=== PATIENT | female | born 1940 | race Caucasian/White ===

== ENCOUNTER → 2016-08-31 | Outpatient (CLI) | payer OTHER ==
[~2016-08-31] MED LIST: AMLO-110 PO; ASPCH81 PO; ATOR-24 PO; ISOS60TA25 PO; NTRGSL/4 UT; PRLSR20 PO
[2016-08-31 13:44] LABS: CALCIUM 9.2 mg/dl (8.5-10.1)
[2016-08-31 13:49] LABS: ALT/SGPT 30 U/L (12-78); BLOOD UREA NITROGEN 12 mg/dl (7-18); BUN/CREATININE RATIO 14.6 (10-20); CARBON DIOXIDE 27 mmol/L (21-32); CHLORIDE 108 mmol/L (98-107); CHOLESTEROL 127 mg/dl (0-200); CREATININE 0.82 mg/dl (0.60-1.20); GLUCOSE 94 mg/dl (70-99); MAGNESIUM 2.4 mg/dl (1.8-2.4); POTASSIUM 3.9 mmol/L (3.5-5.1); SODIUM 143 mmol/L (136-145); TRIGLYCERIDES 93 mg/dl (0-150); VERY LOW DENSITY LIPOPROT CALC 19 mg/dl
[2016-08-31 13:54] LABS: CHOLESTEROL/HDL RATIO 2.2; HDL CHOLESTEROL 57 mg/dl; LDL CHOLESTEROL CALCULATED 51 mg/dl
--- NOTE | 2016-09-08 12:50 | CODING QUERY MEDICAL NECESSITY ---
CQSUPPORTING DIAGNOSIS NEEDED A supporting diagnosis is required for the test/procedure performed on this patient in order for us to be reimbursed by the patient's insurance. Please provide a supporting diagnosis for the following test/procedure listed below next to the test name along with your signature. *If there is no additional diagnosis for this patient that would support the following test/procedure please document that below next to the test/procedure. Test(s)/Procedure(s) that require a supporting diagnosis: DOS 08/31/16 VITAMIN B12 Provider Signature: Date: Thank you Mayelin Blanco [employer] Once completed, please kindly fax back to [phone] For questions please call [phone]
== END | disposition home or self-care (01) ==
LOC: C.LABPBG 10:24
PROVIDERS: ATTEND Family Medicine
DX: I10 Essential (primary) hypertension (principal); E78.5 Hyperlipidemia, unspecified; R12 Heartburn

== ENCOUNTER → 2016-10-07 | Outpatient (CLI) | payer OTHER ==
[2016-10-07 17:44] LABS: URINE APPEARANCE CLOUDY (CLEAR); URINE BILIRUBIN NEG (NEG); URINE COLOR DK YELLOW; URINE NITRITE NEG (NEG); URINE SPECIFIC GRAVITY 1.026 (1.000-1.030); UROBILINOGEN NEG (NEG); ZZUR CULT IF INDIC CLEAN CATCH YES
[2016-10-07 17:58] LABS: MANUAL MICROSCOPIC REQUIRED? NO; REVIEW REQ? YES
== END | disposition home or self-care (01) ==
LOC: C.LABPBG 13:17
PROVIDERS: ATTEND Family Medicine
DX: R35.0 Frequency of micturition (principal)

== ENCOUNTER → 2016-12-13 | Outpatient (CLI) | payer OTHER ==
[2016-12-13 17:43] LABS: URINE APPEARANCE TURBID (CLEAR); URINE BILIRUBIN NEG (NEG); URINE COLOR YELLOW; URINE NITRITE NEG (NEG); URINE SPECIFIC GRAVITY 1.016 (1.000-1.030); UROBILINOGEN NEG (NEG)
[2016-12-13 17:45] LABS: MANUAL MICROSCOPIC REQUIRED? NO; REVIEW REQ? YES
[2016-12-13 17:57] LABS: URINE MUCUS PRESENT (NONE PRSENT)
== END | disposition home or self-care (01) ==
LOC: C.LABPBG 14:45
PROVIDERS: ATTEND Family Medicine
DX: R35.0 Frequency of micturition (principal)

== ENCOUNTER 2019-02-11 19:54 | Inpatient (IN) ==
[2019-02-11] MEDS ORDERED: ONDANSETRON INJ 2 MG/ML 2 ML VIAL IV STA ×2 (20:18→21:47)
--- NOTE | 2019-02-11 20:23 | Emergency Department Note ---
Entered by Ramya Hopkins acting as a scribe for Christiano Sarabia DO History of Present Illness General Chief complaint: Back Injury/Pain Stated complaint: BACK PAIN, KIDNEY STONE, NAUSEA Time Seen by Provider: 02/11/19 20:11 Source: patient and family History of Present Illness Onset (ago): day(s) 1 Location: abdomen (bilateral flank pain) Radiation: back Pain Consistency: + constant Maximum Pain Intensity: 10 Associated symptoms: + other (nausea, dry heaves, hematuria, dark urine) The patient is a 78 year old female with a PMHx pertinent for kidney stones (no stent) who presents to the Emergency Room with complaints of back and bilateral flank pain. The patient was seen in the ED 1 day ago for the same and was given Fentanyl with no relief. Today she states her left flank pain has worsened associated with nausea, dry heaves, hematuria, and dark urine. She is prescribed Oxycodone at home and took it 2-3 times today with only minor relief. She states that she is unsure if she has a fever. Additionally she reports that she did not have a bowel movement today. The patient offers no additional complaints at this time. Home Medications Home Medications Medication Instructions Recorded Confirmed Type amlodipine 5 mg tablet 5 mg PO DAILY #90 tab 09/07/18 02/11/19 Rx atorvastatin 40 mg tablet 40 mg PO DAILY #90 tab 09/07/18 02/11/19 Rx omeprazole 20 mg capsule,delayed 20 mg PO DAILY #90 cap 09/07/18 02/11/19 Rx release aspirin 81 mg tablet,delayed 81 mg PO DAILY 09/19/18 02/11/19 History release nitroglycerin 0.4 mg sublingual 0.4 mg SL UD PRN tab 09/19/18 02/11/19 History tablet triamcinolone acetonide 0.1 % See Rx Instructions TOPICAL 09/19/18 02/11/19 History topical cream .COMPLEX PRN gm isosorbide mononitrate 60 mg 90 mg PO DAILY #45 tab 11/30/18 02/11/19 Rx tablet,extended release 24 hr tamsulosin [Flomax] 0.4 mg PO DAILY PRN 02/11/19 02/11/19 History Allergies Allergy/AdvReac Type Severity Reaction Status Date / Time amitriptyline Allergy Severe causes Verified 02/11/19 20:35 facial paralysis adhesive tape Allergy Intermediate hives Verified 02/11/19 20:35 acetaminophen [From Percocet] Allergy Unknown PT CAN NOT Verified 02/11/19 20:35 VERIFY perphenazine Allergy Unknown FACIAL Verified 02/11/19 20:35 TWITCHING prochlorperazine Allergy Unknown CAN'T Verified 02/11/19 20:35 REMEMBER diazepam AdvReac Severe hallucinati Verified 02/11/19 20:35 ons oxycodone AdvReac Intermediate GI Upset Verified 02/11/19 20:35 Past Med/Surg History Medical History Hyperlipidemia Hypertension Lupus Myocardial infarction Surgical History History of cataract surgery History of colonoscopy History of esophagogastroduodenoscopy History of rotator cuff surgery History of sinus surgery Hx of appendectomy Hx of cholecystectomy Hx of hysterectomy Family History Mother Breast cancer Brother Myocardial infarction Stroke Heart disease brother had rheumatic fever that caused heart problems Grandfather Colon cancer Social History Preferred Language: Kinyarwanda marital status: Current Living Situation: Spouse Feels Safe at Home: Yes Smoking Status: Never smoker Hx Alcohol Use: No Hx Substance Use: No Dental Care, Regularly: No Physical Activity Frequency: Does not Exercise Review of Systems See HPI for pertinent positives & negatives. and A total of 10 systems reviewed and were otherwise negative Physical Exam Vital Signs Vital Signs - 24 hr 02/11/19 20:06 02/11/19 21:42 02/11/19 22:40 Temperature 36.8 C Temperature Source Oral Pulse Rate 96 H Pulse Rate [Radial] 97 H 96 H Pulse Rhythm [Radial] Regular Regular Respiratory Rate 20 17 18 Respiratory Effort / Characteristics Non-Labored Non-Labored Respiratory Depth Normal Normal Respiratory Pattern Regular Regular Regular Blood Pressure 138/79 Blood Pressure [Right Arm] 136/70 138/74 Blood Pressure Mean 98 Blood Pressure Mean [Right Arm] 92 95 Blood Pressure Position Sitting Pulse Oximetry 95 93 96 Oxygen Delivery Method Room Air Room Air Nasal Cannula Oxygen Flow Rate 2 Sepsis Recent Fever Within 48 Hours No Sepsis New/Unexplained Change in Mental Status No Sepsis Action Taken by Nursing No Action Required GENERAL: The patient is awake and alert. She is very anxious appearing and appears to be in significant pain. EYES: The conjunctivae are clear. The pupils are round and reactive. EARS, NOSE, MOUTH AND THROAT: The nose is without any evidence of any deformity. Mucous membranes are moist tongue is midline NECK: The neck is nontender and supple. RESPIRATORY: Normal respiratory effort is noted there is no evidence of wheezing rhonchi or rales CARDIOVASCULAR: Regular rate and rhythm noted there no murmurs rubs or gallops normal S1 normal S2 GASTROINTESTINAL: The abdomen is mildly distended but soft. There is no specific guarding or rigidity noted. BACK: No midline tenderness was noted. There is significant left CV angle tenderness to percussion. MUSCULOSKELETAL/EXTREMITIES: There is no evidence of gross deformity full range of motion is noted in the hips and shoulders SKIN: There is no obvious evidence of any rash. There are no petechiae, pallor or cyanosis noted. NEUROLOGIC: Patient is awake alert and oriented x3 strength is symmetric patellar reflexes are 2+ bilaterally Course Course 2019: Past medical records reviewed. The patient was evaluated in room B12B. A complete history and physical exam was performed. 2313: I contacted Dr. Genao, [facility]. I am waiting for him to call back to accept the patient for admission. Administered Medications Morphine Sulfate (Morphine Sulfate) 4 mg IV Q15M PRN PRN Reason: Pain Stop: 02/25/19 20:17 Last Admin: 02/11/19 21:41 Dose: 4 mg Documented by: [id number] Admin: 02/11/19 20:35 Dose: 4 mg Documented by: [id number] Discontinued Medications Sodium Chloride (Nss 1000ml) 1,000 mls @ 999 mls/hr IV .Q1H1M SHAWN Stop: 02/11/19 21:30 Last Infusion: 02/11/19 21:32 Dose: 0 mls/hr Documented by: [id number] Admin: 02/11/19 20:30 Dose: 999 mls/hr Documented by: [id number] Ketorolac Tromethamine (Toradol) 10 mg IV NOW ONE Stop: 02/11/19 22:24 Last Admin: 02/11/19 22:26 Dose: 10 mg Documented by: [id number] Ondansetron HCl (Zofran) 4 mg IV NOW STA Stop: 02/11/19 20:19 Last Admin: 02/11/19 20:34 Dose: 4 mg Documented by: [id number] Ondansetron HCl (Zofran) 4 mg IV NOW STA Stop: 02/11/19 21:48 Last Admin: 02/11/19 21:50 Dose: 4 mg Documented by: [id number] Impression & Plan Renal colic, Hydronephrosis of left kidney, Intractable abdominal pain Discharge Plan Visit Data Chief Complaint: Back Injury/Pain Stated Complaint: BACK PAIN, KIDNEY STONE, NAUSEA ED Provider: Christiano Sarabia Discharge Problem: Renal colic, Hydronephrosis of left kidney, Intractable abdominal pain Patient Disposition: Being Evaluated by Hospitalist Forms Stand Alone Forms: My [facility] [place] [employer] Prescriptions Prescriptions: No Action atorvastatin 40 mg tablet 40 mg PO DAILY Qty: 90 RF: 1 amlodipine 5 mg tablet 5 mg PO DAILY Qty: 90 RF: 1 omeprazole 20 mg capsule,delayed release(DR/EC) 20 mg PO DAILY Qty: 90 RF: 1 isosorbide mononitrate 60 mg tablet extended release 24 hr 90 mg PO DAILY Qty: 45 RF: 5 nitroglycerin 0.4 mg tablet, sublingual 0.4 mg SL UD PRN (Reason: Chest Pain) RF: 0 aspirin [Adult Aspirin Regimen] 81 mg tablet,delayed release (DR/EC) 81 mg PO DAILY RF: 0 triamcinolone acetonide 0.1 % cream See Rx Instructions topical .COMPLEX PRN (Reason: WHEN NEEDED) RF: 0 tamsulosin [Flomax] 0.4 mg capsule 0.4 mg PO DAILY PRN (Reason: WHEN NEEDED) RF: 0 Referrals Referrals: Verena Lara MD [Primary Care Provider] - Medical Decision Making Differential Diagnosis Differential diagnosis includes but is not limited to etiologies such as renal colic, appendicitis, diverticulitis, mesenteric ischemia, aortic pathology, infections, inflammatory bowel disease, PUD, biliary pathology, UTI, as well as others were entertained. Medical Records Attestation: I reviewed the patient's medical records. Home Medications Current Medication List: was personally reviewed by me Laboratory Data Attestation: I reviewed the patient's lab results. Result diagrams: 02/11/19 20:30 02/11/19 20:30 Lab Results 11/17/19 11/17/19 11/17/19 Range/Units 20:30 20:30 21:43 WBC 3.58 L (4.8-10.8) K/uL RBC 4.40 (4.2-5.4) M/uL Hgb 13.6 (12.0-16.0) g/dL Hct 39.4 (37-47) % MCV 89.5 (80-100) fL MCH 30.9 (25-34) pg MCHC 34.5 (32-36) g/dL RDW Std Deviation 43.0 (36.4-46.3) fL RDW Coeff of Hanas 13.2 (11.5-14.5) % Plt Count 172 (130-400) K/uL MPV 9.0 (7.4-10.4) fL Immature Gran % (Auto) 0.3 % Neut % (Auto) 55.8 % Lymph % (Auto) 28.2 % [place] % (Auto) 14.0 % Eos % (Auto) 1.4 % Baso % (Auto) 0.3 % Immature Gran # (Auto) 0.01 (0.00-0.02) K/uL Neut # (Auto) 2.00 (1.4-6.5) K/uL Lymph # (Auto) 1.01 L (1.2-3.4) K/uL [place] # (Auto) 0.50 (0.11-0.59) K/uL Eos # (Auto) 0.05 (0-0.5) K/uL Baso # (Auto) 0.01 (0-0.2) K/uL Sodium 140 (136-145) mmol/L Potassium 3.7 (3.5-5.1) mmol/L Chloride 108 H (98-107) mmol/L Carbon Dioxide 24 (21-32) mmol/L Anion Gap 8.0 (3-11) BUN 12 (7-18) mg/dl Creatinine 0.73 (0.6-1.2) mg/dl Est Cr Clr Drug Dosing 57.9 ml/min Est GFR ( Amer) 92.1 Est GFR (Non-Af Amer) 79.4 BUN/Creatinine Ratio 15.8 (10-20) Glucose 122 H (70-99) mg/dl Calcium 9.7 (8.5-10.1) mg/dl Total Bilirubin 1.4 H (0.2-1) mg/dl AST 21 (15-37) U/L ALT 22 (12-78) U/L Alkaline Phosphatase 125 H (45-117) U/L Total Protein 6.5 (6.4-8.2) gm/dl Albumin 3.6 (3.4-5.0) gm/dl Globulin 2.9 (2.5-4.0) gm/dl Albumin/Globulin Ratio 1.2 (0.9-2) Lipase 104 (73-393) U/L Urine Color Yellow Urine Appearance Clear (Clear) Urine pH 5.0 (4.5-7.5) Ur Specific [place] >= 1.030 (1.000-1.030) Urine Protein 1+ H (Negative) Urine Glucose (UA) Negative (Negative) Urine Ketones Negative (Negative) Urine Blood 3+ H (Negative) Urine Nitrite Negative (Negative) Urine Bilirubin Negative (Negative) Urine Urobilinogen Negative (Negative) Ur Leukocyte Esterase Negative (Negative) Urine RBC >30 H (0-4) /hpf Urine WBC 5-10 H (0-5) /hpf Ur Epithelial Cells >30 H (0-5) /lpf Calcium Oxalate Crystal Present A (None Prsent) Urine Bacteria Negative (Negative) Urine Mucus Present A (None Prsent) Imaging Data Radiologist's Impression: Radiology results as stated below per my review and the radiologist's interpretation: KUB HISTORY: left flank pain COMPARISON: Abdomen and pelvis CT 02/11/2019. FINDINGS: The bowel gas pattern is unremarkable. There are no dilated loops of small bowel to suggest an obstruction. There are 4 adjacent stones within the mid left ureter at the level of the left L4 transverse process. Each stone dennis ures approximately 3 mm in size. No renal calculi identified. No pneumoperitoneum or pneumatosis. IMPRESSION: No change in the mid left ureteral stones. Electronically signed by: Alin Edwards M.D. 02/11/2019 9:05 PM Blood Pressure Blood Pressure Findings: Elevated blood pressure Blood Pressure Disposition: elevated BP felt to be situational MDM Narrative The patient is a 78-year-old female who presented to the emergency department for an evaluation of abdominal pain and left flank pain. The patient was seen in our facility recently with similar complaints. She was treated with pain medication and her CAT scan revealed a large ureteral calculus with resultant hydronephrosis. The patient was feeling much better and was allowed to be discharged home with follow-up with her primary care physician. The patient had very severe return of pain today and return to the emergency department for further evaluation. The patient was treated with IV pain medication in the emergency department. She was treated with IV fluids. She was reevaluated multiple times. She continues to have very significant pain and even required oxygen because of the amount of pain medication she received in the emergency department. For this reason I discussed her case with the on-call [facility] hospitalist group. They have agreed to evaluate the patient in the emergency department for further management disposition. The scribe's documentation has been prepared under my direction and personally reviewed by me in its entirety. I confirm that the note above accurately reflects all work, treatment, procedures, and medical decision making performed by me.
[2019-02-11] MEDS ORDERED: SODIUM CHLORIDE 0.9% 1000ML 1,000 ML IV SCH (20:30)
[2019-02-11] MEDS: MoRPHine SULFATE 4 MG/ML 1 ML CARP\\VIAL IV PRN ×2 (20:35→21:41)
[2019-02-11 20:36] LABS: Basophils # (auto) 0.01 K/uL (0-0.2); Basophils % (auto) 0.3 %; Eosinophils # (auto) 0.05 K/uL (0-0.5); Eosinophils % (auto) 1.4 %; Hematocrit (blood only) 39.4 % (37-47); Hemoglobin 13.6 g/dL (12.0-16.0); Immature Granulocytes # (auto) 0.01 K/uL (0.00-0.02); Immature Granulocytes % (auto) 0.3 %; Lymphocytes # (auto) 1.01 K/uL (1.2-3.4); Lymphocytes % (auto) 28.2 %; Mean Corpuscular Hemoglobin 30.9 pg (25-34); Mean Corpuscular Hgb Conc 34.5 g/dL (32-36); Mean Corpuscular Volume 89.5 fL (80-100); Neutrophils % (auto) 55.8 %; Platelet Count 172 K/uL (130-400); RDW Coefficient of Variation 13.2 % (11.5-14.5); White Blood Count 3.58 K/uL (4.8-10.8)
--- NOTE | 2019-02-11 21:07 | XRay Report ---
KUB HISTORY: left flank pain COMPARISON: Abdomen and pelvis CT 02/11/2019. FINDINGS: The bowel gas pattern is unremarkable. There are no dilated loops of small bowel to suggest an obstruction. There are 4 adjacent stones within the mid left ureter at the level of the left L4 transverse process. Each stone measures approximately 3 mm in size. No renal calculi identified. No p neumoperitoneum or pneumatosis. IMPRESSION: No change in the mid left ureteral stones. Electronically signed by: Alin Edwards M.D. 02/11/2019 9:05 PM
[2019-02-11 21:12] LABS: Albumin Level 3.6 gm/dl (3.4-5.0); BUN Creatinine Ratio 15.8 (10-20); Calcium 9.7 mg/dl (8.5-10.1); Creatinine Clr Calc Pharmacy 57.9 ml/min; Est GFR (African American) 92.1; Est GFR (Non-African American) 79.4; Potassium 3.7 mmol/L (3.5-5.1)
[2019-02-11 21:15] LABS: Albumin Globulin Ratio 1.2 (0.9-2); Bilirubin,Total 1.4 mg/dl (0.2-1); Globulin 2.9 gm/dl (2.5-4.0); Total Protein 6.5 gm/dl (6.4-8.2)
[2019-02-11] MEDS ORDERED: KETOROLAC TROMETHAMINE 15 MG/ML VIAL IV ONE (22:23)
[2019-02-11 22:24] LABS: Appearance Urine Clear (Clear); Blood Urine 3+ (Negative); Color Urine Yellow; Glucose Urine UA Negative (Negative); Ketones Urine Negative (Negative); Leukocyte Esterase Urine Negative (Negative); Nitrite Urine Negative (Negative); Protein Urine 1+ (Negative); Specific Gravity Urine >= 1.030 (1.000-1.030); Urobilinogen Urine Negative (Negative)
[2019-02-11 22:31] LABS: Bilirubin Urine Negative (Negative); Ictotest Urine Negative (Negative)
[2019-02-11 22:32] LABS: Epithelial Cell Urine >30 /lpf (0-5)
[2019-02-11 22:33] LABS: RBC Urine >30 /hpf (0-4)
[2019-02-11 22:36] LABS: Bacteria Urine Negative (Negative)
[2019-02-11 22:37] LABS: Calcium Oxalate Crystals Urine Present (None Prsent); Mucus Urine Present (None Prsent)
[2019-02-12] MEDS ORDERED: PROMETHAZINE 12.5 MG/50.5 ML BAG IV STA (00:06)
[2019-02-12] MEDS ORDERED: PROMETHAZINE 12.5 MG/50.5 ML NSS IV ONE (00:12)
--- NOTE | 2019-02-12 00:17 | History & Physical Report ---
Date of Service February 12, 2019 Assessment & Plan (1) Hypertension: (2) Calculus of left ureter: (3) Hydroureteronephrosis: 78yoF with hx of HTN, HLD, NSTEMI in 2009, CAD, lupus and GERD presents with worsening renal colic x 7 days. Found to have L ureteral calculi and hydroureteronephrosis L ureteral calculi and Hydroureteronephorosis No WBC elevation, afebrile CT abdomen 02/10: Mild left-sided hydroureteronephrosis secondary to a bilobed or two subadjacent ureteral calculi of the left ureter at the level of L3-L4 overall measuring 5 x 3 x 11 mm. Nonobstructing left nephrolithiasis. KUB today: No change in the mid left ureteral stones Toradol and Dilaudid as needed for pain control Zofran as needed for nausea Started on Rocephin Tamsulosin 0.4 mg daily Urology consulted N.p.o. after midnight for possible procedure, on IV fluids Hypertension/CAD/hyperlipidemia Continue home amlodipine, isosorbide mononitrate, atorvastatin, aspirin GERD Continue home omeprazole FEN/GI: N.p.o. on IV fluids DVT prophylaxis: SCDs only, chemical withheld in the setting of potential surgery Code: Full Disposition: MedSurg (4) Hyperlipidemia: (5) Lupus: History of Present Illness Chief Complaint: Renal Colic Primary Care Provider: Verena Lara MD 78yoF with hx of HTN, HLD, NSTEMI in 2009, CAD, lupus presents with worsening renal colic x 7 days. Patient presented to the ED yesterday and was discharged with home oxycodone and tamsulosin. Today patient had worsening pain not relieved with prescribed medication. Having constant L sided flank and abdominal pain, cramping in nature and 10/10. Associated with dark tea colored urine, suprapubic, RLQ and LLQ abdominal pain, chills, nausea, vomiting now, and dizziness. Pt is not sure if she has had a fever. Denies any dysuria, or increased urinary frequency. Denies any cp, sob, headache, diarrhea, hematochezia, and melena. Allergies Allergy/AdvReac Type Severity Reaction Status Date / Time amitriptyline Allergy Severe causes Verified 02/11/19 20:35 facial paralysis adhesive tape Allergy Intermediate hives Verified 02/11/19 20:35 acetaminophen [From Percocet] Allergy Unknown PT CAN NOT Verified 02/11/19 20:35 VERIFY perphenazine Allergy Unknown FACIAL Verified 02/11/19 20:35 TWITCHING prochlorperazine Allergy Unknown CAN'T Verified 02/11/19 20:35 REMEMBER diazepam AdvReac Severe hallucinati Verified 02/11/19 20:35 ons oxycodone AdvReac Intermediate GI Upset Verified 02/11/19 20:35 Home Medications Home Medications Medication Instructions Recorded Confirmed Type amlodipine 5 mg tablet 5 mg PO DAILY #90 tab 09/07/18 02/11/19 Rx atorvastatin 40 mg tablet 40 mg PO DAILY #90 tab 09/07/18 02/11/19 Rx omeprazole 20 mg capsule,delayed 20 mg PO DAILY #90 cap 09/07/18 02/11/19 Rx release aspirin 81 mg tablet,delayed 81 mg PO DAILY 09/19/18 02/11/19 History release nitroglycerin 0.4 mg sublingual 0.4 mg SL UD PRN tab 09/19/18 02/11/19 History tablet triamcinolone acetonide 0.1 % See Rx Instructions TOPICAL 09/19/18 02/11/19 History topical cream .COMPLEX PRN gm isosorbide mononitrate 60 mg 90 mg PO DAILY #45 tab 11/30/18 02/11/19 Rx tablet,extended release 24 hr tamsulosin [Flomax] 0.4 mg PO DAILY PRN 02/11/19 02/11/19 History Past Med/Surg History Medical History Hyperlipidemia Hypertension Lupus Myocardial infarction Surgical History History of cataract surgery History of colonoscopy History of esophagogastroduodenoscopy History of rotator cuff surgery History of sinus surgery Hx of appendectomy Hx of cholecystectomy Hx of hysterectomy Family History Mother Breast cancer Brother Myocardial infarction Stroke Heart disease brother had rheumatic fever that caused heart problems Grandfather Colon cancer Social History Preferred Language: Chinese Communication Ability: Effective Infrastructure Architect Required: No Beliefs That Will Affect Care: None marital status: Current Living Situation: Spouse Feels Safe at Home: Yes Safety Concerns: Feels Safe At This Time Smoking Status: Never smoker Hx Alcohol Use: No Hx Substance Use: No Dental Care, Regularly: No Physical Activity Frequency: Does not Exercise Review of Systems Review of Systems: As per HPI Physical Exam Physical Exam: General: In mild distress HEENT: dry oral mucosa Neuro: A&O x 4 Pulm: CTAB equal breath sounds bilaterally CV: RRR, no m/r/g, cap refill 3 secs Abdomen:+BS, LLQ, suprapubic and RLQ TTP, non-distended Back: L sided CVA tenderness to percussion LE: no LE edema, no calf TTP Results & Data Vital Signs (Past 12 Hours) Vital Signs Temp Pulse Pulse Resp BP BP Pulse Ox 02/11/19 23:51 95 02/11/19 22:40 96 H 18 138/74 96 02/11/19 21:42 97 H 17 136/70 93 02/11/19 20:06 36.8 C 96 H 20 138/79 95 Laboratory Results Abnormal lab results 02/11/19 02/11/19 02/11/19 Range/Units 20:30 20:30 21:43 WBC 3.58 L (4.8-10.8) K/uL Lymph # (Auto) 1.01 L (1.2-3.4) K/uL Chloride 108 H (98-107) mmol/L Glucose 122 H (70-99) mg/dl Total Bilirubin 1.4 H (0.2-1) mg/dl Alkaline Phosphatase 125 H (45-117) U/L Urine Protein 1+ H (Negative) Urine Blood 3+ H (Negative) Urine RBC >30 H (0-4) /hpf Urine WBC 5-10 H (0-5) /hpf Ur Epithelial Cells >30 H (0-5) /lpf Calcium Oxalate Crystal Present A (None Prsent) Urine Mucus Present A (None Prsent) Diagnostic Findings KUB HISTORY: left flank pain COMPARISON: Abdomen and pelvis CT 02/11/2019. FINDINGS: The bowel gas pattern is unremarkable. There are no dilated loops of small bowel to suggest an obstruction. There are 4 adjacent stones within the mid left ureter at the level of the left L4 transverse process. Each stone measures approximately 3 mm in size. No renal calculi identified. No pneumoperitoneum or pneumatosis. IMPRESSION: No change in the mid left ureteral stones. Code Status & VTE Plan Code Status Full Code per discussion with patient and daughter VTE Prophylaxis Plan VTE Prophylaxis will be ordered: Yes Supervising Physician Co-Signing Physician Notes Attending addendum: I have physically seen this patient, have supervised the medical residents activities, and agree with the H&P unless as otherwise noted. Assessment and Plan: Left ureteral calculi x4, with hydroureteronephrosis- NPO IV fluids Ceftriaxone 1 g IV daily Zofran 4 mg IV every 6 hours as needed Toradol IV as needed moderate pain. Dilaudid IV as needed severe pain. Consult urology Remainder of orders and notations as noted Resident Activity Tracking Resident Involvement: Resident Care Provided Care Provided: Adult Hospital Medicine
[2019-02-12] MEDS ORDERED: TRIAMCINOLONE ACET 0.1% CR 15 GM TUBE TOP PRN (00:55)
[2019-02-12] MEDS ORDERED: ONDANSETRON INJ 2 MG/ML 2 ML VIAL IV PRN ×2 (00:55→15:17)
[2019-02-12] MEDS ORDERED: HYDROmorphone INJ 0.5 MG/0.5 ML SYR IV PRN (00:55)
[2019-02-12] MEDS ORDERED: NITROGLYCERIN SL 0.4 MG/TAB TAB SL PRN (00:55)
[2019-02-12] MEDS: LACTATED RINGER'S 1,000 ML IV SCH ×3 (01:20→18:09)
[2019-02-12] MEDS ORDERED: cefTRIAXone SODIUM 1,000 MG in DEXTROSE 5% 50 ML IV SCH (02:00)
[2019-02-12] MEDS: KETOROLAC TROMETHAMINE 15 MG/ML VIAL IV PRN ×2 (02:27→08:31)
--- NOTE | 2019-02-12 03:57 | Billing Data ---
Coding Level of Care Code 30590 Initial Inpt Care Lvl 2
[2019-02-12] MEDS: ISOSORBIDE MONO EXTENDED REL 60 MG TABCR PO SCH (08:00)
[2019-02-12] MEDS: PANTOprazole 40 MG TAB PO SCH (08:01)
[2019-02-12] MEDS: ATORVASTATIN 40 MG TAB PO SCH (08:01)
[2019-02-12] MEDS: AMLODIPINE BESYLATE 5 MG TAB PO SCH (08:01)
[2019-02-12] MEDS: TAMSULOSIN HCL 0.4 MG CAP PO SCH (08:01)
[2019-02-12] MEDS: POLYETHYLENE (MIRALAX) 17 GM PACK PO SCH (08:02)
--- NOTE | 2019-02-12 08:19 | Medical Student H&P ---
Date of Service February 12, 2019 Assessment & Plan (1) Hypertension: continue amlodipine 5mg QID (2) Myocardial infarction: continue aspirin 81mg QID, isosorbide mononitrate 90mg QID, nitroglycerin, 0.4mg PRN (3) Hyperlipidemia: continue atorvastatin 40mg QID (4) Heartburn: continue omeprazole 20mg QID (5) Hydronephrosis of left kidney: * strain urine and bring in any stone that passes for analysis * Tamsulosin: 0.4 mg once daily until stone passage occurs or for up to 4 weeks * indications for urology consult: nausea, vomiting, have not passed stone after four to six weeks would need lithotripsy * lifestyle modifications: better hydration, reduced nuts, avoid wheat bran, decrease salt intake, reduced animal protein intake, increase calcium intake through foods or supplement (6) Renal colic: (7) Calculus of left ureter: (8) Dehydration: two liters per day of one-half isotonic saline in 5 percent dextrose, 20 mEq potassium chloride added per liter (9) Abdominal pain: intravenous morphine (5 mg) and ketorolac (15 mg), stopped ketorolac three days before anticipated lithotripsy (10) Hydroureteronephrosis: (11) Nausea and vomiting: Ondansetron/zofran: 4 mg IV two to four times per day History of Present Illness Chief Complaint: back pain Primary Care Provider: eVrena Lara MD Ms. Lyssa Gonsales is a 78y/o female with a past medical history of HLD, HTN, Lupus, [place] (2010), appendectomy, cholecystectomy, total hysterectomy and bilateral salpingo-oophorectomy, hx of right side kidney stones "many years ago" who presented to the hospital Friday 02/09 evening with back pain and pain in the lower areas of her abdomen. XR at the time confirmed nephrolithiasis and she was sent home with pain medications. She returned to the hospital yesterday 02/11 evening because the pain medication did not help her pain and the pain wo rsened. Pt describes pain to increase with any movement, stabbing pain in her back and lower abdomen, and states she feels pain mostly on the left side but at times also on the right. Pt states she had dark urine, without dysuria or burning. Pt states she feel the need to urinate more often but not much comes out. Pt states this pain is much worse than the kidney stones she naturally passed "many years ago". Pt states she has had some chills but no fever, some nausea, and has had some green emesis at times. Pt states her abdomen feels bloated and feels generalized pain all over her abdomen. Pt states she is still in constant pain, which improves with pain medication but does not resolve completely, only becomes a dull pain, and sharp pain returns as the medications wear off. Pt states she has not had a bowel movement since Tuesday, which she believes is because of the pain medications. Pt states she does not think she has passed any stones yet. Allergies Allergy/AdvReac Type Severity Reaction Status Date / Time amitriptyline Allergy Severe causes Verified 02/11/19 20:35 facial paralysis adhesive tape Allergy Intermediate hives Verified 02/11/19 20:35 acetaminophen [From Percocet] Allergy Unknown PT CAN NOT Verified 02/11/19 20:35 VERIFY perphenazine Allergy Unknown FACIAL Verified 02/11/19 20:35 TWITCHING prochlorperazine Allergy Unknown CAN'T Verified 02/11/19 20:35 REMEMBER diazepam AdvReac Severe hallucinati Verified 02/11/19 20:35 ons oxycodone AdvReac Intermediate GI Upset Verified 02/11/19 20:35 Home Medications Home Medications Medication Instructions Recorded Confirmed Type amlodipine 5 mg tablet 5 mg PO DAILY #90 tab 09/07/18 02/11/19 Rx atorvastatin 40 mg tablet 40 mg PO DAILY #90 tab 09/07/18 02/11/19 Rx omeprazole 20 mg capsule,delayed 20 mg PO DAILY #90 cap 09/07/18 02/11/19 Rx release aspirin 81 mg tablet,delayed 81 mg PO DAILY 09/19/18 02/11/19 History release nitroglycerin 0.4 mg sublingual 0.4 mg SL UD PRN tab 09/19/18 02/11/19 History tablet triamcinolone acetonide 0.1 % See Rx Instructions TOPICAL 09/19/18 02/11/19 History topical cream .COMPLEX PRN gm isosorbide mononitrate 60 mg 90 mg PO DAILY #45 tab 11/30/18 02/11/19 Rx tablet,extended release 24 hr tamsulosin [Flomax] 0.4 mg PO DAILY PRN 02/11/19 02/11/19 History Past Med/Surg History Medical History Hyperlipidemia Hypertension Lupus Myocardial infarction Surgical History History of cataract surgery History of colonoscopy History of esophagogastroduodenoscopy History of rotator cuff surgery History of sinus surgery Hx of appendectomy Hx of cholecystectomy Hx of hysterectomy Family History Mother Breast cancer Brother Myocardial infarction Stroke Heart disease brother had rheumatic fever that caused heart problems Grandfather Colon cancer Social History Preferred Language: Turkmen Communication Ability: Effective 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 Beliefs That Will Affect Care: None marital status: Current Living Situation: Spouse Feels Safe at Home: Yes Safety Concerns: Feels Safe At This Time Smoking Status: Never smoker Hx Alcohol Use: No Hx Substance Use: No Dental Care, Regularly: No Physical Activity Frequency: Does not Exercise Review of Systems as per Subjective / HPI + dry mouth no dyspnea, no dyspnea on exertion and no pain on inspiration + edema; no chest pain, no dyspnea and no palpitations Additional Comments: peripheral edema sometimes at the end of the day, ort hostatic hypotension as per Subjective / HPI; no coffee ground emesis Pt reports she has some dark stool at times as per Subjective / HPI as per Subjective / HPI + dizziness; no headache(s) + easy bruising Physical Exam Constitutional: well developed and well nourished; no acute distress and + uncomfortable uncomfortable due to pain Eyes: + anicteric sclerae; no conjunctival abnormality ENMT: Mouth: + dry oral mucous membranes Respiratory: normal respiratory effort, lungs clear to auscultation Cardiovascular: RRR, no murmur, no edema Vessels: dorsalis pedis pulses present, radial pulses present and popliteal pulses present Gastrointestinal (Abdomen): Inspection/Auscultation: abdomen normal to inspection, + abdomen distended, normal bowel sounds and + abdominal surgical scar Percussion/Palpation: + abdomen tender (TTP in RLQ and LLQ, LLQ more than RLQ), + guarding and abdomen soft Musculoskeletal: Spine: no lumbar spinal tenderness and no sacral tenderness Skin: no rashes, warm and dry Genitourinary: + CVA tenderness (Left) Results & Data Vital Signs (Past 12 Hours) Vital Signs Temp Pulse Pulse Pulse Resp BP BP 02/12/19 07:44 36.7 C 60 16 140/70 02/12/19 01:59 130/72 02/12/19 00:51 36.8 C 95 H 16 147/100 H 02/12/19 00:44 72 18 138/74 02/11/19 23:51 02/11/19 22:40 96 H 18 138/74 02/11/19 21:42 97 H 17 136/70 02/11/19 20:06 36.8 C 96 H 20 138/79 Pulse Ox 02/12/19 07:44 97 02/12/19 01:59 02/12/19 00:51 93 02/12/19 00:44 94 02/11/19 23:51 95 02/11/19 22:40 96 02/11/19 21:42 93 02/11/19 20:06 95 Laboratory Results chloride elevated: 108 glucose elevated: 122 total bili elevated: 1.4 alk phos elevated: 125 urine protein: 1+ urine blood: 3+ urine RBC present >30 urine WBC present: 5-10 urine epithelial cells present >30 BUN trend down: 12 (normal) Cr trend down: 0.73 (normal) BUN/Cr: 15.8 (normal) calcium oxalate present in urine no bacteria urine mucus present Diagnostic Findings KUB: no bowel obstruction, 4 stones in left ureter each approx. 3mm, no renal calculi Abd. CT: hydroureteronephrosis secondary to stones, no bowel obstruction, diverticulosis present urine culture pending Code Status & VTE Plan VTE Prophylaxis Plan VTE Prophylaxis will be ordered: Yes
[2019-02-12] MEDS ORDERED: ASPIRIN 81 MG ECTAB PO SCH (09:00)
--- NOTE | 2019-02-12 09:33 | Medical Student Progress Note ---
Date of Service February 12, 2019 Assessment & Plan (1) Hydronephrosis of left kidney: 78 y/o female with PMHX of HLD, HTN, [place] with hydroureteronephrosis secondary to left nephrolithiasis, confirmed on KUB and pelvic CT Obstructive uropathy - Hydronephrosis of left kidney * strain urine and bring in any stone that passes for analysis * Tamsulosin: 0.4 mg PO DAILY until stone passage occurs or for up to 4 weeks * lifestyle modifications: better hydration, reduced nuts, avoid wheat bran, decrease salt intake, reduced animal protein intake, increase calcium intake through foods or supplement * Ceftriaxone: 1000mg in Dextrose 50mls @ 100mls/hr IV Q24H * Urology consulted and scheduled for Ureteral Stent Insertion 02/12 * NPO: Lactated Ringer's 1000mls @ 125mls/hr IV Q8H Flank pain * dilaudid 0.25mg IV Q6H PRN * toradol 15mg IV Q6H PRN * stop ketorolac three days if need lithotripsy * constipation: 17 gm Miralax DAILY Nausea/vomiting Ondansetron/zofran: 4 mg IV two to four times per day HTN continue amlodipine 5mg DAILY CAD with h/o AR isosorbide mononitrate 90mg DAILY, nitroglycerin, 0.4mg PRN HOLD: aspirin 81mg DAILY until after ureteral stent insertion HLD continue atorvastatin 40mg DAILY GERD continue pantoprazole 20mg DAILY FEN/GI: NPO on IV fluids DVT prophylaxis: SCDs only, chemical withheld in the setting of potential surgery Code: Full Disposition: MedSurg (2) Abdominal pain: (3) Nausea and vomiting: (4) Hydroureteronephrosis: (5) Calculus of left ureter: (6) Renal colic: (7) Hypertension: (8) Myocardial infarction: (9) Hyperlipidemia: (10) GERD (gastroesophageal reflux disease): Supervising Attestation Medical student Supervision Note: I independently interviewed and examined the patient and verified the zuniga history and physical, reviewed labs and image studies, discussed the case with the medical student Floyd Rodriguez and agree with the findings and care plan. Having lot of flank pain. desperate to get the stones moved o/e = in mild distress heart - regular rhythm, rate. lungs - cta, b/l seen by urology - for stent placement continue pain control. Subjective CC: back pain Ms. Lyssa Gonsales is a 78y/o female with a past medical history of HLD, HTN, Lupus, [place] (2010), appendectomy, cholecystectomy, total hysterectomy and bilateral salpingo-oophorectomy, hx of right side kidney stones "many years ago" who presented to the hospital Friday 02/09 evening with back pain and pain in the lower areas of her abdomen. XR at the time confirmed nephrolithiasis and she was sent home with pain medications. She returned to the hospital yesterday 02/11 evening because the pain medication did not help her pain and the pain worsened. Pt describes pain to increase with any movement, stabbing pain in her back and lower abdomen, and states she feels pain mostly on the left side but at times also on the right. Pt states she had dark urine, without dysuria or burning. Pt states she feel the need to urinate more often but not much comes out. Pt states this pain is much worse than the kidney stones she naturally passed "many years ago". Pt states she has had some chills but no fever, some nausea, and has had some green emesis at times. Pt states her abdomen feels bloated and feels generalized pain all over her abdomen. Pt states she is still in constant pain, which improves with pain medication but does not resolve completely, only becomes a dull pain, and sharp pain returns as the medications wear off. Pt states she has not had a bowel movement since Tuesday, which she believes is because of the pain medications. Pt states she does not think she has passed any stones yet. Review of Systems Constitutional: as per Subjective / HPI and + chills; no fever Respiratory: no dyspnea, no dyspnea on exertion and no pain on inspiration Cardiovascular: + edema; no chest pain and no dyspnea Additional Comments: orthostatic hypotension, peripheral edema sometimes at the end of the day Gastrointestinal: as per Subjective / HPI; no coffee ground emesis pt state she has dark colored stool sometimes Genitourinary: as per Subjective / HPI Musculoskeletal: as per Subjective / HPI Hematologic / Lymphatic: + easy bruising Physical Exam Constitutional: well developed and well nourished; no acute distress and + uncomfortable uncomfortable due to pain Eyes: + anicteric sclerae; no conjunctival abnormality ENMT: Mouth: + dry oral mucous membranes Respiratory: normal respiratory effort, lungs clear to auscultation Cardiovascular: RRR, no murmur, no edema Vessels: dorsalis pedis pulses present, radial pulses present and popliteal pulses present Extremities: no edema Gastrointestinal (Abdomen): Inspection/Auscultation: abdomen normal to inspection, + abdomen distended, normal bowel sounds and + abdominal surgical scar Percussion/Palpation: + abdomen tender, + guarding and abdomen soft TTP in RLQ and LLQ, LLQ more than RLQ Musculoskeletal: Spine: no lumbar spinal tenderness and no sacral tenderness Skin: no rashes, warm and dry Results & Data Vital Signs (Past 12 Hours) Vital Signs Temp Pulse Pulse Pulse Resp BP BP 02/12/19 07:44 36.7 C 60 16 140/70 02/12/19 01:59 130/72 02/12/19 00:51 36.8 C 95 H 16 147/100 H 02/12/19 00:44 72 18 138/74 02/11/19 23:51 02/11/19 22:40 96 H 18 138/74 02/11/19 21:42 97 H 17 136/70 Pulse Ox 02/12/19 07:44 97 02/12/19 01:59 02/12/19 00:51 93 02/12/19 00:44 94 02/11/19 23:51 95 02/11/19 22:40 96 02/11/19 21:42 93 Laboratory Results chloride elevated: 108 glucose elevated: 122 total bili elevated: 1.4 alk phos elevated: 125 urine protein: 1+ urine blood: 3+ urine RBC present >30 urine WBC present: 5-10 urine epithelial cells present >30 BUN trend down: 12 (normal) Cr trend down: 0.73 (normal) BUN/Cr: 15.8 (normal) calcium oxalate present in urine no bacteria urine mucus present Diagnostic Findings KUB: no bowel obstruction, 4 stones in left ureter each approx. 3mm, no renal calculi Abd. CT: hydroureteronephrosis secondary to stones, no bowel obstruction, diverticulosis present urine culture pending
--- NOTE | 2019-02-12 11:12 | Urology Consultation ---
Date of Consultation February 12, 2019 Assessment & Plan (1) Calculus of left ureter: Assessment Left flank pain secondary to mid left ureteral stones Patient continues to have fairly significant discomfort so we will plan on going to the operating room for a left stent placement today Procedure risks and benefits discussed as per the consent History of Present Illness Attending Physician: Caity Arizmendi MD History of Present Illness Patient is a 78-year-old white female admitted with left flank pain. She has had no fevers or chills No current nausea or vomiting. She thinks she may have had a stone in the past Allergies Allergy/AdvReac Type Severity Reaction Status Date / Time amitriptyline Allergy Severe causes Verified 02/11/19 20:35 facial paralysis adhesive tape Allergy Intermediate hives Verified 02/11/19 20:35 acetaminophen [From Percocet] Allergy Unknown PT CAN NOT Verified 02/11/19 20:35 VERIFY perphenazine Allergy Unknown FACIAL Verified 02/11/19 20:35 TWITCHING prochlorperazine Allergy Unknown CAN'T Verified 02/11/19 20:35 REMEMBER diazepam AdvReac Severe hallucinati Verified 02/11/19 20:35 ons oxycodone AdvReac Intermediate GI Upset Verified 02/11/19 20:35 Home Medications Home Medications Medication Instructions Recorded Confirmed Type amlodipine 5 mg tablet 5 mg PO DAILY #90 tab 09/07/18 02/11/19 Rx atorvastatin 40 mg tablet 40 mg PO DAILY #90 tab 09/07/18 02/11/19 Rx omeprazole 20 mg capsule,delayed 20 mg PO DAILY #90 cap 09/07/18 02/11/19 Rx release aspirin 81 mg tablet,delayed 81 mg PO DAILY 09/19/18 02/11/19 History release nitroglycerin 0.4 mg sublingual 0.4 mg SL UD PRN tab 09/19/18 02/11/19 History tablet triamcinolone acetonide 0.1 % See Rx Instructions TOPICAL 09/19/18 02/11/19 History topical cream .COMPLEX PRN gm isosorbide mononitrate 60 mg 90 mg PO DAILY #45 tab 11/30/18 02/11/19 Rx tablet,extended release 24 hr tamsulosin [Flomax] 0.4 mg PO DAILY PRN 02/11/19 02/11/19 History Patient History Medical History Hyperlipidemia Hypertension Lupus Myocardial infarction Surgical History History of cataract surgery History of colonoscopy History of esophagogastroduodenoscopy History of rotator cuff surgery History of sinus surgery Hx of appendectomy Hx of cholecystectomy Hx of hysterectomy Family History Mother Breast cancer Brother Myocardial infarction Stroke Heart disease brother had rheumatic fever that caused heart problems Grandfather Colon cancer Social History Preferred Language: Venezuelan Communication Ability: Effective 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 Beliefs That Will Affect Care: None marital status: Current Living Situation: Spouse Feels Safe at Home: Yes Safety Concerns: Feels Safe At This Time Smoking Status: Never smoker Hx Alcohol Use: No Hx Substance Use: No Dental Care, Regularly: No Physical Activity Frequency: Does not Exercise Physical Exam Physical Exam: Well-developed well-nourished white female in moderate distress Neurologically she is alert and oriented x3 Lungs are clear to auscultation Cardiac shows a regular rate and rhythm without murmur Abdomen soft tender in the left mid quadrant there are no masses Extremities without calf pain or edema Results & Data Vital Signs (Past 12 Hours) Vital Signs Temp Pulse Pulse Pulse Resp BP BP 02/12/19 07:44 36.7 C 60 16 140/70 02/12/19 01:59 130/72 02/12/19 00:51 36.8 C 95 H 16 147/100 H 02/12/19 00:44 72 18 138/74 02/11/19 23:51 Pulse Ox 02/12/19 07:44 97 02/12/19 01:59 02/12/19 00:51 93 02/12/19 00:44 94 02/11/19 23:51 95 Laboratory Results Laboratory Results - last 24 hr 02/11/19 02/11/19 02/11/19 20:30 20:30 21:43 WBC 3.58 L RBC 4.40 Hgb 13.6 Hct 39.4 MCV 89.5 MCH 30.9 MCHC 34.5 RDW Std Deviation 43.0 RDW Coeff of [place] 13.2 Plt Count 172 MPV 9.0 Immature Gran % (Auto) 0.3 Neut % (Auto) 55.8 Lymph % (Auto) 28.2 [place] % (Auto) 14.0 Eos % (Auto) 1.4 Baso % (Auto) 0.3 Immature Gran # (Auto) 0.01 Neut # (Auto) 2.00 Lymph # (Auto) 1.01 L [place] # (Auto) 0.50 Eos # (Auto) 0.05 Baso # (Auto) 0.01 Sodium 140 Potassium 3.7 Chloride 108 H Carbon Dioxide 24 Anion Gap 8.0 BUN 12 Creatinine 0.73 Est Cr Clr Drug Dosing 57.9 Est GFR ( Amer) 92.1 Est GFR (Non-Af Amer) 79.4 BUN/Creatinine Ratio 15.8 Glucose 122 H Calcium 9.7 Total Bilirubin 1.4 H AST 21 ALT 22 Alkaline Phosphatase 125 H Total Protein 6.5 Albumin 3.6 Globulin 2.9 Albumin/Globulin Ratio 1.2 Lipase 104 Urine Color Yellow Urine Appearance Clear Urine pH 5.0 Ur Specific [place] >= 1.030 Urine Protein 1+ H Urine Glucose (UA) Negative Urine Ketones Negative Urine Blood 3+ H Urine Nitrite Negative Urine Bilirubin Negative Urine Urobilinogen Negative Ur Leukocyte Esterase Negative Urine RBC >30 H Urine WBC 5-10 H Ur Epithelial Cells >30 H Calcium Oxalate Crystal Present A Urine Bacteria Negative Urine Mucus Present A PG Care Time/CCT Total # of Minutes Spent Total Time Spent with Patient: Total time spent is greater than 50% in coordination of care (as documented) at patient's floor/unit and/or counseling patient:
--- NOTE | 2019-02-12 14:40 | Anesthesiology Consultation ---
Date of Service February 12, 2019 Assessment & Plan (1) Encounter for pre-operative examination: Chart Review Chart Review: Acceptable Risk for Surgery and Patient NOT seen in Pre Admission Testing Consults Requested none History Surgery Operation Date: 02/12/19 12:35 Proposed Procedures p Ureteral Stent Insertion/Removal - Robert Watson DO Height/Weight Height: 5 ft 2 in Weight: 66.769 kg Allergies Allergy/AdvReac Type Severity Reaction Status Date / Time amitriptyline Allergy Severe causes Verified 02/11/19 20:35 facial paralysis adhesive tape Allergy Intermediate hives Verified 02/11/19 20:35 acetaminophen [From Percocet] Allergy Unknown PT CAN NOT Verified 02/11/19 20:35 VERIFY perphenazine Allergy Unknown FACIAL Verified 02/11/19 20:35 TWITCHING prochlorperazine Allergy Unknown CAN'T Verified 02/11/19 20:35 REMEMBER diazepam AdvReac Severe hallucinati Verified 02/11/19 20:35 ons oxycodone AdvReac Intermediate GI Upset Verified 02/11/19 20:35 Medications Home Medications Medication Instructions Recorded Confirmed Last Taken amlodipine 5 mg tablet 5 mg PO DAILY #90 tab 09/07/18 02/11/19 02/11/19 atorvastatin 40 mg tablet 40 mg PO DAILY #90 tab 09/07/18 02/11/19 02/11/19 omeprazole 20 mg capsule,delayed 20 mg PO DAILY #90 cap 09/07/18 02/11/19 02/11/19 release aspirin 81 mg tablet,delayed 81 mg PO DAILY 09/19/18 02/11/19 02/11/19 release nitroglycerin 0.4 mg sublingual 0.4 mg SL UD PRN tab 09/19/18 02/11/19 Unknown tablet triamcinolone acetonide 0.1 % See Rx Instructions TOPICAL 09/19/18 02/11/19 Unknown topical cream .COMPLEX PRN gm isosorbide mononitrate 60 mg 90 mg PO DAILY #45 tab 11/30/18 02/11/19 02/11/19 tablet,extended release 24 hr tamsulosin [Flomax] 0.4 mg PO DAILY PRN 02/11/19 02/11/19 Unknown Active Medications Generic Name Dose Route Start Last Admin Trade Name Freq PRN Reason Stop Dose Admin Amlodipine Besylate 5 mg 02/12/19 09:00 02/12/19 08:01 Norvasc PO 03/14/19 08:59 5 mg DAILY SHAWN Administration Atorvastatin Calcium 40 mg 02/12/19 09:00 02/12/19 08:01 Lipitor PO 03/14/19 08:59 40 mg DAILY SHAWN Administration Hydromorphone HCl 0.25 mg 02/12/19 00:55 02/12/19 13:11 Dilaudid IV 02/26/19 00:54 0.25 mg Q6H PRN Administration Pain Ceftriaxone Sodium 1,000 mg/ 50 mls @ 100 mls/hr 02/12/19 02:00 02/12/19 02:30 Dextrose IV 02/17/19 01:59 Infused Q24H SHAWN Infusion Protocol Lactated Ringer's 1,000 mls @ 125 mls/hr 02/12/19 00:55 02/12/19 09:24 Lr IV 03/14/19 00:54 125 mls/hr .Q8H SHAWN Administration Isosorbide Mononitrate 90 mg 02/12/19 09:00 02/12/19 08:00 Imdur Extended Rel PO 03/14/19 08:59 90 mg DAILY SHAWN Administration Ketorolac Tromethamine 15 mg 02/12/19 00:55 02/12/19 08:31 Toradol IV 02/17/19 00:54 15 mg Q6H PRN Administration Pain Pantoprazole Sodium 40 mg 02/12/19 09:00 02/12/19 08:01 Protonix PO 03/14/19 08:59 40 mg DAILY SHAWN Administration Polyethylene Glycol 17 gm 02/12/19 09:00 02/12/19 08:02 Miralax Powder Packet PO 03/14/19 08:59 17 gm DAILY SHAWN Administration Tamsulosin HCl 0.4 mg 02/12/19 09:00 02/12/19 08:01 Flomax PO 03/14/19 08:59 0.4 mg DAILY SHAWN Administration Past Medical History Medical History Hyperlipidemia Hypertension Lupus Myocardial infarction Past Family History Family History Mother Breast cancer Brother Myocardial infarction Stroke Heart disease brother had rheumatic fever that caused heart problems Grandfather Colon cancer Past Surgical History Surgical History History of cataract surgery History of colonoscopy History of esophagogastroduodenoscopy History of rotator cuff surgery History of sinus surgery Hx of appendectomy Hx of cholecystectomy Hx of hysterectomy Social History Smoking Status: Never smoker Hx Alcohol Use: No Hx Substance Use: No Physical Exam Vital Signs Last Vital Signs Temp 36.8 C 02/12/19 12:20 Pulse 60 02/12/19 12:20 Resp 15 02/12/19 12:20 BP 107/66 02/12/19 12:20 Pulse Ox 98 02/12/19 12:20 Testing Laboratory Results 02/11/19 20:30 02/11/19 20:30 Urine Color Yellow 02/11/19 21:43 Urine Appearance Clear (Clear) 02/11/19 21:43 Urine pH 5.0 (4.5-7.5) 02/11/19 21:43 Ur Specific [place] >= 1.030 (1.000-1.030) 02/11/19 21:43 Urine Protein 1+ (Negative) H 02/11/19 21:43 Urine Glucose (UA) Negative (Negative) 02/11/19 21:43 Urine Ketones Negative (Negative) 02/11/19 21:43 Urine Nitrite Negative (Negative) 02/11/19 21:43 Ur Leukocyte Esterase Negative (Negative) 02/11/19 21:43 Urine RBC >30 /hpf (0-4) H 02/11/19 21:43 Urine WBC 5-10 /hpf (0-5) H 02/11/19 21:43 Ur Epithelial Cells >30 /lpf (0-5) H 02/11/19 21:43 Electrocardiogram Date: 09/25/18 Findings: + NSR @ (76) Chest X-Ray Date: 09/25/18 Findings: + NAD
--- NOTE | 2019-02-12 14:57 | History & Physical Bridge Note ---
Date of Service February 12, 2019 History & Physical Bridge Note I have examined the patient, reviewed the History & Physical and in the interval since the performance of the History & Physical I have noted the following changes of clinical significance: no changes noted
[2019-02-12] MEDS ORDERED: fentaNYL citrate 100 MCG/2 ML VIAL IV PRN (15:17)
[2019-02-12] MEDS ORDERED: MoRPHine SULFATE 10 MG/ML CARP/VIAL IV PRN (15:17)
[2019-02-12] MEDS ORDERED: ePHEDrine sulfate 50 MG/ML AMP IV PRN (15:17)
[2019-02-12] MEDS ORDERED: ATROPINE SULFATE 0.1 MG/ML 10ML SYR IV PRN (15:17)
[2019-02-12] MEDS ORDERED: MEPERIDINE HCL 25 MG/ML CARP IV PRN (15:17)
[2019-02-12] MEDS ORDERED: LIDOCAINE HCL 2% 2 ML VIAL/AMP(20MG/ML) INFIL ONE (15:52)
[2019-02-12] MEDS ORDERED: PROPOFOL IV EMULSION 10 MG/ML 20 ML VIAL IV ONE (15:52)
[2019-02-12] MEDS ORDERED: fentaNYL citrate 100 MCG/2 ML VIAL ONE (15:53)
[2019-02-12] MEDS ORDERED: MIDAZOLAM HCL 1 MG/ML 2ML VIAL ONE (15:53)
[2019-02-12] MEDS ORDERED: IOTHALAMATE MEGLUMINE II 17.2% 250 ML VIAL ONE (16:40)
--- NOTE | 2019-02-12 16:59 | Operative Report ---
PG Post Operative Report Pre & Post Diagnosis Operation Date: 02/12/19 12:35 Pre-Op Diagnosis: Left Hydronepherosis Post-Op Diagnosis: Left Hydronepherosis I identified the patient and participated in the time-out.: Yes Procedure Operation Date: 02/12/19 12:35 Actual Procedures p Cystoscopy; Left Retrograde Pyelogram; Left Ureteral Stent Insertion(Left) - Robert Watson DO Surgeon Robert Watson, II, DO Research Biologist None Estimated Blood Loss 1 Findings Consistent with Post-Op Diagnosis Stent placed in good position. Specimens None Drains 6 Fr Multilength Anesthesia Type MAC Complications none Disposition Disposition: Recovery Room Indications Patient with obstruction. Risks and benefits discussed at length. Description of Procedure Patient was consented and brought back to the operating room. Patient was placed under anesthesia in the supine position and moved to the dorsal lithotomy position. Patient was prepped and draped in the regular sterile fashion. A time out was completed. A 30degree Cystoscope was placed into the bladder and the entire bladder was examined. The UO's were identified. The UO was cannulized with a catheter and a retrograde pyelogram was completed. A wire was then placed. With the wire in place, a 6 Fr Double J stent was placed. It was confirmed with fluoroscopy. With the stent in place, the bladder was emptied. The scope was removed. The patient was cleaned, aroused from anesthesia, and transferred to the pacu in stable condition having rica erated the procedure well with no complications. I was present and participated in all aspects of the procedure. The patient will be monitored in the PACU until transferred. I attest to the content of the Intraoperative Record and any orders documented therein. Any exceptions are noted below.
--- NOTE | 2019-02-12 17:25 | Anesthesiology Progress Note ---
Date of Service February 12, 2019 Anesthesia Post Procedure Vital Signs Vital Signs: Temp Pulse Pulse Pulse Pulse Resp BP 02/12/19 17:15 73 14 02/12/19 17:07 37.8 C H 79 19 02/12/19 15:37 37 C 65 20 02/12/19 15:07 37.0 C 67 17 02/12/19 12:20 36.8 C 60 15 02/12/19 07:44 36.7 C 60 16 02/12/19 01:59 02/12/19 00:51 36.8 C 95 H 16 02/12/19 00:44 72 18 138/74 02/11/19 23:51 02/11/19 22:40 96 H 18 02/11/19 21:42 97 H 17 02/11/19 20:06 36.8 C 96 H 20 138/79 BP BP Pulse Ox 02/12/19 17:15 114/65 98 02/12/19 17:07 117/50 L 99 02/12/19 15:37 120/62 92 02/12/19 15:07 96/55 L 90 02/12/19 12:20 107/66 98 02/12/19 07:44 140/70 97 02/12/19 01:59 130/72 02/12/19 00:51 147/100 H 93 02/12/19 00:44 94 02/11/19 23:51 95 02/11/19 22:40 138/74 96 02/11/19 21:42 136/70 93 02/11/19 20:06 95 Pain Intensity Left Flank: Pain Intensity: 3 Transfer of Care Handoff Completed per policy Notes Mental Status: alert / awake / arousable and participated in evaluation Nausea / Vomiting: adequately controlled Pain: adequately controlled Airway Patency, RR, SpO2: stable & adequate BP & HR: stable & adequate Hydration State: stable & adequate Anesthetic Complications: no major complications apparent and Pt Satisfied with anesthetic care
--- NOTE | 2019-02-12 17:28 | Fluoroscopy Report ---
FL KUB HISTORY: Left ureteral stent placement. FLUOROSCOPY TIME: 28 seconds. FINDINGS: 2 fluoroscopic spot images were submitted for review. Contrast is seen within the left ubaldo l collecting system. There is also a left ureteral stent which appears in good position. IMPRESSION: Fluoroscopy provided for left ureteral stent placement which appears in good position.. Electronically signed by: Alin Edawrds M.D. 02/12/2019 5:27 PM
--- NOTE | 2019-02-13 08:09 | Anesthesiology Progress Note ---
Date of Service February 13, 2019 Anesthesia Post Procedure Vital Signs Vital Signs: Temp Pulse Pulse Resp BP BP Pulse Ox 02/13/19 07:00 36.9 C 68 17 132/73 91 02/13/19 03:18 37.5 C 65 17 115/69 91 02/12/19 23:13 37.8 C H 63 17 112/67 95 02/12/19 20:44 37.6 C H 63 17 121/71 95 02/12/19 19:43 37.3 C 65 16 111/55 L 92 02/12/19 18:44 37.2 C 63 17 105/65 97 02/12/19 18:21 36.7 C 66 16 109/63 97 02/12/19 18:00 37.0 C 78 16 119/60 93 02/12/19 17:35 37.8 C H 70 14 121/59 L 97 02/12/19 17:25 37.8 C H 70 16 114/90 98 02/12/19 17:15 73 14 114/65 98 02/12/19 17:07 37.8 C H 79 19 117/50 L 99 02/12/19 15:37 37 C 65 20 120/62 92 02/12/19 15:07 37.0 C 67 17 96/55 L 90 02/12/19 12:20 36.8 C 60 15 107/66 98 Pain Intensity Left Flank: Pain Intensity: 1 Notes Mental Status: alert / awake / arousable and participated in evaluation Nausea / Vomiting: adequately controlled Pain: adequately controlled Airway Patency, RR, SpO2: stable & adequate BP & HR: stable & adequate Hydration State: stable & adequate Anesthetic Complications: no major complications apparent
[2019-02-13] MEDS: ISOSORBIDE MONO EXTENDED REL 60 MG TABCR PO SCH (08:31)
[2019-02-13] MEDS: PANTOprazole 40 MG TAB PO SCH (08:31)
[2019-02-13] MEDS: ATORVASTATIN 40 MG TAB PO SCH (08:31)
[2019-02-13] MEDS: AMLODIPINE BESYLATE 5 MG TAB PO SCH (08:31)
[2019-02-13] MEDS: TAMSULOSIN HCL 0.4 MG CAP PO SCH (08:31)
[2019-02-13] MEDS: POLYETHYLENE (MIRALAX) 17 GM PACK PO SCH (08:32)
--- NOTE | 2019-02-13 10:02 | Urology Progress Note ---
Date of Service February 13, 2019 Assessment & Plan (1) Hydroureteronephrosis: (2) Calculus of left ureter: A/P 78-year-old female postoperative day #1 status post left acute stent placement. Findings reviewed with patient. Stones visible on KUB. We will attempt to arrange for outpatient left-sided mid ureteral stone shockwave lithotripsy. Risks and benefits reviewed. Patient vocalizes good understanding of the treatment plan. Should be stable for discharge home from a urologic pe rspective. Thank you for allowing us to participate in this patient's acute care. Please contact our service with any questions or concerns. Subjective 78-year-old female postoperative day #1 status post left acute ureteral stent placement for intractable colic and left ureteral stones visible on KUB. Patient reports that she currently feels much improved, no further complaints. She has had one previous stone episode numerous years ago on the right-hand side. Previous notes are reviewed. Review of Systems Constitutional: no fever and no chills Eyes: no diplopia Ear, Nose, Mouth, Throat: no ear trauma Respiratory: no hemoptysis Cardiovascular: no chest pain Integumentary: no acne and no boil Neurologic: no paralysis Psychiatric: no hopelessness Allergy / Immunological: no tongue swelling Physical Exam Constitutional: well developed and well nourished; no acute distress Eyes: eyes not dysmorphic ENMT: Ears: no external ear abnormality Neck: trachea midline; no anterior neck swelling Respiratory: no respiratory distress and does not use accessory muscles Cardiovascular: Vessels: radial pulses present Gastrointestinal (Abdomen): Inspection/Auscultation: abdomen not distended Percussion/Palpation: abdomen soft; abdomen nontender Musculoskeletal: Head/Neck/Chest: normocephalic and neck supple Skin: normal turgor Neurologic: awake; not obtunded Psychiatric: Orientation: oriented x 3 Lymphatic: no lymphadenopathy Results & Data Vital Signs (Past 12 Hours) Vital Signs Temp Pulse Resp BP BP Pulse Ox 02/13/19 07:00 36.9 C 68 17 132/73 91 02/13/19 03:18 37.5 C 65 17 115/69 91 02/12/19 23:13 37.8 C H 63 17 112/67 95 Laboratory Results Laboratory Results - last 48 hr 02/11/19 02/11/19 02/11/19 20:30 20:30 21:43 WBC 3.58 L RBC 4.40 Hgb 13.6 Hct 39.4 MCV 89.5 MCH 30.9 MCHC 34.5 RDW Std Deviation 43.0 RDW Coeff of [place] 13.2 Plt Count 172 MPV 9.0 Immature Gran % (Auto) 0.3 Neut % (Auto) 55.8 Lymph % (Auto) 28.2 [place] % (Auto) 14.0 Eos % (Auto) 1.4 Baso % (Auto) 0.3 Immature Gran # (Auto) 0.01 Neut # (Auto) 2.00 Lymph # (Auto) 1.01 L [place] # (Auto) 0.50 Eos # (Auto) 0.05 Baso # (Auto) 0.01 Sodium 140 Potassium 3.7 Chloride 108 H Carbon Dioxide 24 Anion Gap 8.0 BUN 12 Creatinine 0.73 Est Cr Clr Drug Dosing 57.9 Est GFR ( Amer) 92.1 Est GFR (Non-Af Amer) 79.4 BUN/Creatinine Ratio 15.8 Glucose 122 H Calcium 9.7 Total Bilirubin 1.4 H AST 21 ALT 22 Alkaline Phosphatase 125 H Total Protein 6.5 Albumin 3.6 Globulin 2.9 Albumin/Globulin Ratio 1.2 Lipase 104 Urine Color Yellow Urine Appearance Clear Urine pH 5.0 Ur Specific [place] >= 1.030 Urine Protein 1+ H Urine Glucose (UA) Negative Urine Ketones Negative Urine Blood 3+ H Urine Nitrite Negative Urine Bilirubin Negative Urine Urobilinogen Negative Ur Leukocyte Esterase Negative Urine RBC >30 H Urine WBC 5-10 H Ur Epithelial Cells >30 H Calcium Oxalate Crystal Present A Urine Bacteria Negative Urine Mucus Present A PG Care Time/CCT Total # of Minutes Spent Total Time Spent with Patient: Total time spent is greater than 50% in coordination of care (as documented) at patient's floor/unit and/or counseling patient:
--- NOTE | 2019-02-13 12:30 | Discharge Summary ---
Date of Service February 13, 2019 Admission HPI Per Admitting Provider 78yoF with hx of HTN, HLD, NSTEMI in 2009, CAD, lupus presents with worsening renal colic x 7 days. Patient presented to the ED yesterday and was discharged with home oxycodone and tamsulosin. Today patient had worsening pain not relieved with prescribed medication. Having constant L sided flank and abdominal pain, cramping in nature and 10/10. Associated with dark tea colored urine, suprapubic, RLQ and LLQ abdominal pain, chills, nausea, vomiting now, and dizziness. Pt is not sure if she has had a fever. Denies any dysuria, or increased urinary frequency. Denies any cp, sob, headache, diarrhea, hematochezia, and melena. Admission Exam Per Admitting Provider General: In mild distress HEENT: dry oral mucosa Neuro: A&O x 4 Pulm: CTAB equal breath sounds bilaterally CV: RRR, no m/r/g, cap refill 3 secs Abdomen:+BS, LLQ, suprapubic and RLQ TTP, non-distended Back: L sided CVA tenderness to percussion LE: no LE edema, no calf TTP Principal Diagnosis renal calculus, hydronephrosis Discharge Exam Constitutional WD/WN, vitals as above Respiratory normal respiratory effort, lungs clear to auscultation Cardiovascular RRR, no murmur, no edema Gastrointestinal (Abdomen) normal bowel sounds, soft, nontender, no hepatosplenomegaly Skin no rashes, warm and dry Psychiatric A+Ox3, euthymic affect Discharge Data Allergies Allergy/AdvReac Type Severity Reaction Status Date / Time amitriptyline Allergy Severe causes Verified 02/12/19 15:35 facial paralysis adhesive tape Allergy Intermediate hives Verified 02/12/19 15:35 acetaminophen [From Percocet] Allergy Unknown PT CAN NOT Verified 02/12/19 15:35 VERIFY perphenazine Allergy Unknown FACIAL Verified 02/12/19 15:35 TWITCHING prochlorperazine Allergy Unknown CAN'T Verified 02/12/19 15:35 REMEMBER diazepam AdvReac Severe hallucinati Verified 02/12/19 15:35 ons oxycodone AdvReac Intermediate GI Upset Verified 02/12/19 15:35 Consultations 02/11/19 23:07 ED Decision to Admit Stat 02/12/19 00:55 Consult Urology Routine Procedures Performed Operation Date: 02/12/19 12:35 Actual Procedures p Left Ureteral Stent Insertion(Left) - Robert Watson DO s Cystoscopy; Left Retrograde Pyelogram; - Robert Watson DO Ordered Studies 02/12/19 [place] KUB Routine Hospital Course (1) Hydroureteronephrosis: 78 y/o female with PMHx of HLD, HTN, CA with hydroureteronephrosis secondary to left nephrolithiasis, confirmed on KUB and pelvic CT. S/p stent placement 02/12/19 and for d/c home. Obstructive uropathy - Hydronephrosis of left kidney: - Urology placed stent yesterday (02/12/19) and patient now without pain and comfortable in the room. - Has tolerated PO intake and cleared by Urology to go home. - For follow up with shock wave lithotripsy 02/16/19. Flank pain: - Resolved at this time. - Pt does not need pain medication script to go home, may take OTC NSAIDs or Tylenol as needed. Nausea/vomiting: - Resolved. HTN: - Continue amlodipine 5mg daily. CAD with h/o CA: - Continue home isosorbide mononitrate 90mg daily. - Nitroglycerin sublingual PRN chest pain. - Resume home aspirin 81mg daily. HLD: - Continue atorvastatin 40mg daily. GERD: - Continue pantoprazole 20mg daily. Discharge: Home (2) Hypertension: (3) GERD (gastroesophageal reflux disease): (4) ASCVD (arteriosclerotic cardiovascular disease): (5) Hyperlipidemia: Total Time Total Time Spent Total Time Spent (In Minutes): see attending attestation. Discharge Plan Discharge Items Patient Disposition: Home - Self-Care Reason For Visit: RENAL COLIC Discharge Diagnosis: Kidney stone Activity: Resume your previous activity Non-emergency contact: Primary Care Provider and Hospitalist Call non-emergency contact if: your symptoms worsen and your temperature is above 101 Follow-up/Referrals: Verena Lara MD [Primary Care Provider] - Diet: Regular Addtl Attending Provider Instructions: You were admitted due to your pain from a kidney stone. Here in the hospital Urology placed a stent on the left side and you had resolution of your pain. You will have follow up with Urology for shock wave lithotripsy, a treatment used to try to break up kidney stones. Please call the urology office at to schedule this if it has not already been done for you. It is important that moving forward you drink lots of fluids, especially water. It is also important that you reduce your salt intake in your diet. Please follow up with your primary care doctor to discuss treatments to decrease your risk of stones moving forward. If you start to develop fevers or shaking chills, increase in your pain, nausea or vomiting, please call your doctor right away and go to the ER. Pending Studies at Discharge: No Stand-Alone Forms: My [facility] Plotter, Smoking Cessation Medications and DC Order Prescriptions: Continued atorvastatin 40 mg tablet 40 mg PO DAILY Qty: 90 RF: 1 amlodipine 5 mg tablet 5 mg PO DAILY Qty: 90 RF: 1 omeprazole 20 mg capsule,delayed release(DR/EC) 20 mg PO DAILY Qty: 90 RF: 1 isosorbide mononitrate 60 mg tablet extended release 24 hr 90 mg PO DAILY Qty: 45 RF: 5 nitroglycerin 0.4 mg tablet, sublingual 0.4 mg SL UD PRN (Reason: Chest Pain) RF: 0 aspirin [Adult Aspirin Regimen] 81 mg tablet,delayed release (DR/EC) 81 mg PO DAILY RF: 0 triamcinolone acetonide 0.1 % cream See Rx Instructions topical .COMPLEX PRN (Reason: WHEN NEEDED) RF: 0 tamsulosin [Flomax] 0.4 mg capsule 0.4 mg PO DAILY PRN (Reason: WHEN NEEDED) RF: 0 Discharge Orders: Discharge Order (Routine); Ordered 02/13/19 Ordered By: Pavithra Moore Admission Data Admit Date/Time: 02/12/19 00:03 Attending Provider: Caity Arizmendi Admit Provider: Bubba Genao Primary Care Provider: Verena Lara Other Providers: Bubba Genao ; Kyle Mcduffie Other Interventions: Discharge Summary Assessment (RN) Last Done: 02/13/19 11:05 DC Date/Time DO NOT enter until pt leaves facility: 02/13/19 11:44 Supervising Physician Co-Signing Physician Notes Resident Physician Supervision Note: I independently interviewed and examined the patient and verified the zuniga history and physical, reviewed labs and image studies, discussed the case with the resident Dr. Moore and agree with the findings and care plan. Resident Activity Tracking Resident Involvement: Resident Care Provided Care Provided: [facility]
== END 2019-02-13 11:44 | disposition home or self-care (01) | DRG 660 ==
LOC: ED 19:54 → SUATTDRO 02-12 00:03 → 3E 02-12 00:03

== ENCOUNTER 2020-05-19 11:57 | Observation (INO) ==
[2020-05-19] MEDS ORDERED: methylPREDNISolone 125 MG/2 ML VIAL IV STA (12:28)
[2020-05-19] MEDS ORDERED: SODIUM CHLORIDE 0.9% 1000ML 500 ML IV ONE (12:29)
--- NOTE | 2020-05-19 12:35 | Emergency Department Note ---
History of Present Illness General Chief complaint: Cough Stated complaint: COVID+, COUGHING, FEVER 103, NAUTIOUS Time Seen by Provider: 05/19/20 12:16 Source: patient Mode of arrival: ambulatory Limitations: no limitations History of Present Illness This patient is a 79-year-old white female who currently has Covid and has a history of lupus, comes in here after having worsening of symptoms. She was diagnosed 11 days ago. She continues have a deep hacking cough that sometimes productive. She has had increasing shortness of breath. She has nausea and vomiting after coughing fits and says that she has been throwing up and not keep ing up with her fluids. She has diffuse body aches as well. She is not doing well at home. She does have a history of lupus but denies that she is on any medications for this. She has a history of cardiac disease but has had no significant chest pain or angina. No trauma or injury. Her also has Covid-like symptoms but is not as sick Home Medications Medication Instructions Recorded Confirmed Type aspirin 81 mg tablet,delayed 81 mg PO QAM 09/19/18 05/19/20 History release nitroglycerin 0.4 mg sublingual 0.4 mg SL UD PRN tab 09/19/18 05/19/20 History tablet triamcinolone acetonide 0.1 % See Rx Instructions TOPICAL 09/19/18 05/19/20 History topical cream .COMPLEX PRN gm naproxen sodium [Aleve] 220 mg PO BID PRN 02/19/19 05/19/20 History amlodipine 5 mg tablet 5 mg PO QAM #90 tab 04/04/20 05/19/20 Rx atorvastatin 40 mg tablet 40 mg PO QAM #90 tab 04/04/20 05/19/20 Rx fluticasone propionate 50 2 spray INTRANASAL DAILY PRN #16 g 04/04/20 05/19/20 Rx mcg/actuation nasal spray,suspension isosorbide mononitrate 60 mg 90 mg PO QAM #135 tab 04/04/20 05/19/20 Rx tablet,extended release 24 hr omeprazole 20 mg capsule,delayed 20 mg PO QAM #90 cap 04/04/20 05/19/20 Rx release Allergies Allergy/AdvReac Type Severity Reaction Status Date / Time amitriptyline Allergy Severe causes Verified 05/19/20 13:43 facial paralysis adhesive tape Allergy Intermediate hives Verified 05/19/20 13:43 perphenazine Allergy Unknown FACIAL Verified 05/19/20 13:43 TWITCHING prochlorperazine Allergy Unknown CAN'T Verified 05/19/20 13:43 REMEMBER diazepam AdvReac Severe hallucinati Verified 05/19/20 13:43 ons oxycodone AdvReac Intermediate GI Upset Verified 05/19/20 13:43 nut Allergy Intermediate cashew Uncoded 05/19/20 13:43 Throat swelling and Hives Past Med/Surg History Medical History (Updated 05/19/20 @ 16:57 by Sameer Manning MD) Arthritis ASCVD (arteriosclerotic cardiovascular disease) CAD (coronary artery disease) GERD (gastroesophageal reflux disease) History of NM (myocardial infarction) (2008) HTN, goal below 140/90 Hyperlipidemia Kidney stones Lupus DX'D 1975 F/U PCP Surgical History History of cardiac cath (2008) 2008 NO STENTS NEEDED [facility] [place]-F/U DR HARDING/MEHDI History of carpal tunnel release R/L History of cataract surgery R/L History of esophagogastroduodenoscopy History of rotator cuff surgery L shoulder History of sinus surgery x 2 S/P appendectomy S/P cholecystectomy S/P hysterectomy S/P ureteral stent placement (01/2019) 02/12/19 Dr. Robert Watson- Cystoscopy, L retrograde pyelogram, L ureteral stent insertion, MAC Family History Mother Breast cancer Brother Myocardial infarction Stroke Heart disease brother had rheumatic fever that caused heart problems Grandfather Colon cancer Denies family history of Ovarian cancer Prostate cancer Social History Smoking Status: Never smoker Second Hand Exposure: No; Hx Alcohol Use: No Hx Substance Use: No Preferred Language: Chinese Communication Ability: Effective Clinical Staff Rn Required: No Beliefs That Will Affect Care: None marital status: Current Living Situation: Spouse current occupational status: retired Feels Safe at Home: Yes caffeine: Yes during the past year weight has: remained stable Dental Care, Regularly: No Physical Activity Frequency: Daily Seatbelt Use: always Sunscreen Use: No Assistive Devices: Denture - Upper and Denture - Lower Review of Systems A total of 10 systems reviewed and were otherwise negative Physical Exam Vital Signs Vital Signs - 24 hr 05/19/20 12:01 05/19/20 13:30 05/19/20 13:38 Temperature 37.3 C Temperature Source Oral Pulse Rate 107 H 77 80 Pulse Rate from SpO2 Sensor 78 80 Respiratory Rate 24 23 20 Blood Pressure 126/76 133/64 Blood Pressure Mean 92 87 Pulse Oximetry 91 93 94 Oxygen Delivery Method Room Air Room Air Room Air Sepsis Recent Fever Within 48 Hours Yes Sepsis New/Unexplained Change in Mental Status No Sepsis Action Taken by Nursing No Action Required 05/19/20 13:45 05/19/20 14:00 05/19/20 14:01 Temperature Temperature Source Pulse Rate 75 81 83 Pulse Rate from SpO2 Sensor 76 80 77 Respiratory Rate 18 18 14 Blood Pressure 134/81 143/78 H Blood Pressure Mean 98 99 Pulse Oximetry 92 91 92 Oxygen Delivery Method Sepsis Recent Fever Within 48 Hours Sepsis New/Unexplained Change in Mental Status Sepsis Action Taken by Nursing 05/19/20 14:15 05/19/20 14:30 05/19/20 14:31 Temperature Temperature Source Pulse Rate 74 78 76 Pulse Rate from SpO2 Sensor 75 78 77 Respiratory Rate 18 24 21 Blood Pressure 134/68 141/60 H Blood Pressure Mean 90 87 Pulse Oximetry 91 93 92 Oxygen Delivery Method Sepsis Recent Fever Within 48 Hours Sepsis New/Unexplained Change in Mental Status Sepsis Action Taken by Nursing 05/19/20 14:45 05/19/20 15:00 05/19/20 15:01 Temperature Temperature Source Pulse Rate 73 73 72 Pulse Rate from SpO2 Sensor 74 73 73 Respiratory Rate 20 20 21 Blood Pressure 128/64 127/67 Blood Pressure Mean 85 87 Pulse Oximetry 92 90 90 Oxygen Delivery Method Sepsis Recent Fever Within 48 Hours Sepsis New/Unexplained Change in Mental Status Sepsis Action Taken by Nursing 05/19/20 15:15 05/19/20 15:16 05/19/20 15:30 Temperature Temperature Source Pulse Rate 74 75 74 Pulse Rate from SpO2 Sensor 75 76 75 Respiratory Rate 22 22 20 Blood Pressure 145/84 H 133/76 Blood Pressure Mean 104 95 Pulse Oximetry 90 91 91 Oxygen Delivery Method Sepsis Recent Fever Within 48 Hours Sepsis New/Unexplained Change in Mental Status Sepsis Action Taken by Nursing 05/19/20 15:31 05/19/20 15:45 05/19/20 16:00 Temperature Temperature Source Pulse Rate 74 73 77 Pulse Rate from SpO2 Sensor 74 72 74 Respiratory Rate 20 22 22 Blood Pressure 130/80 126/75 Blood Pressure Mean 96 92 Pulse Oximetry 94 90 90 Oxygen Delivery Method Sepsis Recent Fever Within 48 Hours Sepsis New/Unexplained Change in Mental Status Sepsis Action Taken by Nursing 05/19/20 16:01 05/19/20 16:15 05/19/20 16:30 Temperature Temperature Source Pulse Rate 78 72 71 Pulse Rate from SpO2 Sensor 78 70 72 Respiratory Rate 22 Blood Pressure 128/65 132/66 Blood Pressure Mean 86 88 Pulse Oximetry 94 92 92 Oxygen Delivery Method Sepsis Recent Fever Within 48 Hours Sepsis New/Unexplained Change in Mental Status Sepsis Action Taken by Nursing 05/19/20 16:31 05/19/20 16:45 Temperature Temperature Source Pulse Rate 72 72 Pulse Rate from SpO2 Sensor 71 77 Respiratory Rate 24 23 Blood Pressure 130/87 Blood Pressure Mean 101 Pulse Oximetry 92 92 Oxygen Delivery Method Sepsis Recent Fever Within 48 Hours Sepsis New/Unexplained Change in Mental Status Sepsis Action Taken by Nursing General: Well developed well nourished older female who is coughing frequently and wearing a mask but in no acute distress, breathing comfortably on room air. Normal speech HEENT: Normal cephalic atraumatic. Pupils are equal round and reactive to light. Extraocular movements are intact. Oropharynx is pink with moist mucous membranes. No swelling of the mouth lips or tongue. Neck: Supple with a midline trachea. No meningeal signs or stiffness, no JVD or bruits. No Stridor. Chest: Mild tachypnea and coughing frequently Heart: Regular rate and rhythm without murmurs or gallops. Abdomen: Soft nontender, nondistended without rebound guarding or rigidity. Extremities: No cyanosis clubbing or edema. No calf tenderness or assymetry Spine/Back. Non tender to palpation. No CVA tenderness Skin: Good turgor without rashes. Neurologic exam: Cranial nerves two through 12 are intact. Motor and sensation are intact and symmetrical throughout. Course Administered Medications Discontinued Medications Sodium Chloride (Nss 1000ml) 500 mls @ 999 mls/hr IV .Q31M ONE Stop: 05/19/20 12:59 Last Infusion: 05/19/20 13:35 Dose: 0 mls/hr Documented by: [id number] Admin: 05/19/20 12:52 Dose: 999 mls/hr Documented by: [id number] Ioversol (Optiray 320 125ml) 119 ml IV ONCE ONE Stop: 05/19/20 14:23 Last Admin: 05/19/20 14:22 Dose: 119 ml Documented by: [id number] Methylprednisolone (Methylprednisolone 125 Mg/2 Ml Vial) 125 mg IV NOW STA Stop: 05/19/20 12:29 Last Admin: 05/19/20 12:52 Dose: 125 mg Documented by: [id number] Medical Decision Making Differential Diagnosis Covid, pneumonia, hypoxemia, sepsis, PE, cardiac disease, dehydration, electrolyte or metabolic abnormality Medical Records Attestation: I reviewed the patient's medical records. Home Medications Current Medication List: was personally reviewed by me Laboratory Data Attestation: I reviewed the patient's lab results. Result diagrams: 05/19/20 12:35 05/19/20 12:35 Lab Results 05/19/20 05/19/20 05/19/20 Range/Units 12:35 12:35 12:35 WBC 4.22 L (4.8-10.8) K/uL RBC 4.42 (4.2-5.4) M/uL Hgb 13.7 (12.0-16.0) g/dL Hct 38.5 (37-47) % MCV 87.1 (80-100) fL MCH 31.0 (25-34) pg MCHC 35.6 (32-36) g/dL RDW Std Deviation 41.7 (36.4-46.3) fL RDW Coeff of Hansa 13.0 (11.5-14.5) % Plt Count 228 (130-400) K/uL MPV 9.2 (7.4-10.4) fL Immature Gran % (Auto) 0.2 % Neut % (Auto) 83.2 % Lymph % (Auto) 8.1 % Chaves % (Auto) 8.3 % Eos % (Auto) 0.0 % Baso % (Auto) 0.2 % Neut # (Auto) 3.51 (1.4-6.5) K/uL Lymph # (Auto) 0.34 L (1.2-3.4) K/uL Chaves # (Auto) 0.35 (0.11-0.59) K/uL Eos # (Auto) 0.00 (0-0.5) K/uL Baso # (Auto) 0.01 (0-0.2) K/uL Immature Gran # (Auto) 0.01 (0.00-0.02) K/uL PT 10.6 (9.0-12.0) Seconds INR 1.0 (0.9-1.1) APTT 24.5 (21.0-31.0) Seconds PTT Ratio 0.9 D-Dimer 2270 H* (0-500) ug/L FEU Sodium 139 (136-145) mmol/L Potassium 3.5 (3.5-5.1) mmol/L Chloride 106 (98-107) mmol/L Carbon Dioxide 26 (21-32) mmol/L Anion Gap 7.0 (3-11) BUN 15 (7-18) mg/dl Creatinine 0.64 (0.6-1.2) mg/dl Est Cr Clr Drug Dosing 63.3 ml/min Est GFR ( Amer) 99.1 Est GFR (Non-Af Amer) 85.5 BUN/Creatinine Ratio 23.7 H (10-20) Glucose 107 H (70-99) mg/dl Lactate (0.4-2.0) mmol/L Calcium 9.4 (8.5-10.1) mg/dl Magnesium 1.9 (1.8-2.4) mg/dl Total Bilirubin 1.3 H (0.2-1) mg/dl AST 40 H (15-37) U/L ALT 33 (12-78) U/L Alkaline Phosphatase 156 H (45-117) U/L Troponin I 0.022 (0-0.045) ng/ml Total Protein 6.6 (6.4-8.2) gm/dl Albumin 2.8 L (3.4-5.0) gm/dl Globulin 3.8 (2.5-4.0) gm/dl Albumin/Globulin Ratio 0.7 L (0.9-2) Procalcitonin (0-0.5) ng/ml 05/19/20 05/19/20 Range/Units 12:35 12:35 WBC (4.8-10.8) K/uL RBC (4.2-5.4) M/uL Hgb (12.0-16.0) g/dL Hct (37-47) % MCV (80-100) fL MCH (25-34) pg MCHC (32-36) g/dL RDW Std Deviation (36.4-46.3) fL RDW Coeff of Hansa (11.5-14.5) % Plt Count (130-400) K/uL MPV (7.4-10.4) fL Immature Gran % (Auto) % Neut % (Auto) % Lymph % (Auto) % Chaves % (Auto) % Eos % (Auto) % Baso % (Auto) % Neut # (Auto) (1.4-6.5) K/uL Lymph # (Auto) (1.2-3.4) K/uL Chaves # (Auto) (0.11-0.59) K/uL Eos # (Auto) (0-0.5) K/uL Baso # (Auto) (0-0.2) K/uL Immature Gran # (Auto) (0.00-0.02) K/uL PT (9.0-12.0) Seconds INR (0.9-1.1) APTT (21.0-31.0) Seconds PTT Ratio D-Dimer (0-500) ug/L FEU Sodium (136-145) mmol/L Potassium (3.5-5.1) mmol/L Chloride (98-107) mmol/L Carbon Dioxide (21-32) mmol/L Anion Gap (3-11) BUN (7-18) mg/dl Creatinine (0.6-1.2) mg/dl Est Cr Clr Drug Dosing ml/min Est GFR ( Amer) Est GFR (Non-Af Amer) BUN/Creatinine Ratio (10-20) Glucose (70-99) mg/dl Lactate 1.5 (0.4-2.0) mmol/L Calcium (8.5-10.1) mg/dl Magnesium (1.8-2.4) mg/dl Total Bilirubin (0.2-1) mg/dl AST (15-37) U/L ALT (12-78) U/L Alkaline Phosphatase (45-117) U/L Troponin I (0-0.045) ng/ml Total Protein (6.4-8.2) gm/dl Albumin (3.4-5.0) gm/dl Globulin (2.5-4.0) gm/dl Albumin/Globulin Ratio (0.9-2) Procalcitonin 0.25 (0-0.5) ng/ml Imaging Data Attestation: I personally reviewed and interpreted this imaging study as follows: My Impression: Chest xray-multifocal infiltrate distant with Covid Radiologist's Impression: SINGLE VIEW CHEST CLINICAL HISTORY: Sepsis. FINDINGS: An AP, portable, upright chest radiograph is compared to study dated 09/25/2018 and correlated with chest CT dated 07/29/2010. The heart is enlarged. The pulmonary vasculature is noncongested. There is dense airspace consolidation the right midlung. Mild consolidative change is present at both lung bases. No large pleural effusion or pneumothorax is seen. The skeletal structures are osteopenic. The bony thorax is grossly intact. IMPRESSION: 1. There is multifocal airspace consolidation as above, most confluent in the right midlung. The appearance is typical for multifocal pneumonia. Clinical correlation will be required and radiographic follow-up to resolution is recommended. 2. No pleural effusion is identified. 3. Cardiomegaly without radiographic evidence of congestive failure. CT angio chest PE protocol CT DOSE: 354.58 mGycm HISTORY: 79 years-old Female with PE. Acute cough with shortness of breath TECHNIQUE: Multiple CTA images of the chest were obtained after the intravenous administration of 119 ml Optiray 320. Coronal and sagittal MIPS were obtained from the axial data set and were submitted for review. All measurements were obtained according to NASCET criteria. A dose lowering technique was utilized adhering to the principles of ALARA. COMPARISON: Chest radiograph of same day, chest CT 07/29/2010 FINDINGS: CTA: The heart is mildly enlarged. There is no pericardial effusion. Mild coronary artery calcifications. Mixed plaque the thoracic aorta without aneurysm or dissection. There is patency of the imaged great vessels. Descending thoracic aortic tortuosity. Pulmonary artery is opacified to the level of the proximal subsegmental branches and demonstrates no filling defects to suggest thromboembolic disease. CT CHEST: Heterogeneous thyroid. Prominent mediastinal with mildly enlarged right hilar lymph nodes measure up to 13 mm, likely reactive. Trace pleural effusions. No pneumothorax. Multilobar distribution of subpleural predominant groundglass and consolidative opacities are noted bilaterally. Central airways are patent. The spleen is enlarged. Unremarkable soft tissues. There is no acute fracture. Wedge deformity at the T11 level is likely chronic. No retropulsion. IMPRESSION: 1. Cardiomegaly without pulmonary emboli. 2. Multilobar distribution of subpleural predominant groundglass and consolidative opacities compatible with multifocal pneumonia, likely viral etiology. 3. Mild hilar adenopathy, likely reactive. 4. Trace pleural effusions. ECG Data Attestation: I personally reviewed and interpreted this ECG as follows: Indication: + SOB/dyspnea Rate (beats per minute): 78 Rhythm: + normal sinus ECG Intervals/blocks: + Normal QRS, + Normal QT and + Normal [place] ECG [place]: + Normal ECG Findings: + Other (Nonspecific T wave abnormalities mostly anteriorly); no PACs and no PVCs Comparison ECG Date: from (09/25/18) Change: the following changes noted (T waves appear more nonspecific anteriorly) MDM Narrative This patient comes in as described above. She was placed on a radiation monitor room C9. She is mildly hypoxemic with an O2 sat of 91%. She also immunocompromised with history of lupus. She has had worsening of Covid symptoms. Her symptoms have been going on for at least 11 days. IV access established given her hypoxemia she was given Solu-Medrol 125 mg IV she was placed on oxygen and a radiation monitor. She was given a fluid bolus of 500 cc IV as she feels that she is not been keeping up with her fluids. Given her cardiac history she also had a cardiac work-up as well as a sepsis type work-up. She was reassessed frequently. EKG does not suggest cardiac disease nor do her symptoms. Troponin is not elevated. Her white count is low consistent with a viral illness/Covid. She also has mild thrombocytopenia. She is nursing of electrolyte or metabolic abnormalities. Her D-dimer is elevated over 1999 we did do a CTA of her chest there is no PE but she does have findings consistent with multifocal pneumonia consistent with Covid. I do think she needs to be admitted/observed. She was hypoxemic at 91% when she came in and she has had weakness and is not doing well as an outpatient. I did consult Dr. Ely to see her in the ER for these measures. Continuous cardiac monitoring: An order was placed in the EMR for continuous cardiac monitoring. She was found to be in normal sinus rhythm with a pulse of 70 Impression & Plan COVID-19, Lupus, Hypoxemia, Cough, Weakness, SOB (shortness of breath) Discharge Plan Visit Data Chief Complaint: Cough Stated Complaint: COVID+, COUGHING, FEVER 103, NAUTIOUS ED Provider: Sameer Manning Discharge Problem: COVID-19, Lupus, Hypoxemia, Cough, Weakness, SOB (shortness of breath) Forms Stand Alone Forms: [facility] Prescriptions Prescriptions: No Action amlodipine 5 mg tablet 5 mg PO QAM Qty: 90 RF: 1 atorvastatin 40 mg tablet 40 mg PO QAM Qty: 90 RF: 1 fluticasone propionate [Flonase Allergy Relief] 50 mcg/actuation spray,suspension 2 spray INTRANASAL DAILY PRN (Reason: Congestion) Qty: 16 RF: 1 isosorbide mononitrate 60 mg tablet extended release 24 hr 90 mg PO QAM Qty: 135 RF: 1 omeprazole 20 mg capsule,delayed release(DR/EC) 20 mg PO QAM Qty: 90 RF: 1 nitroglycerin 0.4 mg tablet, sublingual 0.4 mg SL UD PRN (Reason: Chest Pain) RF: 0 aspirin [Adult Aspirin Regimen] 81 mg tablet,delayed release (DR/EC) 81 mg PO QAM RF: 0 triamcinolone acetonide 0.1 % cream See Rx Instructions topical .COMPLEX PRN (Reason: WHEN NEEDED) RF: 0 naproxen sodium [Aleve] 220 mg Capsule 220 mg PO BID PRN (Reason: Pain) RF: 0 Discharge Problem: Lupus Qualifiers: Lupus erythematosus form: unspecified Qualified Code(s): L93.0 - Discoid lupus erythematosus
[2020-05-19 13:03] LABS: Basophils # (auto) 0.01 K/uL (0-0.2); Basophils % (auto) 0.2 %; Hematocrit (blood only) 38.5 % (37-47); Hemoglobin 13.7 g/dL (12.0-16.0); Immature Granulocytes # (auto) 0.01 K/uL (0.00-0.02); Immature Granulocytes % (auto) 0.2 %; Lymphocytes # (auto) 0.34 K/uL (1.2-3.4); Lymphocytes % (auto) 8.1 %; Mean Corpuscular Hgb Conc 35.6 g/dL (32-36); Mean Corpuscular Volume 87.1 fL (80-100); Mean Platelet Volume 9.2 fL (7.4-10.4); Monocytes # (auto) 0.35 K/uL (0.11-0.59); Monocytes % (auto) 8.3 %; Neutrophils # (auto) 3.51 K/uL (1.4-6.5); Neutrophils % (auto) 83.2 %; Platelet Count 228 K/uL (130-400); RDW Standard Deviation 41.7 fL (36.4-46.3); Red Blood Count 4.42 M/uL (4.2-5.4); White Blood Count 4.22 K/uL (4.8-10.8)
--- NOTE | 2020-05-19 13:11 | XRay Report ---
SINGLE VIEW CHEST CLINICAL HISTORY: Sepsis. FINDINGS: An AP, portable, upright chest radiograph is compared to study dated 09/25/2018 and correlate d with chest CT dated 07/29/2010. The heart is enlarged. The pulmonary vasculature is noncongested. The re is dense airspace consolidation the right midlung. Mild consolidative change is present at both genesis ng bases. No large pleural effusion or pneumothorax is seen. The skeletal structures are osteopenic. The bony thorax is grossly intact. IMPRESSION: 1. There is multifocal airspace consolidation as above, most confluent in the right midlung. The appe arance is typical for multifocal pneumonia. Clinical correlation will be required and radiographic fo llow-up to resolution is recommended. 2. No pleural effusion is identified. 3. Cardiomegaly without radiographic evidence of congestive failure. ACT 112: Negative or not required by law. Electronically signed by: Kike Jacinto M.D. 05/19/2020 1:10 PM
[2020-05-19 13:14] LABS: Partial Thromboplastin Ratio 0.9; Partial Thromboplastin Time 24.5 Seconds (21.0-31.0); Prothrombin Time 10.6 Seconds (9.0-12.0)
[2020-05-19 13:17] LABS: Albumin Level 2.8 gm/dl (3.4-5.0); BUN Creatinine Ratio 23.7 (10-20); Calcium 9.4 mg/dl (8.5-10.1); Creatinine Clr Calc Pharmacy 63.3 ml/min; Est GFR (African American) 99.1; Est GFR (Non-African American) 85.5; Magnesium 1.9 mg/dl (1.8-2.4); Potassium 3.5 mmol/L (3.5-5.1)
[2020-05-19 13:26] LABS: D Dimer 2270 ug/L FEU (0-500)
[2020-05-19 13:37] LABS: Albumin Globulin Ratio 0.7 (0.9-2); Bilirubin,Total 1.3 mg/dl (0.2-1); Globulin 3.8 gm/dl (2.5-4.0); Total Protein 6.6 gm/dl (6.4-8.2); Troponin I 0.022 ng/ml (0-0.045)
[2020-05-19] MEDS ORDERED: OPTIRAY 320 125ml IV ONE (14:22)
--- NOTE | 2020-05-19 14:30 | History & Physical Report ---
Date of Service May 19, 2020 Assessment & Plan (1) COVID-19: Diagnosed on 05/08/2020 after only a day of symptoms. - Presently given her lack of hypoxemia on room air (93-94% with good waveform on my exam), she does not qualify for any Covid treatments such as dexamethasone, remdesivir, or plasma. - Discussed discharge home with patient and ED provider, but both feel she is too weak to go home today. - Supportive care with IV fluids - Tessalon Perles, guaifenesin/codeine for cough. - Zofran for nausea - Monitor O2 - PT/OT for weakness - Follow-up CTA chest ordered by the ED physician. - Procalcitonin was 0.25. Given overall improvement, then recurrent fever and coughing yesterday, will give course of CAP abx. Will get MRSA swab as well. (2) CAD (coronary artery disease): Hx of NC in 05/2009. Follows with [facility] cardiology. Last catheterization in notes was in 07/2010 with stable, moderate CAD. No chest pain presently. EKG and troponin without sign of acute ischemia. - Continue home ASA, Imdur, statin (3) HTN, goal below 140/90: BP is 135/65 in the ED. - Continue home amlodipine (4) GERD (gastroesophageal reflux disease): - Continue PPI (5) DVT prophylaxis: Lovenox 40 mg SQ daily -> While normally she would be low-risk, Covid likely increases her risk slightly. However, given hopefully short stay and overall low risk, will stick with daily dosing rather than Q12h. History of Present Illness Primary Care Provider: Lanny Gracia, DO 79yo F w/ hx of HTN, CAD who presents with Covid-19 pneumonia. She reports she first felt symptoms of shortness of breath and fever on 05/07/2020. She was tested the next day and returned postiive for Covid-19. She is not sure who gave it to her. She reports that she has had the gamut of Covid symptoms including loss of taste and smell, loss of appetite, diarrhea, cough, shortness of breath, and fevers. Yesterday, she woke up feeling fairly well and hoped that she was finally over Covid. However, in the evening, she felt significant amounts of nausea and had multiple rounds of coughing and emesis. She also notes that she had a fever to 103 last night. She felt so weak that she presented to the Emergency Department. Presently, she feels her shortness of breath is not too bad. Allergies Allergy/AdvReac Type Severity Reaction Status Date / Time amitriptyline Allergy Severe causes Verified 05/19/20 13:43 facial paralysis adhesive tape Allergy Intermediate hives Verified 05/19/20 13:43 perphenazine Allergy Unknown FACIAL Verified 05/19/20 13:43 TWITCHING prochlorperazine Allergy Unknown CAN'T Verified 05/19/20 13:43 REMEMBER diazepam AdvReac Severe hallucinati Verified 05/19/20 13:43 ons oxycodone AdvReac Intermediate GI Upset Verified 05/19/20 13:43 nut Allergy Intermediate cashew Uncoded 05/19/20 13:43 Throat swelling and Hives Home Medications Medication Instructions Recorded Confirmed Type aspirin 81 mg tablet,delayed 81 mg PO QAM 09/19/18 05/19/20 History release nitroglycerin 0.4 mg sublingual 0.4 mg SL UD PRN tab 09/19/18 05/19/20 History tablet triamcinolone acetonide 0.1 % See Rx Instructions TOPICAL 09/19/18 05/19/20 History topical cream .COMPLEX PRN gm naproxen sodium [Aleve] 220 mg PO BID PRN 02/19/19 05/19/20 History amlodipine 5 mg tablet 5 mg PO QAM #90 tab 04/04/20 05/19/20 Rx atorvastatin 40 mg tablet 40 mg PO QAM #90 tab 04/04/20 05/19/20 Rx fluticasone propionate 50 2 spray INTRANASAL DAILY PRN #16 g 04/04/20 05/19/20 Rx mcg/actuation nasal spray,suspension isosorbide mononitrate 60 mg 90 mg PO QAM #135 tab 04/04/20 05/19/20 Rx tablet,extended release 24 hr omeprazole 20 mg capsule,delayed 20 mg PO QAM #90 cap 04/04/20 05/19/20 Rx release Past Med/Surg History Medical History (Updated 05/19/20 @ 14:22 by Edwin Ely MD) Arthritis ASCVD (arteriosclerotic cardiovascular disease) CAD (coronary artery disease) GERD (gastroesophageal reflux disease) History of NC (myocardial infarction) (2008) HTN, goal below 140/90 Hyperlipidemia Kidney stones Lupus DX'D 1975 F/U PCP Surgical History History of cardiac cath (2008) 2008 NO STENTS NEEDED [facility]-F/U DR [facility]ARDING/[facility] History of carpal tunnel release R/L History of cataract surgery R/L History of esophagogastroduodenoscopy History of rotator cuff surgery L shoulder History of sinus surgery x 2 S/P appendectomy S/P cholecystectomy S/P hysterectomy S/P ureteral stent placement (01/2019) 02/12/19 Dr. Robert Watson- Cystoscopy, L retrograde pyelogram, L ureteral stent insertion, MAC Family History Mother Breast cancer Brother Myocardial infarction Stroke Heart disease brother had rheumatic fever that caused heart problems Grandfather Colon cancer Denies family history of Ovarian cancer Prostate cancer Social History Smoking Status: Never smoker Second Hand Exposure: No; Hx Alcohol Use: No Hx Substance Use: No Preferred Language: Setswana Communication Ability: Effective Abe Teacher Required: No Beliefs That Will Affect Care: None marital status: Current Living Situation: Spouse current occupational status: retired Feels Safe at Home: Yes caffeine: Yes during the past year weight has: remained stable Dental Care, Regularly: No Physical Activity Frequency: Daily Seatbelt Use: always Sunscreen Use: No Assistive Devices: Denture - Upper and Denture - Lower Review of Systems Review of Systems: All systems reviewed & are unremarkable except as noted in HPI & below Physical Exam Constitutional: WD/WN, vitals as above Eyes: EOM intact bilaterally; no conjunctival abnormality ENMT: external ear and nose normal, oropharynx normal Neck: trachea midline, no thyromegaly normal visual inspection Respiratory: normal respiratory effort, lungs clear to auscultation no respiratory distress Cardiovascular: RRR, no murmur, no edema Gastrointestinal (Abdomen): Inspection/Auscultation: abdomen normal to inspection; abdomen not distended Musculoskeletal: no cyanosis or clubbing, extremities motor strength 5/5 Skin: no rashes, warm and dry Neurologic: moves all extremities and awake Psychiatric: Orientation: alert, oriented to person and cooperative Results & Data Results & Data ([facility]) Vital Signs (Past 12 Hours) Vital Signs Temp Pulse Resp BP Pulse Ox 05/19/20 13:38 80 20 94 05/19/20 13:30 77 23 133/64 93 05/19/20 12:01 37.3 C 107 H 24 126/76 91 Code Status & VTE Plan VTE Prophylaxis Plan VTE Prophylaxis will be ordered: Yes PG Care Time/CCT Total # of Minutes Spent Total Time Spent with Patient: Total time spent is greater than 50% in coordination of care (as documented) at patient's floor/unit and/or counseling patient: Coding Level of Care Code 98070 OBS Care - Level 3 Diagnoses COVID-19 U07.1 CAD (coronary artery disease) I25.10 HTN, goal below 140/90 I10 GERD (gastroesophageal reflux disease) K21.9 DVT prophylaxis Z29.9
--- NOTE | 2020-05-19 14:49 | CT Scan Report ---
CT angio chest PE protocol CT DOSE: 354.58 mGycm HISTORY: 79 years-old Female with PE. Acute cough with shortness of breath TECHNIQUE: Multiple CTA images of the chest were obtained after the intravenous administration of 119 ml Optiray 320. Coronal and sagittal MIPS were obtained from the axial data set and were submitted for review. All measurements were obtained according to NASCET criteria. A dose lowering technique w as utilized adhering to the principles of ALARA. COMPARISON: Chest radiograph of same day, chest CT 07/29/2010 FINDINGS: CTA: The heart is mildly enlarged. There is no pericardial effusion. Mild coronary artery calcifications. Mixed plaque the thoracic aorta without aneurysm or dissection. There is patency of the imaged great vessels. Descending thoracic aortic tortuosity. Pulmonary artery is opacified to the level of the pro ximal subsegmental branches and demonstrates no filling defects to suggest thromboembolic disease. CT CHEST: Heterogeneous thyroid. Prominent mediastinal with mildly enlarged right hilar lymph nodes measure up to 13 mm, likely reactive. Trace pleural effusions. No pneumothorax. Multilobar distribution of subpl eural predominant groundglass and consolidative opacities are noted bilaterally. Central airways are patent. The spleen is enlarged. Unremarkable soft tissues. There is no acute fracture. Wedge deformity at the T11 level is likely chronic. No retropulsion. IMPRESSION: 1. Cardiomegaly without pulmonary emboli. 2. Multilobar distribution of subpleural predominant groundglass and consolidative opacities compatib le with multifocal pneumonia, likely viral etiology. 3. Mild hilar adenopathy, likely reactive. 4. Trace pleural effusions. ACT 112: Negative or not required by law. The above report was generated using voice recognition software. It may contain grammatical, syntax o r spelling errors. Electronically signed by: Marek Pickering M.D. 05/19/2020 2:47 PM
--- NOTE | 2020-05-19 16:32 | Electrocardiogram Report ---
Test Reason : Blood Pressure : / mmHG Vent. Rate : 078 BPM Atrial Rate : 078 BPM P-R Int : 128 ms QRS Dur : 066 ms QT Int : 378 ms P-R-T Axes : 051 046 046 degrees QTc Int : 430 ms Normal sinus rhythm with sinus arrhythmia Nonspecific ST and T wave abnormality Abnormal ECG When compared with ECG of 25-SEP-2018 18:52, Nonspecific T wave abnormality, worse in Anterior leads Confirmed by Poli Mayberry ([id number]) on 05/19/2020 4:32:45 PM Referred By: REFERRED SELF Confirmed By:Bharath Mayberry
[2020-05-19] MEDS ORDERED: HYDROcodone/HOMATROPINE SYRUP 5MG/1.5MG 5ML UDP PO PRN (18:34)
[2020-05-19] MEDS ORDERED: ACETAMINOPHEN 325 MG TAB PO PRN (18:34)
[2020-05-19] MEDS ORDERED: ONDANSETRON INJ 2 MG/ML 2 ML VIAL IV PRN (18:34)
[2020-05-19] MEDS ORDERED: levoFLOXacin/D5W 750 MG/150 ML BAG IV SCH (19:00)
[2020-05-19] MEDS: BENZONATATE 100 MG CAPSULE PO SCH (19:28)
[2020-05-19] MEDS: NORMOSOL-R 1,000 ML IV SCH (21:39)
[2020-05-20] MEDS ORDERED: Nursing to Pharmacy Communication SCH (05:45)
[2020-05-20 07:10] LABS: Hematocrit (blood only) 39.3 % (37-47); Hemoglobin 14.1 g/dL (12.0-16.0); Mean Corpuscular Hemoglobin 31.4 pg (25-34); Mean Corpuscular Hgb Conc 35.9 g/dL (32-36); Mean Corpuscular Volume 87.5 fL (80-100); Mean Platelet Volume 9.4 fL (7.4-10.4); Platelet Count 250 K/uL (130-400); RDW Coefficient of Variation 12.7 % (11.5-14.5); RDW Standard Deviation 40.7 fL (36.4-46.3); Red Blood Count 4.49 M/uL (4.2-5.4); White Blood Count 4.34 K/uL (4.8-10.8)
[2020-05-20] MEDS: NORMOSOL-R 1,000 ML IV SCH (07:38)
[2020-05-20 07:43] LABS: BUN Creatinine Ratio 31.3 (10-20); Calcium 9.5 mg/dl (8.5-10.1); Creatinine Clr Calc Pharmacy 66.6 ml/min; Est GFR (African American) 100.1; Est GFR (Non-African American) 86.4; Magnesium 2.2 mg/dl (1.8-2.4); Potassium 3.3 mmol/L (3.5-5.1)
[2020-05-20] MEDS: BENZONATATE 100 MG CAPSULE PO SCH (07:43)
[2020-05-20] MEDS ORDERED: ENOXAPARIN INJ 40 MG/0.4 ML SYR SQ SCH (09:00)
[2020-05-20] MEDS ORDERED: PANTOprazole 40 MG TAB PO SCH (09:00)
[2020-05-20] MEDS ORDERED: amLODIPine BESYLATE 5 MG TAB PO SCH (09:00)
[2020-05-20] MEDS ORDERED: FLUTICASONE PROPIONATE NA SPR 16 GM BTL SCH (09:00)
[2020-05-20] MEDS ORDERED: ATORVASTATIN 40 MG TAB PO SCH (09:00)
[2020-05-20] MEDS ORDERED: ISOSORBIDE MONO EXTENDED REL 30 MG TABCR PO SCH (09:00)
[2020-05-20] MEDS ORDERED: ASPIRIN 81 MG ECTAB PO SCH (09:00)
--- NOTE | 2020-05-20 14:26 | Discharge Summary ---
Date of Service May 20, 2020 Admission HPI Per Admitting Provider 79yo F w/ hx of HTN, CAD who presents with Covid-19 pneumonia. She reports she first felt symptoms of shortness of breath and fever on 05/07/2020. She was tested the next day and returned postiive for Covid-19. She is not sure who gave it to her. She reports that she has had the gamut of Covid symptoms including loss of taste and smell, loss of appetite, diarrhea, cough, shortness of breath, and fevers. Yesterday, she woke up feeling fairly well and hoped that she was finally over Covid. However, in the evening, she felt significant amounts of nausea and had multiple rounds of coughing and emesis. She also notes that she had a fever to 103 last night. She felt so weak that she presented to the Emergency Department. Presently, she feels her shortness of breath is not too bad. Principal Diagnosis Pt states she is feeling much better today, although she is frustrated because she cannot get any sleep here. She would like to go home. She feels her SOB is resolved. She has been ambulating around the room without issue. She is tolerating PO without issue. Pt denies fever, chest pain, abd pain, n/v/c/d, LE pain or swelling. Discharge Exam Constitutional WD/WN, vitals as above Eyes normal visual patel by confrontation and + anicteric sclerae Neck normal visual inspection and trachea midline Respiratory normal respiratory effort; no respiratory distress Auscultation: + crackles; no wheezes Cardiovascular Rate/Rhythm: regular rate and regular rhythm Gastrointestinal (Abdomen) Inspection/Auscultation: abdomen not distended Percussion/Palpation: abdomen soft; abdomen nontender Musculoskeletal Head/Neck/Chest: normocephalic and head atraumatic Skin no rashes, warm and dry Neurologic awake; not confused Speech / Cognition: normal speech Psychiatric A+Ox3, euthymic affect Discharge Data Allergies Allergy/AdvReac Type Severity Reaction Status Date / Time amitriptyline Allergy Severe causes Verified 05/19/20 13:43 facial paralysis adhesive tape Allergy Intermediate hives Verified 05/19/20 13:43 perphenazine Allergy Unknown FACIAL Verified 05/19/20 13:43 TWITCHING prochlorperazine Allergy Unknown CAN'T Verified 05/19/20 13:43 REMEMBER diazepam AdvReac Severe hallucinati Verified 05/19/20 13:43 ons oxycodone AdvReac Intermediate GI Upset Verified 05/19/20 13:43 nut Allergy Intermediate cashew Uncoded 05/19/20 13:43 Throat swelling and Hives Consultations 05/19/20 14:11 ED Decision to Admit Stat Ordered Studies 05/19/20 13:48 CT angio chest PE protocol Stat Hospital Course (1) COVID-19: Diagnosed on 05/08/2020 after only a day of symptoms. - Presently given her lack of hypoxemia on room air (93-94% with good waveform on my exam), she does not qualify for any Covid treatments such as dexamethasone, remdesivir, or plasma. - Pt was admitted as both she and ED provider felt she is too weak to go home from the ED - Supportive care with IV fluids - Tessalon Perles, guaifenesin/codeine for cough. - Zofran for nausea CTA neg for PE, feels possibly viral PNA - Procalcitonin was 0.25. Pt had substantial overall improvement with abx in the ED and was started on a course of levaquin due to this Will finish course as outpt Pt feeling much improved s/p overnight interventions (2) CAD (coronary artery disease): Hx of DC in 05/2009. Follows with [facility] cardiology. Last catheterization in notes was in 07/2010 with stable, moderate CAD. No chest pain presently. EKG and troponin without sign of acute ischemia. - Continue home ASA, Imdur, statin (3) HTN, goal below 140/90: BP is 135/65 in the ED. - Continue home amlodipine (4) GERD (gastroesophageal reflux disease): - Continue PPI (5) DVT prophylaxis: Total Time Total Time Spent Total Time Spent (In Minutes): >30 Total Time Includes: Examination of the Patient, Discharge Planning, Medication Reconciliation, Communication With Other Providers and Other Discharge Plan Discharge Items Patient Disposition: Home - Self-Care Reason For Visit: COVID 19, WEAKNESS, NAUSEA Discharge Diagnosis: PNA, weakness Activity: Resume your previous activity Non-emergency contact: Primary Care Provider Call non-emergency contact if: you have any medication questions and your symptoms worsen Follow-up/Referrals: Lanny Gracia DO [Primary Care Provider] - 05/27/20 8:20 am (You will be seeing YUNIOR Hendrickson for your visit.) Diet: Regular and Heart Healthy Addtl Attending Provider Instructions: You should see your PCP in 3-5 days. Pending Studies at Discharge: Yes Studies:: Blood cultures Stand-Alone Forms: My [facility], Smoking Cessation Medications and DC Order Prescriptions: New levofloxacin 750 mg tablet 750 mg PO DAILY 7 Days Qty: 7 RF: 0 Continued amlodipine 5 mg tablet 5 mg PO QAM Qty: 90 RF: 1 atorvastatin 40 mg tablet 40 mg PO QAM Qty: 90 RF: 1 fluticasone propionate [Flonase Allergy Relief] 50 mcg/actuation spray,suspension 2 spray INTRANASAL DAILY PRN (Reason: Congestion) Qty: 16 RF: 1 isosorbide mononitrate 60 mg tablet extended release 24 hr 90 mg PO QAM Qty: 135 RF: 1 omeprazole 20 mg capsule,delayed release(DR/EC) 20 mg PO QAM Qty: 90 RF: 1 nitroglycerin 0.4 mg tablet, sublingual 0.4 mg SL UD PRN (Reason: Chest Pain) RF: 0 aspirin [Adult Aspirin Regimen] 81 mg tablet,delayed release (DR/EC) 81 mg PO QAM RF: 0 triamcinolone acetonide 0.1 % cream See Rx Instructions topical .COMPLEX PRN (Reason: WHEN NEEDED) RF: 0 naproxen sodium [Aleve] 220 mg Capsule 220 mg PO BID PRN (Reason: Pain) RF: 0 Discharge Orders: Discharge Order (Routine); Ordered 05/20/20 Ordered By: Mona Meza Admission Data Admit Date/Time: 05/19/20 14:17 Attending Provider: Mona Meza Admit Provider: Edwin Ely Primary Care Provider: Lanny Gracia Other Providers: Edwin Ely Other Interventions: Discharge Summary Assessment (RN) Last Done: 05/20/20 14:29 Coding Level of Care Code D/C Day Management >30 mins Diagnoses COVID-19 U07.1 CAD (coronary artery disease) I25.10 HTN, goal below 140/90 I10 GERD (gastroesophageal reflux disease) K21.9 DVT prophylaxis Z29.9
== END 2020-05-20 15:48 | disposition home or self-care (01) ==
LOC: ED 11:57 → 2W 11:57 → SUATTDRO 14:17 → 2W 18:11

== ENCOUNTER 2024-06-14 13:04 | Inpatient (IN) ==
--- NOTE | 2024-06-14 13:41 | Emergency Department Note ---
Impression & Plan Complicated urinary tract infection, Right ureteral calculus, Colic, ureteral, Hematuria ED Provider Note NAME: ESPINOZA ROMAN AGE: 83 SEX: F : 1940 ARRIVES VIA: Walk-In INFORMANT: Patient, ED PROVIDER(S): Benito Yañez MD CHIEF COMPLAINT: Urinary symptoms, hematuria MEDICAL DECISION MAKING: Patient presents with the above. Patient with some right-sided lower back/flank pain. CT abdomen pelvis ordered along with IV and blood work. Per prior review of cultures patient has had Klebsiella pneumonia. Patient's blood work showed leukopenia with a normal H&H and platelet count kidney function is unremarkable. The patient's urinalysis does show concerns for infection. Patient CT abdomen pelvis shows 7 mm distal right ureteral calculus which is a side the patient did have flank pain. Left-sided nephrolithiasis. I did speak with the on-call urologist FREDI Carranza with Dr. Thao. The patient was evaluated at bedside and they were recommending a ureteral stent and stone extraction. I did speak with the on-call hospitalist service after informing the patient of the findings and the patient was admitted to the medicine service by Dr. Pineda. Discussion w/ other healthcare providers: None Prior /Outside records reviewed: None Differential diagnosis: Infection, dehydration, metabolic abnormality, hypo/hyperglycemia, electrolyte imbalance, anemia, UTI, pneumonia, thyroid dysfunction among others were considered. Diagnostics, as interpreted by me: ECG: None Cardiac monitoring: An order was placed for continuous cardiac monitoring. The monitor shows a rate of 85 with sinus rhythm. Patient was placed on pulse oximetry Medical decision rules: None Imaging studies: I informally interpreted the patient's CT abdomen pelvis which does show right- sided ureteral calculus with formal report to follow. HPI: Patient presents due to concern for urinary symptoms. Patient reports that she has had persistent burning with urination frequency as well as some right- sided lower back pain. The patient states that she has been on antibiotics for the last several weeks trying 3 different courses. Most recently the patient was started on Keflex medication but had been on Bactrim prior as well as another type of medication but is not sure. Patient reports that her granddaughter is a nurse practitioner recently started the Keflex 500 twice daily. Patient denies any fevers or chills. No falls or trauma. Patient states that she seemed to improve initially but now feels as though she is getting worse with her symptoms and associated hematuria. Patient denies any falls or trauma. Patient does have a follow-up with [facility] urology in January. PAST MEDICAL HISTORY: See Below PAST SURGICAL HISTORY: See Below SOCIAL HISTORY: See Below HOME MEDICATIONS: See Below ALLERGIES: See Below VITALS: See Below PHYSICAL EXAMINATION: GENERAL: NAD, non-toxic. EYE EXAM: Normal conjunctiva. PERRL, no anisocoria and EOM's grossly intact w/o pain. OROPHARYNX: Moist mucus membranes, grossly normal dentition. NECK: Trachea midline, no stridor. Supple, no nuchal rigidity, no adenopathy, non-tender. No signs of meningismus. FROM of the neck with good chin to chest and neck extension. LUNGS: Clear to auscultation. Normal chest wall mechanics. HEART: NSR, no MRG. ABDOMEN: Abdomen soft, suprapubic discomfort,, no masses, no rebound or guarding. BACK: Right-sided CVA TTP SKIN: No rashes and no bruising. UPPER EXTREMITIES: Upper extremities are grossly normal. LOWER EXTREMITIES: Grossly normal, no edema. NEURO EXAM: A&O x3, cranial nerves II-XII grossly intact, normal speech, moves all 4 extremities. Past Med/Surg History Problem List (Updated 06/14/24 @ 19:58 by Benito Yañez MD) Hematuria (Acute) Colic, ureteral (Acute) Right ureteral calculus (Acute) Complicated urinary tract infection (Acute) Urinary tract infection Right ureteral stone Weight loss Encounter for pre-operative examination Vitamin D insufficiency Hydroureteronephrosis Moderate mitral regurgitation Kidney stones hx Arthritis GERD (gastroesophageal reflux disease) ASCVD (arteriosclerotic cardiovascular disease) HTN, goal below 140/90 History of PR (myocardial infarction) (2008) no stents needed at the time. - follows with Dr Art. Lupus (Acute) DX'D 1975 F/U PCP - currently stable Hyperlipidemia Medical History Brain bleed (~2020) due to a fall (pt unsure exact date, "sometime in Spring/Summer 2020") - treated at [facility] -- resolved on its own with rehab. had to f/u with [facility] Neurologist once - no longer needs to see. no residural issues at this time. History of COVID-19 04/2020:severe symptoms, treated at [facility] day. no current issues Surgical History History of dilatation and curettage S/P cholecystectomy S/P hysterectomy with BSO (age 27) S/P appendectomy History of carpal tunnel release R/L History of cardiac cath (2008) 2008 NO STENTS [place] [facility] [place] ART/MEHDI S/P ureteral stent placement (01/2019) 02/12/19 Dr. Robert Watson- Cystoscopy, L retrograde pyelogram, L ureteral stent insertion, MAC History of rotator cuff surgery L shoulder History of cataract surgery R/L History of esophagogastroduodenoscopy History of sinus surgery x 2 Family History Mother Breast cancer Brother Myocardial infarction Stroke Heart disease brother had rheumatic fever that caused heart problems Grandfather Colon cancer Denies family history of Ovarian cancer Prostate cancer Social History Smoking Status: Never smoker Second Hand Exposure: No; Do You Dip or Chew Tobacco: No; Hx Alcohol Use: No Hx Substance Use: No Preferred Language: Kenyan Communication Ability: Effective Visual Impairment: No Limitations Hearing Ability: Normal Patient Observation Assistant Required: No Beliefs That Will Affect Care: None marital status: Current Living Situation: Spouse Current Living Situation Comment: current occupational status: retired How many Children do You have: 4 Feels Safe at Home: Yes Childhood Exposure to Second-Hand Smoke: Yes Diet: regular Diet Comment: regular caffeine: Yes during the past year weight has: remained stable Dental Care, Regularly: No Physical Activity Frequency: Daily Seatbelt Use: always Sunscreen Use: No Assistive Devices: Denture - Upper, Denture - Lower and Glasses Allergies Allergies Allergy/AdvReac Type Severity Reaction Status Date / Time amitriptyline Allergy Severe causes Verified 01/26/24 16:53 facial paralysis nut - unspecified Allergy Severe Anaphylaxis Verified 01/26/24 16:53 /HIVES adhesive tape Allergy Intermediate hives Verified 01/26/24 16:53 cashew nut Allergy Intermediate Hives Verified 01/26/24 16:53 diazepam AdvReac Severe hallucinati Verified 01/26/24 16:53 ons oxycodone AdvReac Severe GI Upset Verified 01/26/24 16:53 ibuprofen [From Advil] AdvReac Intermediate JITTERY Verified 01/26/24 16:53 perphenazine AdvReac Intermediate FACIAL Verified 01/26/24 16:53 TWITCHING prochlorperazine AdvReac Intermediate FACIAL Verified 01/26/24 16:53 TWITCHES Home Meds Home Medications Medication Instructions Recorded Confirmed nitroglycerin 0.4 mg sublingual 0.4 mg sublingual UD PRN Chest Pain 09/19/18 01/26/24 tablet ascorbic acid (vitamin C) 500 mg 500 mg PO QAM 02/02/23 01/26/24 tablet aspirin 81 mg chewable tablet 81 mg PO DAILY 11/26/23 01/26/24 calcium 600 mg (as 1 tab PO DAILY 11/26/23 01/26/24 carbonate)-vitamin D3 10 mcg (400 unit) tablet (Calcium 600 + D(3)) triamcinolone acetonide 0.1 % 1 applic topical BID PRN Skin 11/26/23 01/26/24 topical cream Irritation Previous Rx's Medication Instructions Recorded fluticasone propionate 50 2 spray intranasal DAILY PRN 05/11/22 mcg/actuation nasal Congestion #48 grams spray,suspension (Flonase Allergy Relief) isosorbide mononitrate 60 mg 90 mg (1.5 x 60 mg) PO QAM #135 09/06/22 tablet,extended release 24 hr tabs amlodipine 5 mg tablet 5 mg PO QAM #90 tabs 09/09/22 atorvastatin 40 mg tablet 40 mg PO QAM #90 tabs 09/09/22 omeprazole 20 mg capsule,delayed 20 mg PO QAM #90 caps 09/09/22 release Results & Data (ED) Vital Signs Vital Signs - 24 hr 06/14/24 13:17 06/14/24 13:51 06/14/24 14:00 Temperature 36.5 C Temperature Source Temporal Artery Scan Pulse Rate 111 H Pulse Rate [Apical] Pulse Rate from SpO2 Sensor Respiratory Rate 18 Respiratory Effort / Characteristics Non-Labored Respiratory Depth Normal Respiratory Pattern Regular Blood Pressure 138/78 114/83 Blood Pressure [Right Arm] Blood Pressure Mean 98 92 Blood Pressure Mean [Right Arm] Blood Pressure Position Sitting Pulse Oximetry 97 95 Oxygen Delivery Method Room Air Room Air Sepsis Recent Fever Within 48 Hours No Sepsis New/Unexplained Change in Mental Status N/A Sepsis Action Taken by Nursing No Action Required 06/14/24 14:00 06/14/24 14:00 06/14/24 14:00 Temperature Temperature Source Pulse Rate Pulse Rate [Apical] Pulse Rate from SpO2 Sensor Respiratory Rate Respiratory Effort / Characteristics Respiratory Depth Respiratory Pattern Blood Pressure 114/83 114/83 114/83 Blood Pressure [Right Arm] Blood Pressure Mean 92 92 92 Blood Pressure Mean [Right Arm] Blood Pressure Position Pulse Oximetry Oxygen Delivery Method Sepsis Recent Fever Within 48 Hours Sepsis New/Unexplained Change in Mental Status Sepsis Action Taken by Nursing 06/14/24 14:00 06/14/24 14:03 06/14/24 14:13 Temperature Temperature Source Pulse Rate 88 92 H Pulse Rate [Apical] Pulse Rate from SpO2 Sensor 95 H Respiratory Rate 18 Respiratory Effort / Characteristics Respiratory Depth Respiratory Pattern Blood Pressure 114/83 Blood Pressure [Right Arm] Blood Pressure Mean 92 Blood Pressure Mean [Right Arm] Blood Pressure Position Pulse Oximetry 96 Oxygen Delivery Method Sepsis Recent Fever Within 48 Hours Sepsis New/Unexplained Change in Mental Status Sepsis Action Taken by Nursing 06/14/24 14:30 06/14/24 14:30 06/14/24 14:30 Temperature Temperature Source Pulse Rate Pulse Rate [Apical] Pulse Rate from SpO2 Sensor Respiratory Rate Respiratory Effort / Characteristics Respiratory Depth Respiratory Pattern Blood Pressure 113/78 113/78 113/78 Blood Pressure [Right Arm] Blood Pressure Mean 90 90 90 Blood Pressure Mean [Right Arm] Blood Pressure Position Pulse Oximetry Oxygen Delivery Method Sepsis Recent Fever Within 48 Hours Sepsis New/Unexplained Change in Mental Status Sepsis Action Taken by Nursing 06/14/24 14:30 06/14/24 14:30 06/14/24 14:30 Temperature Temperature Source Pulse Rate Pulse Rate [Apical] Pulse Rate from SpO2 Sensor Respiratory Rate Respiratory Effort / Characteristics Respiratory Depth Respiratory Pattern Blood Pressure 113/78 113/78 113/78 Blood Pressure [Right Arm] Blood Pressure Mean 90 90 90 Blood Pressure Mean [Right Arm] Blood Pressure Position Pulse Oximetry Oxygen Delivery Method Sepsis Recent Fever Within 48 Hours Sepsis New/Unexplained Change in Mental Status Sepsis Action Taken by Nursing 06/14/24 14:30 06/14/24 14:30 06/14/24 15:00 Temperature Temperature Source Pulse Rate 83 Pulse Rate [Apical] 90 Pulse Rate from SpO2 Sensor 89 Respiratory Rate 21 19 Respiratory Effort / Characteristics Respiratory Depth Normal Respiratory Pattern Blood Pressure 113/78 Blood Pressure [Right Arm] 110/69 Blood Pressure Mean 90 Blood Pressure Mean [Right Arm] 82 Blood Pressure Position Pulse Oximetry 95 96 Oxygen Delivery Method Room Air Sepsis Recent Fever Within 48 Hours Sepsis New/Unexplained Change in Mental Status Sepsis Action Taken by Nursing 06/14/24 15:09 06/14/24 15:09 06/14/24 15:09 Temperature Temperature Source Pulse Rate 84 Pulse Rate [Apical] Pulse Rate from SpO2 Sensor 87 Respiratory Rate 22 Respiratory Effort / Characteristics Respiratory Depth Respiratory Pattern Blood Pressure 110/69 110/69 Blood Pressure [Right Arm] Blood Pressure Mean 75 75 Blood Pressure Mean [Right Arm] Blood Pressure Position Pulse Oximetry 94 Oxygen Delivery Method Sepsis Recent Fever Within 48 Hours Sepsis New/Unexplained Change in Mental Status Sepsis Action Taken by Nursing 06/14/24 15:09 06/14/24 15:09 06/14/24 15:09 Temperature Temperature Source Pulse Rate Pulse Rate [Apical] Pulse Rate from SpO2 Sensor Respiratory Rate Respiratory Effort / Characteristics Respiratory Depth Respiratory Pattern Blood Pressure 110/69 110/69 110/69 Blood Pressure [Right Arm] Blood Pressure Mean 75 75 75 Blood Pressure Mean [Right Arm] Blood Pressure Position Pulse Oximetry Oxygen Delivery Method Sepsis Recent Fever Within 48 Hours Sepsis New/Unexplained Change in Mental Status Sepsis Action Taken by Nursing 06/14/24 15:09 06/14/24 15:09 06/14/24 15:09 Temperature Temperature Source Pulse Rate Pulse Rate [Apical] Pulse Rate from SpO2 Sensor Respiratory Rate Respiratory Effort / Characteristics Respiratory Depth Respiratory Pattern Blood Pressure 110/69 110/69 110/69 Blood Pressure [Right Arm] Blood Pressure Mean 75 75 75 Blood Pressure Mean [Right Arm] Blood Pressure Position Pulse Oximetry Oxygen Delivery Method Sepsis Recent Fever Within 48 Hours Sepsis New/Unexplained Change in Mental Status Sepsis Action Taken by Nursing 06/14/24 15:09 06/14/24 15:09 06/14/24 15:09 Temperature Temperature Source Pulse Rate Pulse Rate [Apical] Pulse Rate from SpO2 Sensor Respiratory Rate Respiratory Effort / Characteristics Respiratory Depth Respiratory Pattern Blood Pressure 110/69 110/69 110/69 Blood Pressure [Right Arm] Blood Pressure Mean 75 75 75 Blood Pressure Mean [Right Arm] Blood Pressure Position Pulse Oximetry Oxygen Delivery Method Sepsis Recent Fever Within 48 Hours Sepsis New/Unexplained Change in Mental Status Sepsis Action Taken by Nursing 06/14/24 15:09 06/14/24 15:30 06/14/24 15:30 Temperature Temperature Source Pulse Rate 77 Pulse Rate [Apical] Pulse Rate from SpO2 Sensor 85 Respiratory Rate 20 Respiratory Effort / Characteristics Respiratory Depth Respiratory Pattern Blood Pressure 110/69 104/84 Blood Pressure [Right Arm] Blood Pressure Mean 75 90 Blood Pressure Mean [Right Arm] Blood Pressure Position Pulse Oximetry 97 Oxygen Delivery Method Sepsis Recent Fever Within 48 Hours Sepsis New/Unexplained Change in Mental Status Sepsis Action Taken by Nursing 06/14/24 15:30 06/14/24 15:30 06/14/24 15:30 Temperature Temperature Source Pulse Rate Pulse Rate [Apical] Pulse Rate from SpO2 Sensor Respiratory Rate Respiratory Effort / Characteristics Respiratory Depth Respiratory Pattern Blood Pressure 104/84 104/84 104/84 Blood Pressure [Right Arm] Blood Pressure Mean 90 90 90 Blood Pressure Mean [Right Arm] Blood Pressure Position Pulse Oximetry Oxygen Delivery Method Sepsis Recent Fever Within 48 Hours Sepsis New/Unexplained Change in Mental Status Sepsis Action Taken by Nursing 06/14/24 15:30 06/14/24 15:30 06/14/24 15:30 Temperature Temperature Source Pulse Rate Pulse Rate [Apical] Pulse Rate from SpO2 Sensor Respiratory Rate Respiratory Effort / Characteristics Respiratory Depth Respiratory Pattern Blood Pressure 104/84 104/84 104/84 Blood Pressure [Right Arm] Blood Pressure Mean 90 90 90 Blood Pressure Mean [Right Arm] Blood Pressure Position Pulse Oximetry Oxygen Delivery Method Sepsis Recent Fever Within 48 Hours Sepsis New/Unexplained Change in Mental Status Sepsis Action Taken by Nursing 06/14/24 15:30 06/14/24 15:30 06/14/24 15:30 Temperature Temperature Source Pulse Rate Pulse Rate [Apical] Pulse Rate from SpO2 Sensor Respiratory Rate Respiratory Effort / Characteristics Respiratory Depth Respiratory Pattern Blood Pressure 104/84 104/84 104/84 Blood Pressure [Right Arm] Blood Pressure Mean 90 90 90 Blood Pressure Mean [Right Arm] Blood Pressure Position Pulse Oximetry Oxygen Delivery Method Sepsis Recent Fever Within 48 Hours Sepsis New/Unexplained Change in Mental Status Sepsis Action Taken by Nursing 06/14/24 16:06 06/14/24 16:24 06/14/24 16:30 Temperature Temperature Source Pulse Rate 90 93 H Pulse Rate [Apical] Pulse Rate from SpO2 Sensor 95 H 86 Respiratory Rate 25 H 23 Respiratory Effort / Characteristics Respiratory Depth Respiratory Pattern Blood Pressure 110/86 Blood Pressure [Right Arm] Blood Pressure Mean 92 Blood Pressure Mean [Right Arm] Blood Pressure Position Pulse Oximetry 97 95 Oxygen Delivery Method Sepsis Recent Fever Within 48 Hours Sepsis New/Unexplained Change in Mental Status Sepsis Action Taken by Nursing 06/14/24 16:30 06/14/24 16:30 06/14/24 16:30 Temperature Temperature Source Pulse Rate Pulse Rate [Apical] Pulse Rate from SpO2 Sensor Respiratory Rate Respiratory Effort / Characteristics Respiratory Depth Respiratory Pattern Blood Pressure 110/86 110/86 110/86 Blood Pressure [Right Arm] Blood Pressure Mean 92 92 92 Blood Pressure Mean [Right Arm] Blood Pressure Position Pulse Oximetry Oxygen Delivery Method Sepsis Recent Fever Within 48 Hours Sepsis New/Unexplained Change in Mental Status Sepsis Action Taken by Nursing 06/14/24 16:30 06/14/24 16:30 06/14/24 16:30 Temperature Temperature Source Pulse Rate Pulse Rate [Apical] Pulse Rate from SpO2 Sensor Respiratory Rate Respiratory Effort / Characteristics Respiratory Depth Respiratory Pattern Blood Pressure 110/86 110/86 110/86 Blood Pressure [Right Arm] Blood Pressure Mean 92 92 92 Blood Pressure Mean [Right Arm] Blood Pressure Position Pulse Oximetry Oxygen Delivery Method Sepsis Recent Fever Within 48 Hours Sepsis New/Unexplained Change in Mental Status Sepsis Action Taken by Nursing 06/14/24 16:30 06/14/24 16:30 06/14/24 16:39 Temperature Temperature Source Pulse Rate 86 Pulse Rate [Apical] Pulse Rate from SpO2 Sensor 90 Respiratory Rate 20 Respiratory Effort / Characteristics Respiratory Depth Respiratory Pattern Blood Pressure 110/86 110/86 Blood Pressure [Right Arm] Blood Pressure Mean 92 92 Blood Pressure Mean [Right Arm] Blood Pressure Position Pulse Oximetry 96 Oxygen Delivery Method Sepsis Recent Fever Within 48 Hours Sepsis New/Unexplained Change in Mental Status Sepsis Action Taken by Nursing 06/14/24 16:51 Temperature Temperature Source Pulse Rate Pulse Rate [Apical] 90 Pulse Rate from SpO2 Sensor Respiratory Rate 18 Respiratory Effort / Characteristics Respiratory Depth Respiratory Pattern Blood Pressure Blood Pressure [Right Arm] 110/86 Blood Pressure Mean Blood Pressure Mean [Right Arm] 94 Blood Pressure Position Pulse Oximetry 96 Oxygen Delivery Method Room Air Sepsis Recent Fever Within 48 Hours Sepsis New/Unexplained Change in Mental Status Sepsis Action Taken by Assisted Medications Current Medication List: was personally reviewed by me Laboratory Data Attestation: I reviewed the patient's lab results. 06/14/24 13:43 06/14/24 13:43 Lab Results 06/14/24 Range/Units 13:43 WBC 4.12 L (4.8-10.8) K/ul RBC 4.39 (4.20-5.40) M/uL Hgb 13.7 (12.0-16.0) g/dl Hct 41.5 (37.0-47.0) % MCV 94.5 (80.0-100.0) fL MCH 31.2 (25.0-34.0) pg MCHC 33.0 (32.0-36.0) g/dL RDW Std Deviation 42.6 (36.4-46.3) fL RDW Coeff of Hans[place] 12.4 (11.5-14.5) % Plt Count 210 (130-400) K/uL MPV 9.3 L (9.4-12.4) fL Immature Gran % (Auto) 0.7 % Neut % (Auto) 55.4 % Lymph % (Auto) 29.6 % [facility] % (Auto) 11.9 % Eos % (Auto) 1.9 % Baso % (Auto) 0.5 % Neut # (Auto) 2.28 (1.40-6.50) K/uL Lymph # (Auto) 1.22 (1.20-3.40) K/uL [facility] # (Auto) 0.49 (0.11-0.59) K/uL Eos # (Auto) 0.08 (0.00-0.50) K/uL Baso # (Auto) 0.02 (0.00-0.20) K/uL Immature Gran # (Auto) 0.03 (0.01-0.20) K/uL Sodium 141 (136-145) mmol/L Potassium 3.8 (3.5-5.1) mmol/L Chloride 109 H (98-107) mmol/L Carbon Dioxide 30 (21-32) mmol/L Anion Gap 2 L (3-11) BUN 10 (6-23) mg/dl Creatinine 0.74 (0.6-1.2) mg/dl Est Cr Clr Drug Dosing 48.5 ml/min eGFR 80.73 BUN/Creatinine Ratio 13.5 (10-20) Glucose 95 (70-99(Fasting)) mg/dl Calcium 9.8 (8.6-10.3) mg/dl Total Bilirubin 0.8 (0.2-1.0) mg/dl AST 28 (13-39) U/L ALT 22 (7-52) U/L Alkaline Phosphatase 76 (34-104) U/L Total Protein 5.8 L (6.0-8.3) gm/dl Albumin 3.9 (3.4-5.0) gm/dl Globulin 1.9 L (2.5-4.0) gm/dl Albumin/Globulin Ratio 2.1 H (0.9-2) Lipase 36 (11-82) U/L Urine Color Yellow Urine Appearance Cloudy A (Clear) Urine pH 5.0 (4.5-7.5) Ur Specific [place] 1.013 (1.000-1.030) Urine Protein Trace H (Negative) Urine Glucose (UA) Negative (Negative) Urine Ketones Negative (Negative) Urine Blood 3+ H (Negative) Urine Nitrite Positive A (Negative) Urine Bilirubin Negative (Negative) Urine Urobilinogen Negative (Negative) Ur Leukocyte Esterase 2+ H (Negative) Urine WBC (Auto) 21-50 H (0-5) /hpf Urine RBC (Auto) >20 H (0-2) /hpf U Hyaline Cast (Auto) 0-2 (0-2) /lpf U Epithel Cells (Auto) 0-2 (0-2) /hpf Urine Bacteria (Auto) 4+ H (None Seen) Administered Medications Discontinued Medications Diatrizoate Meglumine (Diatrizoate Meglumine 30% 100ml Vial) 10 ml INSTIL UD ONE Stop: 06/14/24 17:52 Last Admin: 06/14/24 17:54 Dose: 2 ml Documented By: [id number] Sodium Chloride (Nss) 500 mls @ 999 mls/hr IV .Q31M ONE Stop: 06/14/24 14:18 Last Infusion: 06/14/24 15:45 Dose: Infused Documented By: Admin: 06/14/24 14:00 Dose: 999 mls/hr Documented By: BANDAR Ceftriaxone Sodium (Rocephin) 2,000 mg in 50 mls @ 100 mls/hr IV NOW STA Stop: 06/14/24 16:11 Last Infusion: 06/14/24 16:54 Dose: Infused Documented By: Admin: 06/14/24 15:56 Dose: 100 mls/hr Documented By: ARETHA Ioversol (Optiray 320 100ml) 94 ml IV ONCE ONE Stop: 06/14/24 15:02 Last Admin: 06/14/24 15:01 Dose: 94 ml Documented By: BRM Imaging Data Radiologist's Impression: Abdomen/Pelvis CT 06/14/24 13:48 CT OF THE ABDOMEN AND PELVIS WITH CONTRAST CLINICAL HISTORY: R sided flank pain; hematuria/dysuria COMPARISON STUDY: CT of the abdomen and pelvis January 26, 2024. TECHNIQUE: Following IV administration of 94 mL of Optiray, axial images of the abdomen and pelvis were obtained from the lung bases to the proximal femurs. Images were reviewed in the axial, sagittal, and coronal planes. IV contrast was administered without complication. Automated exposure control was utilized for the study. A dose lowering technique was utilized adhering to the principles of ALARA. CT DOSE: 702.78 mGy.cm FINDINGS: A few prominent right hilar lymph nodes measure up to 1 cm short axis diameter. No pneumatosis, free air or portal venous gas is present. There are no hepatic lesions. A 2.3 cm low-attenuation lesion arising from or adjacent to left adrenal gland is unchanged. This is benign. Several left renal calculi measure up to 1.9 cm. A 7 mm distal right ureteral calculus is noted. There is no right hydronephrosis. There is associated urothelial thickening and stranding adjacent to the right ureter. There are no additional ureteral calculi. Mild bladder wall thickening with adjacent stranding is unchanged. There is colonic diverticulosis without evidence for acute diverticulitis. There is no evidence for a bowel obstruction. Duodenal diverticula are incidentally noted. No acute fractures within the lumbar spine, pelvis or hips are identified. IMPRESSION: 1. 7 mm distal right ureteral calculus. No hydronephrosis. Associated urothelial thickening and periureteral stranding. No additional ureteral calculi. 2. Left nephrolithiasis. 3. Colonic diverticulosis. No evidence for acute diverticulitis. No bowel obstruction. ACT 112: Negative or not required by law. Electronically signed by: Nathanael Padgett M.D. 06/14/2024 3:20 PM Discharge Plan Visit Data Chief Complaint: Urinary Symptoms Stated Complaint: UTI ED Provider: Benito Yañez Discharge Problem: Complicated urinary tract infection, Right ureteral calculus, Colic, ureteral, Hematuria Patient Disposition: Admitted As Inpatient Discharge Instructions Interventions: ED Discharge Assessment Last Done: 06/14/24 16:54 Discharge Problem: Hematuria Qualifiers: Hematuria type: unspecified type Qualified Code(s): R31.9 - Hematuria, unspecified
[2024-06-14] MEDS: SODIUM CHLORIDE 0.9% 500 ML IV ONE (14:00)
[2024-06-14 14:08] LABS: Basophils # (auto) 0.02 K/uL (0.00-0.20); Basophils % (auto) 0.5 %; Eosinophils # (auto) 0.08 K/uL (0.00-0.50); Eosinophils % (auto) 1.9 %; Hematocrit (blood only) 41.5 % (37.0-47.0); Hemoglobin 13.7 g/dl (12.0-16.0); Immature Granulocytes # (auto) 0.03 K/uL (0.01-0.20); Immature Granulocytes % (auto) 0.7 %; Lymphocytes # (auto) 1.22 K/uL (1.20-3.40); Lymphocytes % (auto) 29.6 %; Mean Corpuscular Hemoglobin 31.2 pg (25.0-34.0); Mean Corpuscular Volume 94.5 fL (80.0-100.0); Mean Platelet Volume 9.3 fL (9.4-12.4); Monocytes # (auto) 0.49 K/uL (0.11-0.59); Monocytes % (auto) 11.9 %; Neutrophils # (auto) 2.28 K/uL (1.40-6.50); Neutrophils % (auto) 55.4 %; Platelet Count 210 K/uL (130-400); RDW Coefficient of Variation 12.4 % (11.5-14.5); RDW Standard Deviation 42.6 fL (36.4-46.3); Red Blood Count 4.39 M/uL (4.20-5.40); White Blood Count 4.12 K/ul (4.8-10.8)
[2024-06-14 14:11] LABS: Appearance Urine Cloudy (Clear); Bacteria Urine Automated 4+ (None Seen); Bilirubin Urine Negative (Negative); Blood Urine 3+ (Negative); Cast Urine Automated 0-2 /lpf (0-2); Color Urine Yellow; Epithelial Cell Urine Auto 0-2 /hpf (0-2); Glucose Urine UA Negative (Negative); Ketones Urine Negative (Negative); Leukocyte Esterase Urine 2+ (Negative); Nitrite Urine Positive (Negative); Protein Urine Trace (Negative); RBC Urine Automated >20 /hpf (0-2); Specific Gravity Urine 1.013 (1.000-1.030); Urobilinogen Urine Negative (Negative); WBC Urine Automated 21-50 /hpf (0-5)
[2024-06-14 14:22] LABS: Albumin Globulin Ratio 2.1 (0.9-2); Albumin Level 3.9 gm/dl (3.4-5.0); BUN Creatinine Ratio 13.5 (10-20); Bilirubin,Total 0.8 mg/dl (0.2-1.0); Calcium 9.8 mg/dl (8.6-10.3); Creatinine Clr Calc Pharmacy 48.5 ml/min; Globulin 1.9 gm/dl (2.5-4.0); Potassium 3.8 mmol/L (3.5-5.1); Total Protein 5.8 gm/dl (6.0-8.3)
[2024-06-14] MEDS: OPTIRAY 320 100ml IV ONE (15:01)
--- NOTE | 2024-06-14 15:22 | CT Scan Report ---
CT OF THE ABDOMEN AND PELVIS WITH CONTRAST CLINICAL HISTORY: R sided flank pain; hematuria/dysuria COMPARISON STUDY: CT of the abdomen and pelvis January 26, 2024. TECHNIQUE: Following IV administration of 94 mL of Optiray, axial images of the abdomen and pelvis we re obtained from the lung bases to the proximal femurs. Images were reviewed in the axial, sagittal, and coronal planes. IV contrast was administered without complication. Automated exposure control wa s utilized for the study. A dose lowering technique was utilized adhering to the principles of ALARA . CT DOSE: 702.78 mGy.cm FINDINGS: A few prominent right hilar lymph nodes measure up to 1 cm short axis diameter. No pneumato sis, free air or portal venous gas is present. There are no hepatic lesions. A 2.3 cm low-attenuation lesion arising from or adjacent to left adrenal gland is unchanged. This is benign. Several left nader al calculi measure up to 1.9 cm. A 7 mm distal right ureteral calculus is noted. There is no right hy dronephrosis. There is associated urothelial thickening and stranding adjacent to the right ureter. T here are no additional ureteral calculi. Mild bladder wall thickening with adjacent stranding is unch anged. There is colonic diverticulosis without evidence for acute diverticulitis. There is no evidenc e for a bowel obstruction. Duodenal diverticula are incidentally noted. No acute fractures within the lumbar spine, pelvis or hips are identified. IMPRESSION: 1. 7 mm distal right ureteral calculus. No hydronephrosis. Associated urothelial thickening and periu reteral stranding. No additional ureteral calculi. 2. Left nephrolithiasis. 3. Colonic diverticulosis. No evidence for acute diverticulitis. No bowel obstruction. ACT 112: Negative or not required by law. Electronically signed by: Nathanael Padgett M.D. 06/14/2024 3:20 PM
[2024-06-14] MEDS: cefTRIAXone SODIUM 2,000 MG/50 ML BAG IV STA (15:56)
--- NOTE | 2024-06-14 16:05 | Urology Consultation ---
<Statement entered by Villa Thao MD - 06/14/24 16:19> 83-year-old female with acute UTI and right ureteral stone. In the setting of an obstructing infection I would recommend we proceed to the OR for cystoscopy, right retrograde pyelogram and right ureteral stent placement. I discussed this with the patient. We specifically discussed risks of bleeding, infection, injury to urinary tract, need for additional procedures, inability to place stent. She expressed understanding and would like to proceed with surgery. Date of Consultation June 14, 2024 Assessment & Plan (1) Right ureteral stone: 83-year-old female with history of nephrolithiasis presented to the emergency department for evaluation of right flank pain, urinary symptoms and hematuria. CT imaging demonstrated a 7 mm distal right ureteral stone. Urinalysis was suspicious for infection. Urology is consulted for right ureteral stone and concern for UTI She is currently afebrile, hemodynamically stable Labs reviewedcreatinine 0.74, no leukocytosis Urinalysis is suspicious for infection Urine culture pending Recommend broad-spectrum antibiotics and narrow per sensitivity data when available CT imaging reviewed and discussed with patient7 mm distal right ureteral stone; nonobstructing left renal calculi We discussed concern for ureteral calculus with underlying infection Recommend cystoscopy and right ureteral stent placement, she is agreeable She understands that stone treatment will take place at a later date Proceed to OR for cystoscopy and right ureteral stent placement Continue antibiotics and supportive care will follow History of Present Illness Reason for Consultation: Right ureteral stone, UTI Requesting Physician: Dr. Yañez History of Present Illness This is an 83-year-old female with past medical history of nephrolithiasis who presented to the emergency department today for evaluation of right flank pain, urinary symptoms and hematuria. On arrival to ED, she was afebrile, tachycardic, normotensive. Work showed WBC 4.12, hemoglobin 13.7, creatinine 0.74. Urinalysis showed 3+ blood, positive nitrates, 2+ LE, 21-50 WBC, >20 RBC and 4+ bacteria, 0-[address] abdomen pelvis which demonstrated a 7 mm distal right ureteral calculus, no upstream hydronephrosis. No additional ureteral calculi. Several left renal calculi measuring up to 1.9 cm. ED course included IV fluids and Rocephin. Patient seen and examined in the emergency department with Dr. Thao. She is resting in litter. Patient reports persistent urinary symptoms and hematuria. She has been on multiple rounds of antibiotics with recurrent urinary symptoms. She has had some right flank discomfort recently. No fever or chills. She last ate/drink around 10 AM. Allergies Allergy/AdvReac Type Severity Reaction Status Date / Time amitriptyline Allergy Severe causes Verified 01/26/24 16:53 facial paralysis nut - unspecified Allergy Severe Anaphylaxis Verified 01/26/24 16:53 /HIVES adhesive tape Allergy Intermediate hives Verified 01/26/24 16:53 cashew nut Allergy Intermediate Hives Verified 01/26/24 16:53 diazepam AdvReac Severe hallucinati Verified 01/26/24 16:53 ons oxycodone AdvReac Severe GI Upset Verified 01/26/24 16:53 ibuprofen [From Advil] AdvReac Intermediate JITTERY Verified 01/26/24 16:53 perphenazine AdvReac Intermediate FACIAL Verified 01/26/24 16:53 TWITCHING prochlorperazine AdvReac Intermediate FACIAL Verified 01/26/24 16:53 TWITCHES Home Medications Medication Instructions Recorded Confirmed Type nitroglycerin 0.4 mg sublingual 0.4 mg sublingual UD PRN Chest Pain 09/19/18 01/26/24 History tablet fluticasone propionate 50 2 spray intranasal DAILY PRN 05/11/22 01/26/24 Rx mcg/actuation nasal Congestion #48 grams spray,suspension (Flonase Allergy Relief) isosorbide mononitrate 60 mg 90 mg (1.5 x 60 mg) PO QAM #135 09/06/22 01/26/24 Rx tablet,extended release 24 hr tabs amlodipine 5 mg tablet 5 mg PO QAM #90 tabs 09/09/22 01/26/24 Rx atorvastatin 40 mg tablet 40 mg PO QAM #90 tabs 09/09/22 01/26/24 Rx omeprazole 20 mg capsule,delayed 20 mg PO QAM #90 caps 09/09/22 01/26/24 Rx release ascorbic acid (vitamin C) 500 mg 500 mg PO QAM 02/02/23 01/26/24 History tablet aspirin 81 mg chewable tablet 81 mg PO DAILY 11/26/23 01/26/24 History calcium 600 mg (as 1 tab PO DAILY 11/26/23 01/26/24 History carbonate)-vitamin D3 10 mcg (400 unit) tablet (Calcium 600 + D(3)) triamcinolone acetonide 0.1 % 1 applic topical BID PRN Skin 11/26/23 01/26/24 History topical cream Irritation Patient History Medical History Brain bleed (~2020) due to a fall (pt unsure exact date, "sometime in Spring/Summer 2020") - treated at [facility] -- resolved on its own with rehab. had to f/u with [facility] Neurologist once - no longer needs to see. no residural issues at this time. History of COVID-19 04/2020:severe symptoms, treated at [facility] for 1 day. no current issues Surgical History History of dilatation and curettage S/P cholecystectomy S/P hysterectomy with BSO (age 27) S/P appendectomy History of carpal tunnel release R/L History of cardiac cath (2008) 2008 NO STENTS NEEDED [facility] [place]-F/U DR HARDING/MEHDI S/P ureteral stent placement (01/2019) 02/12/19 Dr. Robert Watson- Cystoscopy, L retrograde pyelogram, L ureteral stent insertion, MAC History of rotator cuff surgery L shoulder History of cataract surgery R/L History of esophagogastroduodenoscopy History of sinus surgery x 2 Family History Mother Breast cancer Brother Myocardial infarction Stroke Heart disease brother had rheumatic fever that caused heart problems Grandfather Colon cancer Denies family history of Ovarian cancer Prostate cancer Social History Smoking Status: Never smoker Second Hand Exposure: No; Do You Dip or Chew Tobacco: No; Hx Alcohol Use: No Hx Substance Use: No Preferred Language: Kiswahili Communication Ability: Effective Visual Impairment: No Limitations Hearing Ability: Normal 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 Beliefs That Will Affect Care: None marital status: Current Living Situation: Spouse Current Living Situation Comment: current occupational status: retired How many Children do You have: 4 Feels Safe at Home: Yes Childhood Exposure to Second-Hand Smoke: Yes Diet: regular Diet Comment: regular caffeine: Yes during the past year weight has: remained stable Dental Care, Regularly: No Physical Activity Frequency: Daily Seatbelt Use: always Sunscreen Use: No Assistive Devices: Denture - Upper, Denture - Lower and Glasses Review of Systems Review of Systems: All systems reviewed & are unremarkable except as noted in HPI & below Physical Exam Constitutional: well developed and well nourished; no acute distress Respiratory: normal respiratory effort; no respiratory distress and no labored breathing Gastrointestinal (Abdomen): Inspection/Auscultation: abdomen normal to inspection Musculoskeletal: Head/Neck/Chest: normocephalic Neurologic: moves all extremities and awake Psychiatric: Orientation: alert and oriented x 3 Results & Data Vital Signs (Past 12 Hours) Vital Signs Temp Pulse Pulse Resp BP BP Pulse Ox 06/14/24 15:00 90 19 110/69 96 06/14/24 14:13 92 H 06/14/24 13:51 95 06/14/24 13:17 36.5 C 111 H 18 138/78 97 O2 Del Method 06/14/24 15:00 Room Air 06/14/24 14:13 06/14/24 13:51 Room Air 06/14/24 13:17 Room Air PG Care Time/CCT Total # of Minutes Spent Total Time Spent with Patient: Total time spent is greater than 50% in coordination of care (as documented) at patient's floor/unit and/or counseling patient: Coding Level of Care Code 32656 INT INP/OBS CARE 2/55MIN Diagnoses Right ureteral stone N20.1
--- NOTE | 2024-06-14 16:32 | History & Physical Report ---
Date of Service June 14, 2024 Assessment & Plan (1) Right ureteral stone: (2) Urinary tract infection: Plan This is an 83 year old female with past medical history of GERD, kidney stones, vitamin D insufficiency, HLD, HTN who presented to the ED on 06/14 with a chief complaint of flank pain and ongoing UTI. #UTI/Ureteral stone Patient w/ ongoing UTI symptoms including hematuria for 2-3 weeks. Urinalysis + for infection, UC pending CBC w/o anemia or leukocytosis BMP w/ stable renal function and electrolytes CTAP w/ 7 mm distal right ureteral stone w/ no hydronephrosis. Associated urothelial thickening & periureteral stranding. no additional ureteral calculi. Left nephrolithiasis. Colonic diverticulosis Urology consulted --> plan for cystoscopy 06/14 s/p IV Rocephin, continue upon admission, tailor abx as necessary pending culture results. Tylenol, Toradol for pain prn AM CBC, BMP Chronic conditions HTN/CAD: amlodipine, isosorbide mononitrate HLD: statin GERD: PPI DVT prophylaxis: SCD's, hold chemical in setting of hematuria & urological procedure Code: DNR/DNI Case discussed w/ Dr. Pineda at time of admission. History of Present Illness Primary Care Provider: FREDI Downey This is an 83 year old female with past medical history of GERD, kidney stones, vitamin D insufficiency, HLD, HTN who presented to the ED on 06/14 with a chief complaint of flank pain and ongoing UTI. The patient was seen and examined at bedside. Patient reports that she has been having ongoing UTI symptoms for at least 2-3 weeks. She was originally on Bactrim and more recently on Keflex. She reports that she has been also having hematuria for 2-3 weeks as well which is a new symptom for her. She has b/l flank pain but it is more prominent on her right side. She denies fever, chills. Does report lower abdominal pain as well, more specifically the right side. While in the ED, patient was found to be + for UTI on urinalysis w/ a pending urine culture. She had stable CBC/BMP. She had a CTAP that revealed a 7 mm distal right ureteral stone w/o hydronephrosis. Urology was consulted and saw the patient, she is to go for a cystoscopy this evening. Allergies Allergy/AdvReac Type Severity Reaction Status Date / Time amitriptyline Allergy Severe causes Verified 01/26/24 16:53 facial paralysis nut - unspecified Allergy Severe Anaphylaxis Verified 01/26/24 16:53 /HIVES adhesive tape Allergy Intermediate hives Verified 01/26/24 16:53 cashew nut Allergy Intermediate Hives Verified 01/26/24 16:53 diazepam AdvReac Severe hallucinati Verified 01/26/24 16:53 ons oxycodone AdvReac Severe GI Upset Verified 01/26/24 16:53 ibuprofen [From Advil] AdvReac Intermediate JITTERY Verified 01/26/24 16:53 perphenazine AdvReac Intermediate FACIAL Verified 01/26/24 16:53 TWITCHING prochlorperazine AdvReac Intermediate FACIAL Verified 01/26/24 16:53 TWITCHES Home Medications Medication Instructions Recorded Confirmed Type nitroglycerin 0.4 mg sublingual 0.4 mg sublingual UD PRN Chest Pain 09/19/18 01/26/24 History tablet fluticasone propionate 50 2 spray intranasal DAILY PRN 05/11/22 06/16/24 Rx mcg/actuation nasal Congestion #48 grams spray,suspension (Flonase Allergy Relief) isosorbide mononitrate 60 mg 90 mg (1.5 x 60 mg) PO QAM #135 09/06/22 06/16/24 Rx tablet,extended release 24 hr tabs amlodipine 5 mg tablet 5 mg PO QAM #90 tabs 09/09/22 06/15/24 Rx atorvastatin 40 mg tablet 40 mg PO QAM #90 tabs 09/09/22 06/16/24 Rx omeprazole 20 mg capsule,delayed 20 mg PO QAM #90 caps 09/09/22 06/16/24 Rx release calcium 600 mg (as 1 tab PO DAILY 11/26/23 06/16/24 History carbonate)-vitamin D3 10 mcg (400 unit) tablet (Calcium 600 + D(3)) triamcinolone acetonide 0.1 % 1 applic topical BID PRN Skin 11/26/23 06/16/24 History topical cream Irritation metoprolol tartrate 25 mg tablet 25 mg BID 06/16/24 06/16/24 History apixaban 2.5 mg tablet (Eliquis) 2.5 mg PO BID #60 tabs 06/17/24 Rx cefpodoxime 200 mg tablet 200 mg PO BID #14 tabs 06/17/24 Rx oxybutynin chloride 5 mg tablet 5 mg PO BID PRN bladder spasms #30 06/17/24 Rx tabs tamsulosin 0.4 mg capsule 0.4 mg PO HS #30 caps 06/17/24 Rx Past Med/Surg History Problem List (Updated 06/14/24 @ 19:58 by Benito Yañez MD) Hematuria (Acute) Colic, ureteral (Acute) Right ureteral calculus (Acute) Complicated urinary tract infection (Acute) Urinary tract infection Right ureteral stone Weight loss Encounter for pre-operative examination Vitamin D insufficiency Hydroureteronephrosis Moderate mitral regurgitation Kidney stones hx Arthritis GERD (gastroesophageal reflux disease) ASCVD (arteriosclerotic cardiovascular disease) HTN, goal below 140/90 History of [place] (myocardial infarction) (2008) no stents needed at the time. - follows with Dr Art. Lupus (Acute) DX'D 1975 F/U PCP - currently stable Hyperlipidemia Medical History Brain bleed (~2020) due to a fall (pt unsure exact date, "sometime in Spring/Summer 2020") - treated at [facility] -- resolved on its own with rehab. had to f/u with [facility] Neurologist once - no longer needs to see. no residural issues at this time. History of COVID-19 04/2020:severe symptoms, treated at [facility] for 1 day. no current issues Surgical History History of dilatation and curettage S/P cholecystectomy S/P hysterectomy with BSO (age 27) S/P appendectomy History of carpal tunnel release R/L History of cardiac cath (2008) 2008 NO STENTS NEEDED [facility]-F/U DR ART/MEHDI S/P ureteral stent placement (01/2019) 02/12/19 Dr. Robert Watson- Cystoscopy, L retrograde pyelogram, L ureteral stent insertion, MAC History of rotator cuff surgery L shoulder History of cataract surgery R/L History of esophagogastroduodenoscopy History of sinus surgery x 2 Family History Mother Breast cancer Brother Myocardial infarction Stroke Heart disease brother had rheumatic fever that caused heart problems Grandfather Colon cancer Denies family history of Ovarian cancer Prostate cancer Social History Smoking Status: Never smoker Second Hand Exposure: No; Do You Dip or Chew Tobacco: No; Hx Alcohol Use: No Hx Substance Use: No Preferred Language: Kazakh Communication Ability: Effective Visual Impairment: No Limitations Hearing Ability: Normal [place] Required: No Beliefs That Will Affect Care: None marital status: Current Living Situation: Spouse Current Living Situation Comment: current occupational status: retired How many Children do You have: 4 Feels Safe at Home: Yes Childhood Exposure to Second-Hand Smoke: Yes Diet: regular Diet Comment: regular caffeine: Yes during the past year weight has: remained stable Dental Care, Regularly: No Physical Activity Frequency: Daily Seatbelt Use: always Sunscreen Use: No Assistive Devices: None Physical Exam Constitutional: WD/WN, vitals as above Eyes: PERRL, conjunctivae normal, anicteric sclerae Respiratory: normal respiratory effort, lungs clear to auscultation Cardiovascular: RRR, no murmur, no edema Gastrointestinal (Abdomen): + RLQ tenderness to palpation. + BS + CVA tenderness on right flank Psychiatric: A+Ox3, euthymic affect Results & Data Results & Data Vital Signs (Past 12 Hours) Vital Signs Temp Pulse Pulse Resp BP BP Pulse Ox 06/14/24 15:00 90 19 110/69 96 06/14/24 14:13 92 H 06/14/24 13:51 95 06/14/24 13:17 36.5 C 111 H 18 138/78 97 O2 Del Method 06/14/24 15:00 Room Air 06/14/24 14:13 06/14/24 13:51 Room Air 06/14/24 13:17 Room Air Supervising Physician Co-Signing Physician Notes During face to face encounter, I obtained a history physical examination, discussed plan of carewith patient. I discussed plan of care with MIKA Mckenzie. I reviewed above note and agree with it except for the following: Patient admitted for a possible UTI. S/P cystoscopy. Patient will continue antibiotics. PG Care Time/CCT Total # of Minutes Spent Total Time Spent with Patient: Total time spent is greater than 50% in coordination of care (as documented) at patient's floor/unit and/or counseling patient: Coding Level of Care Code 17502 INT INP/OBS CARE MIN Diagnoses Right ureteral stone N20.1 Acute cystitis with hematuria N30.01 Hematuria presence: with hematuria Urinary tract infection type: acute cystitis (2) Urinary tract infection Hematuria presence: with hematuria Urinary tract infection type: acute cystitis Qualified Code(s): N30.01 - Acute cystitis with hematuria
--- NOTE | 2024-06-14 16:50 | Anesthesiology Consultation ---
Date of Service June 14, 2024 Assessment & Plan (1) Encounter for pre-operative examination: Chart Review Chart Review: Patient NOT seen in Pre Admission Testing Consults Requested none History Surgery Operation Date: 06/14/24 07:50 Proposed Procedures p Cystoscopy, Right Ureteral Stent Insertion - Villa Thao MD Height/Weight Height: 5 ft 3 in Weight: 59.7 kg Allergies Allergy/AdvReac Type Severity Reaction Status Date / Time amitriptyline Allergy Severe causes Verified 01/26/24 16:53 facial paralysis nut - unspecified Allergy Severe Anaphylaxis Verified 01/26/24 16:53 /HIVES adhesive tape Allergy Intermediate hives Verified 01/26/24 16:53 cashew nut Allergy Intermediate Hives Verified 01/26/24 16:53 diazepam AdvReac Severe hallucinati Verified 01/26/24 16:53 ons oxycodone AdvReac Severe GI Upset Verified 01/26/24 16:53 ibuprofen [From Advil] AdvReac Intermediate JITTERY Verified 01/26/24 16:53 perphenazine AdvReac Intermediate FACIAL Verified 01/26/24 16:53 TWITCHING prochlorperazine AdvReac Intermediate FACIAL Verified 01/26/24 16:53 TWITCHES Medications Home Medications Medication Instructions Recorded Confirmed Last Taken nitroglycerin 0.4 mg sublingual 0.4 mg sublingual UD PRN Chest Pain 09/19/18 01/26/24 Unknown tablet fluticasone propionate 50 2 spray intranasal DAILY PRN 05/11/22 01/26/24 Unknown mcg/actuation nasal Congestion #48 grams spray,suspension (Flonase Allergy Relief) isosorbide mononitrate 60 mg 90 mg (1.5 x 60 mg) PO QAM #135 09/06/22 01/26/24 01/26/24 tablet,extended release 24 hr tabs amlodipine 5 mg tablet 5 mg PO QAM #90 tabs 09/09/22 01/26/24 01/26/24 atorvastatin 40 mg tablet 40 mg PO QAM #90 tabs 09/09/22 01/26/24 01/26/24 omeprazole 20 mg capsule,delayed 20 mg PO QAM #90 caps 09/09/22 01/26/24 01/26/24 release ascorbic acid (vitamin C) 500 mg 500 mg PO QAM 02/02/23 01/26/2424 tablet aspirin 81 mg chewable tablet 81 mg PO DAILY 11/26/23 01/26/24 01/26/24 calcium 600 mg (as 1 tab PO DAILY 11/26/23 01/26/24 01/26/24 carbonate)-vitamin D3 10 mcg (400 unit) tablet (Calcium 600 + D(3)) triamcinolone acetonide 0.1 % 1 applic topical BID PRN Skin 11/26/23 01/26/24 Unknown topical cream Irritation Past Medical History Medical History Brain bleed (~2020) due to a fall (pt unsure exact date, "sometime in Spring/Summer 2020") - treated at [facility] -- resolved on its own with rehab. had to f/u with [facility] Neurologist once - no longer needs to see. no residural issues at this time. History of COVID-19 04/2020:severe symptoms, treated at [facility] for 1 day. no current issues Past Family History Family History Mother Breast cancer Brother Myocardial infarction Stroke Heart disease brother had rheumatic fever that caused heart problems Grandfather Colon cancer Denies family history of Ovarian cancer Prostate cancer Past Surgical History Surgical History History of dilatation and curettage S/P cholecystectomy S/P hysterectomy with BSO (age 27) S/P appendectomy History of carpal tunnel release R/L History of cardiac cath (2008) 2008 NO STENTS NEED[place] [facility] [place] DR [place]ARD[place]MEHDI S/P ureteral stent placement (01/2019) 02/12/19 Dr. Robert Watson- Cystoscopy, L retrograde pyelogram, L ureteral stent insertion, MAC History of rotator cuff surgery L shoulder History of cataract surgery R/L History of esophagogastroduodenoscopy History of sinus surgery x 2 Social History Smoking Status: Never smoker Do You Dip or Chew Tobacco: No Hx Alcohol Use: No Hx Substance Use: No substance use type: does not use Physical Exam Vital Signs Last Vital Signs Temp 97.7 F 06/14/24 13:17 Pulse 90 06/14/24 15:00 Resp 19 06/14/24 15:00 BP 110/69 06/14/24 15:00 Pulse Ox 96 06/14/24 15:00 O2 Del Method Room Air 06/14/24 15:00 Testing Laboratory Results 06/14/24 13:43 06/14/24 13:43 Urine Color Yellow 06/14/24 13:43 Urine Appearance Cloudy (Clear) A 06/14/24 13:43 Urine pH 5.0 (4.5-7.5) 06/14/24 13:43 Ur Specific [place] 1.013 (1.000-1.030) 06/14/24 13:43 Urine Protein Trace (Negative) H 06/14/24 13:43 Urine Glucose (UA) Negative (Negative) 06/14/24 13:43 Urine Ketones Negative (Negative) 06/14/24 13:43 Urine Nitrite Positive (Negative) A 06/14/24 13:43 Ur Leukocyte Esterase 2+ (Negative) H 06/14/24 13:43 Urine WBC (Auto) 21-50 /hpf (0-5) H 06/14/24 13:43 Urine RBC (Auto) >20 /hpf (0-2) H 06/14/24 13:43 U Hyaline Cast (Auto) 0-2 /lpf (0-2) 06/14/24 13:43 U Epithel Cells (Auto) 0-2 /hpf (0-2) 06/14/24 13:43 Urine Bacteria (Auto) 4+ (None Seen) H 06/14/24 13:43
[2024-06-14] MEDS ORDERED: ONDANSETRON INJ 2 MG/ML 2 ML VIAL IV PRN (16:52)
[2024-06-14] MEDS ORDERED: fentaNYL citrate PF 100 MCG/2 ML VIAL IV PRN (16:52)
[2024-06-14] MEDS ORDERED: ATROPINE SULFATE 0.1 MG/ML 10ML SYR IV PRN (16:52)
[2024-06-14] MEDS ORDERED: ePHEDrine sulfate 50 MG/ML AMP IV PRN (16:52)
[2024-06-14] MEDS ORDERED: LIDOCAINE 2% 2 ML VIAL/AMP(20MG/ML) INFIL ONE (17:00)
[2024-06-14] MEDS ORDERED: PROPOFOL IV EMULSION 10 MG/ML 20 ML VIAL IV ONE (17:00)
[2024-06-14] MEDS ORDERED: fentaNYL citrate PF 100 MCG/2 ML VIAL ONE (17:00)
[2024-06-14] MEDS: DIATRIZOATE MEGLUMINE 30% 100ML VIAL INSTIL ONE (17:54)
--- NOTE | 2024-06-14 18:02 | Operative Report ---
PG Post Operative Report Pre & Post Diagnosis Operation Date: 06/14/24 07:50 Pre-Op Diagnosis: Right ureteral stone Post-Op Diagnosis: Right ureteral stone I identified the patient and participated in the time-out.: Yes Procedure Operation Date: 06/14/24 07:50 Actual Procedures p Cystoscopy, Retrograde Pyelogram, Right Ureteral Stent Insertion(Right) - Villa Thao MD Surgeon Villa Thao MD Well Surveying Engineer None Estimated Blood Loss 0 Findings Consistent with Post-Op Diagnosis Specimens None Drains 6 Turkish x 24 cm double-J ureteral stent in the right ureter Anesthesia Type MAC Complications none Disposition Accompanied Patient To Recovery: Yes Disposition: Recovery Room Indications This is an 83-year-old female who presented the emergency department was found to have a right ureteral stone as well as likely UTI based on urinalysis. She is brought to the OR for right ureteral stent placement. Description of Procedure The patient was identified in the holding area and informed consent was confirmed. She was marked on the right side, then was taken to the operating room where anesthesia was initiated. She was placed in the dorsal lithotomy position with all pressure points appropriately padded. She was prepped and draped in the usual sterile fashion and a preoperative timeout was performed. A well-lubricated cystoscope was inserted per urethra and panendoscopy was performed. The urethra was normal in appearance. The bladder was of normal size with ureteral orifices in orthotopic position. The right ureteral orifice was identified and cannulated with a 5 Turkish open- ended catheter. A retrograde pyelogram was performed demonstrating mild hydronephrosis and hydroureter.. A 0.038" ZIPwire was advanced to the level of the kidney under fluoroscopic guidance. Over the wire, a 6 Turkish x 24 centimeter double-J ureteral stent was advanced. When the wire was removed, the proximal curl was visualized in the kidney with x-ray, and the distal curl visualized in the bladder with the cystoscope. There was good drainage of contrast through the stent. At this point the bladder wa s drained and all instrumentation was removed. The patient was then awakened from anesthesia and was brought to the PACU in stable condition. I attest to the content of the Intraoperative Record and any orders documented therein. Any exceptions are noted below.
--- NOTE | 2024-06-14 18:33 | Anesthesiology Progress Note ---
Date of Service June 14, 2024 Anesthesia Post Procedure Vital Signs Vital Signs: Temp Pulse Pulse Resp BP BP Pulse Ox 06/14/24 18:25 97.7 F 87 18 118/66 97 06/14/24 18:15 90 14 107/70 97 06/14/24 18:05 97.9 F 87 13 106/67 97 06/14/24 17:02 98.4 F 95 H 18 132/85 98 06/14/24 16:51 90 18 110/86 96 06/14/24 16:39 86 20 96 06/14/24 16:30 110/86 06/14/24 16:30 110/86 06/14/24 16:30 110/86 06/14/24 16:30 110/86 06/14/24 16:30 110/86 06/14/24 16:30 110/86 06/14/24 16:30 110/86 06/14/24 16:30 110/86 06/14/24 16:30 110/86 06/14/24 16:24 93 H 23 95 06/14/24 16:06 90 25 H 97 06/14/24 15:30 104/84 06/14/24 15:30 104/84 06/14/24 15:30 104/84 06/14/24 15:30 104/84 06/14/24 15:30 104/84 06/14/24 15:30 104/84 06/14/24 15:30 104/84 06/14/24 15:30 104/84 06/14/24 15:30 104/84 06/14/24 15:30 104/84 06/14/24 15:30 77 20 97 06/14/24 15:09 110/69 06/14/24 15:09 110/69 06/14/24 15:09 110/69 06/14/24 15:09 110/69 06/14/24 15:09 110/69 06/14/24 15:09 110/69 06/14/24 15:09 110/69 06/14/24 15:09 110/69 06/14/24 15:09 110/69 06/14/24 15:09 110/69 06/14/24 15:09 110/69 06/14/24 15:09 110/69 06/14/24 15:09 84 22 94 06/14/24 15:00 90 19 110/69 96 06/14/24 14:30 83 21 95 06/14/24 14:30 113/78 06/14/24 14:30 113/78 06/14/24 14:30 113/78 06/14/24 14:30 113/78 06/14/24 14:30 113/78 06/14/24 14:30 113/78 06/14/24 14:30 113/78 06/14/24 14:13 92 H 06/14/24 14:03 88 18 96 06/14/24 14:00 114/83 06/14/24 14:00 114/83 06/14/24 14:00 114/83 06/14/24 14:00 114/83 06/14/24 14:00 114/83 06/14/24 13:51 95 06/14/24 13:17 97.7 F 111 H 18 138/78 97 O2 Del Method O2 Flow Rate 06/14/24 18:25 Room Air 06/14/24 18:15 Room Air 06/14/24 18:05 Oxymask 5 06/14/24 17:02 Room Air 06/14/24 16:51 Room Air 06/14/24 16:39 06/14/24 16:30 06/14/24 16:30 06/14/24 16:30 06/14/24 16:30 06/14/24 16:30 06/14/24 16:30 06/14/24 16:30 06/14/24 16:30 06/14/24 16:30 06/14/24 16:24 06/14/24 16:06 06/14/24 15:30 06/14/24 15:30 06/14/24 15:30 06/14/24 15:30 06/14/24 15:30 06/14/24 15:30 06/14/24 15:30 06/14/24 15:30 06/14/24 15:30 06/14/24 15:30 06/14/24 15:30 06/14/24 15:09 06/14/24 15:09 06/14/24 15:09 06/14/24 15:09 06/14/24 15:09 06/14/24 15:09 06/14/24 15:09 06/14/24 15:09 06/14/24 15:09 06/14/24 15:09 06/14/24 15:09 06/14/24 15:09 06/14/24 15:09 06/14/24 15:00 Room Air 06/14/24 14:30 06/14/24 14:30 06/14/24 14:30 06/14/24 14:30 06/14/24 14:30 06/14/24 14:30 06/14/24 14:30 06/14/24 14:30 06/14/24 14:13 06/14/24 14:03 06/14/24 14:00 06/14/24 14:00 06/14/24 14:00 06/14/24 14:00 06/14/24 14:00 06/14/24 13:51 Room Air 06/14/24 13:17 Room Air Pain Intensity Pelvic: Pain Intensity: 7 Transfer of Care Handoff Completed per policy Notes Mental Status: alert / awake / arousable and participated in evaluation Patient Amnestic to Procedure: Yes Nausea / Vomiting: adequately controlled Pain: adequately controlled Airway Patency, RR, SpO2: stable & adequate BP & HR: stable & adequate Hydration State: stable & adequate Anesthetic Complications: no major complications apparent and Pt Satisfied with anesthetic care
[2024-06-14] MEDS: KETOROLAC TROMETHAMINE 15 MG/ML VIAL IV PRN (21:11)
--- OUTSIDE RECORDS SUMMARY | 2024-06-14 22:48 | External Medical Summary | Summary of Care ---
Author Name Unknown Organization [facility] Address [address] [place] [address] Phone [phone] Care Team Providers Care Raymond Mill Operator Name Role Phone Sandra Guajardo Primary Care Provider [phone] Reason for Visit * Reason Onset Date Comments Medication Problem 04/27/2024 Eliquis Encounter Details Date Type Department Care Team ([facility] st Contact Info) Description 04/27/2024 Telephone Cardiology, [facility] [address] [facility] [place] [id number] [facility] [place] [address] Medication Problem (Eliquis) Allergies Active Allergy Reactions Criticality Noted Date Comments Ibuprofen Neuro complications (Please comment) Medium 05/21/2010 Jittery Cashew Nut Oil Hives 05/06/2020 Oxycodone-Acetaminophen Other (Please comment) Medium 08/06/2010 Severe vomiting/nausea Prochlorperazine Neuro complications (Please comment) Medium 12/17/2004 Facial twitches Adhesive Tape Hives Medium 08/06/2010 Diazepam Neuro complications (Please comment) Medium 12/17/2004 hallucinations documented as of this encounter (statuses as of 05/02/2024) Medications CALCIUM 600-D 600-400 MG-UNIT PO TABS once daily Active TRIAMCINOLONE ACETONIDE 0.1 % EX CREAIndications: Dermatitis Apply to affected area twice a day 15 g 1 1 Active ISOSORBIDE MONONITRATE ER 60 MG PO [id number]: Chest pain 1 AND 1/2 TABLETS DAILY 45 Tab 5 5 Active omeprazole (PRILOSEC) 20 MG CPDRIndications: Esophageal reflux TAKE ONE CAPSULE BY MOUTH EVERY DAY ONE HOUR BEFORE THE FIRST MEAL OFTHE DAY. 34 Cap 5 5 Active atorvaSTATin (LIPITOR) 40 MG TabletIndication s:Dyslipidemia, goal LDL below 70 TAKE ONE TABLET BY MOUTH EVERY DAY 30 Tab 0 5 Active Fluticasone Propionate 50 MCG/ACT Nasal Suspension (Flonase) 1 Active Acetaminophen 325 MG Oral Tablet (Tylenol) Take 3 Tablets by mouth in the morning and 3 Tablets at noon and 3 Tablets before bedtime. 12 Tablet 01/31/2024 12:38 PM EST 4 Active Metoprolol Tartrate 25 MG Oral Tablet (Lopressor) Take 1 Tablet by mouth in the morning and 1 Tablet before bedtime. 60 Tablet 01/31/2024 12:38 PM EST 4 Active Lidocaine 4 % External Patch (Aspercreme) Place 1 Patch topically on the skin in the morning. Keep on for 12 hours 30 Patch 01/31/2024 12:38 PM EST 4 Active Carisoprodol 350 MG Oral Tablet (Soma) Take one-half tablet by mouth every 6 hours as needed for muscle spasms. 15 Tablet 01/31/2024 12:38 PM EST 4 Active Albuterol Sulfate HFA 108 (90 Base) MCG/ACT Inhalation Aerosol Solution Inhale 1 Puff by mouth as needed for Shortness of Breath. 4 Active Loratadine 10 MG Oral Tablet (Claritin) Take 1 Tablet by mouth in the morning. Active Apixaban 5 MG Oral Tablet (Eliquis) Take 1 Tablet by mouth in the morning and 1 Tablet before bedtime. 180 Tablet 3 05/02/2024 1:28 PM EST 5 Active documented as of this encounter (statuses as of 05/02/2024) Active Problems Problem Noted Date Diagnosed Date Arthritis 02/05/2024 Closed fracture of left clavicle 02/05/2024 Closed head injury 02/05/2024 Contusion of left wrist 02/05/2024 Contusion of right shoulder 02/05/2024 Facial contusion 02/05/2024 Gastroesophageal reflux disease 02/05/2024 Ground-level fall 02/05/2024 History of COVID-19 02/05/2024 History of FL (myocardial infarction) 02/05/2024 Hydroureteronephrosis 02/05/2024 Hypoxemia 02/05/2024 Kidney stones 02/05/2024 Moderate mitral regurgitation 02/05/2024 S/P appendectomy 02/05/2024 S/P cholecystectomy 02/05/2024 S/P hysterectomy 02/05/2024 S/P ureteral stent placement 02/05/2024 SOB (shortness of breath) 02/05/2024 Vitamin D insufficiency 02/05/2024 Weakness 02/05/2024 Weight loss 02/05/2024 Multiple fractures of ribs of right side 024 UTI (urinary tract infection) 01/31/2024 Fall 01/27/2024 New onset atrial fibrillation 01/27/2024 Subdural hematoma 01/27/2024 Rotator cuff syndrome, left 12/07/2023 Carpal tunnel syndrome 06/15/2009 Systemic lupus erythematosus 06/14/2009 Hyperlipidemia with target LDL less than 100 Overview (07/28/2015): ICD-10 update of inactive term HTN, goal below 140/90 02/13/2009 Overview (02/13/2009): Modified per HTN protocol #16. Benign neoplasm of colon 02/07/2006 Overview (03/23/2006): Hyperplastic--repeat 10 years Coronary atherosclerosis of [place] coronary ana laura ry Multiple injuries due to trauma documented as of this encounter (statuses as of 05/02/2024) Resolved Problems Problem Noted Date Diagnosed Date Resolved Date Dyslipidemia, goal LDL below 70 10/05/2011 05/24/2013 ASCVD (arteriosclerotic card iovascular disease) 01/28/2011 05/24/2013 ACTIVE CASE MANAGEMENT- Servando Gilliland RN [phone] 06/18/2009 01/12/2010 Acute non Q wave myocardial infarction 06/14/2009 05/24/2013 Dyslipidemia, goal to be determined 03/11/2009 03/02/2011 Overview (03/11/2009): Per Lipid Taxonomy. Mixed dyslipidemia 01/11/2008 Overview (03/11/2009): Per Lipid Taxonomy. ADVANCE DIRECTIVE INFORMATION 06/16/2005 01/30/2024 Overview (06/18/2009): No, Advance Directive brochure given to patient. - mailed 06/18/2009 vls No, Advance Directive brochure given to patient at prior appointment. Lupus erythematosus 12/17/2004 06/17/19 06 Overview (12/17/2004): diagnosed in 1975 HTN, goal to be determined 04/19/2008 Overview (02/17/2009): Modified per HTN protocol #16. documented as of this encounter (statuses as of 05/02/2024) Immunizations Name Administration Dates Next Due Pneumococcal Polysaccharide PPV23 (Pneumovax) documented as of this encounter Social History Tobacco Use Types Packs/Day Years Used Date Smoking Tobacco: Never Smokeless Tobacco: Never Alcohol Use Standard Drinks/Week Comments No 0 (1 standard drink = 0.6 oz pur e alcohol) Comments No Sex and Gender Information Value Date Recorded Sex Assigned at Not on file Legal Sex Female 5:06 AM EST Gender Identity Not on file Sexual Orientation Not on file Occupation Industry Job Start Date Job End Date Not on file Not on file Not on file Not on file documented as of this encounter Functional Status * Are you deaf or do you have serious difficulty hearing? Answer Date of Assessment Author No 01/26/2024 11:17 PM EDT Karyna Vargas RN * Are you blind or do you have serious difficulty seeing, even when wearing glasses? Answer Date of Assessment Author No 01/26/2024 11:17 PM EDT Karyna Vargas RN * Do you have serious difficulty walking or climbing stairs? (5 years old or older) Answer Date of Assessment Author No 01/26/2024 11:17 PM EDT Karyna Vargas RN * Do you have difficulty dressing or bathing? (5 years old or older) Answer Date of Assessment Author No 01/26/2024 11:17 PM EDT Karyna Vargas RN * Because of a physical, mental, or emotional condition, do you have difficulty doing errands alone such as visiting a doctors office or shopping? (15 years old or older) Answer Date of Assessment Author No 01/26/2024 11:17 PM EDT Karyna Vargas RN documented as of this encounter Mental Status * Because of a physical, mental, or emotional condition, do you have serious difficulty concentrating, remembering, or making decisions? (5 years old or older) Answer Entry Date Author No 01/26/2024 11:17 PM IVYT Karyna Vargas RN documented in this encounter Miscellaneous Notes * Telephone Encounter - Eileen Li RP - 04/30/2024 11:51 AM EST Received message that per Dr. Gibbs, okay to start Eliquis. Please initiate fill for the prescription. Called the patient to notify her that the prescription will be filled by [facility] and notified her of the cost; $12.15 for a 90-day supply per test claim. Patient was very appreciative. Eileen Li, PharmD Clinical Pharmacist 04/30/2024 11:53 AM * Telephone Encounter - Manda Massey RP - 04/27/2024 10:34 AM EST Yes, please profile for now. Thank you so much! I will reach back out once getting "okay" to fill * Telephone Encounter - Manda Massey RP - 04/27/2024 9:57 AM EST GSP--Pt starting on Eliquis. I have a feeling its going to be expensive. Can you please run test claim? If expensive, can you please calli assistance flag? Marking as high priority. Of note, lamp cleaner street light is going to confirm with the neurosurgeon that eliquis is okay to start sinceCT looks like the subdural hematoma has resolved after her mechanical. For this reason, just tryingto ensure Eliquis is affordable at th is time, we will NOT fill medication until we hear back from neurosurgeon. Thanks in advance! Manda Massey Pharm D Clinical [facility] Pharmacist Cardiology 04/27/2024,10:00 AM documented in this encounter Plan of Treatment Upcoming Encounters Date Type Department Care Team (Late st Contact Info) Description 11/02/2024 11:00 AM EDT Office Visit Cardiology, [facility] [address] [facility] [place] [address] Jeaneth De Paz CRNP [address] [place] [address] [place] [address] Scheduled Procedures Name Priority Associated Diagnoses Date/Ti me COLONOSCOPY FLEXIBLE PROXIMAL DIAGNOSTIC Recall History of colon polyps Health Maintenance Due Date Last Done Comments DXA Scan 1941 Albumin/Creatinine Ratio 11/25/1959 DTap/Tdap Vaccines (1 - Tdap) 1960 Zoster Vaccines (1 of 2) 11/25/1991 Depression Screening 02/12/2014 02/12/2013 COVID-19 Vaccine ( - season) 2023 Influenza Vaccine (FLU shot) (#1) 2023 GFR 01/30/2025 01/31/2024, 06/2023, 01/29/2024, Additional history exists RETIRED - COLONOSCOPY-EVERY 5 YRS AGES 18-100 Discontinued 02/09/2016, 02/09/2016, 02/07/2006 Pneumococcal Vaccine: 50+ Years Completed 08/31/2016, 03/28/2009, 03/28/2009 HPV (Gardasil) Vaccine Aged Out No lo nger eligible based on patient's age to complete this topic Hepatitis B Vaccine Aged Out No longe r eligible based on patient's age to complete this topic MENINGOCOCCAL (MENACTRA/MENVEO) Aged Out No longer eligible based on patient's age to complete this topic documented as of this encounter Medical Devices Not on filedocumented as of this encounter Advance Directives * Full Code (Latest Code Status on File) Date Activated Date Inactivated Comments 01/26/2024 9:57 PM 01/31/2024 6:56 PM This order reflects the patients wishes and were consensually agreed upon. Question Answer Comments Discussion of Advance Direct bran occurred with: Not Discussed due to patient's condition * Full Code Date Activated Date Inactivated Comments 03/02/2023 9:51 AM 03/02/2023 2:39 PM This order r eflects the patients wishes and were consensually agreed upon. Question Answer Comments Discussion of Advance Direct bran occurred with: Not Discussed due to patient's condition * Full Code Date Activated Date Inactivated Comments 03/02/2023 8:07 AM 03/02/2023 9:51 AM This order r eflects the patients wishes and were consensually agreed upon. Question Answer Comments Discussion of Advance Direct bran occurred with: Not Discussed due to patient's condition * Full Code Date Activated Date Inactivated Comments 06/14/2009 5:42 PM 06/17/2009 6:11 PM This order r eflects the patients wishes and were consensually agreed upon. Question Answer Comments Discussion of Advance Directives occurred with: Patient Does the patient have a Living Will? No Does the patient have Health Care Power of Attor karen? No Care Teams Raymond Mill Operator Relationship Specialty Start Date End Date Sandra Guajardo CRNP [address] [place] [address] PCP - General Nurse Practitioner 02/10/23 documented as of this encounter
--- OUTSIDE RECORDS SUMMARY | 2024-06-14 22:48 | External Medical Summary | Summary of Care ---
Author Name Unknown Organization [facility] Address [address] [place] [address] Phone [phone] Care Team Providers Care Hogshead Hand Name Role Phone Sandra Guajardo Primary Care Provider [phone] Reason for Visit * Reason Comments Consultation * Evaluate & Treat - Unlimited Visits (Within 10 days (routine)) - Authorized Specialty Diagnoses / Procedures Referred By Stephen t Referred To Contact Cardiovascular Medicine / Cardiology Diagnoses Atrial fibrillation (HCC) Sandra Guajardo CRNP [address] [place] [address] Phone: tel: fax: Referral ID Status Reason Start Date Expiration Date Visits Requested Visits Authorized [id number] Authorized Specialty Services Required [phone] Encounter Details Date Type Department Care Team ([facility] Contact Info) Description 04/27/2024 8:45 AM EST Office Visit Cardiology, [facility] [address] [place] [address] Geena Gibbs, [address] [place] [address] Atrial fibrillation, unspecified type (HCC)*; HTN, goal below 140/90; Hyperlipidemia with target LDL less than 100; Atherosclerosis of [place] coronary artery of [place] heart without angina pectoris; Nonrheumatic aortic valve insufficiency Allergies Active Allergy Reactions Criticality Noted Date Comments Ibuprofen Neuro complications (Please comment) Medium 05/21/2010 Jittery Cashew Nut Oil Hives 05/06/2020 Oxycodone-Acetaminophen Other (Please comment) Medium 08/06/2010 Severe vomiting/nausea Prochlorperazine Neuro complications (Please comment) Medium 12/17/2004 Facial twitches Adhesive Tape Hives Medium 08/06/2010 Diazepam Neuro complications (Please comment) Medium 12/17/2004 hallucinations documented as of this encounter (statuses as of 05/15/2024) Medications CALCIUM 600-D 600-400 MG-UNIT PO TABS once daily Active TRIAMCINOLONE ACETONIDE 0.1 % EX CREAIndications :Dermatitis Apply to affected area twice a day 15 g 1 1 Active ISOSORBIDE MONONITRATE ER 60 MG PO [id number] :Chest pain 1 AND 1/2 TABLETS DAILY 45 Tab 5 5 Active omeprazole (PRILOSEC) 20 MG CPDRIndications :Esophageal reflux TAKE ONE CAPSULE BY MOUTH EVERY DAY ONE HOUR BEFORE THE FIRST MEAL OFTHE DAY. 34 Cap 5 5 Active atorvaSTATin (LIPITOR) 40 MG TabletIndicatio ns:Dyslipidemia , goal LDL below 70 TAKE ONE TABLET [...] Tablet by mouth in the morning. Active Ascorbic Acid (VITAMIN C) 500 MG CAPS Take 1 Tab by mouth daily. 04/27/19 25 Discontinu ed(Medicat ion List Clean Up) Docusate Sodium 100 MG Oral Capsule (Colace) Take 1 Capsule by mouth in the morning and 1 Capsule before bedtime. 30 Capsule 01/31/2024 12:38 PM EST 4 04/27/19 25 Discontinu ed(Medicat ion List Clean Up) documented as of this encounter (statuses as of 05/15/2024) Active Problems Problem Noted Date Diagnosed Date Arthritis 02/05/2024 Closed fracture of left clavicle 02/05/2024 Closed head injury 02/05/2024 Contusion of left wrist 02/05/2024 Contusion of right shoulder 02/05/2024 Facial contusion 02/05/2024 Gastroesophageal reflux disease 02/05/2024 Ground-level fall 02/05/2024 History of COVID-19 02/05/2024 History of [place] (myocardial infarction) 02/05/2024 Hydroureteronephrosis 02/05/2024 Hypoxemia 02/05/2024 [...] (03/23/2006): Hyperplastic--repeat 10 years Coronary atherosclerosis of [place] coronary ana laura ry Multiple injuries due to trauma documented as of this encounter (statuses as of 05/15/2024) Resolved Problems Problem Noted Date Diagnosed Date Resolved Date Dyslipidemia, goal LDL below 70 10/05/2011 05/24/2013 ASCVD (arteriosclerotic card iovascular disease) 01/28/2011 05/24/2013 ACTIVE CASE MANAGEMENT- Servando Gilliland RN [phone] 06/18/2009 01/12/2010 Acute non Q wave myocardial infarction 06/14/2009 05/24/2013 Dyslipidemia, goal to be determined 03/11/2009 03/02/2011 Overview (03/11/2009): Per Lipid Taxonomy. Mixed dyslipidemia 01/11/2008 9 Overview (03/11/2009): Per Lipid Taxonomy. ADVANCE DIRECTIVE INFORMATION 06/16/2005 01/30/2024 Overview (06/18/2009): No, Advance Directive brochure given to patient. - mailed 06/18/2009 vls No, Advance Directive brochure given to patient at prior appointment. Lupus erythematosus 12/17/2004 06/17/19 06 Overview (12/17/2004): diagnosed in 1975 HTN, goal to be determined 1 04/19/2008 Overview (02/17/2009): Modified per HTN protocol #16. documented as of this encounter (statuses as of 05/15/2024) Immunizations Name Administration Dates Next Due Pneumococcal Polysaccharide PPV23 (Pneumovax) documented as of this encounter Social History Tobacco Use Types Packs/Day Years Used Date Smoking Tobacco: Never Smokeless Tobacco: Never Tobacco Cessation:Counseling Given: Not Answered Alcohol Use Standard Drinks/Week Comments No 0 [...] on file documented as of this encounter Last Filed Vital Signs Vital Sign Reading Time Taken Comments Blood Pressure 136/82 04/27/2024 8:28 AM EST Pulse 92 04/27/2024 8:28 AM EST Temperature - - Respiratory Rate 16 04/27/2024 8:28 AM EST Oxygen Saturation - - Inhaled Oxygen Concentration - - Weight 61.3 kg (135 lb 3.2 oz) 04/27/2024 8:28 A M EST Height 160 cm (5' 3") 04/27/2024 8:28 AM EST Body Mass Index 23.95 04/27/2024 8:28 AM EST documented in this encounter Functional Status * Are you deaf or do you have serious difficulty hearing? Answer Date of Assessment Author No 01/26/2024 11:17 PM Karyna Scott RN * Are you blind or do you have serious difficulty seeing, even when wearing glasses? Answer Date of Assessment Author No 01/26/2024 11:17 PM Karyna Scott RN * Do you have serious difficulty walking or climbing stairs? (5 years old or older) Answer Date of Assessment Author No 01/26/2024 11:17 PM Karyna Scott RN * Do you have difficulty dressing or bathing? (5 years old or older) Answer Date of Assessment Author No 01/26/2024 11:17 PM Karyna Scott RN * Because of a physical, mental, or emotional condition, do you have difficulty doing errands alone such as visiting a doctors office or shopping? (15 years old or older) Answer Date of Assessment Author No 01/26/2024 11:17 PM Karyna Scott RN documented as of this encounter Mental Status * Because of a physical, mental, or emotional condition, do you have serious difficulty concentrating, remembering, or making decisions? (5 years old or older) Answer Entry Date Author No 01/26/2024 11:17 PM IVYT Karyna Vargas RN documented in this encounter Patient Instructions * Patient Instructions* Geena Gibbs DO - 04/27/2024 9:35 AM EST PACE/PACENET Prescription Assistance Program (Program of All-Inclusive Care for the Elderly) [facility] prescription assistance programs for older adults offer low-cost prescription medication to qualified residents, age 65 and older. This is a free program. There is no cost to apply. Call to apply. If you do not qualify, please reach out to our office so we can investigate other options for you. PACE Income Limits: Single: $33,500 : $41,500 Your follow up appointment might be with an Jeaneth augustine she is my nurse practitioner seeing myfollow ups but as long as I am not in the OR or off for the day I will pop in to see you as well My pharmacist Manda will reach out to you to see how you made out with the PACE and about possibly starting eliquis (blood thinner) documented in this encounter Progress Notes * Geena Gibbs DO - 04/27/2024 8:47 AM EST Subjective Tatiana Gonsales is a 83 year old female. Chief Complaint Patient presents with Consultation Pt referred to EP due to AF newly found Referring Provider: Sandra Guajardo (former Dr. Koehler patient) Cardiac Problems: AF diagnosed 01/2024 on metoprolol not on AC due to traumatic fall complicated with subdural hematoma at time of diagnosis [id number] (age, female, HTN, CAD) HTN HLD CAD s/p [place] Lupus Erythematosus AI MR HPI: Pt presents with her daughter today Pt was in a restaurant getting up to leave and she fell into a wall hitting in the right side of her and then fell to the ground; she thinks she triipped over her . The resturant staff helped her up and then the pt drove over an hour home. She still did not seek medical attention until another 4 days when her children found out she fell. She was in a lot of pain after the fall. She had bruising all over her face. Pt suffered a mechanical fall in 01/2024 complicated with a subdural hematoma and multiple right sided rib fractures; she was subsequently found to be in AF as well which was a new diagnosed She has a lot of UTI prior to this; her one daughter is a SANFORIZER and was wondering if a chronic intermediate abx treatment would be beneficial. Over the last month she does have palpitations that wake her up in the night time upon occasion. Pt has lightheadedness and dizziness with change in positions When she yassine over to get something out of her bottom cabinet she gets dizzy and nausea She helps her get dressed and by the time she does that she gets played out She has noticed more SOB and increased fatigue She is trying to drink a lot of water in the day PMH: Patient Active Problem List Diagnosis Benign neoplasm of colon HTN, goal below 140/90 Systemic lupus erythematosus (HCC) Carpal tunnel syndrome Hyperlipidemia with target LDL less than 100 Coronary atherosclerosis of [place] coronary artery Fall New onset atrial fibrillation (HCC) Subdural hematoma (HCC) Multiple fractures of ribs of right side UTI (urinary tract infection) Multiple injuries due to trauma Arthritis Closed fracture of left clavicle Closed head injury Contusion of left wrist Contusion of right shoulder Facial contusion Gastroesophageal reflux disease Ground-level fall History of COVID-19 History of [place] (myocardial infarction) Hydroureteronephrosis Hypoxemia Kidney stones Moderate mitral regurgitation Rotator cuff syndrome, left S/P appendectomy S/P cholecystectomy S/P hysterectomy S/P ureteral stent placement SOB (shortness of breath) Vitamin D insufficiency Weakness Weight loss Current Outpatient Medications Medication Sig Dispense Refill CALCIUM 600-D 600-400 MG-UNIT PO TABS once daily TRIAMCINOLONE ACETONIDE 0.1 % EX CREA Apply to affected area twice a day 15 g 1 ISOSORBIDE MONONITRATE ER 60 MG PO TB24 1 AND 1/2 TABLETS DAILY 45 Tab 5 omeprazole (PRILOSEC) 20 MG CPDR TAKE ONE CAPSULE BY MOUTH EVERY DAY ONE HOUR BEFORE THE FIRST MEALOFTHE DAY. 34 Cap 5 atorvaSTATin (LIPITOR) 40 MG Tablet TAKE ONE TABLET BY MOUTH EVERY DAY 30 Tab 0 Fluticasone Propionate 50 MCG/ACT Nasal Suspension (Flonase) Acetaminophen 325 MG Oral Tablet (Tylenol) Take 3 Tablets by mouth in the morning and 3 Tablets at noon and 3 Tablets before bedtime. 12 Tablet 0 Metoprolol Tartrate 25 MG Oral Tablet (Lopressor) Take 1 Tablet by mouth in the morning and 1 Tablet before bedtime. 60 Tablet 0 Lidocaine 4 % External Patch (Aspercreme) Place 1 Patch topically on the skin in the morning. Keep on for 12 hours 30 Patch 0 Carisoprodol 350 MG Oral Tablet (Soma) Take one-half tablet by mouth every 6 hours as needed for muscle spasms. 15 Tablet 0 Albuterol Sulfate HFA 108 (90 Base) MCG/ACT Inhalation Aerosol Solution Inhale 1 Puff by mouth as needed for Shortness of Breath. Loratadine 10 MG Oral Tablet (Claritin) Take 1 Tablet by mouth in the morning. No current facility-administered medications for this visit. Past Medical History: Diagnosis Date Acute myocardial infarction, subendocardial infarction, episode of care unspecified 06/14/09 [facility] Benign neoplasm of colon 02/07/06 Hyperplastic--repeat 10 years Coronary atherosclerosis of [place] coronary artery HTN, goal below 140/90 Hyperlipidemia LDL goal < 100 Lupus erythematosus diagnosed in 1975 Past Surgical History: Procedure Laterality Date CATHETERIZE LEFT HEART THRU SKIN 06/16/2009 LEFT HEART CATH, PERCUTANEOUS performed by JOO BRYANT at [facility] COLONOSCOPY 02/07/2006 Hyperplastic tissue--repeat 10 years COLONOSCOPY, DIAGNOSTIC (RECTUM) 02/09/2016 adenomatous polyps, diverticulosis, repeat 5 yrs COLONOSCOPY, DIAGNOSTIC (RECTUM) 02/09/2016 COLONOSCOPY FLEXIBLE PROXIMAL DIAGNOSTIC performed by Guadalupe Tomlin DO at ENDOSCOPY [facility] COLONOSCPOY E/ ENDOSCOPIC US N/A 03/02/2023 severe diverticulosis/hemorrhoids/biopsies show adenomatous polyps/COLONOSCOPY FLEXIBLE WITH ENDOSCOPIC ULTRASOUND EXAM performed by Isaac Aguilar DO at OR [facility] EGD, FLEXIBLE, DIAGNOSTIC 04/04/2013 ESOPHAGOGASTRODUODENOSCOPY (EGD), FLEXIBLE, TRANSORAL, DIAGNOSTIC performed by Guadalupe Tomlin DO at [facility]OSCOPY [facility] REMOVAL OF APPENDIX REMOVE GALLBLADDER SINUS SURGERY PROCEDURE NEC maxillary sinus, 3 surgeries TOTAL HYSTERECTOMY 1977 Review of patient's allergies indicates: Allergen Reactions Advil [Ibuprofen] Neuro complications (Please comment) Jittery Percocet [Oxycodone-Acetaminophen] Other (Please comment) Severe vomiting/nausea Prochlorperazine Neuro complications (Please comment) Facial twitches Tape [Adhesive Tape] Hives Valium [Diazepam] Neuro complications (Please comment) hallucinations Cashew Nut Oil Hives Family History Problem Relation Name Age of Onset Cancer Mother breast Breast Cancer Mother Cancer Father lung + smoker Heart Disorder Brother Hypertension Brother Stroke Brother 2 brothers Thyroid Disorder Son Neurological Disorder Son epileptic Family Status Relation Status Mo Fa Bro Bro Alive Bro Alive Bro Alive Sabine Alive Son Alive Son Alive Sabine Alive adopted Bro (Not Specified) Bro (Not Specified) Bro (Not Specified) Son (Not Specified) Son (Not Specified) Social History Socioeconomic History Marital status: Spouse name: Not on file Number of children: 3 Years of education: Not on file Highest education level: Not on file Occupational History 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 Negative for activity change, chills, fever and unexpected weight change. HENT: Negative for postnasal drip, rhinorrhea and sinus pressure. Eyes: Negative for visual disturbance. Respiratory: Positive for shortness of breath. Cardiovascular: Positive for palpitations. Negative for chest pain and leg swelling. Gastrointestinal: Negative for blood in stool, constipation, diarrhea, nausea and vomiting. Genitourinary: Negative for dysuria and hematuria. Musculoskeletal: Positive for gait problem. Skin: Negative for rash. Neurological: Positive for dizziness, weakness and light-headedness. Negative for syncope. Objective BP 136/82 (BP Site: Left Arm, BP Position: Sitting, BP Cuff Size: Regular) | Pulse 92 | Resp 16 | Ht 1.6 m (5' 3") | Wt 61.3 kg (135 lb 3.2 oz) | BMI 23.95 kg/m | BSA 1.65 m Physical Exam Vitals and nursing note reviewed. Constitutional: General: She is awake. Appearance: Normal appearance. She is well-developed. HENT: Head: Normocephalic and atraumatic. Eyes: General: No scleral icterus. Extraocular Movements: Extraocular movements intact. Neck: Vascular: Normal carotid pulses. No carotid bruit or JVD. Cardiovascular: Rate and Rhythm: Normal rate. Rhythm irregular. Pulses: Carotid pulses are 2+ on the right side and 2+ on the left side. Radial pulses are 2+ on the right side and 2+ on the left side. Posterior tibial pulses are 2+ on the right side and 2+ on the left side. Heart sounds: S1 normal and S2 normal. Murmur heard. Pulmonary: Effort: Pulmonary effort is normal. Breath sounds: Normal breath sounds. No decreased breath sounds, wheezing, rhonchi or rales. Abdominal: Palpations: Abdomen is soft. Musculoskeletal: Cervical back: Neck supple. Right lower leg: No edema. Left lower leg: No edema. Skin: General: Skin is warm and dry. Neurological: General: No focal deficit present. Mental Status: She is alert and oriented to person, place, and time. Psychiatric: Attention and Perception: Attention normal. Mood and Affect: Mood normal. Speech: Speech normal. Behavior: Behavior normal. Behavior is cooperative. Thought Content: Thought content normal. Cognition and Memory: Cognition normal. Judgment: Judgment normal. RESULTS: ECGS: Today: AF 97bpm 01/26/2024: AF 106bpm Nonspecific T wave abnormality 06/15/2022: SR 69bpm 05/14/2021: Unusual P axis and short VA Junctional rhythm 05/06/2020: SR 76bpm APC 04/26/2019: SR 66bpm 09/27/2017: Unusual P axis ectopic atrial tachycardia Nonspecific ST & T wave abnormality 12/21/2016: SR 71bpm 12/11/2015: SR 61bpm 09/05/2014: SR 60bpm 02/20/2013: SR 67bpm Nonspecific ST & T wave abnromality 10/05/2011: SR 62bpm 03/30/2010: SB 55bpm 07/17/2009: SR 61bpm 06/15/2009: SB 57bpm 06/14/2009: SB 50bpm Echocardiogram: 01/27/2024: The examination is limited quality but adequate for evaluation of the referral indication. The qualitative LV ejection fraction is 55-59% (normal). No LV segmental wall motion abnormalities. There is mild to moderate aortic insufficiency present. No pericardial effusion is noted. 05/08/2020: The LV wall thickness is mildly increased (concentric). The left ventricular wall motion is normal. The left atrium is mildly enlarged. The left ventricular diastolic function is mildly abnormal (grade I). Mild mitral regurgitation is present. Mild tricuspid regurgitation is present. There is no evidence of pulmonary hypertension. 10/25/2019: The left ventricular cavity size is normal. The LV wall thickness is mildly increased (concentric). The left ventricular wall motion is normal. The qualitative LV ejection fraction is 60-64% (normal). The left ventricular diastolic function is moderately abnormal (grade II). Moderate 3 + aortic valve regurgitation is present. Moderate mitral regurgitation is present. Mild pulmonary hypertension is present. Compared to last available study changes are noted as follows: Aortic and mitral insufficiency and pulmonary pressures have increased slightly 07/11/2018: The LV wall thickness is mildly increased (concentric). The left ventricular wall motion is normal. The qualitative LV ejection fraction is 65-69% (normal). The left atrium is mildly enlarged (35-41 ml/m^2). Mild tricuspid regurgitation is present. The estimated pulmonary artery systolic pressure is 33 mm Hg (normal). The aortic root and proximal ascending aorta are normal sized. Compared to the prior study dated 12/31/2016, there has been no significant interval change. 12/31/2016: The LV wall thickness is mildly increased (concentric). The left ventricular wall motion is normal. The qualitative LV ejection fraction is 6064% (normal). Mild aortic valve sclerosis is present. Aortic stenosis is absent. Moderate aortic valve regurgitation is present. Mild mitral regurgitation is present. Mild tricuspid regurgitation is present. The estimated pulmonary artery systolic pressure is 36mm Hg (upper limit of normal). The aortic root and proximal ascending aorta are normal sized. Compared to the prior study dated 08/13/2014, there has been no significant interval change. 08/13/2014: The qualitative LV ejection fraction is 60-64% (normal). The LV wall thickness is mildly increased (concentric). The left ventricular diastolic function is mildly abnormal (grade I). Mild aortic valve sclerosis is present. Moderate aortic valve regurgitation is present. Mild tricuspid regurgitation is present. There is no evidence of pulmonary hypertension Compared to prior study of 03/23/13, there is no significant change. 03/23/2013: Normal LV chamber size with mild concentric LVH. Normal LV systolic function without regional wall motion abnormality, EF 60-65%. Grade I diastolic dysfunction. Mild aortic valve sclerosis without stenosis. Moderate aortic valve regurgitation is present. Mild tricuspid regurgitation. Mild left atrial enlargement. 02/24/2012: The left ventricular cavity size is normal. The LV wall thickness is moderately increased (concentric). The left ventricular systolic function is normal. The left ventricular wall motion is normal. The qualitative LV ejection fraction is 60-64% (normal). Mild aortic valve sclerosis is present. Moderate 1-2+ aortic valve regurgitation is present. 01/22/2011: INTERPRETATION SUMMARY Interpretation Summary: The primary indication after review was deemed appropriate and the examination was performed.. The LV wall thickness is mildly increased (concentric).. The left ventricular wall motion is normal.. Qualitative LV ejection Fraction = 55-60%.. The left atrium is mildly enlarged.. The left ventricular diastolic function is mildly abnormal (grade I).. Mild functional mitral regurgitation is present.. There is trace tricuspid regurgitation.. The examination is adequate to evaluate the referral indication. 06/17/2009: The left ventricular cavity size and systolic function are normal. Qualitative LV ejection Fraction= 55-60%. The right ventricle is normal in size and systolic function. Mild (1+) aortic insufficiency is present. Cardiac Catheterization: 07/29/2010: LM: Ok LAD: prox 40%, mid 30-40%, distal LI Cx: large non-dominant LI RCA: dominant; LI CT Head: 03/06/2024: IMPRESSION: Interval resolution of parafalcine subdural hematoma. No new hemorrhage noted. Lab Work Reviewed: Component Latest Ref Rng 01/27/2024 01/31/2024 WBC 4.00 - 10.80 K/uL 3.97 (L) Neutrophils % 40.0 - 75.0 % 55.3 Lymphocytes % 18.0 - 42.0 % 23.7 Monocytes % 1.0 - 11.0 % 11.1 (H) Eosinophils % 0.0 - 6.0 % 8.8 (H) Basophils % 0.0 - 2.0 % 0.8 Immature Granulocytes % 0.0 - 2.0 % 0.3 Absolute Neutrophils 1.80 - 7.70 K/uL 2.20 Absolute Lymphocytes 1.00 - 4.80 K/ul 0.94 (L) Absolute Monocytes 0.00 - 1.10 K/uL 0.44 Absolute Eosinophils 0.00 - 0.70 K/uL 0.35 Absolute Basophils 0.00 - 0.20 K/uL 0.03 Absolute Immature Granulocytes 0.00 - 0.20 K/uL 0.01 WBC 4.00 - 10.80 K/uL 3.97 (L) RBC 3.85 - 5.15 M/uL 3.94 HGB 12.0 - 15.3 g/dL 12.6 HCT 36.0 - 45.2 % 38.4 MCV 81.5 - 97.5 fL 97.5 MCH 27.0 - 34.0 pg 32.0 MCHC 32.0 - 36.0 g/dL 32.8 RDW 11.5 - 15.5 % 12.7 PLT 140 - 400 K/uL 174 MPV 6.6 - 11.1 fL 9.7 nRBCs <=0 /100 WBCs 0 BUN 6 - 20 mg/dL 9 CREATININE 0.5 - 1.0 mg/dL 0.7 EGFR >=60 mL/min 83 SODIUM 135 - 146 mmol/L 140 POTASSIUM 3.5 - 5.1 mmol/L 4.0 CHLORIDE 98 - 107 mmol/L 108 (H) CO2 22 - 32 mmol/L 23 ANION GAP 7 - 15 mmol/L 9 GLUCOSE 70 - 120 mg/dL 96 CALCIUM 8.4 - 10.2 mg/dL 9.3 TSH 0.27 - 4.20 uIU/mL 1.44 LFT 01/26/2024 @ [facility]: T Murray: 1 AST 18 ALT 13 Alk Phos 71 T Protein 5.5 Albumin 3.6 Lipid Panel: 06/23/2022: @ [facility] TG 117 T Chol 104 LDL 36 HDL 45 ASSESSMENT: AF diagnosed 01/2024 on metoprolol not on AC due to traumatic fall complicated with subdural hematoma at time of diagnosis [id number] (age, female, HTN, CAD) HTN HLD CAD s/p [place] MR AI Lupus Erythematosus Vitamin D deficiency H/o Subdural hematoma H/o Kidney stones GERD PLAN: -Educated patient and her daughter about atrial fibrillation treatment options including rate control vs rhythm control with procedures (DCCV vs ablation) or medications as well as anti-coagulation to reduce CVA risk. -Repeat CT after the subdural hematoma shows it has resolved -Through shared decision making we discussed about restarting AC ideally ney -I discussed with her about PACE and we are hoping she will qualify for this; I asked my pharmacistto reach out with her to see that that she was approved for PACE -Continue lopressor, imdur -Recommend zio patch to assess ventricular rates and ensure the lopressor dosing does not need to be adjusted -EP f/u 6 months New onset atrial fibrillation (HCC) (Primary) - EKG; Future; Expected date: 04/27/2024 Geena Gibbs DO documented in this encounter Nursing Notes * Sandra Bedolla RN - 04/27/2024 8:35 AM EST Examination Room: Name: Tatiana Gonsales Date of : (1940). Reason for Visit: Consultation Interim Hospitalization(s): [facility] [facility] [place]- December Problems/Concerns: Here to discuss new diagnosis of afib along with anticoagulation. Denies furtherfall since December. Chest Pain/SOB: Denies chest pain/discomfort. Some shortness of breath with exertion. Noting fluttering sensation in chest through night on occasion. [facility] Discussed: Not applicable My [facility] is a way you can talk to your provider online through e-mail. Would you like to sign up? I can activate it for you? DECLINES Patient was instructed to not get up on the exam table until directed and assisted by their provider; patient is to remain seated in the chair/ wheelchair/ exam table for fall prevention and safety reasons. Patient is aware to have assistance to step down off exam table with personnel. Patient voiced full comprehension of instructions. documented in this encounter Plan of Treatment Upcoming Encounters Date Type Department Care Team (Late st Contact Info) Description 11/02/2024 11:00 AM EDT Office Visit Cardiology, [address] [place] [address] Jeaneth De Paz CRNP [address] [place] [address] Scheduled Orders Name Type Priority Associated Diagnoses Orde r Schedule EXTERNAL EKG 8 TO 15 DAYS Holter Routine Atrial fibrillation, unspecified type (HCC) HTN, goal below 140/90 Hyperlipidemia with target LDL less than 100 Atherosclerosis of [place] coronary artery of [place] heart without angina pectoris Nonrheumatic aortic valve insufficiency Expected: 04/28/2024 (Approximate), Expires: 04/27/2025 Scheduled Procedures Name Priority Associated Diagnoses Date/Ti me COLONOSCOPY FLEXIBLE PROXIMAL DIAGNOSTIC Recall History of colon polyps Health Maintenance Due Date Last Done Comments DXA Scan 1941 Albumin/Creatinine Ratio 11/25/1959 DTap/Tdap Vaccines (1 - Tdap) 1960 Zoster Vaccines (1 of 2) 11/25/1991 Depression Screening 02/12/2014 02/12/2013 COVID-19 Vaccine ( - 2023- season) 2023 Influenza Vaccine (FLU shot) (#1) [...] on patient's age to complete this topic Meningitis B Vaccine (Bexsero/Trumemba) Aged Out No longer eligible based on patient's age to complete this topic documented as of this encounter Medical Devices Not on filedocumented as of this encounter Results * EKG (04/27/2024 8:50 AM EST) 04/27/2024 8:50 AM EST Narrative Procedure Note Navneet Amin, DO - 04/27/2024 8:50 AM EST REASON FOR STUDY: new patient; afib;new patient; afib CONCLUSIONS: Atrial fibrillation Abnormal ECG When compared with ECG of 26-Jan-2024 22:07, Nonspecific T wave abnormality, improved in Inferior leads Nonspecific T wave abnormality no longer evident in Anterior-lateralleads Ventricular Rate: 97 Atrial Rate: 94 QRS Duration: 80 QT/QTc: 330/419 ms P-R-T [place]: 0 : 82 : 62 degrees us Geena Gibbs DO EKG Final R esult [facility] CARD[facility]OLOG[facility] documented in this encounter Visit Diagnoses Diagnosis Atrial fibrillation, unspecified type (HCC)- Primary HTN, goal below 140/90 Unspecified essential hypertension Hyperlipidemia with target LDL less than 100 Other and unspecified hyperlipidemia Atherosclerosis of [place] coronary artery of [place] heart without angina pectoris Nonrheumatic aortic valve insufficiency Aortic valve disorders Atrial fibrillation, unspecified type (HCC) documented in this encounter Advance Directives * Full Code [...] Power of Attor karen? No Care Teams Hogshead Hand Relationship Specialty Start Date End Date Sandra Guajardo CRNP [address] [place], [place] [id number] PCP - General Nurse Practitioner 02/10/23 documented as of this encounter
--- OUTSIDE RECORDS SUMMARY | 2024-06-14 22:48 | External Medical Summary | Summary of Care ---
Author Name Unknown Organization [facility] Address [address] [place] [address] Phone [phone] Care Team Providers Care Regulatory Affairs Coordinator Name Role Phone Sandra Guajardo Primary Care Provider [phone] Reason for Visit * Reason Onset Date Comments Test Results 05/16/2024 Encounter Details Date Type Department Care Team ([facility] st Contact Info) Description 05/16/2024 Telephone Cardiology, [place] [address] [place] [id number] Geena Gibbs, [address] [place] [address] Test Results Allergies Active Allergy Reactions Criticality Noted Date Comments Ibuprofen Neuro complications (Please comment) Medium 05/21/2010 Jittery Cashew Nut Oil Hives 05/06/2020 Oxycodone-Acetaminophen Other (Please comment) Medium 08/06/2010 Severe vomiting/nausea Prochlorperazine Neuro complications (Please comment) Medium 12/17/2004 Facial twitches Adhesive Tape Hives Medium 08/06/2010 Diazepam Neuro complications (Please comment) Medium 12/17/2004 hallucinations documented as of this encounter (statuses as of 05/16/2024) Medications CALCIUM 600-D 600-400 MG-UNIT PO TABS once daily Active TRIAMCINOLONE ACETONIDE 0.1 % EX CREAIndications: Dermatitis Apply to affected area twice a day 15 g 1 1 Active ISOSORBIDE MONONITRATE ER 60 MG PO [id number]: Chest pain 1 AND 1/2 TABLETS DAILY [...] as of this encounter (statuses as of 05/16/2024) Active Problems Problem Noted Date Diagnosed Date Arthritis 02/05/2024 Closed fracture of left clavicle 02/05/2024 Closed head injury 02/05/2024 Contusion of left wrist 02/05/2024 Contusion of right shoulder 02/05/2024 Facial contusion 02/05/2024 Gastroesophageal reflux disease 02/05/2024 Ground-level fall 02/05/2024 History of COVID-19 02/05/2024 History of CA (myocardial infarction) 02/05/2024 Hydroureteronephrosis 02/05/2024 Hypoxemia 02/05/2024 [...] (03/23/2006): Hyperplastic--repeat 10 years Coronary atherosclerosis of [place] coronary ana laura ry Multiple injuries due to trauma documented as of this encounter (statuses as of 05/16/2024) Resolved Problems Problem Noted Date Diagnosed Date Resolved Date Dyslipidemia, goal LDL below 70 10/05/2011 05/24/2013 ASCVD (arteriosclerotic card iovascular disease) 01/28/2011 05/24/2013 ACTIVE CASE MANAGEMENT- Servando Gilliland RN [phone] 06/18/2009 01/12/2010 Acute non Q wave myocardial [...] as of this encounter (statuses as of 05/16/2024) Immunizations Name Administration Dates Next Due Pneumococcal [...] Entry Date Author No 01/26/2024 11:17 PM EDT Karyna Vargas RN documented in this encounter Miscellaneous Notes * Telephone Encounter - Caridad Brgigs CMA - 05/16/2024 12:21 PM EST Silvana calling to report preliminary results. Weio showed rapid afib. Report uploaded to website. documented in this encounter Plan of Treatment Upcoming Encounters Date Type Department Care Team (Late st Contact Info) Description 11/02/2024 11:00 AM EDT Office Visit Cardiology, [facility] [address] [facility] [place] [address] Jeaneth De Paz CRNP [address] [place] [address] [place] [address] Scheduled Procedures Name Priority Associated Diagnoses Date/Ti me COLONOSCOPY FLEXIBLE PROXIMAL DIAGNOSTIC Recall History of colon polyps Health Maintenance Due Date Last Done Comments DXA Scan 1941 Albumin/Creatinine Ratio 11/25/1959 DTap/Tdap Vaccines (1 - Tdap) 1960 Zoster Vaccines (1 of 2) 11/25/1991 Depression Screening 02/12/2014 02/12/2013 COVID-19 Vaccine ( season) 2023 Influenza Vaccine (FLU shot) (#1) [...] Power of Attor karen? No Care Teams Regulatory Affairs Coordinator Relationship Specialty Start Date End Date Sandra Guajardo CRNP [address] [place] [address] PCP - General Nurse Practitioner 02/10/23 documented as of this encounter
--- OUTSIDE RECORDS SUMMARY | 2024-06-14 22:49 | External Medical Summary ---
Author Name Unknown Address Unknown Organization [id number]:[place] [place] [facility] [address] [place] [address] Laboratory Report Ordering Provider Test Date Status JEFFERSON SAMS 01/29/2024 04:23:00 Final Observation Date Value Abnormality Reference (Units ) Status BUN 01/29/2024 04:23:00 13 6-20 (mg/dL) Final Creatinine 01/29/2024 04:23:00 0.7 0.5-1.0 (mg/dL) Final Glomerular filtration rate/1.73 sq M.predicted [Volume Rate/Area] in Serum, Plasma or Blood by Creatinine-based formula (CKD-EPI) 01/29/2024 04:23:00 82 >=60 (mL/min) Final eGFR is calculated based on the CKD-EPI 2020 equation. Sodium 01/29/2024 04:23:00 139 135-146 (m mol/L) Final Potassium 01/29/2024 04:23:00 4.4 3.5-5.1 (m mol/L) Final Cl 01/29/2024 04:23:00 109 Above high normal 98 -107 (mmol/L) Final CO2 01/29/2024 04:23:00 25 22-32 (mmo l/L) Final Anion gap 01/29/2024 04:23:00 5 Below low normal 7-1 5 (mmol/L) Final Glucose 01/29/2024 04:23:00 92 70-120 (mg /dL) Final Calcium 01/29/2024 04:23:00 8.6 8.4-10.2 ( mg/dL) Final Performing Location [facility] [facility] [place] [address] [place] [address]
--- OUTSIDE RECORDS SUMMARY | 2024-06-14 22:49 | External Medical Summary ---
Author Name Unknown Address Unknown Organization [id number]:[facility] [place] [address] [place] [address] Laboratory Report Ordering Provider Test Date Status NICK SAMSMARGARITO 01/29/2024 04:23:00 Final Observation Date Value Abnormality Reference (Units ) Status Calcium.ionized [Moles/volume] in Serum or Plasma by Ion-selective membrane electrode (ISE) 01/29/2024 04:23:00 1.37 Above high normal 1.13-1.32 (mmol/L) Final This test was developed and its performance characteristics dtermined by [employer]. It has not been cleared or approved by the [place] Food and Drug Administration Performing Location LABORATORY [place] [address] [place] [address]
--- OUTSIDE RECORDS SUMMARY | 2024-06-14 22:49 | External Medical Summary ---
Author Name Unknown Address Unknown Organization [id number]:[facility] [place] [address] [place] [address] Laboratory Report Ordering Provider Test Date Status JEFFERSON SAMS 01/31/2024 04:09:00 Final Observation Date Value Abnormality Reference (Units ) Status BUN 01/31/2024 04:09:00 9 6-20 (mg/dL) Final Creatinine 01/31/2024 04:09:00 0.7 0.5-1.0 (mg/dL) Final Glomerular filtration rate/1.73 sq M.predicted [Volume Rate/Area] in Serum, Plasma or Blood by Creatinine-based formula (CKD-EPI) 01/31/2024 04:09:00 83 >=60 (mL/min) Final eGFR is calculated based on the CKD-EPI 2020 equation. Sodium 01/31/2024 04:09:00 140 135-146 (m mol/L) Final Potassium 01/31/2024 04:09:00 4.0 3.5-5.1 (m mol/L) Final Cl 01/31/2024 04:09:00 108 Above high normal 98 -107 (mmol/L) Final CO2 01/31/2024 04:09:00 23 22-32 (mmo l/L) Final Anion gap 01/31/2024 04:09:00 9 7-15 (mmol /L) Final Glucose 01/31/2024 04:09:00 96 70-120 (mg /dL) Final Calcium 01/31/2024 04:09:00 9.3 8.4-10.2 ( mg/dL) Final Performing Location [facility] [place] [address] [place] [address]
--- OUTSIDE RECORDS SUMMARY | 2024-06-14 22:49 | External Medical Summary | Summary of Care ---
Author Name Unknown Organization [facility] Address [address] [place] [address] Phone [phone] Care Team Providers Care Sheet Tester Name Role Phone Sandra Guajardo Primary Care Provider [phone] Reason for Visit * Reason Onset Date Comments Appointment 02/13/2024 Encounter Details Date Type Department Care Team ([facility] st Contact Info) Description 02/13/2024 Telephone General Surgery, [place] [address] [place] [address], Trauma Clinic [address] [place] [address] Appointment Allergies Active Allergy Reactions Criticality Noted Date Comments Ibuprofen Neuro complications (Please comment) Medium 05/21/2010 Jittery Cashew Nut Oil Hives 05/06/2020 Oxycodone-Acetaminophen Other (Please comment) Medium 08/06/2010 Severe vomiting/nausea Prochlorperazine Neuro complications (Please comment) Medium 12/17/2004 Facial twitches Adhesive Tape Hives Medium 08/06/2010 Diazepam Neuro complications (Please comment) Medium 12/17/2004 hallucinations documented as of this encounter (statuses as of 02/13/2024) Medications CALCIUM 600-D 600-400 MG-UNIT PO TABS once daily Active TRIAMCINOLONE ACETONIDE 0.1 % EX CREAIndications: Dermatitis Apply to affected area twice a day 15 g 1 1 Active Additional Information Patient not taking.Reported on 01/26/2024 ISOSORBIDE MONONITRATE ER 60 MG PO [id number]: Chest pain 1 AND 1/2 TABLETS DAILY 45 Tab 5 5 Active omeprazole (PRILOSEC) 20 MG CPDRIndications: Esophageal reflux TAKE ONE CAPSULE BY MOUTH EVERY DAY ONE HOUR BEFORE THE FIRST MEAL OFTHE DAY. 34 Cap 5 5 Active atorvaSTATin (LIPITOR) 40 MG TabletIndication s:Dyslipidemia, goal LDL below 70 TAKE ONE TABLET BY MOUTH EVERY DAY 30 Tab 0 5 Active Ascorbic Acid (VITAMIN C) 500 MG CAPS Take 1 Tab by mouth daily. Active Fluticasone Propionate 50 MCG/ACT Nasal Suspension [...] Patch 01/31/2024 12:38 PM EST 4 Active Docusate Sodium 100 MG Oral Capsule (Colace) Take 1 Capsule by mouth in the morning and 1 Capsule before bedtime. 30 Capsule 01/31/2024 12:38 PM EST 4 Active Carisoprodol 350 MG Oral Tablet (Soma) Take one-half tablet by mouth every 6 hours as needed for muscle spasms. 15 Tablet 01/31/2024 12:38 PM EST 4 Active documented as of this encounter (statuses as of 02/13/2024) Active Problems Problem Noted Date Diagnosed Date Arthritis 02/05/2024 Closed fracture of left clavicle 02/05/2024 Closed head injury 02/05/2024 Contusion of left wrist 02/05/2024 Contusion of right shoulder 02/05/2024 Facial contusion 02/05/2024 Gastroesophageal reflux disease 02/05/2024 Ground-level fall 02/05/2024 History of COVID-19 02/05/2024 History of [place] (myocardial infarction) 02/05/2024 Hydroureteronephrosis 02/05/2024 Hypoxemia 02/05/2024 [...] (03/23/2006): Hyperplastic--repeat 10 years Coronary atherosclerosis of [place] coronary ana laura ry Multiple injuries due to trauma documented as of this encounter (statuses as of 02/13/2024) Resolved Problems Problem Noted Date Diagnosed Date Resolved Date Dyslipidemia, goal LDL below 70 10/05/2011 05/24/2013 ASCVD (arteriosclerotic card iovascular disease) 01/28/2011 05/24/2013 ACTIVE CASE MANAGEMENT- Servando Gilliland RN [phone] 06/18/2009 01/12/2010 Acute non Q wave myocardial [...] as of this encounter (statuses as of 02/13/2024) Immunizations Name Administration Dates Next Due Pneumococcal [...] encounter Miscellaneous Notes * Telephone Encounter - Faye Jones RN - 02/13/2024 2:24 PM EST Call placed to patient to move telemedicine appointment to earlier in the day. Patient accepted 1230 appointment. Patient reminded she needs a chest xray completed prior to her appointment. Patient states hse has gone to the [facility] in the past to have xrays. Patient provided contact number to call to see if appointment required. documented in this encounter Plan of Treatment Upcoming Encounters Date Type Department Care Team ([facility] st Contact Info) Description 02/14/2024 12:30 PM EST Telemedicine General Surgery, [address] [facility], Trauma Clinic [address] [address] 03/07/2024 9:20 AM EST Office Visit Neurosurgery, [address] [address] [facility] [place], Traumatic Brain Injury [address] [place] [address] Scheduled Procedures Name Priority Associated Diagnoses Date/Ti me COLONOSCOPY FLEXIBLE PROXIMAL DIAGNOSTIC Recall History of colon polyps Health Maintenance Due Date Last Done Comments DXA Scan 1941 Albumin/Creatinine Ratio 11/25/1959 DTap/Tdap Vaccines (1 - Tdap) 1960 Zoster Vaccines (1 of 2) 11/25/1991 Depression Screening 02/12/2014 02/12/2013 COVID-19 Vaccine (2023- season) 2023 Influenza Vaccine (FLU shot) (#1) 2023 GFR 01/30/2025 01/31/2024, 06/2023, 01/29/2024, Additional history exists RETIRED - COLONOSCOPY-EVERY 5 YRS AGES 18-100 Discontinued 02/09/2016, 02/09/2016, 02/07/2006 Pneumococcal Vaccine: 65+ Years Completed 08/31/2016, 03/28/2009, 03/28/2009 HPV (Gardasil) [...] Power of Attor karen? No Care Teams Sheet Tester Relationship Specialty Start Date End Date Sandra Guajardo CRNP [address] [place] [address] PCP - General Nurse Practitioner 02/10/23 documented as of this encounter
--- OUTSIDE RECORDS SUMMARY | 2024-06-14 22:49 | External Medical Summary | Summary of Care ---
Author Name Unknown Organization [facility] Address [address] [place] [address] Phone [phone] Care Team Providers Care Alteration Tailor Apprentice Name Role Phone Sandra GuajardoNP Primary Care Provider [phone] Reason for Visit * Reason Onset Date Comments Hospital Follow-Up 02/02/2024 Encounter Details Date Type Department Care Team ([facility] Contact Info) Description 02/02/2024 Telephone General Surgery, [place] [address] [place] [address] Sandra Claudio, RN [address] [place] [address] Hospital Follow-Up Allergies Active Allergy Reactions Criticality Noted Date Comments Ibuprofen Neuro complications (Please comment) Medium 05/21/2010 Jittery Cashew Nut Oil Hives 05/06/2020 Oxycodone-Acetaminophen Other (Please comment) Medium 08/06/2010 Severe vomiting/nausea Prochlorperazine Neuro complications (Please comment) Medium 12/17/2004 Facial twitches Adhesive Tape Hives Medium 08/06/2010 Diazepam Neuro complications (Please comment) Medium 12/17/2004 hallucinations documented as of this encounter (statuses as of 02/02/2024) Medications Medication Sig Dispensed Refills Start Date End Date Status CALCIUM 600-D 600-400 MG-UNIT PO TABS once daily Active TRIAMCINOLONE ACETONIDE 0.1 % EX CREAIndications:De rmatitis Apply to affected area twice a day 15 g 1 08/06/2010 Active Additional Information Patient not taking.Reported on 01/26/2024 ISOSORBIDE MONONITRATE ER 60 MG PO [id number]:Ch est pain 1 AND 1/2 TABLETS DAILY 45 Tab 5 04/12/2014 Active omeprazole (PRILOSEC) 20 MG CPDRIndications:Es ophageal reflux TAKE ONE CAPSULE BY MOUTH EVERY DAY ONE HOUR BEFORE THE FIRST MEAL OFTHE DAY. 34 Cap 5 03/14/2015 Active atorvaSTATin (LIPITOR) 40 MG TabletIndications: Dyslipidemia, goal LDL below 70 TAKE ONE TABLET BY MOUTH EVERY DAY 30 Tab 0 03/24/2015 Active Ascorbic Acid (VITAMIN C) 500 MG CAPS Take 1 Tab by mouth daily. Active Fluticasone Propionate 50 MCG/ACT Nasal Suspension (Flonase) 04/04/2020 Active Acetaminophen 325 MG Oral Tablet (Tylenol) Take 3 Tablets by mouth in the morning and 3 Tablets at noon and 3 Tablets before bedtime. 12 Tablet 01/31/2024 Active levETIRAcetam 500 MG Oral Tablet (Keppra) Take 1 Tablet by mouth in the morning and 1 Tablet before bedtime. Do all this for 2 days. 4 Tablet 01/31/2024 02/02/2024 Active Metoprolol Tartrate 25 MG Oral Tablet (Lopressor) Take 1 Tablet by mouth in the morning and 1 Tablet before bedtime. 60 Tablet 01/31/2024 Active Lidocaine 4 % External Patch (Aspercreme) Place 1 Patch topically on the skin in the morning. Keep on for 12 hours 30 Patch 02/01/2024 Active Docusate Sodium 100 MG Oral Capsule (Colace) Take 1 Capsule by mouth in the morning and 1 Capsule before bedtime. 30 Capsule 01/31/2024 Active Carisoprodol 350 MG Oral Tablet (Soma) Take one-half tablet by mouth every 6 hours as needed for muscle spasms. 15 Tablet 01/31/2024 Active documented as of this encounter (statuses as of 02/02/2024) Active Problems Problem Noted Date Diagnosed Date Multiple fractures of ribs of right side 024 UTI (urinary tract infection) 01/31/2024 Fall 01/27/2024 New onset atrial fibrillation 01/27/2024 Subdural hematoma 01/27/2024 Carpal tunnel syndrome 06/15/2009 Systemic lupus erythematosus 06/14/2009 Hyperlipidemia with target LDL less than 100 Overview: ICD-10 update of inactive term HTN, GOAL BELOW 140/90 02/13/2009 Overview: Modified per HTN protocol #16. Benign neoplasm of colon 02/07/2006 Overview: Hyperplastic--repeat 10 years Coronary atherosclerosis of [place] coronary ana laura ry documented as of this encounter (statuses as of 02/02/2024) Resolved Problems Problem Noted Date Diagnosed Date Resolved Date Dyslipidemia, goal LDL below 70 10/05/2011 05/24/2013 ASCVD (arteriosclerotic card iovascular disease) 01/28/2011 05/24/2013 ACTIVE CASE MANAGEMENT- Servando Gilliland RN [phone] 06/18/2009 01/12/2010 Acute non Q wave myocardial infarction 06/14/2009 05/24/2013 Dyslipidemia, goal to be determined 03/11/2009 03/02/2011 Overview: Per Lipid Taxonomy. Mixed dyslipidemia 01/11/2008 9 Overview: Per Lipid Taxonomy. ADVANCE DIRECTIVE INFORMATION 06/16/2005 01/30/2024 Overview: No, Advance Directive brochure given to patient. - mailed 06/18/2009 vls No, Advance Directive brochure given to patient at prior appointment. Lupus erythematosus 12/17/2004 06/17/19 06 Overview: diagnosed in 1975 HTN, goal to be determined 1 04/19/2008 Overview: Modified per HTN protocol #16. documented as of this encounter (statuses as of 02/02/2024) Immunizations Name Administration Dates Next Due Pneumococcal Polysaccharide PPV23 (Pneumovax) documented as of this encounter Social History Tobacco Use Types Packs/Day Years Used Date Smoking Tobacco: Never Smokeless Tobacco: Never Alcohol Use Standard Drinks/Week Comments No 0 (1 standard drink = 0.6 oz pur e alcohol) Sex and Gender Information Value Date Recorded Sex Assigned at Not on file Gender Identity Not on file Sexual Orientation Not on file Job Start Date Occupation Industry Not on file Not on file Not on file documented as of this encounter Functional Status Functional Status Response Date of Assess ment Are you deaf or do you have serious difficulty h earing? No 01/26/2024 Are you blind or do you have serious difficulty seeing, even when wearing glasses? No 01/26/2024 Do you have serious difficul ty walking or climbing stairs? (5 years old or older) No 01/26/2024 Do you have difficulty dress ing or bathing? (5 years old or older) No 01/26/2024 Because of a physical, menta l, or emotional condition, do you have difficulty doing errands alone such as visiting a doctor s office or shopping? (15 years old or older) No 01/26/20 Cognitive Status Response Date of Assessm ent Because of a physical, menta l, or emotional condition, do you have serious difficulty concentrating, remembering, or making decisions? (5 years old or older) No 01/26/2024 documented as of this encounter Miscellaneous Notes * Telephone Encounter - Sandra Claudio RN - 02/02/2024 12:08 PM EST Call placed to patient to discuss recent hospital stay. She has good days and bad days- today is a bad day. She is aware of her follow ups and was able to tell me Nov appt is telemed. She is eating and drinking ok even on the bad days. Sandra Claudio RN, BSN, TCRN, CCRN-K Trauma Business Banking Sales Assistant [facility] 02/02/2024 12:09 PM documented in this encounter Plan of Treatment Upcoming Encounters Date Type Department Care Team (Late st Contact Info) Description 02/14/2024 2:00 PM EST Telemedicine General Surgery, [place] [address] [place] [address] [facility], Trauma Clinic [facility] [place] [address] 03/07/2024 9:20 AM EST Office Visit Neurosurgery, [address] [address] [facility], Traumatic Brain Injury [address] [place] [id number] Scheduled Procedures Name Priority Associated Diagnoses Date/Ti me COLONOSCOPY FLEXIBLE PROXIMAL DIAGNOSTIC Recall History of colon polyps Health Maintenance Due Date Last Done Comments DXA Scan 1941 Albumin/Creatinine Ratio 11/25/1959 DTap/Tdap Vaccines (1 - Tdap) 1960 Zoster Vaccines (1 of 2) 11/25/1991 Depression Screening 02/12/2014 02/12/2013 COVID-19 Vaccine (1 - season) 2023 Influenza Vaccine (FLU shot) [...] Power of Attor karen? No Care Teams Alteration Tailor Apprentice Relationship Specialty Start Date End Date Sandra Guajardo CRNP [address] [place] [address] PCP - General Nurse Practitioner 02/10/23 documented as of this encounter
--- OUTSIDE RECORDS SUMMARY | 2024-06-14 22:49 | External Medical Summary ---
Author Name Unknown Address Unknown Organization K01:[facility]ATORY [facility] - [address] [place] [address] Laboratory Report Ordering Provider Test Date Status JEFFERSON SAMS 01/29/2024 04:23:00 Final Observation Date Value Abnormality Reference (Units ) Status Phosphate 01/29/2024 04:23:00 2.9 2.5-4.8 (m g/dL) Final Performing Location [facility] - [address] [place] [address]
--- OUTSIDE RECORDS SUMMARY | 2024-06-14 22:49 | External Medical Summary ---
Author Name Unknown Address Unknown Organization [id number]:[facility] [place] [address] [place] [address] Laboratory Report Ordering Provider Test Date Status JEFFERSON SAMS 01/30/2024 04:39:00 Final Observation Date Value Abnormality Reference (Units ) Status BUN 01/30/2024 04:39:00 10 6-20 (mg/dL) Final Creatinine 01/30/2024 04:39:00 0.7 0.5-1.0 (mg/dL) Final Glomerular filtration rate/1.73 sq M.predicted [Volume Rate/Area] in Serum, Plasma or Blood by Creatinine-based formula (CKD-EPI) 01/30/2024 04:39:00 88 >=60 (mL/min) Final eGFR is calculated based on the CKD-EPI 2020 equation. Sodium 01/30/2024 04:39:00 141 135-146 (m mol/L) Final Potassium 01/30/2024 04:39:00 3.8 3.5-5.1 (m mol/L) Final Cl 01/30/2024 04:39:00 107 98-107 (mm ol/L) Final CO2 01/30/2024 04:39:00 25 22-32 (mmo l/L) Final Anion gap 01/30/2024 04:39:00 9 7-15 (mmol /L) Final Glucose 01/30/2024 04:39:00 100 70-120 (mg /dL) Final Calcium 01/30/2024 04:39:00 9.3 8.4-10.2 ( mg/dL) Final Performing Location [facility] [place] - [address] [facility] [address]
--- OUTSIDE RECORDS SUMMARY | 2024-06-14 22:49 | External Medical Summary ---
Author Name Unknown Address Unknown Organization K01:[facility] - [address] [place] [address] Laboratory Report Ordering Provider Test Date Status JEFFERSON SAMS 01/30/2024 04:39:00 Final Observation Date Value Abnormality Reference (Units ) Status Phosphate 01/30/2024 04:39:00 3.0 2.5-4.8 (m g/dL) Final Performing Location [facility] - [address] [place] [address]
--- OUTSIDE RECORDS SUMMARY | 2024-06-14 22:49 | External Medical Summary ---
Author Name Unknown Address Unknown Organization K01:[facility] - [address] [address] Laboratory Report Ordering Provider Test Date Status JEFFERSON SAMS 01/29/2024 04:23:00 Final Observation Date Value Abnormality Reference (Units ) Status Magnesium 01/29/2024 04:23:00 1.7 1.5-2.6 (m g/dL) Final Performing Location [facility] - [address] [place] [address]
--- OUTSIDE RECORDS SUMMARY | 2024-06-14 22:49 | External Medical Summary ---
Author Name Unknown Address Unknown Organization [id number]:[facility] - [address] [facility] [address] Laboratory Report Ordering Provider Test Date Status JEFFERSON SAMS 01/29/2024 04:23:00 Final Observation Date Value Abnormality Reference (Units ) Status SYNC LEUKOCYTES IN BLOOD BY AUTOMATED COUNT 01/29/2024 04:23:00 4.02 4.00-10.80 (K/uL) Final Segs 01/29/2024 04:23:00 47.2 40.0-75.0 (%) Final Lymphs % 01/29/2024 04:23:00 33.1 18.0-42.0 (%) Final Monos 01/29/2024 04:23:00 12.2 Above high normal 1.0-11.0 (%) Final Eosinophils 01/29/2024 04:23:00 6.5 Above high normal 0.0-6.0 (%) Final Basos 01/29/2024 04:23:00 0.5 0.0-2.0 (%) Final Immature Granulocyte, Percent 01/29/2024 04:23:00 0.5 0.0-2.0 (%) Final Absolute Segs 01/29/2024 04:23:00 1.90 1.80-7.70 (K/uL) Final Lymphs, absolute 01/29/2024 04:23:00 1.33 1.00-4.80 (K/ul) Final Monos, Abs 01/29/2024 04:23:00 0.49 0.00-1.10 (K/uL) Final Eos, Abs 01/29/2024 04:23:00 0.26 0.00-0.70 (K/uL) Final Basos, Abs 01/29/2024 04:23:00 0.02 0.00-0.20 (K/uL) Final Immature Granulocytes, Number 01/29/2024 04:23:00 0.02 0.00-0.20 (K/uL) Final Performing Location [facility]ORY [facility] [place] - [address] [facility] [address]
--- OUTSIDE RECORDS SUMMARY | 2024-06-14 22:49 | External Medical Summary ---
Author Name Unknown Address Unknown Organization K01:[facility] [place] - [facility] [place] [address] Laboratory Report Ordering Provider Test Date Status JEFFERSON SAMS 01/29/2024 04:23:00 Final Observation Date Value Abnormality Reference (Units ) Status WBC, Total 01/29/2024 04:23:00 4.02 4.00-10.80 (K/uL) Final RBC 01/29/2024 04:23:00 3.76 3.85-5.15 (M/uL) Final Hemoglobin 01/29/2024 04:23:00 11.8 Below low normal 12.0-15.3 (g/dL) Final HCT 01/29/2024 04:23:00 36.7 36.0-45.2 (%) Final MCV 01/29/2024 04:23:00 97.6 81.5-97.5 (fL) Final MCH 01/29/2024 04:23:00 31.4 27.0-34.0 (pg) Final MCHC 01/29/2024 04:23:00 32.2 32.0-36.0 (g/dL) Final RDW 01/29/2024 04:23:00 12.8 11.5-15.5 (%) Final Platelets 01/29/2024 04:23:00 165 140-400 (K/uL) Final MPV 01/29/2024 04:23:00 9.5 6.6-11.1 (fL) Final Nucleated erythrocytes/100 leukocytes [Ratio] in Blood by Automated count 01/29/2024 04:23:00 0 <=0 (/100 WBCs) Final Performing Location LAB[facility]ORY [facility] [place] - [address] [place] [address]
--- OUTSIDE RECORDS SUMMARY | 2024-06-14 22:49 | External Medical Summary ---
Author Name Unknown Address Unknown Organization K01:[facility] - [address] [facility] [address] Laboratory Report Ordering Provider Test Date Status JEFFERSON SAMS 01/31/2024 04:09:00 Final Observation Date Value Abnormality Reference (Units ) Status SYNC LEUKOCYTES IN BLOOD BY AUTOMATED COUNT 01/31/2024 04:09:00 3.97 Below low normal 4.00-10.80 (K/uL) Final Segs 01/31/2024 04:09:00 55.3 40.0-75.0 (%) Final Lymphs % 01/31/2024 04:09:00 23.7 18.0-42.0 (%) Final Monos 01/31/2024 04:09:00 11.1 Above high normal 1.0-11.0 (%) Final Eosinophils 01/31/2024 04:09:00 8.8 Above high normal 0.0-6.0 (%) Final Basos 01/31/2024 04:09:00 0.8 0.0-2.0 (%) Final Immature Granulocyte, Percent 01/31/2024 04:09:00 0.3 0.0-2.0 (%) Final Absolute Segs 01/31/2024 04:09:00 2.20 1.80-7.70 (K/uL) Final Lymphs, absolute 01/31/2024 04:09:00 0.94 Below low normal 1.00-4.80 (K/ul) Final Monos, Abs 01/31/2024 04:09:00 0.44 0.00-1.10 (K/uL) Final Eos, Abs 01/31/2024 04:09:00 0.35 0.00-0.70 (K/uL) Final Basos, Abs 01/31/2024 04:09:00 0.03 0.00-0.20 (K/uL) Final Immature Granulocytes, Number 01/31/2024 04:09:00 0.01 0.00-0.20 (K/uL) Final Performing Location [facility] [place] - [facility] [address] [facility] [address]
--- OUTSIDE RECORDS SUMMARY | 2024-06-14 22:49 | External Medical Summary | Summary of Care ---
Author Name Unknown Organization [facility] Address [address] [place] [address] Phone [phone] Care Team Providers Care Director Experimental Medicine Name Role Phone Sandra Guajardo Primary Care Provider [phone] [phone] Encounter Details Date Type Department Care Team (Late st Contact Info) Description 02/14/2024 12:30 PM EST Telemedicine General Surgery, [place] [address] [place] [address] 620, [facility] [address] [place] [address] Multiple injuries due to trauma*; Fall, initial encounter Allergies Active Allergy Reactions Criticality Noted Date Comments Ibuprofen Neuro complications (Please comment) Medium 05/21/2010 Jittery Cashew Nut Oil Hives 05/06/2020 Oxycodone-Acetaminophen Other (Please comment) Medium 08/06/2010 Severe vomiting/nausea Prochlorperazine Neuro complications (Please comment) Medium 12/17/2004 Facial twitches Adhesive Tape Hives Medium 08/06/2010 Diazepam Neuro complications (Please comment) Medium 12/17/2004 hallucinations documented as of this encounter (statuses as of 02/14/2024) Medications CALCIUM 600-D 600-400 MG-UNIT PO TABS once daily Active TRIAMCINOLONE ACETONIDE 0.1 % EX CREAIndications: Dermatitis Apply to affected area twice a day 15 g 1 1 Active Additional Information Patient not taking.Reported on 01/26/2024 ISOSORBIDE MONONITRATE ER 60 MG PO [id number]: Chest pain 1 AND 1/2 TABLETS DAILY [...] as of this encounter (statuses as of 02/14/2024) Active Problems Problem Noted Date Diagnosed Date [...] (03/23/2006): Hyperplastic--repeat 10 years Coronary atherosclerosis of [place] coronary ana laura ry Multiple injuries due to trauma documented as of this encounter (statuses as of 02/14/2024) Resolved Problems Problem Noted Date Diagnosed Date Resolved Date Dyslipidemia, goal LDL below 70 10/05/2011 05/24/2013 ASCVD (arteriosclerotic card iovascular disease) 01/28/2011 05/24/2013 ACTIVE CASE MANAGEMENT- Servando Gilliland RN [phone] 06/18/2009 01/12/2010 Acute non Q wave myocardial [...] as of this encounter (statuses as of 02/14/2024) Immunizations Name Administration Dates Next Due Pneumococcal [...] Entry Date Author No 01/26/2024 11:17 PM Karyna Scott RN documented in this encounter Progress Notes * Geena Morales, AUTOMOTIVE BRAKE TECHNICIAN - 02/14/2024 12:33 PM EST After connecting to the patient via telephone, the patient was identified by name and date of . Patient was then informed that this was a telephone call only visit. The patient agreed to participate. Visit Disposition: Routine follow-up Total call duration was 11 minutes. S: Patient had a telephone follow up appointment after she fell and sustained right rib fractures. Shehas been doing well since going home and the pain is getting better. She is not able to sleep in bed yet and is still sleeping in a recliner chair. She is able to do her daily activities and she doeshave help to do things she is unable to do right now. The patient is using Tylenol and lidocaine pat ches. The oxy she said she has a reaction to. She tried heat and that bothered her. She is going totry ice and see if that helps her. Patient is eating and drinking without any issues and patient is voiding and having regular bowel movements without any difficulty. Patient denies any headaches, chest pain, shortness of breath, lightheadedness, dizziness, nausea, vomiting, numbness or tingling, fevers or chills. O: No vitals or physical exam done due to this being a telephone appointment. A/P: 1. CXR showed no infiltrates, pleural effusion or pneumothorax 2. Educated the patient on their restrictions of no lifting., pushing or pulling anything greater than 10 pounds for 8 weeks. 3. Educated the patient on their restrictions of no bending or twisting for 8 weeks. 4.Use incentive spirometer 10 times an hour while awake 5. Walk around as much as possible 6. Can use Tylenol 975 mg every 8 hours as needed for pain 7. Can se lidocaine patches as needed for pain 8. Can try ice and see if that helps with the pain 9. Patient does not need to follow up with trauma surgery anymore 10. Patient was encouraged to call us at anytime with any questions or concerns. I spent a total of 20-29 minutes (exact time 21 mins) on the date of service in preparation, delivery, and documentation of the care provided to Tatiana Gonsales excluding any time spent in the performance of separately billed services or time spent by another provider/QHP. documented in this encounter Plan of Treatment Upcoming Encounters Date Type Department Care Team (Late st Contact Info) Description 03/07/2024 9:20 AM EST [facility] [address] [place] [address] [facility] [place] [address] [place] [address] Scheduled Procedures Name Priority Associated Diagnoses Date/Ti [...] Not on filedocumented as of this encounter Visit Diagnoses Diagnosis Multiple injuries due to trauma- Primary Injury, other and unspecified, other specified sites, including multiple Fall, initial encounter documented in this encounter Advance Directives * [...] Power of Attor karen? No Care Teams Director Experimental Medicine Relationship Specialty Start Date End Date Sandra Guajardo CRNP [address] [place] [address] PCP - General Nurse Practitioner 02/10/23 documented as of this encounter
--- OUTSIDE RECORDS SUMMARY | 2024-06-14 22:49 | External Medical Summary ---
Author Name Unknown Address Unknown Organization K01:[facility] - [address] [facility] [address] Laboratory Report Ordering Provider Test Date Status JEFFERSON SAMS 01/30/2024 04:39:00 Final Observation Date Value Abnormality Reference (Units ) Status SYNC LEUKOCYTES IN BLOOD BY AUTOMATED COUNT 01/30/2024 04:39:00 4.36 4.00-10.80 (K/uL) Final Segs 01/30/2024 04:39:00 61.5 40.0-75.0 (%) Final Lymphs % 01/30/2024 04:39:00 22.7 18.0-42.0 (%) Final Monos 01/30/2024 04:39:00 8.9 1.0-11.0 (%) Final Eosinophils 01/30/2024 04:39:00 5.7 0.0-6.0 (%) Final Basos 01/30/2024 04:39:00 0.7 0.0-2.0 (%) Final Immature Granulocyte, Percent 01/30/2024 04:39:00 0.5 0.0-2.0 (%) Final Absolute Segs 01/30/2024 04:39:00 2.68 1.80-7.70 (K/uL) Final Lymphs, absolute 01/30/2024 04:39:00 0.99 Below low normal 1.00-4.80 (K/ul) Final Monos, Abs 01/30/2024 04:39:00 0.39 0.00-1.10 (K/uL) Final Eos, Abs 01/30/2024 04:39:00 0.25 0.00-0.70 (K/uL) Final Basos, Abs 01/30/2024 04:39:00 0.03 0.00-0.20 (K/uL) Final Immature Granulocytes, Number 01/30/2024 04:39:00 0.02 0.00-0.20 (K/uL) Final Performing Location [facility] [facility] [place] [address] [facility] [id number]
--- OUTSIDE RECORDS SUMMARY | 2024-06-14 22:49 | External Medical Summary | Summary of Care ---
Author Name Unknown Organization [facility] Address [address] [place] [address] Phone [phone] Care Team Providers Care Audio Specialist Name Role Phone Sandra Guajardo Primary Care Provider [phone] Reason for Visit * Reason Comments [facility] * Auth/Cert Specialty Diagnoses / Procedures Referred By Contac t Referred To Contact [facility] [address] [place] [address] Referral ID Status Reason Start Date Expiration Date Visits Re quested Visits Authorized [id number] Encounter Details Date Type Department Care Team (Late st Contact Info) Description 01/26/2024 7:40 PM EDT Documentation [facility] [address] [place] [address] 1, [facility] [address] [place], [place] [id number] Traumatic injury* Allergies Active Allergy Reactions Criticality Noted Date Comments Ibuprofen Neuro complications (Please comment) Medium 05/21/2010 Jittery Cashew Nut Oil Hives 05/06/2020 Oxycodone-Acetaminophen Other (Please comment) Medium 08/06/2010 Severe vomiting/nausea Prochlorperazine Neuro complications (Please comment) Medium 12/17/2004 Facial twitches Adhesive Tape Hives Medium 08/06/2010 Diazepam Neuro complications (Please comment) Medium 12/17/2004 hallucinations documented as of this encounter (statuses as of 01/30/2024) Medications Medication Sig Dispensed Refills Start Date End Date Status ASPIRIN 81 MG PO CHEWIndications:Acu te non Q wave myocardial infarction (HCC) 1 Tab Oral Daily 34 6 06/17/2009 Suspended Additional Information CALCIUM 600-D 600-400 MG-UNIT PO TABS once daily Suspended TRIAMCINOLONE ACETONIDE 0.1 % EX CREAIndications:Kenneth matitis Apply to affected area twice a day 15 g 1 08/06/2010 Suspended Additional Information Patient not taking.Reported on 01/26/2024 LACHELLE ROOT 550 MG PO CAPS once a day Suspended ISOSORBIDE MONONITRATE ER 60 MG PO [id number]:Naa st pain 1 AND 1/2 TABLETS DAILY 45 Tab 5 04/12/2014 Suspended Additional Information amLODIPine (NORVASC) 5 MG Tablet TAKE ONE TABLET BY MOUTH EVERY DAY 30 Tab 4 03/07/2015 Suspended Additional Information omeprazole (PRILOSEC) 20 MG CPDRIndications:Eso phageal reflux TAKE ONE CAPSULE BY MOUTH EVERY DAY ONE HOUR BEFORE THE FIRST MEAL OFTHE DAY. 34 Cap 5 03/14/2015 Suspended Additional Information atorvaSTATin (LIPITOR) 40 MG TabletIndications:D yslipidemia, goal LDL below 70 TAKE ONE TABLET BY MOUTH EVERY DAY 30 Tab 0 03/24/2015 Suspended Additional Information nitroglycerin (NITROSTAT) 0.4 MG SUBL 1 Tab Sublingual Every 5 minutes as needed for chest pain up to 3 times. call 911 if you need a second one. 25 Tab 11 06/10/2015 Suspended Additional Information Ascorbic Acid (VITAMIN C) 500 MG CAPS Take 1 Tab by mouth daily. Suspended Fluticasone Propionate 50 MCG/ACT Nasal Suspension (Flonase) 04/04/2020 Suspended documented as of this encounter (statuses as of 01/30/2024) Active Problems Problem Noted Date Diagnosed Date Fall 01/27/2024 New onset atrial fibrillation 01/27/2024 Subdural hematoma 01/27/2024 Carpal tunnel syndrome 06/15/2009 Systemic lupus erythematosus 06/14/2009 Hyperlipidemia with target LDL less than 100 Overview: ICD-10 update of inactive term HTN, GOAL BELOW 140/90 02/13/2009 Overview: Modified per HTN protocol #16. Benign neoplasm of colon 02/07/2006 Overview: Hyperplastic--repeat 10 years ADVANCE DIRECTIVE INFORMATION 06/16/2005 Overview: No, Advance Directive brochure given to patient. - mailed 06/18/2009 vls No, Advance Directive brochure given to patient at prior appointment. Coronary atherosclerosis of [place] coronary ana laura ry documented as of this encounter (statuses as of 01/30/2024) Resolved Problems Problem Noted Date Diagnosed Date Resolved Date Dyslipidemia, goal LDL below 70 10/05/2011 05/24/2013 ASCVD (arteriosclerotic card iovascular disease) 01/28/2011 05/24/2013 ACTIVE CASE MANAGEMENT- Servando Gilliland RN [phone] 06/18/2009 01/12/2010 Acute non Q wave myocardial infarction 06/14/2009 05/24/2013 Dyslipidemia, goal to be determined 03/11/2009 03/02/2011 Overview: Per Lipid Taxonomy. Mixed dyslipidemia 01/11/2008 Overview: Per Lipid Taxonomy. Lupus erythematosus 12/17/2004 06/17/19 06 Overview: diagnosed in 1975 HTN, goal to be determined 1 04/19/2008 Overview: Modified per HTN protocol #16. documented as of this encounter (statuses as of 01/30/2024) Immunizations Name Administration Dates Next Due Pneumococcal [...] on file documented as of this encounter Progress Notes * Randee Landon, EMT-P - 01/27/2024 12:56 AM EDT MEDICARE AMBULANCE INFORMATION SHEET Patient Admitted as an Inpatient: yes Certifying Physician/Ordering Service:[facility] [place] ED Physician - Barrett García M.D. [facility] [address] [place] [address] Point of Global Marketing Operations Manager (zip code required): [facility] - [address] [place] [address] Destination (Specify Name/Address): [facility] - [address] [facility] [place] [address] Patient transported to nearest facility (capable of mgmt for Pt's condition): YES Total number of Loaded Miles: 66.3 miles Mode of Transport: Air Completed by: BART Hernandez-P documented in this encounter Plan of Treatment Upcoming Encounters Date Type Department Care Team (Late st Contact Info) Description 03/07/2024 9:20 AM EST Office Visit Neurosurgery, [facility] [address] [place] [address] [facility], Traumatic Brain Injury [address] [place] [address] Scheduled Procedures Name Priority Associated Diagnoses Date/Ti me COLONOSCOPY FLEXIBLE PROXIMAL DIAGNOSTIC Recall History of colon polyps Health Maintenance Due Date Last Done Comments DXA Scan 1941 Albumin/Creatinine Ratio 11/25/1959 DTap/Tdap Vaccines (1 - Tdap) 1960 Zoster Vaccines (1 of 2) 11/25/1991 Depression Screening 02/12/2014 02/12/2013 COVID-19 Vaccine ( - season) 2023 Influenza Vaccine (FLU shot) (#1) 2023 GFR 01/29/2025 01/30/2024, 05/2023, 01/28/2024, Additional history exists RETIRED - COLONOSCOPY-EVERY 5 [...] as of this encounter Visit Diagnoses Diagnosis Traumatic injury- Primary Injury, other and unspecified, unspecified site documented in this encounter Advance Directives * Full Code (Latest Code Status on File) Date Activated Date Inactivated Comments 01/26/2024 9:57 PM This order re flects the patients wishes and were consensually agreed [...] Power of Attor karen? No Care Teams Audio Specialist Relationship Specialty Start Date End Date Sandra Guajardo CRNP [address] [place] [address] PCP - General Nurse Practitioner 02/10/23 documented as of this encounter
--- OUTSIDE RECORDS SUMMARY | 2024-06-14 22:49 | External Medical Summary | Summary of Care ---
Author Name Unknown Organization [facility] Address [address] [place] [address] Phone [phone] Care Team Providers Care Alteration Workroom Supervisor Name Role Phone Sandra Guajardo Primary Care Provider [phone] Reason for Referral * Evaluate & Treat - Unlimited Visits (Within 10 days (routine)) - Authorized Specialty Diagnoses / Procedures Referred By Stephen garcia Referred To Contact Cardiovascular Medicine / Cardiology Diagnoses Atrial fibrillation (HCC) Sandra Guajardo CRNP [address] [place] [address] Phone: tel: fax: Referral ID Status Reason Start Date Expiration Date Visits Requested Visits Authorized [id number] Authorized Specialty Services Required 4 [phone] Question Answer Referral Priority Within 10 days (routine) Where should this appointment be scheduled? [facility] To which of the following clinics are you referring your patient? Arrhythmia/Electrophysiology Clinic Comments Notes posted. Encounter Details Date Type Department Care Team ([facility] st Contact Info) Description 03/06/2024 Orders Only Access Center, [address] *DO NOT REMOVE THIS DEPARTMENT* [place] [address] Request, External Referral Atrial fibrillation (HCC)* Allergies Active Allergy Reactions Criticality Noted Date Comments Ibuprofen Neuro complications (Please comment) Medium 05/21/2010 Jittery Cashew Nut Oil Hives 05/06/2020 Oxycodone-Acetaminophen Other (Please comment) Medium 08/06/2010 Severe vomiting/nausea Prochlorperazine Neuro complications (Please comment) Medium 12/17/2004 Facial twitches Adhesive Tape Hives Medium 08/06/2010 Diazepam Neuro complications (Please comment) Medium 12/17/2004 hallucinations documented as of this encounter (statuses as of 03/06/2024) Medications CALCIUM 600-D 600-400 MG-UNIT PO TABS once daily Active TRIAMCINOLONE ACETONIDE 0.1 % EX CREAIndications: Dermatitis Apply to affected area twice a day 15 g 1 1 Active Additional Information Patient not taking.Reported on 01/26/2024 ISOSORBIDE MONONITRATE ER 60 MG PO [id number]: Chest pain 1 AND 1/2 TABLETS DAILY [...] spasms. 15 Tablet 01/31/2024 12:38 PM EST Active documented as of this encounter (statuses as of 03/06/2024) Active Problems Problem Noted Date Diagnosed Date Arthritis 02/05/2024 Closed fracture of left clavicle 02/05/2024 Closed head injury 02/05/2024 Contusion of left wrist 02/05/2024 Contusion of right shoulder 02/05/2024 Facial contusion 02/05/2024 Gastroesophageal reflux disease 02/05/2024 Ground-level fall 02/05/2024 History of COVID-19 02/05/2024 History of PR (myocardial infarction) 02/05/2024 Hydroureteronephrosis 02/05/2024 Hypoxemia 02/05/2024 [...] (03/23/2006): Hyperplastic--repeat 10 years Coronary atherosclerosis of [place] coronary ana laura ry Multiple injuries due to trauma documented as of this encounter (statuses as of 03/06/2024) Resolved Problems Problem Noted Date Diagnosed Date Resolved Date Dyslipidemia, goal LDL below 70 10/05/2011 05/24/2013 ASCVD (arteriosclerotic card iovascular disease) 01/28/2011 05/24/2013 ACTIVE CASE MANAGEMENT- Servando Gilliland RN [phone] 06/18/2009 01/12/2010 Acute non Q wave myocardial [...] as of this encounter (statuses as of 03/06/2024) Immunizations Name Administration Dates Next Due Pneumococcal [...] of Assessment Author No 01/26/2024 11:17 PM EDKaryna Lugo RN * Are you blind or do [...] Karyna Scott RN documented in this encounter Plan of Treatment Upcoming Encounters Date Type Department Care Team (Late st Contact Info) Description 04/04/2024 11:20 AM EST Office Visit [address] [address] [facility] [place], Traumatic Brain Injury [address] [place] [id number] Scheduled Procedures Name Priority Associated Diagnoses Date/Ti me COLONOSCOPY FLEXIBLE PROXIMAL DIAGNOSTIC Recall History of colon polyps Scheduled Referrals Name Type Priority Associated Diagnoses Orde r Schedule CARDIOLOGY REFERRAL OP Referral Within 10 days (routine) Atrial fibrillation (HCC) Ordered: 03/06/2024 Health Maintenance Due Date Last Done Comments [...] as of this encounter Visit Diagnoses Diagnosis Atrial fibrillation (HCC)- Primary Atrial fibrillation documented in this encounter Advance Directives * [...] of Attor karen? No Care Teams Alteration Workroom Supervisor Relationship Specialty Start Date End Date Sandra Guajardo CRNP [address] [place] [address] PCP - General Nurse Practitioner 02/10/23 documented as of this encounter
--- OUTSIDE RECORDS SUMMARY | 2024-06-14 22:49 | External Medical Summary ---
Author Name Unknown Address Unknown Organization [id number]:LABORATORY [facility] [place] - [facility] [place] [address] Laboratory Report Ordering Provider Test Date Status JEFFERSON SAMS 01/31/2024 04:09:00 Final Observation Date Value Abnormality Reference (Units ) Status WBC, Total 01/31/2024 04:09:00 3.97 Below low normal 4.00-10.80 (K/uL) Final RBC 01/31/2024 04:09:00 3.94 3.85-5.15 (M/uL) Final Hemoglobin 01/31/2024 04:09:00 12.6 12.0-15.3 (g/dL) Final HCT 01/31/2024 04:09:00 38.4 36.0-45.2 (%) Final MCV 01/31/2024 04:09:00 97.5 81.5-97.5 (fL) Final MCH 01/31/2024 04:09:00 32.0 27.0-34.0 (pg) Final MCHC 01/31/2024 04:09:00 32.8 32.0-36.0 (g/dL) Final RDW 01/31/2024 04:09:00 12.7 11.5-15.5 (%) Final Platelets 01/31/2024 04:09:00 174 140-400 (K/uL) Final MPV 01/31/2024 04:09:00 9.7 6.6-11.1 (fL) Final Nucleated erythrocytes/100 leukocytes [Ratio] in Blood by Automated count 01/31/2024 04:09:00 0 <=0 (/100 WBCs) Final Performing Location LABORATORY [facility] [place] - [address] [place] [address]
--- OUTSIDE RECORDS SUMMARY | 2024-06-14 22:49 | External Medical Summary ---
Author Name Unknown Address Unknown Organization [id number]:LABORATORY [facility] [place] - [address] [facility] [place] [address] Laboratory Report Ordering Provider Test Date Status JEFFERSON SAMS 01/30/2024 04:39:00 Final Observation Date Value Abnormality Reference (Units ) Status Calcium.ionized [Moles/volume] in Serum or Plasma by Ion-selective membrane electrode (ISE) 01/30/2024 04:39:00 1.29 1.13-1.32 (mmol/L) Final This test was developed and its performance characteristics dtermined by [employer]. It has not been cleared or approved by the [place] Food and Drug Administration Performing Location [facility]ATORY [facility] [address] [place] [address]
--- OUTSIDE RECORDS SUMMARY | 2024-06-14 22:49 | External Medical Summary | Summary of Care ---
Author Name Unknown Organization [facility] Address [address] [place] [address] Phone [phone] Care Team Providers Care Showroom Salesperson Name Role Phone Sandra Olvera Primary Care Provider [phone] Reason for Referral * Precert (Within 10 days (routine)) - Authorized Specialty Diagnoses / Procedures Referred By Contac t Referred To Contact Radiology Diagnoses Subdural hemorrhage (HCC) Procedures CT HEAD/BRAIN WO CONTRAST Miracle Holder PA-C [address] [place] [address] Referral ID Status Reason Start Date Expiration Date V isits Requested Visits Authorized [id number] Authorized 02/10/2024 999 [id number] Reason for Visit * Reason Comments Trauma Fall * Auth/Cert Specialty Diagnoses / Procedures Referred By Contac t Referred To Contact Diagnoses Subdural hemorrhage (HCC) Fall with head bleed, broken ribs Kalee Reyes MD [address] [place] [address] Emergency Medicine [facility] [address] [place] [address] Referral ID Status Reason Start Date Expiration Date Visits Re quested Visits Authorized [id number] Encounter Details Date Type Department Care Team (Latest Contact Info) Description 01/26/2024 9:17 PM EDT - 01/31/2024 2:56 PM EST Hospital [id number] [address] [place] [address] Henrry Castaneda, DO [address] [place] [address] Kalee Reyes MD [address] [place] [address] Gustavo Figueroa MD [address] [place] [address] Mabel Saldana MD [address] [place] [phone] Christiano Caceres DO [address] [place] [address] Phoebe Laird MD [address], [place] [id number] EKG Report Discharge Disposition: Home - Self Care Allergies Active Allergy Reactions Criticality Noted Date Comments Ibuprofen Neuro complications (Please comment) Medium 05/21/2010 Jittery Cashew Nut Oil Hives 05/06/2020 Oxycodone-Acetaminophen Other (Please comment) Medium 08/06/2010 Severe vomiting/nausea Prochlorperazine Neuro complications (Please comment) Medium 12/17/2004 Facial twitches Adhesive Tape Hives Medium 08/06/2010 Diazepam Neuro complications (Please comment) Medium 12/17/2004 hallucinations documented as of this encounter (statuses as of 02/01/2024) Medications Medication Sig Dispensed Refills Start Date End Date Status CALCIUM 600-D 600-400 MG-UNIT PO TABS once daily Active TRIAMCINOLONE ACETONIDE 0.1 % EX CREAIndications: Dermatitis Apply to affected area twice a day 15 g 1 08/06/2010 Active Additional Information Patient not taking.Reported on 01/26/2024 ISOSORBIDE MONONITRATE ER 60 MG PO [id number]: Chest pain 1 AND 1/2 TABLETS DAILY 45 Tab 5 04/12/2014 Active omeprazole (PRILOSEC) 20 MG CPDRIndications: Esophageal reflux TAKE ONE CAPSULE BY MOUTH EVERY DAY ONE HOUR BEFORE THE FIRST MEAL OFTHE DAY. 34 Cap 5 03/14/2015 Active atorvaSTATin (LIPITOR) 40 MG TabletIndication s:Dyslipidemia, [...] Tablets before bedtime. 12 Tablet 01/31/2024 Active Sulfamethoxazole -Trimethoprim 800-160 MG Oral Tablet (Bactrim DS) Take 1 Tablet by mouth in the morning and 1 Tablet before bedtime. Do all this for 1 day. 2 Tablet 01/31/2024 4 Active levETIRAcetam 500 MG Oral Tablet (Keppra) Take 1 Tablet by mouth in the morning and 1 Tablet before bedtime. Do all this for 2 days. 4 Tablet 01/31/2024 4 Active Metoprolol Tartrate 25 MG Oral [...] for muscle spasms. 15 Tablet 01/31/2024 Active ASPIRIN 81 MG PO CHEWIndications: Acute non Q wave myocardial infarction (HCC) 1 Tab Oral Daily 34 6 06/17/2009 4 Discontinued LACHELLE ROOT 550 MG PO CAPS once a day 4 Discontinued amLODIPine (NORVASC) 5 MG Tablet TAKE ONE TABLET BY MOUTH EVERY DAY 30 Tab 4 03/07/2015 4 Discontinued nitroglycerin (NITROSTAT) 0.4 MG SUBL 1 Tab Sublingual Every 5 minutes as needed for chest pain up to 3 times. call 911 if you need a second one. 25 Tab 11 06/10/2015 4 Discontinued documented as of this encounter (statuses as of 02/01/2024) Active Problems Problem Noted Date Diagnosed Date [...] Overview: Hyperplastic--repeat 10 years Coronary atherosclerosis of [place] coronary ana laura ry documented as of this encounter (statuses as of 02/01/2024) Resolved Problems Problem Noted Date Diagnosed Date Resolved Date Dyslipidemia, goal LDL below 70 10/05/2011 05/24/2013 ASCVD (arteriosclerotic card iovascular disease) 01/28/2011 05/24/2013 ACTIVE CASE MANAGEMENT- Servando Gilliland RN [phone] 06/18/2009 01/12/2010 Acute non Q wave myocardial infarction 06/14/2009 05/24/2013 Dyslipidemia, goal to be determined 03/11/2009 03/02/2011 Overview: Per Lipid Taxonomy. Mixed dyslipidemia 01/11/2008 Overview: Per Lipid Taxonomy. ADVANCE DIRECTIVE INFORMATION 06/16/2005 01/30/2024 Overview: No, Advance Directive brochure given to patient. - mailed 06/18/2009 vls No, Advance Directive brochure given to patient at prior appointment. Lupus erythematosus 12/17/2004 06/17/19 06 Overview: diagnosed in 1975 HTN, goal to be determined 1 04/19/2008 Overview: Modified per HTN protocol #16. documented as of this encounter (statuses as of 02/01/2024) Immunizations Name Administration Dates Next Due Pneumococcal [...] Sign Reading Time Taken Comments Blood Pressure 110/69 01/31/2024 10:00 AM EST Pulse 92 01/31/2024 10:00 AM EST Temperature 36.9 C (98.4 F) 01/31/2024 1 0:00 AM EST Respiratory Rate 18 01/31/2024 10:0 0 AM EST Oxygen Saturation 95% 01/31/2024 10: 00 AM EST Inhaled Oxygen Concentration - - Weight 63.8 kg (140 lb 10.5 oz) 01/27/2024 8:00 AM EDT Height - - Body Mass Index 24.92 03/02/2023 7:58 AM EST documented in this encounter Functional Status Functional Status Response [...] No 01/26/2024 documented as of this encounter Discharge Instructions * Discharge Instr - AVS* Willie Vasquez CRNP - 01/30/2024 8:13 AM EST Images from the original note were not included. Discharge Date: 01/31/24 You may call the department of Trauma Surgery at [phone] during business hours for any questions or test results. For after-hours emergencies call [phone] and have your doctor paged. The information below provides you with the instructions and the list of medications you need to betaking following discharge from the hospital. If you have any questions, please ask before leaving.Please carry this letter with you when you see your doctor in the clinic. If you have questions, you can reach us at the numbers above. Brief summary of your inpatient care: You were admitted to the hospital on 01/26/2024. You were found to have the following injuries Left Subdural Hematoma Left frontal Subarachnoid hemorrhage Right 4-10 rib fractures New onset atrial fibrillation with rapid ventricular rate Urinary Tract Infection Head Trauma You were seen by neurosurgery for your traumatic brain injury (head bleed). You were watched closely with neurological checks. You were given medication (Keppra) to prevent seizures. You had a repeatCT scan to ensure that the head bleed remained stable. You will need to follow-up with neurosurgeryclinic in 2 weeks. DO NOT take your ASPIRIN or LACHELLE ROOT medication until told you can restart byneurosurgery during follow-up. You also should not take any of the following over the counter medications that can lead to increased bleeding. (Aspirin, Motrin aka Ibuprofen, Aleve aka Naproxen, and Fish Oil) Chest Trauma Your broken ribs were monitored with chest x-ray and found to remain stable while in the hospital. You will need to follow up with the trauma clinic in 2 weeks for repeat chest x-ray to reassess for adequate healing of your injury. Please have your chest x-ray taken prior to [facility]. You will be called regarding this telemedicine appointment. If you do not hear from scheduling within the next few days, please call [facility] at [phone] to make an appointment. Until then, you should continue to take pain medication as prescribed, cough, take deep breaths and use your incentive spirometer at least 10 times per hour while you are awake for the next 4-6 weeks or until further indicated at your follow up appointment to promote lung exercise and hygiene. Return to the Emergency Department for any sudden shortness of breath or difficulty breathing. Donot lift, push, or pull more than ten pounds for 8 weeks. Understanding Atrial Fibrillation (AFib) You were seen by Cardiology for atrial fibrillation. You will need to follow-up with cardiology in 4-6 weeks for a discussion on starting anticoagulation medication. We started you on metoprolol and stopped your amlodipine. Atrial fibrillation (AFib) is the most common type of arrhythmia. An arrhythmia is any problem with the speed or pattern of the heartbeat. AFib causes fast, chaotic electricalsignals in the atria. This makes it hard for the heart to work as it should. It affects how much blood your heart can pump out to the body. AFib may occur once in a while and go away on its own. This is called paroxysmal. Or it may continue for longer periods. This is called persistent. AFib can lead to serious problems, such as stroke. Your healthcare provider will need to watch and manage your condition. What happens during atrial fibrillation? The heart has an electrical system. This sends signals to control the heartbeat. As the signals move through the heart, they tell the hearts upper chambers (atria) and lower chambers (ventricles) when to squeeze (contract) and relax. This lets blood move through the heart and out to the body andlungs. With AFib, the atria get abnormal signals. This causes them to contract in a fast and irregular way. They are out of sync with the ventricles. The atria have a harder time moving blood into the ventricles. Blood may then pool in the atria. This increases the risk for blood clots and stroke. The ventricles may contract too quickly and irregularly. They may not pump blood to the body and lungs as well as they should. This can weaken the heart muscle over time. This can lead to heart failure. Heart failure means the heart muscle cant pump blood well. What causes atrial fibrillation? AFib is more common in older adults. It has many possible causes: Older age Coronary artery disease Heart valve disease Heart attack Heart surgery High blood pressure Thyroid disease Diabetes Lung disease Sleep apnea Heavy alcohol use In some cases of AFib, healthcare providers don't know the cause. What are the symptoms of atrial fibrillation? AFib may not cause symptoms. If symptoms do occur, they may include: A fast, pounding, irregular heartbeat Shortness of breath Tiredness Dizziness or fainting Chest pain How is atrial fibrillation treated? Treatments for AFib can include any of the below. Medicines. You may be prescribed: Heart rate medicines to help slow down the heartbeat Heart rhythm medicines to help the heart beat more regularly Blood thinners or anti-clotting medicines to help reduce the risk for blood clots and stroke Left atrial appendage closure. Your healthcare provider may advise this to prevent stroke. You may need it if you are at high risk for stroke but have problems taking blood-thinner (anticoagulant) medicines. This is a procedure done through a catheter in the groin. A device is placed in the part ofthe heart. This is where most clots form. This area is called the left atrial appendage (JACKIE). It'sa pouch-like structure in the muscle wall of the left atrium. The device closes off the JACKIE. This prevents clots moving from the heart to the brain and causing a stroke. Electrical cardioversion. Your healthcare provider uses special pads or paddles to send 1 or more brief electrical shocks to the heart. This can help reset the heartbeat to normal. Ablation. Long, thin tubes (catheters) are threaded through a blood vessel to the heart. In the heart, the catheters send out hot or cold energy to the places that cause the abnormal signals. This destroys the problem tissue or cells. This improves the chances that your heart will stay in normal rhythm without using medicines. If your heart rate and rhythm cant be controlled, you may need an AV node ablation and a pacemaker. These will help control the heart rate and regularity of the heartbeat. Surgery. Your healthcare provider may use a method to create scar tissue in the parts of the heart causing the abnormal signals. The scar tissue disrupts the abnormal signals. This may stop AFib fromoccurring. Most often, the left atrial appendage is closed off as well. Hybrid surgical-catheter ablation for AFib. This is used for people with AFib that continues or is hard to treat. It combines surgery with a catheter ablation. First, the surgeon makes small cuts (incisions) between the ribs in the chest or in the abdomen near the sternum. The surgeon puts a scope through the incisions. This is done to get to the backside and other areas of the heart. Energy is sent to the surface of the atria. This disrupts the abnormal electrical signals. Then a catheter is put into a vein in the groin. The catheter is guided into the heart. Using the catheter, radiofrequency ablation is done. This destroys any other tissue inside the heart that is causing the AFib. It's also done to assess the success of the surgery. This hybrid treatment may work better to block the abnormal electrical signals. It may be a more permanent fix for persistent AFib. What are possible complications of atrial fibrillation? Complications can include: Blood clots Stroke Dementia Heart failure When should I call my healthcare provider? Call your healthcare provider right away if you have any of these: Symptoms that dont get better with treatment, or get worse New symptoms Urinary Tract Infection You will need to complete a course of antibiotics for a urinary tract infection. Your doctors during this hospitalization included: Trauma- Dr. Laird, Neurosurgery- Dr. Ayala, Cardiology- Dr. Haji Your primary diagnosis at discharge was multiple traumatic injuries Inpatient test results pending: None Operations & Procedures: None Complications: none significant Advance Directive Documented: Advance Directive Does the Patient have an Advance Directive? Yes Diet: Orders Placed This Encounter Procedures Heart Healthy Diet : Sodium: 2 gm --- Fluid Restriction (ml): None Activity: No strenuous activity for 6 weeks Driving: Do not drive. Date you may return to work or school: N/A See your primary care physician (FREDI Perez) in 1 week(s). documented in this encounter Progress Notes * Karan Khan PA Student - 01/29/2024 12:45 PM EST Images from the original note were not included. PROGRESS NOTE - Trauma Surgery [facility] [place] [address] Unless the attending has added an attestation supporting use of this note to document a billable service, the signature of the Licensed Professional on this note only acknowledges the presence of thestudent's note within the patient record and the Licensed Professional's note should be referred tofor clinical information and recommendations. Name: Tatiana Roman Location: [facility] B531/A Date: 01/29/2024 Time: 12:45 PM HOSPITAL DAY#: 3 ROUNDING SURGEON: Dr. Saldana ADMISSION DATE: 01/26/2024 OPERATIONS / PROCEDURES: None INJURY COMPLEX: - fall on 01/22/24 - Left SDH - left frontal SAH - right 4-10 rib fx - new onset afib with RVR INTERIM HISTORY (LAST 24 HOURS): No acute events overnight, VSS, pt has been rate controlled on lopressor. Pt found awake and feeling nauseated again this AM. Occurred ~40min after receiving all morning meds at once. Pharmacy consulted and changed timing of medication administration to help with nausea. Informed pt to continue to make sure she eats something with her oxy in the future, which pt verbally agreed to. She reported that her pain is well controlled on her current regime, with minimal rib pain, increased with movement. Last recorded BM was yesterday night after adding miralax to bowel regime. Patientalso reports miralax was held this AM for 2 BM this morning. AAOX3, GCS 15. She denies chest pain, sob, abdominal pain, numbness/tingling in extremities. PHYSICAL EXAMINATION: Most Recent Vital Signs: BP: 111 mmHg/64 mmHg (01/29/24 1008) Pulse: 76 (01/29/24957) Resp: 15 (01/29/24957) Temp: 36.78 C (01/29/24957) Temp Summary: Temp Min: 36.5 C (97.7 F) Max: 36.8 C (98.2 F) SpO2: 94 % (01/29/24957) O2 flow rate: 0 L/MIN (01/29/24957) Supplemental O2 Delivery: Room Air, None (01/29/24957) SpO2: 94 % (01/29/24957) Vital Signs Last 24 Hours: Systolic BP: Most Recent Systolic BP Av.6 mmHg Min: 90 mmHg Max: 111 mmHg Temperature: Most Recent Temperature Av.6 C Min: 36.5 C Max: 36.78 C Pulse: Pulse Av.6 Min: 75 Max: 87 Respirations: Resp Av.8 Min: 15 Max: 16 SpO2: SpO2 Av.2 % Min: 94 % Max: 96 % Intake/Output Summary (Last 24 hours) at 01/29/2024 1245 Last data filed at 01/29/2024 1013 Gross per 24 hour Intake 159.84 ml Output 0 ml Net 159.84 ml Voiding: Spontaneously in bathroom Last BM: 01/29/24 per pt PE: Head: normocephalic / atraumatic - subacute ecchymosis above right eyebrow Eyes: pupils 3 mm, bilaterally reactive to light, extraocular muscles intact ENT: tympanic membranes bilaterally clear, oropharynx clear Neck: supple, non-tender, trachea midline Respiratory: clear to auscultation bilaterally, no accessory muscle use Cardiovascular: irregular rate and rhythm, palpable peripheral pulses present, no murmurs auscultated Abdomen: soft, nontender, nondistended Musculoskeletal: no palpable long bone deformities, motor / sensation grossly intact Neurologic: alert and oriented x3, GCS 15 DEVICES TEDs/SCDs: yes DIET: heart healthy diet ACTIVITY LEVEL: as tolerated ALLERGIES Advil [ibuprofen], Percocet [oxycodone-acetaminophen], Prochlorperazine, Tape [adhesive tape], Valium [diazepam], and Cashew nut oil LABORATORIES Latest Reference Range & Units 01/27/24 06:29 01/28/24 03:47 01/29/24 04:23 SODIUM 135 - 146 mmol/L 141 140 139 POTASSIUM 3.5 - 5.1 mmol/L 4.4 4.2 4.4 CHLORIDE 98 - 107 mmol/L 110 (H) 109 (H) 109 (H) CO2 22 - 32 mmol/L 24 24 25 BUN 6 - 20 mg/dL 12 15 13 CREATININE 0.5 - 1.0 mg/dL 0.7 0.8 0.7 EGFR >=60 mL/min 88 77 82 ANION GAP 7 - 15 mmol/L 7 7 5 (L) GLUCOSE 70 - 120 mg/dL 102 95 92 CALCIUM 8.4 - 10.2 mg/dL 9.1 9.3 8.6 Calcium, Ionized 1.13 - 1.32 mmol/L 1.32 1.38 (H) 1.37 (H) Magnesium 1.5 - 2.6 mg/dL 1.9 2.0 1.7 Phosphorus 2.5 - 4.8 mg/dL 3.3 2.9 2.9 (H): Data is abnormally high (L): Data is abnormally low Latest Reference Range & Units 01/27/24 06:29 01/28/24 03:47 01/29/24 04:23 CBC Rpt Rpt ! Rpt ! WBC 4.00 - 10.80 K/uL 4.92 4.41 4.02 RBC 3.85 - 5.15 M/uL 3.74 3.70 3.76 HGB 12.0 - 15.3 g/dL 12.0 11.7 (L) 11.8 (L) HCT 36.0 - 45.2 % 36.5 36.2 36.7 MCV 81.5 - 97.5 fL 97.6 97.8 97.6 MCH 27.0 - 34.0 pg 32.1 31.6 31.4 MCHC 32.0 - 36.0 g/dL 32.9 32.3 32.2 RDW 11.5 - 15.5 % 12.8 12.9 12.8 PLT 140 - 400 K/uL 150 157 165 MPV 6.6 - 11.1 fL 9.8 9.5 9.5 CBC WITH WBC DIFFERENTIAL Rpt Rpt ! Rpt ! !: Data is abnormal (L): Data is abnormally low Rpt: View report in Results Review for more information CULTURES / SENSITIVITIES CULTURE, URINE, QUANTITATIVE Order: [id number] Status: Preliminary result 01/28/24 Visible to patient: No (not released) Specimen Information: Urine, Clean Catch 0 Result Notes Culture Growth 10,000 to 100,000 colonies/mL Lactose fermenting gram negative bacilli Abnormal Resulting Agency: Specimen Collected: 01/26/24 23:13 Last Resulted: 01/29/24 09:40 RADIOGRAPHIC STUDIES CXR 01/27/24 There is no pneumothorax. Cardiomediastinal silhouette is stable. Pulmonary vasculature is within normal limits. No focal airspace consolidation. Osseous structures appear unchanged. Known rib fractures are better delineated on prior cross-sectional imaging but appear grossly stable. IMPRESSION No pneumothorax. TTE 01/27/24 The examination is limited quality but adequate for evaluation of the referral indication. The qualitative LV ejection fraction is 55-59% (normal). No LV segmental wall motion abnormalities. There is mild to moderate aortic insufficiency present. No pericardial effusion is noted. ASSESSMENT/PLAN Neuro: Left SDH, left frontal SAH s/p fall - NSG consult: non-op, repeat heat CT stable - hold ASA and any AC/AP for 2 weeks - PO keppra 500mg BID x 7days (today is day 4) - Q4 neuro checks - cleared for diet and dvt ppx per nsg - f/u in 2 weeks with NSG with head CT Ortho: right 4-10 rib fx s/p fall - pain control - repeat CXR stable, no pneumothorax - IS, flutter, RPDP - No lifting over 10 pounds for 8 weeks -Will need to follow up with Trauma surgery in 2 weeks with CXR Pain: - PO tylenol 975mg Q8H - PO soma 175mg (x1 last 24 hours) - PO oxy 2.5/5mg Q4 PRN (x3 5mg used in past 24 hours) - lidocaine 4% patch QD - pt states her pain is well controlled on current regime CV: New onset Afib with RVR - cardiology consult - checked TSH yesterday- WNL - CHADS VAS score 4, would benefit from AC- holding for 2 weeks due to SDH - Keep K>4, Mag >2, phos >2.5 - rate control with PO lopressor 25mg BID, titrate as needed - target HR <110; has been in 73-95bpm rage since starting lopressor - continuous tele - TTE obtained 01/27/24, findings as above - outpt cards follow up in 4-6 weeks - Dose held this AM for BP of 99/63, changed parameters to hold if SBP <90 or HR <60. 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 - continue [employer] PO imdur 90mg QD - continue [employer] PO lipitor 40mg QD DVT PPX: -SQ heparin 5000U Q8H - teds, scds GI: - PO/IV zofran 4mg Q6H PRN for nausea (used today and yesterday AM) - encouraged pt to eat food when taking oxy to prevent nausea - pharm consult to spread out timing of meds to help with nausea in morning - Diet: healthy healthy diet Hx GERD - Continue [employer] PO Prilosec 20mg QD Bowel Regime: - Last BM: today - PO colace 100mg BID - PO senna 2 tab BID - PO miralax 17g BID today Nephro: - (+) UA, given 1g rocephin IVPB 01/27/24 - UC positive as above - denies dysuria, admits inc urinary freq and urgency - started on PO bactrim 800-160mg Q12H x 3 days Rehab: - PT/OT [facility] 18 Disposition: Continue pain control, control nausea, continue PT/OT. Pt is not medically stable for d/c today. * Tamanna Baum PA-C - 01/29/2024 5:52 AM EST Images from the original note were not included. PROGRESS NOTE - Trauma Surgery [facility] [address] Name: Tatiana Roman Location: [facility] B531/A Date: 01/29/2024 Time: 5:52 AM HOSPITAL DAY#: 4 ROUNDING SURGEON: Dr. Saldana ADMISSION DATE: 01/26/2024 OPERATIONS / PROCEDURES: -None INJURY COMPLEX: Active Problems: Fall (POA: Unknown) New onset atrial fibrillation (HCC) (POA: Unknown) Subdural hematoma (HCC) (POA: Unknown) POA = Present On Admission -Fall several days prior to admission -Left frontal SAH -SDH along falx -Right 4-10 rib fractures -New onset atrial fibrillation -Possible UTI, present on admission -Previous NE -CAD -HTN -HLD -Lupus -GERD INTERIM HISTORY (LAST 24 HOURS): Patient remained stable overnight without any acute issues. She isawake and alert on exam this morning, but appears nauseous. She states she has just taken all of her morning medications, and tried to eat a bite of her breakfast, but became very nauseated. She thenbegan to dry heave. She states taking all of those medications all at once on an empty stomach is wh at caused her to get nauseated. Zofran given and this helped her. Will see if nursing can spread out her medications and not give them to her all at once. Gave her some saline crackers and this did seem to help her nausea. Other then that, she states he pain is doing better. It is still in the right ribs. She states it is controlled on her current pain regimen. No new complaints. Tolerating her diet prior to the nausea episode now. She states the same thing happened to her yesterday morning too. She is afebrile. PHYSICAL EXAMINATION: Most Recent Vital Signs: BP: 105 mmHg/62 mmHg (01/29/2499) Pulse: 75 (01/29/2499) Resp: 16 (01/29/2499) Temp: 36.5 C (01/29/2499) Temp Summary: Temp Min: 36.5 C (97.7 F) Max: 36.8 C (98.2 F) SpO2: 95 % (01/29/2499) O2 flow rate: 0 L/MIN (01/29/2499) Supplemental O2 Delivery: Room Air, None (01/29/2499) SpO2: 95 % (01/29/2499) Vital Signs Last 24 Hours: Systolic BP: Most Recent Systolic BP Av.3 mmHg Min: 91 mmHg Max: 123 mmHg Temperature: Most Recent Temperature Av.6 C Min: 36.5 C Max: 36.78 C Pulse: Pulse Av.8 Min: 75 Max: 88 Respirations: Resp Av.9 Min: 15 Max: 16 SpO2: SpO2 Av.8 % Min: 93 % Max: 96 % Pain Assessment (0-10): 3 Intake/Output Summary (Last 24 hours) at 01/29/2024 0542 Last data filed at 01/29/2024 0400 Gross per 24 hour Intake 180 ml Output 0 ml Net 180 ml LBM: 01/27 HEENT: (+) right forehead with healing ecchymosis noted, it does extend down to the right periorbital region and right cheek, pupils are 3mm equal, and round, mucous membranes moist Neck: supple, non-tender, trachea midline moving neck without complaints of pain Respiratory: clear to auscultation bilaterally, unlabored breathing on room air, able to take a deep breath as prompted, (+) Right anterior rib tenderness to palpation, no crepitus Cardiovascular: regular rate and rhythm, palpable peripheral pulses present Abdomen: soft, mildly distended and tympanic, (-) tenderness to palpation on exam Back: Denies pain in back on exam Pelvis: non-tender, stable to anterior-posterior/lateral compression Musculoskeletal: no palpable long bone deformities, motor / sensation grossly intact, moving all extremities as prompted, (+) peripheral pulses and sensation are equal and intact, (+) strength to allextremities 4-5/5, no calve pain or edema Skin: as above Neurologic: GCS Adult: eyes open 4 = spontaneous, best verbal response 5 = verbally appropriate forage, best motor response 6 = obeys commands appropriate for age, alert and oriented x3 DEVICES: Amezquita: no TEDs/SCDs: yes IVC Filter: no Cervical Collar: no Thoracolumbar Fixation: no DIET: Heart healthy diet ACTIVITY LEVEL: as tolerated ALLERGIES: Advil [ibuprofen], Percocet [oxycodone-acetaminophen], Prochlorperazine, Tape [adhesive tape], Valium [diazepam], and Cashew nut oil LABORATORIES: Labs reviewed as indicated below: Latest Reference Range & Units 01/29/24 04:23 SODIUM 135 - 146 mmol/L 139 POTASSIUM 3.5 - 5.1 mmol/L 4.4 CHLORIDE 98 - 107 mmol/L 109 (H) CO2 22 - 32 mmol/L 25 BUN 6 - 20 mg/dL 13 CREATININE 0.5 - 1.0 mg/dL 0.7 EGFR >=60 mL/min 82 ANION GAP 7 - 15 mmol/L 5 (L) GLUCOSE 70 - 120 mg/dL 92 CALCIUM 8.4 - 10.2 mg/dL 8.6 Calcium, Ionized 1.13 - 1.32 mmol/L 1.37 (H) Magnesium 1.5 - 2.6 mg/dL 1.7 Phosphorus 2.5 - 4.8 mg/dL 2.9 CBC Rpt ! WBC 4.00 - 10.80 K/uL 4.02 RBC 3.85 - 5.15 M/uL 3.76 HGB 12.0 - 15.3 g/dL 11.8 (L) HCT 36.0 - 45.2 % 36.7 MCV 81.5 - 97.5 fL 97.6 MCH 27.0 - 34.0 pg 31.4 MCHC 32.0 - 36.0 g/dL 32.2 RDW 11.5 - 15.5 % 12.8 PLT 140 - 400 K/uL 165 MPV 6.6 - 11.1 fL 9.5 CBC WITH WBC DIFFERENTIAL Rpt ! Absolute Neutrophils 1.80 - 7.70 K/uL 1.90 Absolute Lymphocytes 1.00 - 4.80 K/ul 1.33 Absolute Monocytes 0.00 - 1.10 K/uL 0.49 Absolute Eosinophils 0.00 - 0.70 K/uL 0.26 Absolute Basophils 0.00 - 0.20 K/uL 0.02 (H): Data is abnormally high (L): Data is abnormally low !: Data is abnormal Rpt: View report in Results Review for more information CULTURES / SENSITIVITIES: CULTURE, URINE, QUANTITATIVE Order: [id number] Status: Preliminary result Visible to patient: No (not released) Next appt: None Specimen Information: Urine, Clean Catch 0 Result Notes Culture Growth 10,000 to 100,000 colonies/mL Lactose fermenting gram negative bacilli Abnormal Resulting Agency: RADIOGRAPHIC STUDIES: -None new ASSESSMENT/PLAN: Left frontal SAH SDH along falx -Evaluated by Neurosurgery, appreciate recs -Non-op management -Repeat CT head is stable -hold AP/AC for 14 days -Holding home ASA -Keppra per protocol -on day 4/7 -Follow up 2 weeks Right 4-10 rib fractures -repeat CXR stable -Aggressive pulmonary toilet -Adequate pain control -See below -OOB and mobilizing -No lifting over 10 pounds for 8 weeks -Will need to Follow up with Trauma surgery in 2 weeks with CXR New onset atrial fibrillation -Found to be in A.fib RVR upon presentation to [facility] -Given Diltiazem -Remains in A.fib here -Evaluated by Cardiology, appreciate recs -Check TSH (1.44) -CHADS VASC of 4, so would recommend anticoagulation when stable for a brain injury standpoint -Hold for now due to TBI for 2 weeks minimum -Continuous tele -Repelte electrolytes -Echo: -The qualitative LV ejection fraction is 55-59% (normal). No LV segmental wall motion abnormalities. There is mild to moderate aortic insufficiency present. No pericardial effusion is noted. -Start Metoprolol 25 mg BID -Started -Follow up with Cardiology 4-6 weeks Possible UTI -UA (+) on admission -Also (+) at OSH and grew Klebsiella -Given 1 g of Rocephin 01/26 -Treatment stopped because she is asymptomatic -Urine culture as above -more symptomatic today with urinary urgency and hesitancy -Will start Bactrim -Will treat with 3 days of Bactrim Previous NE CAD -HOLD home ASA -Restarted on home Imdur HTN -Holding home Norvasc -BP stable off of this medication since starting metoprolol -Will likely hold on discharge HLD -Restarted on home Lipitor Lupus -Not on current treatment GERD -Restarted on home Prilosec DVT -TEDs/SCDs -heparin per protocol Bowel regimen -Colace -senna -Miralax -LBM: 01/27 Pain control -ATC Tylenol -03/29 Soma PRN -Oxy PRN -educated her to eat when she takes the oxy to see if that helps with the nausea -lidoderm patch Diet -Cleared speech for regular diet with thin liquids -Tolerating diet Activity -OOB -WBAT -OT/PT recommending rehab Dispo -ongoing work with PT/OT as she might clear for home -She would prefer to go home then rehab -Likely medically stable in 1-2 days if nausea improves -Will place her on sleep protocol This patient was discussed with and seen by Dr. Saldana Patient's decisional capacity: has capacity to make decisions Communication with Patient/Family: Patient updated Goals of Care: decrease pain and discomfort Associated attestation - Mabel Saldana MD - 01/29/2024 5:36 PM EST I have reviewed the advanced practitioner's documentation on the date of service referenced in note, and I agree with, and take responsibility for the plan of care. I spent a total of 35 minutes coordinating, documenting, and providing care for this patient excluding time spent in the performance of separately billed services or time spent by another provider/QHP. Mechanism: fall Injury complex: Active Problems: Fall (POA: Unknown) New onset atrial fibrillation (HCC) (POA: Unknown) Subdural hematoma (HCC) (POA: Unknown) POA = Present On Admission Procedures: none Did better yesterday afternoon but some vomiting again this morning. States she just feel "blah" today. Having some urinary urgency/frequency. BP 112/62 | Pulse 81 | Temp 36.5 C (97.7 F) (Tympanic) | Resp 16 | Wt 63.8 kg (140 lb 10.5 oz) | SpO2 94% | BMI 24.92 kg/m | BSA 1.68 m Plan: -meds retimed to help with nausea. -continue lidocaine patch -will treat UTI for 3 days (bactrim) -PT/OT Ppx: SCDs, Teds, SQH Mabel Saldana MD Trauma and General Surgery Critical Care * Karan Khan PA Student - 01/28/2024 12:55 PM EDT PROGRESS NOTE - Trauma Surgery [facility] [place]-[address] [place] [id number] Unless the attending has added an attestation supporting use of this note to document a billable service, the signature of the Licensed Professional on this note only acknowledges the presence of thestudent's note within the patient record and the Licensed Professional's note should be referred tofor clinical information and recommendations. Name: Tatiana Roman Location: [facility] [id number] Date: 01/28/2024 Time: 12:55 PM HOSPITAL DAY#: 2 ROUNDING SURGEON: Dr. Saldana ADMISSION DATE: 01/26/2024 OPERATIONS / PROCEDURES: None INJURY COMPLEX: - fall on 01/22/24 - Left SDH - left frontal SAH - right 4-10 rib fx - new onset afib with RVR INTERIM HISTORY (LAST 24 HOURS): No acute events overnight, VSS, pt has been rate controlled on lopressor. AAOX3, GCS 15. Pt found awake and feeling nauseated this AM with some vomiting. Pt attributes nausea and vomitting to oxy use. Informed pt to make sure she eats something with her oxy in the future, which pt verbally agreed to. She reported that her pain is well controlled on her current regime, with 3/10 rib pain. Her last BM was [employer] but she denies abdominal pain and is passing flatus.Shedenies chest pain, sob, abdominal pain, numbness/tingling in extremities. PHYSICAL EXAMINATION: Most Recent Vital Signs: BP: 102 mmHg/63 mmHg (01/28/24 121) Pulse: 85 (01/28/24 1213) Resp: 16 (01/28/24 1000) Temp: 36.5 C (01/28/24 0940) Temp Summary: Temp Min: 36.5 C (97.7 F) Max: 36.8 C (98.2 F) SpO2: 93 % (01/28/241212) O2 flow rate: 0 L/MIN (01/28/241212) Supplemental O2 Delivery: Room Air, None (01/28/24 121) SpO2: 93 % (01/28/24 121) Vital Signs Last 24 Hours: Systolic BP: Most Recent Systolic BP Av.2 mmHg Min: 91 mmHg Max: 130 mmHg Temperature: Most Recent Temperature Av.6 C Min: 36.5 C Max: 36.78 C Pulse: Pulse Av.4 Min: 73 Max: 93 Respirations: Resp Av.9 Min: 12 Max: 20 SpO2: SpO2 Av.1 % Min: 91 % Max: 100 % Intake/Output Summary (Last 24 hours) at 01/28/2024 1255 Last data filed at 01/28/2024 0800 Gross per 24 hour Intake 360 ml Output 0 ml Net 360 ml Voiding: Spontaneously in bathroom Last BM: [employer] - will add miralax today PE: Head: normocephalic / atraumatic - subacute ecchymosis above right eyebrow Eyes: pupils 3 mm, bilaterally reactive to light, extraocular muscles intact ENT: tympanic membranes bilaterally clear, oropharynx clear Neck: supple, non-tender, trachea midline Respiratory: clear to auscultation bilaterally, no accessory muscle use Cardiovascular: irregular rate and rhythm, palpable peripheral pulses present, no murmurs auscultated Abdomen: soft, nontender, mildly distended, normal bowel sounds heard throughout Musculoskeletal: no palpable long bone deformities, motor / sensation grossly intact Neurologic: alert and oriented x3, GCS 15 DEVICES TEDs/SCDs: yes DIET: heart healthy diet ACTIVITY LEVEL: as tolerated ALLERGIES Advil [ibuprofen], Percocet [oxycodone-acetaminophen], Prochlorperazine, Tape [adhesive tape], Valium [diazepam], and Cashew nut oil LABORATORIES Labs reviewed as indicated below: Latest Reference Range & Units 01/26/24 23:23 01/27/24 06:29 01/28/24 03:47 SODIUM 135 - 146 mmol/L 141 140 POTASSIUM 3.5 - 5.1 mmol/L 4.4 4.2 CHLORIDE 98 - 107 mmol/L 110 (H) 109 (H) CO2 22 - 32 mmol/L 24 24 BUN 6 - 20 mg/dL 12 15 CREATININE 0.5 - 1.0 mg/dL 0.7 0.8 EGFR >=60 mL/min 88 77 ANION GAP 7 - 15 mmol/L 7 7 GLUCOSE 70 - 120 mg/dL 102 95 CALCIUM 8.4 - 10.2 mg/dL 9.1 9.3 Calcium, Ionized 1.13 - 1.32 mmol/L 1.33 (H) 1.32 1.38 (H) Magnesium 1.5 - 2.6 mg/dL 1.9 2.0 Phosphorus 2.5 - 4.8 mg/dL 3.3 2.9 (H): Data is abnormally high Latest Reference Range & Units 01/27/24 06:29 TSH 0.27 - 4.20 uIU/mL 1.44 TSH WITH FREE T4 IF INDICATED Rpt Rpt: View report in Results Review for more information Latest Reference Range & Units 01/27/24 06:29 01/28/24 03:47 CBC Rpt Rpt ! WBC 4.00 - 10.80 K/uL 4.92 4.41 RBC 3.85 - 5.15 M/uL 3.74 3.70 HGB 12.0 - 15.3 g/dL 12.0 11.7 (L) HCT 36.0 - 45.2 % 36.5 36.2 MCV 81.5 - 97.5 fL 97.6 97.8 MCH 27.0 - 34.0 pg 32.1 31.6 MCHC 32.0 - 36.0 g/dL 32.9 32.3 RDW 11.5 - 15.5 % 12.8 12.9 PLT 140 - 400 K/uL 150 157 MPV 6.6 - 11.1 fL 9.8 9.5 CBC WITH WBC DIFFERENTIAL Rpt Rpt ! !: Data is abnormal (L): Data is abnormally low Rpt: View report in Results Review for more information CULTURES / SENSITIVITIES - pending UC RADIOGRAPHIC STUDIES CXR 01/27/24 There is no pneumothorax. Cardiomediastinal silhouette is stable. Pulmonary vasculature is within normal limits. No focal airspace consolidation. Osseous structures appear unchanged. Known rib fractures are better delineated on prior cross-sectional imaging but appear grossly stable. IMPRESSION No pneumothorax. TTE 01/27/24 The examination is limited quality but adequate for evaluation of the referral indication. The qualitative LV ejection fraction is 55-59% (normal). No LV segmental wall motion abnormalities. There is mild to moderate aortic insufficiency present. No pericardial effusion is noted. ASSESSMENT/PLAN Neuro: Left SDH, left frontal SAH s/p fall - non-op, repeat heat CT stable - hold ASA and any AC/AP for 2 weeks - PO keppra 500mg BID x 7days (today is day 1) - Q4 neuro checks - cleared for diet and dvt ppx per nsg - f/u in 2 weeks with NSG with head CT Ortho: right 4-10 rib fx s/p fall - pain control - repeat CXR stable, no pneumothorax - IS, flutter, RPDP Pain: - PO tylenol 975mg Q8H - PO soma 175mg (x1 last 24 hours) - PO oxy 2.5/5mg Q4 PRN (x4 5mg used in past 24 hours) - added lidocaine 4% patch today - pt states her pain is well controlled on current regime CV: New onset Afib with RVR - cardiology consult - checked TSH yesterday- WNL - CHADS VAS score 4, would benefit from AC- holding for 2 weeks due to SDH - Keep K>4, Mag >2, phos >2.5 - rate control with PO lopressor 25mg BID, titrate as needed - target HR <110; has been in 73-95bpm rage since starting lopressor - continuous tele - TTE obtained yesterday, findings as above - outpt cards follow up in 4-6 weeks 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 - continue [employer] PO imdur 90mg QD - continue [employer] PO lipitor 40mg QD DVT PPX: -SQ heparin 5000U Q8H - teds, scds GI: - PO/IV zofran 4mg Q6H PRN for nausea (used this AM) - encouraged pt to eat food when taking oxy to prevent nausea - Diet: healthy healthy diet Hx GERD - Continue [employer] PO Prilosec 20mg QD Bowel Regime: - Last BM: [employer] - PO colace 100mg BID - PO senna 2 tab BID - added PO miralax 17g BID today Nephro: - (+) UA, given 1g rocephin IVPB yesterday - pending UC - denies dysuria, admits some inc urinary freq Rehab: - PT/OT [facility] 18 Disposition: Continue pain control, control nausea, continue PT/OT. Pt is not medically stable for d/c today. Tamanna Montoya PA-C - 01/28/2024 5:47 AM EDT Images from the original note were not included. PROGRESS NOTE - Trauma Surgery [address] [address] Name: Tatiana Roman Location: [facility] B531/[id number] Date: 01/28/2024 Time: 5:47 AM HOSPITAL DAY#: 3 ROUNDING SURGEON: Dr. Saldana ADMISSION DATE: 01/26/2024 OPERATIONS / PROCEDURES: -None INJURY COMPLEX: Active Problems: Fall (POA: Unknown) New onset atrial fibrillation (HCC) (POA: Unknown) Subdural hematoma (HCC) (POA: Unknown) POA = Present On Admission -Fall several days prior to admission -Left frontal SAH -SDH along falx -Right 4-10 rib fractures -New onset atrial fibrillation -Possible UTI -Previous NE -CAD -HTN -HLD -Lupus -GERD INTERIM HISTORY (LAST 24 HOURS): Patient transferred out of TICU to [facility] surg level of care overnight. She remained stable overnight without any acute issues. She is awake and alert on exam this morning. She states she is having nausea this morning and just had an episode of vomiting. She states shehas been feeling nauseous off and on this admission. She is unsure if it is related to the Oxy. Kymalso has not had a BM yet. She is passing flatus, but minimal. She is otherwise tolerating her diet. She reports pain in her right ribs. It is better then it was when it first happened, but is still bothering her. She states the pain regimen is helping he pain. She is getting 1750 on her IS this morning. Reports intermittent headaches, but currently does not have one. No other complaints. Afebrile. PHYSICAL EXAMINATION: Most Recent Vital Signs: BP: 106 mmHg/69 mmHg (01/28/24218) Pulse: 75 (01/28/24218) Resp: 15 (01/28/24218) Temp: 36.5 C (01/28/24218) Temp Summary: Temp Min: 36.5 C (97.7 F) Max: 36.7 C (98.1 F) SpO2: 95 % (01/28/2416) O2 flow rate: 0 L/MIN (01/28/24218) Supplemental O2 Delivery: Room Air, None (01/28/24218) SpO2: 95 % (01/28/2416) Vital Signs Last 24 Hours: Systolic BP: Most Recent Systolic BP Av.7 mmHg Min: 93 mmHg Max: 130 mmHg Temperature: Most Recent Temperature Av.6 C Min: 36.5 C Max: 36.72 C Pulse: Pulse Av.3 Min: 73 Max: 94 Respirations: Resp Av.9 Min: 12 Max: 21 SpO2: SpO2 Av.5 % Min: 90 % Max: 100 % Pain Assessment (0-10): 3 Intake/Output Summary (Last 24 hours) at 01/28/2024 0547 Last data filed at 01/28/2024 0038 Gross per 24 hour Intake 927.89 ml Output -- Net 927.89 ml LBM: [employer] HEENT: (+) right forehead with healing ecchymosis noted, it does extend down to the right periorbital region and right cheek, pupils are 3mm equal, and round, mucous membranes moist Neck: supple, non-tender, trachea midline moving neck without complaints of pain Respiratory: clear to auscultation bilaterally, unlabored breathing on room air, able to take a deep breath as prompted, (+) Right anterior rib tenderness to palpation, no crepitus Cardiovascular: regular rate and rhythm, palpable peripheral pulses present Abdomen: soft, mildly distended and tympanic, (-) tenderness to palpation on exam Back: Denies pain in back on exam today Pelvis: non-tender, stable to anterior-posterior/lateral compression Musculoskeletal: no palpable long bone deformities, motor / sensation grossly intact, moving all extremities as prompted, (+) peripheral pulses and sensation are equal and intact, (+) strength to allextremities 4-5/5, no calve pain or edema Skin: as above Neurologic: GCS Adult: eyes open 4 = spontaneous, best verbal response 5 = verbally appropriate forage, best motor response 6 = obeys commands appropriate for age, alert and oriented x3 DEVICES: Amezquita: no TEDs/SCDs: yes IVC Filter: no Cervical Collar: no Thoracolumbar Fixation: no DIET: Heart healthy diet ACTIVITY LEVEL: as tolerated ALLERGIES: Advil [ibuprofen], Percocet [oxycodone-acetaminophen], Prochlorperazine, Tape [adhesive tape], Valium [diazepam], and Cashew nut oil LABORATORIES: Labs reviewed as indicated below: Latest Reference Range & Units 01/28/24 03:47 SODIUM 135 - 146 mmol/L 140 POTASSIUM 3.5 - 5.1 mmol/L 4.2 CHLORIDE 98 - 107 mmol/L 109 (H) CO2 22 - 32 mmol/L 24 BUN 6 - 20 mg/dL 15 CREATININE 0.5 - 1.0 mg/dL 0.8 EGFR >=60 mL/min 77 ANION GAP 7 - 15 mmol/L 7 GLUCOSE 70 - 120 mg/dL 95 CALCIUM 8.4 - 10.2 mg/dL 9.3 Calcium, Ionized 1.13 - 1.32 mmol/L 1.38 (H) Magnesium 1.5 - 2.6 mg/dL 2.0 Phosphorus 2.5 - 4.8 mg/dL 2.9 CBC Rpt ! WBC 4.00 - 10.80 K/uL 4.41 RBC 3.85 - 5.15 M/uL 3.70 HGB 12.0 - 15.3 g/dL 11.7 (L) HCT 36.0 - 45.2 % 36.2 MCV 81.5 - 97.5 fL 97.8 MCH 27.0 - 34.0 pg 31.6 MCHC 32.0 - 36.0 g/dL 32.3 RDW 11.5 - 15.5 % 12.9 PLT 140 - 400 K/uL 157 MPV 6.6 - 11.1 fL 9.5 CBC WITH WBC DIFFERENTIAL Rpt ! Absolute Neutrophils 1.80 - 7.70 K/uL 2.54 Absolute Lymphocytes 1.00 - 4.80 K/ul 1.15 Absolute Monocytes 0.00 - 1.10 K/uL 0.54 Absolute Eosinophils 0.00 - 0.70 K/uL 0.14 Absolute Basophils 0.00 - 0.20 K/uL 0.03 (H): Data is abnormally high !: Data is abnormal (L): Data is abnormally low Rpt: View report in Results Review for more information CULTURES / SENSITIVITIES: CULTURE, URINE, QUANTITATIVE Order: [id number] Status: Preliminary result Visible to patient: No (not released) Next appt: None Specimen Information: Urine, Clean Catch 0 Result Notes Culture Growth 10,000 to 100,000 colonies/mL Lactose fermenting gram negative bacilli Abnormal Resulting Agency: RADIOGRAPHIC STUDIES: -CXR 01/26: No pneumothorax. -CT head 01/26: No significant changes since yesterday. Redemonstrated small left acute extra-axial hemorrhages. ASSESSMENT/PLAN: Left frontal SAH SDH along falx -Evaluated by Neurosurgery, appreciate recs -Non-op management -Repeat CT head is stable -hold AP/AC for 14 days -Holding home ASA -Keppra per protocol -on day 3/7 -Follow up 2 weeks Right 4-10 rib fractures -repeat CXR stable -Aggressive pulmonary toilet -Adequate pain control -See below -OOB and mobilizing -No lifting over 10 pounds for 8 weeks -Will need to Follow up with Trauma surgery in 2 weeks with CXR New onset atrial fibrillation -Found to be in A.fib RVR upon presentation to [facility] -Given Diltiazem -Remains in A.fib here -Evaluated by Cardiology, appreciate recs -Check TSH (1.44) -CHADS VASC of 4, so would recommend anticoagulation when stable for a brain injury standpoint -Hold for now due to TBI for 2 weeks minimum -Continuous tele -Repelte electrolytes -Echo: -The qualitative LV ejection fraction is 55-59% (normal). No LV segmental wall motion abnormalities. There is mild to moderate aortic insufficiency present. No pericardial effusion is noted. -Start Metoprolol 25 mg BID -Started -Follow up with Cardiology 4-6 weeks Possible UTI -UA (+) on admission -Also (+) at OSH and grew Klebsiella -Given 1 g of Rocephin 01/26 -Treatment stopped because she is asymptomatic -Urine culture as above -Remains asymptomatic, will hold on further antibiotics at this time -If starts to complain of symptoms, will treat Previous NE CAD -HOLD home ASA -Restarted on home Imdur HTN -Holding home Norvasc -BP stable off of this medication since starting metoprolol -Will likely hold on discharge HLD -Restarted on home Lipitor Lupus -Not on current treatment GERD -Restarted on home Prilosec DVT -TEDs/SCDs -heparin per protocol Bowel regimen -Colace -senna -LBM: [employer] -Miralax Pain control -ATC Tylenol -03/29 Soma PRN -Oxy PRN -educated her to eat when she takes the oxy to see if that helps with the nausea -Will add lidoderm patch Diet -Cleared speech for regular diet with thin liquids -Tolerating diet Activity -OOB -WBAT -OT/PT recommending rehab Dispo -ongoing work with PT/OT as she might clear for home -She would prefer to go home then rehab -Likely medically stable in 1-2 days if nausea improves This patient was discussed with and seen by Dr. Saldana Patient's decisional capacity: has capacity to make decisions Communication with Patient/Family: Patient updated Goals of Care: decrease pain and discomfort Associated attestation - Mabel Saldana MD - 01/29/2024 8:17 AM EST This is a late entry. I saw the patient on 01/28/24. I have reviewed the advanced practitioner's documentation on the date of service referenced in note, and I agree with, and take responsibility for the plan of care. I spent a total of 35 minutes coordinating, documenting, and providing care for this patient excluding time spent in the performance of separately billed services or time spent by another provider/QHP. Mechanism: fall Injury complex: Active Problems: Fall (POA: Unknown) New onset atrial fibrillation (HCC) (POA: Unknown) Subdural hematoma (HCC) (POA: Unknown) POA = Present On Admission Procedures: none No acute issues overnight. Transferred from TICU yesterday. Some vomiting this morning after getting oxy. States she usually eats club crackers to settle her stomach. No BM. Has been passing flatus. BP: 102 mmHg/63 mmHg (01/28/24 121) Pulse: 85 (01/28/24 1213) Resp: 16 (01/28/24 1000) Temp: 36.5 C (01/28/24 0940) Temp Summary: Temp Min: 36.5 C (97.7 F) Max: 36.8 C (98.2 F) SpO2: 93 % (01/28/241212) O2 flow rate: 0 L/MIN (01/28/241212) Supplemental O2 Delivery: Room Air, None (01/28/241212) Plan: -encouraged PO intake prior to oxy to help decrease nausea/vomiting -add lidocaine patch -add miralax -PT/OT Ppx: SCDs, Teds, SQH Mabel Saldana MD Trauma and General Surgery Critical Care * Jessica Gates, - 01/27/2024 7:32 AM EDT PROGRESS NOTE - Trauma Intensive Care Unit [address] [address] Name: Tatiana Roman Location: [facility] [id number] Date: 01/27/2024 Time: 11:29 AM HOSPITAL DAY#: 1 ROUNDING SURGEON: Gustavo Figueroa MD ADMISSION DATE: 01/26/2024 OPERATIONS / PROCEDURES: n/a ADMISSION HISTORY: per Trauma H&P: "Fall Height of Fall: ground level fall Landing Mechanism: on to right side of body and head Tatiana Roman is an 83 y/o female transferred from [facility] who had a mechanical fall from standing three days prior and was found to have a left falx subdural hematoma, right 4- 10 rib fractures, and new onset a- fib with RVR. Patient was out at a restaurant and fel three days prior. She was able to ambulate after the fall and went home. Later that evening, the patient began to have a headache and right chest pain. After three days, the patient could no longer tolerate the pain. She presented to [facility] for an evaluation. There she was found to have a left SDH and right 4 - 10 rib fractures. The also went into A-fib with RVR, and was given a dose of diltiazem for rate control. The patient was transferred to [facility] for a traumatic evaluation. While at [facility], the patient remained AF and HDS while in A-fib w/o RVR. Labs: K, +U/A . Neurosurgery was consulted and they provided their recommendations of ICU admission. PMH: NE, HTN, HLD PSH: total hysterectomy, cholecystectomy AC/AP: bASA" INJURY COMPLEX: - Right 4 - 10 rib fractures - Left anterior parafalcine subdural hematoma - Left frontal lobe small volume subarachnoid hemorrhage is new/more conspicuous. INTERIM HISTORY (LAST 24 HOURS): No acute events overnight. Denies PERKINS, N/V, SOB. Reports right sided rib pain. PHYSICAL EXAMINATION: Most Recent Vital Signs: BP: 100 mmHg/59 mmHg (01/27/24999) Pulse: 73 (01/27/24999) Resp: 14 (01/27/24999) Temp: 36.5 C (01/27/24799) Temp Summary: Temp Min: 36.5 C (97.7 F) Max: 36.8 C (98.2 F) SpO2: 90 % (01/27/24999) O2 flow rate: 2 L/MIN (01/26/242214) Supplemental O2 Delivery: Room Air, None (01/27/24999) SpO2: 90 % (01/27/24999) 24h Vitals Temp Min: 36.5 C (97.7 F) Max: 36.8 C (98.2 F) Temp: 36.5 C (97.7 F) (01/27/24 08) Pulse Min: 73 Max: 124 - Pulse: 73 (01/27/24999) Rhythm: AFib (01/27/24999) BP Min: 92/61 Max: 142/105 BP: 100/59 (01/27/24999) Resp Min: 12 Max: 34 SpO2 Min: 90 % Max: 99 % SpO2: 90 % (01/27/24999) on O2 flow rate: 2 L/MIN (01/26/242214) Intake/Output Summary (Last 24 hours) at 01/27/2024 1129 Last data filed at 01/27/2024 0900 Gross per 24 hour Intake 820.86 ml Output 300 ml Net 520.86 ml Weight: 63.8 kg (140 lb 10.5 oz) (01/27/24 0800) Last BM: Last Bowel Movement: (prior to admission) Stool Description: Other - Describe (no stool to assess at this time) Head: normocephalic, right frontal bruising Eyes: pupils 2 mm, bilaterally reactive to light, extraocular muscles intact, periorbital ecchymosis R>L ENT: tympanic membranes bilaterally clear, oropharynx clear Neck: supple, non-tender, trachea midline Respiratory: clear to auscultation bilaterally Cardiovascular: irregularly irregular rate and rhythm, palpable peripheral pulses present, no murmurs auscultated Abdomen: soft, non-tender, non-distended, normal bowel sounds Back: no tenderness across thoracic / lumbar spine Pelvis: non-tender, stable to anterior-posterior/lateral compression Musculoskeletal: no palpable long bone deformities, motor / sensation grossly intact Skin: grossly intact Neurologic: alert and oriented x3 ALLERGIES: Advil [ibuprofen], Percocet [oxycodone-acetaminophen], Prochlorperazine, Tape [adhesive tape], Valium [diazepam], and Cashew nut oil LABORATORIES: Lab results within last 7 days (see chart for full results) Units 01/27/24 0629 01/26/24 2130 SODIUM mmol/L 141 140 POTASSIUM mmol/L 4.4 3.7 CHLORIDE mmol/L 110* 109* CO2 mmol/L 24 22 BUN mg/dL 12 12 CREATININE mg/dL 0.7 0.6 Phosphorus mg/dL 3.3 -- Magnesium mg/dL 1.9 -- Lab results within last 7 days (see chart for full results) Units 01/27/24 0629 01/26/24 2130 HGB g/dL 12.0 13.2 HCT % 36.5 40.0 WBC K/uL 4.92 5.93 PLT K/uL 150 178 Lab results within last 7 days (see chart for full results) Units 01/26/24 2130 AST U/L 18 Lab results within last 7 days (see chart for full results) Units 01/26/24 2130 Lactate mmol/L 1.1 RADIOGRAPHIC STUDIES: CT HEAD/BRAIN WO CONTRAST Result Date: 01/27/2024 IMPRESSION No significant changes since yesterday. Redemonstrated small left acute extra-axial hemorrhages. CTA NECK Result Date: 01/27/[address] HEAD: Left frontal lobe small volume subarachnoid hemorrhage is new/more conspicuous.Recommend short interval follow-up. Acute thin subdural hemorrhage along the interhemispheric falx is similar. CTA NECK: No evidence of traumatic vascular injury. Partially imaged thoracic findings as per the separate CT chest report. Added to [facility] result communication system on 01/27/2024 at 5:10 am. I have personally reviewed this examination and agree with the resident/fellow physician's interpretation. CT HEAD/BRAIN WO CONTRAST Result Date: 01/27/[address] HEAD: Left frontal lobe small volume subarachnoid hemorrhage is new/more conspicuous.Recommend short interval follow-up. Acute thin subdural hemorrhage along the interhemispheric falx is similar. CTA NECK: No evidence of traumatic vascular injury. Partially imaged thoracic findings as per the separate CT chest report. Added to [facility] result communication system on 01/27/2024 at 5:10 am. I have personally reviewed this examination and agree with the resident/fellow physician's interpretation. XR CHEST 1 VIEW Result Date: 01/26/2024 IMPRESSION Nondisplaced right rib fractures. No pneumothorax. DIAGNOSIS: Active Problems: Fall Resolved Problems: * No resolved hospital problems. * ASSESSMENT/PLAN: Neurological: Left anterior parafalcine subdural hematoma Left frontal lobe small volume subarachnoid hemorrhage is new/more conspicuous. - neurosurgery consultation - repeat CT head stable - q1h neuro checks - Keppra 500 BID x 7 days - hold AC/AP - okay for DVT Ppx 24h following stable CT head - speech consultation for diet - Sedation: none - Pain control: ATC tylenol, prn oxy 2.5/5 Respiratory: Right 4 - 10 rib fractures - pain regimen in place - consider anesthesia consultation for pain block if needed - Aggressive Pulmonary toilet - 3D recon scan ordered - CXR today - continue [employer] flonase - respiratory driven protocol - IS, flutter Cardiovascular: New onset A-fib - continuous cardiopulmonary monitoring - [id number] 5 (7.2% risk of stroke); currently not on anticoagulation - TTE ordered (last TTE 2020; EF 65%) - consider cardiology consultation if patient is intermittently in rapid ventricular response Cardiology consult Check TSH, last checked in 2017 CHADS VAS 4; Would benefit from AC but unable to start due to acute SDH. Would recommend starting when safe from SDH/NSGY standpoint Start eliquis 2 weeks from today Keep K>4, Mag >2, phos >2.5 Rate control, titrate to target HR<110 (120 if concern for active infection). Recommend lopressor 25mg BID while inpatient, transition to 50mg XL on discharge Continuous Telemetry Update TTE once hr more adequately controlled Ziopatch for 2 weeks after discharge Will need outpatient Cardiology follow up 4-6 weeks post discharge for further management of afib CAD - continue [employer]UCK [employer] Imdur daily - hold bASA per NSGY 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 - continue TRUCK [employer]ESPERSON lipitor daily Gastrointestinal: No acute issues - Diet: Orders Placed This Encounter Procedures Heart Healthy Diet : Sodium: 2 gm --- Fluid Restriction (ml): None - zofran PRN - [employer] prilosec for GI ppx - senna, colace for bowel regimen Renal - Metabolic: No acute issues - daily BMP - straight cath protocol Endocrine: No acute issues - Euglycemic Hematology: No acute issues - DVT ppx - Teds, SCDs, SQH today - daily CBC Infectious Disease: No acute issues - UA: trace protein, nitrites, large esterase, RBC, WBC, bacteria Asymptomatic - s/p ceftriaxone, d/c today - urine culture pending Musculoskeletal: Right 4 - 10 rib fractures - see above - turn and reposition - PT/OT - consulted Rheumatology: No acute issues Hx of SLE --> stable on no medications Disposition: - transfer to the floor GLOBAL ISSUES: Analgesia: protocol with control Sedation: N/A Delirium/Confusion Assessment Method for ICU (CAM-ICU): CAM-ICU negative HOB Elevation: greater than 30 degress Nutrition: enteral, at goal Nutrition Section DVT Prophylaxis: chemoprophylaxis with pneumatic compression devices Stress Ulcer Prophylaxis: PPI therapy for other indication Glycemic Control: controlled - not in protocol Central Line Necessity Reviewed: N/A Amezquita: N/A Disposition: transfer to floor Patient's decisional capacity: has capacity to make decisions Communication with Patient/Family: No meeting held. Goals of Care: decrease pain and discomfort The patient was examined and was discussed with Dr. Figueroa. Addendum: Urine culture results faxed from [facility]. Klebsiella pneumoniae, sensitivities to follow. Scanned into media. Associated attestation - Gustavo Figueroa MD - 01/27/2024 3:57 PM EDT I saw and evaluated the patient today. I have reviewed the resident/fellow physician note and agree. AICU attending note: I have discussed the patient's management with the Dr. Gates and the [facility] Black Team and agree with the note. Please refer to the documented findings and plan of care. The patient's service consisted of an evaluation. I have seen and evaluated the patient. Brief note: 83 yo female with a history of CAD with previous NE, HTN, HLD who presented in AFib with RVR (new onset) after a fall from which she suffered from a tSDH and multiple right sided rib fractures. Overnight she was admitted to the TICU for pain control and pulmonary support, in addition to close neurologic monitoring. Neurosurgery recommended non-operative management and repeat imaging which was done and remained stable. She has also remained a GCS of 15. Labs and imaging reviewed Patient Active Problem List Diagnosis ADVANCE DIRECTIVE INFORMATION Benign neoplasm of colon HTN, GOAL BELOW 140/90 Systemic lupus erythematosus (HCC) Carpal tunnel syndrome Hyperlipidemia with target LDL less than 100 Coronary atherosclerosis of [place] coronary artery Fall Plan: Neuro: Appreciate neurosurgery recommendations Keppra per protocol Hold all AC for 2 weeks Pain and symptom control CV: AFib - new - appreciate cardiology recommendations Lopressor per recommendations TTE ordered Holding amlodipine [employer] Lipitor, Imdur Pulm: Respiratory driven protocol Repeat CXR Renal: BMP Daily Replete lytes as needed FEN/GI: Regular diet Bowel regimen 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 Prilosec Heme: HSQ ppx Daily CBC ID: Asymptomatic pyuria - stop antibiotics Culture and treat as clinically indicated Endo: Euglycemic on lab Dispo: Ok for Med/Surg documented in this encounter H&P Notes * Jessica Gates DO - 01/27/2024 11:52 AM EDT TRAUMA TERTIARY SURVEY [address] [id number] Name: Tatiana Roman Location: [facility] [id number] Date: 01/27/2024 Time: 11:52 AM PHYSICAL EXAM: Head: normocephalic, right frontal bruising Eyes: pupils 2 mm, bilaterally reactive to light, extraocular muscles intact, periorbital ecchymosis R>L ENT: tympanic membranes bilaterally clear, oropharynx clear Neck: supple, non-tender, trachea midline Respiratory: clear to auscultation bilaterally Cardiovascular: irregularly irregular rate and rhythm, palpable peripheral pulses present, no murmurs auscultated Abdomen: soft, non-tender, non-distended, normal bowel sounds Back: no tenderness across thoracic / lumbar spine Pelvis: non-tender, stable to anterior-posterior/lateral compression Musculoskeletal: no palpable long bone deformities, motor / sensation grossly intact, point tenderness ribs 4-10 right side overlying the fractures Skin: grossly intact Neurologic: alert and oriented x3 UA: positive, trace protein, nitrites, esterase, RBC, WBC, bacteria, and calcium oxalate crystals SUBSTANCE ABUSE: ETOH: negative Substance Screen: positive, morphine/codeine CT SCAN: Head - acute findings and Cervical Spine - incidentals C-SPINE CLEARANCE: Yes - by imaging RADIOGRAPHS: CXR - acute findings MEDICATION RECONCILIATION: done NEW DIAGNOSTIC TESTS ORDERED: CXR and TTE CONSULTS: Neurosurgery and Cardiology INCIDENTAL FINDINGS: New onset atrial fibrillation and T2 vertebral body hemangioma and Patient aware and follow-up ordered. I have reviewed the patients controlled substance dispensing history in the Prescription Drug Monitoring Program in compliance with the [facility] regulations before prescribing a controlled substance: no concerns, will proceed * Galen Redmond MD - 01/26/2024 9:28 PM EDT HISTORY AND PHYSICAL EXAMINATION - Trauma Surgery [address] [address] Name: Tatiana Roman Location: Date: 01/26/2024 Time: 9:28 PM Date and Time Patient was Seen: 01/26/2024 at 9:47 PM FINAL ADMISSION STATUS: Alert Level 2, time - 1809 Dr. Reyes led the Trauma Team in the care of this patient. The following represents documentation ofthe resuscitation performed by the entire trauma team under the leadership of the physician. There was pre-hospital notification of the case and patient condition. MECHANISM OF INJURY: Fall Height of Fall: ground level fall Landing Mechanism: on to right side of body and head Tatiana Roman is an 83 y/o female transferred from [facility] who had a mechanical fall from standing three days prior and was found to have a left falx subdural hematoma, right 4- 10 rib fractures, and new onset a- fib with RVR. Patient was out at a restaurant and fel three days prior. She was able to ambulate after the fall and went home. Later that evening, the patient began to have a headache and right chest pain. After three days, the patient could no longer tolerate the pain. She presented to [facility] for an evaluation. There she was found to have a left SDH and right 4 - 10 rib fractures. The also went into A-fib with RVR, and was given a dose of diltiazem for rate control. The patient was transferred to [facility] for a traumatic evaluation. While at [facility], the patient remained AF and HDS while in A-fib w/o RVR. Labs: K, +U/A . Neurosurgery was consulted and they provided their recommendations of ICU admission. PMH: NE, HTN, HLD PSH: total hysterectomy, cholecystectomy AC/AP: bASA MODE OF TRANSPORTATION: helicopter LOSS OF CONSCIOUSNESS: no TETANUS VACCINE: Date of Last Vaccine: unknown Administered in Trauma [place]: N/A PAST MEDICAL HISTORY: Past Medical History: Diagnosis Date Acute myocardial infarction, subendocardial infarction, episode of care unspecified 06/14/09 [facility] Benign neoplasm of colon 02/07/06 Hyperplastic--repeat 10 years Coronary atherosclerosis of [place] coronary artery HTN, goal below 140/90 Hyperlipidemia LDL goal < 100 Lupus erythematosus diagnosed in 1975 PAST SURGICAL HISTORY: Past Surgical History: Procedure Laterality Date CATHETERIZE LEFT HEART THRU SKIN 06/16/2009 LEFT HEART CATH, PERCUTANEOUS performed by JESSY BRYANT at [facility]ARDI[facility] COLONOSCOPY 02/07/2006 Hyperplastic tissue--repeat 10 years COLONOSCOPY, DIAGNOSTIC (RECTUM) 02/09/2016 adenomatous polyps, diverticulosis, repeat 5 yrs COLONOSCOPY, DIAGNOSTIC (RECTUM) 02/09/2016 COLONOSCOPY FLEXIBLE PROXIMAL DIAGNOSTIC performed by Guadalupe Tomlin DO at ENDOSCOPY [facility] COLONOSCPOY E/ ENDOSCOPIC US N/A 03/02/2023 severe diverticulosis/hemorrhoids/biopsies show adenomatous polyps/COLONOSCOPY FLEXIBLE WITH ENDOSCOPIC ULTRASOUND EXAM performed by Isaac Aguilar DO at OR [facility] EGD, FLEXIBLE, DIAGNOSTIC 04/04/2013 ESOPHAGOGASTRODUODENOSCOPY (EGD), FLEXIBLE, TRANSORAL, DIAGNOSTIC performed by Guadalupe Tomlin DO at ENDOSCOPY [facility] REMOVAL OF APPENDIX REMOVE GALLBLADDER SINUS SURGERY PROCEDURE NEC maxillary sinus, 3 surgeries TOTAL HYSTERECTOMY 1977 FAMILY HISTORY: noncontributory SOCIAL HISTORY: lives at home with CURRENT HOSPITAL MEDICATIONS: Note that completed medications (per the MAR) continue to display for 24 hours. ordered medicationsto be given in the future also display. Current Facility-Administered Medications Medication Dose Route Frequency Provider levETIRAcetam (Keppra) 500 mg in NSS 100 mL ivpb IV Piggyback continuous PRN Eric, Kalee Sadler MD Current Outpatient Medications Medication Fluticasone Propionate 50 MCG/ACT Nasal Suspension (Flonase) Ascorbic Acid (VITAMIN C) 500 MG CAPS nitroglycerin (NITROSTAT) 0.4 MG SUBL atorvaSTATin (LIPITOR) 40 MG Tablet omeprazole (PRILOSEC) 20 MG CPDR amLODIPine (NORVASC) 5 MG Tablet ISOSORBIDE MONONITRATE ER 60 MG PO TB24 LACHELLE ROOT 550 MG PO CAPS TRIAMCINOLONE ACETONIDE 0.1 % EX CREA CALCIUM 600-D 600-400 MG-UNIT PO TABS ASPIRIN 81 MG PO CHEW ALLERGIES: Advil [ibuprofen], Percocet [oxycodone-acetaminophen], Prochlorperazine, Tape [adhesive tape], Valium [diazepam], and Cashew nut oil REVIEW OF SYSTEMS: Review of Systems Constitutional: Negative. HENT: Left sided headache Eyes: Negative. Respiratory: Negative. Cardiovascular: Positive for chest pain. Gastrointestinal: Negative. Endocrine: Negative. Genitourinary: Negative. Musculoskeletal: Negative. Skin: Negative. Allergic/Immunologic: Negative. Neurological: Negative. Hematological: Negative. Psychiatric/Behavioral: Negative. COLLARED: no BACKBOARD: no INTUBATED: no C-spine cleared: Yes - by [facility] PHYSICAL EXAM: Most Recent Vital Signs: BP: 101 mmHg/56 mmHg (01/26/242144) Pulse: 107 (01/26/242144) Resp: 16 (01/26/242144) Temp: Temp Summary: No data recorded SpO2: 98 % (01/26/242144) O2 flow rate: 3 L/MIN (01/26/242144) Supplemental O2 Delivery: Nasal Cannula (01/26/242144) SpO2: 98 % (01/26/242144) Rhythm: A-fib Physical Exam Constitutional: Appearance: Normal appearance. HENT: Head: Normocephalic. Comments: Right frontal scalp ecchymosis Right Ear: External ear normal. Left Ear: External ear normal. Nose: Nose normal. Mouth/Throat: Mouth: Mucous membranes are moist. Eyes: Extraocular Movements: Extraocular movements intact. Conjunctiva/sclera: Conjunctivae normal. Cardiovascular: Rate and Rhythm: Normal rate. Rhythm irregular. Pulses: Normal pulses. Heart sounds: Normal heart sounds. Pulmonary: Effort: Pulmonary effort is normal. Breath sounds: Normal breath sounds. Abdominal: General: Abdomen is flat. Palpations: Abdomen is soft. Musculoskeletal: Cervical back: Normal range of motion and neck supple. Comments: Right chest TTP Skin: General: Skin is warm and dry. Capillary Refill: Capillary refill takes less than 2 seconds. Neurological: General: No focal deficit present. Mental Status: She is alert and oriented to person, place, and time. Psychiatric: Behavior: Behavior normal. Thought Content: Thought content normal. Neurologic: GCS Adult: eyes open 4 = spontaneous, best verbal response 5 = verbally appropriate forage, best motor response 6 = obeys commands appropriate for age, alert and oriented x3 LABS: Labs reviewed: K 3.7, +U/A IMAGING: Imaging available from outside hospital: yes [facility] radiology read of images: agree Chest X-Ray: no acute traumatic injuries Pelvis: n/a Extremities: n/a FAST Ultrasound: n/a CT Scan Head: acute traumatic injuries CT Scan Neck: no acute traumatic injuries CT Scan Face: n/a CT Scan Chest: acute traumatic injuries CT Scan Abdomen/Pelvis: no acute traumatic injuries CT Scan Thoracic/Lumbar Spine: no acute traumatic injuries INJURY COMPLEX: Active Problems: Patient Active Problem List Diagnosis ADVANCE DIRECTIVE INFORMATION Benign neoplasm of colon HTN, GOAL BELOW 140/90 Systemic lupus erythematosus (HCC) Carpal tunnel syndrome Hyperlipidemia with target LDL less than 100 Coronary atherosclerosis of [place] coronary artery POA = Present On Admission CONSULTS: 1. Neurosurgery, Time called: 0 PROCEDURES: None REHABILITATION NEEDS ASSESSED: yes, PT/OT consultation PLAN: - critical care black admission - Neurosurgery consult SYSTEM BASED PLAN: CRITICAL CARE SYSTEM REVIEW & ASSESSMENT/PLAN: NEURO: left anterior parafalcine subdural hematoma - neurosurgery consultation - repeat CT head stable - q1h neuro checks - Keppra 500 BID x 7 days - hold AC/AP - okay for DVT Ppx 24h following stable CT head - speech consultation for diet - Sedation: none - Pain control: ATC tylenol, prn oxy 2.5/5 RESP: Right 4 - 10 rib fractures - pain regimen in place - consider anesthesia consultation for pain block if needed - Aggressive Pulmonary toilet - 3D recon scan ordered - continue TRUCK [employer]ESP[employer] flonase CARDIAC / VASCULAR: New onset A-fib - continuous cardiopulmonary monitoring - [id number] 5 (7.2% risk of stroke); currently not on anticoagulation - TTE ordered (last TTE 2020; EF 65%) - consider cardiology consultation if patient is intermittently in rapid ventricular response CAD - continue TRUCK [employer]ERSON Imdur daily - hold bASA per NSGY 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 - continue 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 / MOBILITY / WOUND CARE: - PT/OT consulted: PT/OT consulted DVT PROPHYLAXIS: - TEDs/SCDs - holding AC/AP per NSGY - holding DVT Ppx for [address] head Patient's decisional capacity: has capacity to make decisions Communication with Patient/Family: No meeting held. Goals of Care: decrease pain and discomfort Discussed with Attending, Dr. Reyes at 2130. Galen Thompson MD BS General Surgery Resident, PGY-3 [facility] 01/27/2024 Associated attestation - Eric, Kalee Sadler MD - 01/27/2024 7:45 AM EDT I saw and evaluated the patient 01/25. I have reviewed the resident/fellow physician note and agree. Pt seen with the trauma team for level 2 trauma alert. I arrived at 2110 83 yo f who fell on Tuesday, no LOC. Has had persistent rib and head pain so went to [facility] and had full trauma adina showing SDH and rib fx's so she was sent here. Has been in BP stable a fib with RVR, was given 15mg bolus of cardizem and started on drip, until brought her here. Primary survey: A: Intact B: equal bilaterally. RR22. Sats 98%on 4L C: HR123, BP114/63 Pulses palpable on distal extremities x4. No external bleeding noted D: GCS 15. Motor/sensory intact. Pupils 3 and reactive E: fully exposed. Warm room, warm blankets. Temp 36.8 Secondary survey: PE: brusing on R periorbital area and forehead. Tenderness to R chest and full spine CXR: R rib fx's EFAST: negative CTs obtained: Head, c-spine, face, CTA neck, chest, abdomen, pelvis CT findings: L posterior falx SDH, R 4-10 rib fx's Labs: unremarkable Impression/Plan: Admit to TICU SDH: repeat CTH now. NSGY consult. Q1h, neuro checks, keppra R rib fx's: pain control, pulmonary toilet, AM CXR A fib/RVR: EKG, rate control. Echo and troponins CCM time 45 minutes documented in this encounter Procedure Notes * Kyle Singh, - 01/26/2024 10:07 PM EDTAssociated Order(s): EKG REASON FOR STUDY: AFIB CONCLUSIONS: Atrial fibrillation with rapid ventricular response with a competing junctional pacemaker Nonspecific T wave abnormality Abnormal ECG When compared with ECG of 15-Jun-2022 10:15, Atrial fibrillation has replaced Sinus rhythm Vent. rate has increased by 37 bpm Ventricular Rate: 106 QRS Duration: 74 QT/QTc: 288/382 ms P-R-T [place]: 0 : 59 : -29 degrees documented in this encounter Consult Notes * Kike Cullen [facility] - 01/29/2024 11:59 AM ESTAssociated Order(s): PHARMACY CONSULT IP Pharmacy has reviewed patient's current medication orders and has timed medication administration times to fall between the hours of 0600 and 2200 where appropriate. Please contact pharmacy if there are any other needs. * Clara Norris, PT - 01/27/2024 10:53 AM EDTAssociated Order(s): ADULT PHYSICAL THERAPY CONSULT IP GENERAL EVALUATION - Physical Therapy [address] [id number] Name: Tatiana Roman Location: [facility] G509/A Date: 01/27/2024 Time: 1053 Tatiana Roman is a/an 83 year old female. Patient Status: Inpatient Insurance: Payor: MEDICARE Plan: MEDICARE A AND B Product Type: *No Product type* Patient Seen: at bedside, nursing cleared patient for therapy Patient Identified By: Name, ID Band and Date Diagnosis: s/p fall with R rib fxs., SDH (01/27/241052) Status of treatment: Evaluation completed (01/27/241052) Orders: PT evaluation and treatment;OOB (01/27/241052) Weight Bearing Status: Weight bearing as tolerated (01/27/241052) Precautions: Alarms;Falls;Safety (01/27/241052) Total Treatment Time--free text: 20 (01/27/241052) Past Medical History: Past Medical History: Diagnosis Date Acute myocardial infarction, subendocardial infarction, episode of care unspecified 06/14/09 [facility] Benign neoplasm of colon 02/07/06 Hyperplastic--repeat 10 years Coronary atherosclerosis of [place] coronary artery HTN, goal below 140/90 Hyperlipidemia LDL goal < 100 Lupus erythematosus diagnosed in 1975 Past Surgical History: Past Surgical History: Procedure Laterality Date CATHETERIZE LEFT HEART THRU SKIN 06/16/2009 LEFT HEART CATH, PERCUTANEOUS performed by JESSY BRYANT at [facility] COLONOSCOPY 02/07/2006 Hyperplastic tissue--repeat 10 years COLONOSCOPY, DIAGNOSTIC (RECTUM) 02/09/2016 adenomatous polyps, diverticulosis, repeat 5 yrs COLONOSCOPY, DIAGNOSTIC (RECTUM) 02/09/2016 COLONOSCOPY FLEXIBLE PROXIMAL DIAGNOSTIC performed by Guadalupe Tomlin DO at ENDOSCOPY [facility] COLONOSCPOY E/ ENDOSCOPIC US N/A 03/02/2023 severe diverticulosis/hemorrhoids/biopsies show adenomatous polyps/COLONOSCOPY FLEXIBLE WITH ENDOSCOPIC ULTRASOUND EXAM performed by Isaac Aguilar DO at OR 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) (01/27/241052) Entry steps: Other - Describe (28 with stairglide) (01/27/241052) Inside steps: 10 - 15 (01/27/241052) Bedroom location: 1st floor (01/27/241052) Bath location: 1st floor full bath (01/27/241052) Prior Level of Function Reported by: Patient (01/27/241052) Ambulation: Ambulatory without device (01/27/241052) Devices at home: Stair glide/stair lift;Rolling walker;Straight cane (01/27/241052) Observations Consciousness: Alert (01/27/241052) Orientation: Oriented times 4 (01/27/241052) Psychosocial: Patient can communicate basic needs;Patient can converse in a social setting (01/27/241052) Other Findings: Yes (01/27/241052) Findings: Light touch sensation (01/27/241052) Light Touch Sensation Results: Intact;LLE;RLE (01/27/241052) Sitting Posture: Rounded shoulders (01/27/241052) Standing Posture: Rounded shoulders (01/27/241052) Pain: Patient has complaints of pain. Pain located R ribs, does not rate Range of Motion Range of Motion: WFL (01/27/241052) Strength Assessment Strength Assessment: Deficits noted (01/27/241052) WNL, except: LLE;RLE (01/27/241052) LLE: 4/5 (01/27/241052) RLE: 4/5 (01/27/241052) P.T. Bed Mobility Supine-Sit: Contact Guard (01/27/241052) Transfers Sit-Stand: Contact Guard (01/27/241052) Stand-Sit: Contact Guard (01/27/241052) Ambulation Assist: Contact Guard (01/27/241052) Distance Ambulated (feet): 3 (01/27/241052) Assistive Device: Rolling walker (01/27/241052) Noted gait deviations: dizzy (01/27/241052) Ambulatory safety: Patient verbalizes insight of current deficits (01/27/241052) Balance Sit (Static): Fair (01/27/241052) Sit (Dynamic): Fair (-) (01/27/241052) Stand (Static): Fair (-) (01/27/241052) Stand (Dynamic): Fair (-) (01/27/241052) Patient and or Family Goal(s): to get well and to return home Patient Education Review of Precautions: Safety;Fall (role of PT) (01/27/241052) Safety Awareness: Patient verbalizes insight of current deficits (01/27/241052) Preferred learning method: Combination (01/27/241052) Barriers to learning: Medical Status (01/27/241052) Method of Education: Verbalized to patient (01/27/241052) Topic of Education: Safety with mobility, Goals/plan of care, and Fall prevention Method of Education: Verbal discussion and explanation provided to patient: verbalized understanding and or agreement of this information Treatment Provided: Evaluation Moderate Complexity 20 minutes - 78761: Patient was cooperative, pleasant, and motivated during treatment session. Moderate complexity evaluation performed and 1-2 personal factors or comorbidities were identified that will impact plan of care, including dizziness. Patient presents with limitations in strength, bed mobility, transfers, gait, elevations, balance, endurance, and safety, which will impact plan of care. These limitations will be addressed by the goalsset for this patient. Alarm Status Patient positioned in: Chair (01/27/241052) With: Pressure pad alarm intact and functioning and call perez in reach (01/27/241052) Following session patient seated OOB in chair with chair alarm activated and cord plugged into callbell system. Treatment Status: Treatment at bedside (01/27/241052) Goals: Demonstrate Bed Mobility with: Sit to supine: modified independent Supine to sit:modified independent Demonstrate transfers with: Sit to stand: modified independent Stand to sit: modified independent Bed to chair: modified independent with least restrictive device Chair to bed: modified independent with least restrictive device Demonstrate ambulation: distance: 250 feet with assistive device: least restrictive device and level of assistance: modified independent Demonstrate Stair climbing (when appropriate): number of stairs: 10 with level of assistance: modified independent Increase Strength: to 5/5 BLE Increase Balance: fair+ sitting / fair+ standing Increase safety: with all functional mobility Time Frame: 10 visits Assessment: Patient is 83 y/o female with dx s/p fall with R rib fxs., SDH. Prior to admission, patient lives with spouse and was independent with mobility with no device. Patient currently requires contact guard for supine to sit. Patient reports dizziness upon sitting, does not worsen but only improves slightly. Contact guard for sit<>stand and ambulation with rolling walker to chair. Mobility this date limited by dizziness and nausea. Ended session with patient resting comfortably in chair. Patient's overall mobility is limited by decreased LE strength, decreased balance, and overallmedical status. Patient would benefit from continued PT to maximize functional independence. Please consider post-acute care services which may include home health, [place] [facility] [place], outpatient therapy or inpatient rehabilitation. The level of care will be determined in collaboration with patient, family/caregiver and care team members. Treatment Plan: Bed mobility training, Transfer training, Gait training, Elevation training, Strengthening exercises: BLBE, Balance activities, and Educate on safety with functional mobility Anticipated Frequency (on eval): 3 to 5 times per week (01/27/241052) Deficits requiring P.T. treatment needs: Safety;Mobility;Balance;Weakness;Endurance;Lower extremitystrength (01/27/241052) Equipment needs: No device (01/27/241052) AM-PAC Score With Stairs : 18 (01/27/241052) A portion of this AM-PAC assessment not scored based on functional assessment rather clinical decision making utilized based on current findings and/or prior level of function. Please refer to futureAM-PAC calculations of functional ability as they become available. Clara Norris, PT, DPT Physical Therapy [facility] * Tamanna Luis OTR/Maribel - 01/27/2024 10:53 AM EDTAssociated Order(s): ADULT OCCUPATIONAL THERAPY CONSULT IP ITamanna MSOTR/Maribel, supervised and was present for the duration of the following session. Ialso read, agree with, and endorse the findings of the following therapy note. Tamanna Luis MS OTR/L Occupational Therapy [facility] 01/27/2024 12:59 PM [facility]/Acute Rehab [facility] GENERAL EVALUATION - Occupational Therapy [address] [address] Name: Tatiana Roman Location: [facility] G509/A Date: 01/27/2024 Time: 10:53 AM Tatiana Roman is a 83 year old female. Patient Status: Inpatient Insurance: Payor: MEDICARE Plan: MEDICARE A AND B Product Type: *No Product type* Patient Seen: at bedside, nursing cleared patient for therapy Patient Identified By: Name, ID Band and Date Diagnosis: s/p fall, R rib fxs, SDH (01/27/241052) Status of treatment: Evaluation completed (01/27/241052) Orders: OT evaluation and treatment;OT OOB (01/27/241052) Weight Bearing Status: Weight bearing as tolerated (01/27/241052) Precautions: Alarms;Falls;Safety;Skin (01/27/241052) Total Treatment Time: 19 (01/27/241052) Past Medical History: Past Medical History: Diagnosis Date Acute myocardial infarction, subendocardial infarction, episode of care unspecified 06/14/09 [facility] Benign neoplasm of colon 02/07/06 Hyperplastic--repeat 10 years Coronary atherosclerosis of [place] coronary artery HTN, goal below 140/90 Hyperlipidemia LDL goal < 100 Lupus erythematosus diagnosed in 1975 Past Surgical History: Past Surgical History: Procedure Laterality Date CATHETERIZE LEFT HEART THRU SKIN 06/16/2009 LEFT HEART CATH, PERCUTANEOUS performed by JESSY BRYANT at [facility] COLONOSCOPY 02/07/2006 Hyperplastic tissue--repeat 10 years COLONOSCOPY, DIAGNOSTIC (RECTUM) 02/09/2016 adenomatous polyps, diverticulosis, repeat 5 yrs COLONOSCOPY, DIAGNOSTIC (RECTUM) 02/09/2016 COLONOSCOPY FLEXIBLE PROXIMAL DIAGNOSTIC performed by Guadalupe Tomlin DO at ENDOSCOPY [facility] COLONOSCPOY E/ ENDOSCOPIC US N/A 03/02/2023 severe diverticulosis/hemorrhoids/biopsies show adenomatous polyps/COLONOSCOPY FLEXIBLE WITH ENDOSCOPIC ULTRASOUND EXAM performed by Isaac Aguilar DO at OR [facility] EGD, FLEXIBLE, DIAGNOSTIC 04/04/2013 ESOPHAGOGASTRODUODENOSCOPY (EGD), FLEXIBLE, TRANSORAL, DIAGNOSTIC performed by Guadalupe Tomlin DO at [facility]OSCOPY [facility] REMOVAL OF APPENDIX REMOVE GALLBLADDER SINUS SURGERY PROCEDURE NEC maxillary sinus, 3 surgeries TOTAL HYSTERECTOMY 1977 Social History/Disposition Lives with: Spouse (Simultaneous filing. 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 User may not have seen previous data.) (01/27/241052) Dwelling type: Single story home (Simultaneous filing. 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 User may not have seen previous data.) (01/27/241052) Inside steps: None (Simultaneous filing. User may not have seen previous data.) (01/27/241052) Bedroom location: 1st floor (Simultaneous filing. User may not have seen previous data.) (01/27/241052) Bath location: 1st floor full bath (Simultaneous filing. User may not have seen previous data.) (01/27/241052) Prior Level of Function Reported by: Patient (01/27/241052) Ambulation: Ambulatory without device (01/27/241052) Grooming: Independent (01/27/241052) Bathing: Independent (01/27/241052) Dressing: Independent (01/27/241052) Feeding: Independent (01/27/241052) Toileting: Independent (01/27/241052) Meal Prep: Independent (01/27/241052) Homemaking: Independent (01/27/241052) Shopping: Independent (01/27/241052) Medication Management: Independent (01/27/241052) Money Management: Independent (01/27/241052) Driving: Yes (01/27/241052) Durable Medical Equipment at home: Stair glide/stair lift (01/27/241052) Subjective: Pt supine in bed upon OT arrival and agreeable to OT evaluation. Pain: Patient has complaints of pain. Pain located at R ribs, not rated. RN aware. Observations Consciousness: Alert (01/27/241052) Orientation: Oriented times 4 (01/27/241052) Psychosocial: Patient can communicate basic needs;Patient can converse in a social setting (01/27/241052) Sitting posture: Forward head;Rounded shoulders (01/27/241052) Standing posture: Forward head;Rounded shoulders (01/27/241052) Safety awareness: The Patient verbalizes insight of current deficits.;The Patient demonstrates carryover of insight during functional tasks.;The Patient can communicate basic needs.;Needs cueing supervision. (01/27/241052) Other Findings Endurance: Sitting tolerance;Fair;Standing tolerance;Poor (01/27/241052) Light touch sensation: LUE;RUE;Intact (01/27/241052) Coordination: LUE;RUE;Gross motor;Fine motor;Intact (01/27/241052) Current Functional Status: Bilateral Upper Extremity Range of Motion: WFL, except (01/27/241052) LUE: Shoulder (L shoulder AROM ~90 degrees, PROM not assessed due to pain. L elbow/wrist WFL) (01/27/241052) RUE: Other - comment (RUE AROM WFL) (01/27/241052) Strength Assessment: WNL (01/27/241052) LUE: Shoulder;Elbow;Wrist;3+/5;Grasp;4/5 (MMT assessed within available range) (01/27/241052) RUE: Shoulder;Elbow;Wrist;3+/5;Grasp;4/5 (01/27/241052) Self Care Grooming: Supervision (Please comment) (to wash face supine) (01/27/241052) Dressing Upper Body: Minimal Assistance (to majo gown around back seated at the edge of bed) (01/27/241052) Lower Body: Supervision (Please comment) (to majo B/L socks edge of bed) (01/27/241052) Functional Ambulation Assistive Device: Rolling walker (01/27/241052) Distance in feet:: 3 (01/27/241052) Level of Assistance: Contact Guard (01/27/241052) Bed Mobility Supine-Sit: Contact Guard (01/27/241052) OT Transfers Sit-Stand: Contact Guard (01/27/241052) Stand-Sit: Contact Guard (01/27/241052) Bed-Chair: Contact Guard (01/27/241052) Balance Sit (Static): Fair (01/27/241052) Sit (Dynamic): Fair (-) (01/27/241052) Stand (Static): Fair (-) (01/27/241052) Stand (Dynamic): Fair (-) (01/27/241052) Alarm Status Patient positioned in: Chair (01/27/241052) With: Pressure pad alarm intact and functioning and call perez in reach (01/27/241052) Following session patient seated OOB in chair with chair alarm activated and cord plugged into callbell system. Patient and Family Goals: to get well and to return home Patient Education Education Topic: Role of OT;Plan of care goals (01/27/241052) Review of Precautions: Safety;Skin;Fall (01/27/241052) Method of Education: Verbalized to patient (01/27/241052) Education Provided to: Patient (01/27/241052) Response to Education: Receptive and agreeable to education;Needs further education (01/27/241052) Barriers to learning: Medical status (01/27/241052) Preferred learning method: Combination (01/27/241052) Treatment Provided: Evaluation Moderate Complexity 19 minutes - 10403: Patient was cooperative, pleasant, and alert during treatment session. Moderate complexity evaluation performed and 3-5 activitylimitations were identified, including ADL deficit, functional mobility deficit, bed mobility deficit, decreased strength, decreased endurance, decreased range of motion, and impaired balance. Minimal or moderate modification of the functional task was necessary to complete the evaluation. Deficits Requiring O.T. Treatment: Deficits requiring O.T. treatment needs: ADL/self-care;Balance;Endurance;Functional mobility;Safety;Upper extremity strength;Upper extremity range of motion;Weakness (01/27/241052) Goals: Demonstrates Self-care at: Grooming: modified independent Toileting: modified independent UE dressing: modified independent UE bathing: modified independent LE dressing (pants/socks/shoes): modified independent LE bathing: modified independent Demonstrates Bed Mobility at: Supine > sit: modified independent Sit> supine: modified independent Rolling R<>L: modified independent Demonstrates Transfers at: Sit>stand: modified independent Stand>sit: modified independent Bed>chair: modified independent Toilet: modified independent Shower/Tub: modified independent Demonstrates Functional Mobility at: Assistive Device: as appropriate and needed. Level of Assistance: modified independent Balance: Static Sitting: fair + Dynamic Sitting: fair + Static Standing: fair + Dynamic Standing: fair + Strength/ROM: Increase BUE strength 1/2 muscle grade. Increase LUE shoulder AROM to WFL. Endurance: Increase endurance to 30/30 minutes in order to improve participation in ADL tasks and general mobility. Safety Awareness/Cognition: Increase safety awareness during functional mobility. Goal Time Frame: 10 visits Assessment: Pt is a 83 year old female admitted to [facility] for above dx. Pt supine in bed upon OT arrival and agreeable to OT evaluation. Pt lives with her spouse in a 1 story home located above their store with 28 steps to enter (has stair glide). Pt reports she was previously independent with ADLs/IADLs and functional mobility without a device. Pt's RUE AROM WFL with noted BUE strength/L shoulder AROM deficits (see above). Pt washed face supine in bed with supervision for setup. Supine>sit, sit<>stand transfers from bed to chair and ~3 ft functional mobility using rolling walker completed with contact guard assist for trunk control, decreased balance/endurance and pt safety with reported dizziness. Further mobility not assessed due to pt stating she was too nauseous and dizzy. Pt required min A to majo gown edge of bed due to limited functional reach behind back and supervision to maoj B/L socks edge of bed for decreased dynamic balance. Pt noted to be left seated in chair withalarm intact and call perez in reach. All needs met. Pt demonstrates potential to benefit from OT services to address decreased BUE strength/ROM/endurance/balance, increased pain, and overall weaknessin order to increase independence with ADLs and functional mobility. As far as d/c, please considerpost-acute care services which may include home health, [place] [facility] [place], outpatient therapy or inpatient rehabilitation. The level of care will be determined in collaboration with patient, family/caregiver and care team members. Treatment Plan: Energy Conservation, Safety, Bed mobility training, Transfer training, ROM exercises, Upper extremity strengthening, Balance activities, ADL training, and Endurance. Anticipated Frequency (on eval): 3 to 5 times per week (01/27/241052) AM-PAC Help From Another Person Eating Meals: None (01/27/241052) Help From Another Person Taking Care of Personal Grooming: A little (01/27/241052) Help From Another Person To Put On/Take Off Upper Body Clothing: A little (01/27/241052) Help From Another Person To Put On/Take Off Lower Body Clothing: A little (01/27/241052) Help From Another Person Toileting: A little (01/27/241052) Help From Another Person Bathing: A little (01/27/241052) OT AM-PAC Score: 19 (01/27/241052) OT AM-PAC t-Scale Score: 40.22 (01/27/241052) HLM (Highest Level of Mobility) Goal: Level 6 walk 10 steps or more (01/27/24 1100) A portion of this AM-PAC assessment not scored based on functional assessment; rather clinical decision making utilized based on current findings and/or prior level of function. Please refer to future AM-PAC calculations of functional ability as they become available. Bruce Vasquez, OT/S Tamanna Luis MS OTR/L Occupational Therapy [facility] 01/27/2024 12:59 PM * Julia Ng SLP - 01/27/2024 9:50 AM EDTAssociated Order(s): ADULT SPEECH THERAPY CONSULT IP (ACUTE CARE REHAB) CLINICAL BEDSIDE SWALLOW EVALUATION - Speech-Language Pathology [address] [address] Name: Tatiana Roman Location: [facility] G509/A Date: 01/27/2024 Time: 9:50 AM Patient Status: Inpatient Insurance: Payor: MEDICARE / Plan: MEDICARE A AND B / Product Type: *No Product type* / GENERAL INFORMATION: Admission Date: 01/26/2024 Referring Physician: Karina Hayden DO Pertinent Medical History: Per Epic H&P 01/26/24 "Tatiana Roman is an 83 y/o female transferred from [facility] who had a mechanical fall from standing three days prior and was found to have a left falx subdural hematoma, right 4 - 10 rib fractures, and new onset a-fib with RVR. Patient was out at a restaurant and fel three days prior. She was able to ambulate after the fall and went home. Later that evening, the patient began to have a headache and right chest pain. After three days, the patient could no longer tolerate the pain. She presented to [facility] for an evaluation. There she was found to have a left SDH and right 4 - 10 rib fractures. The also went into A-fib with RVR, and was given a dose of diltiazem for rate control. The patient was transferred to [facility] for a traumatic evaluation. While at [facility], the patient remained AF and HDS while in A-fib w/o RVR. Labs: K, +U/A . Neurosurgery was consulted and they provided their recommendations of ICU admission. PMH: NE, HTN, HLD PSH: total hysterectomy, cholecystectomy AC/AP: bASA" Past Medical History: Diagnosis Date Acute myocardial infarction, subendocardial infarction, episode of care unspecified 06/14/09 [facility] Benign neoplasm of colon 02/07/06 Hyperplastic--repeat 10 years Coronary atherosclerosis of [place] coronary artery HTN, goal below 140/90 Hyperlipidemia LDL goal < 100 Lupus erythematosus diagnosed in 1975 Past Surgical History: Procedure Laterality Date CATHETERIZE LEFT HEART THRU SKIN 06/16/2009 LEFT HEART CATH, PERCUTANEOUS performed by JESSY BRYANT at [facility]ARDIAC [facility]S [facility] COLONOSCOPY 02/07/2006 Hyperplastic tissue--repeat 10 years COLONOSCOPY, DIAGNOSTIC (RECTUM) 02/09/2016 adenomatous polyps, diverticulosis, repeat 5 yrs COLONOSCOPY, DIAGNOSTIC (RECTUM) 02/09/2016 COLONOSCOPY FLEXIBLE PROXIMAL DIAGNOSTIC performed by Guadalupe Tomlin DO at ENDOSCOPY [facility] COLONOSCPOY E/ ENDOSCOPIC US N/A 03/02/2023 severe diverticulosis/hemorrhoids/biopsies show adenomatous polyps/COLONOSCOPY FLEXIBLE WITH ENDOSCOPIC ULTRASOUND EXAM performed by Isaac Aguilar DO at OR [facility] EGD, FLEXIBLE, DIAGNOSTIC 04/04/2013 ESOPHAGOGASTRODUODENOSCOPY (EGD), FLEXIBLE, TRANSORAL, DIAGNOSTIC performed by Guadalupe Tomlin DO at [facility]OSCOPY [facility] REMOVAL OF APPENDIX REMOVE GALLBLADDER SINUS SURGERY PROCEDURE NEC maxillary sinus, 3 surgeries TOTAL HYSTERECTOMY 1977 Imaging: CT HEAD/BRAIN WO CONTRAST 01/27/24 "IMPRESSION No significant changes since yesterday. Redemonstrated small left acute extra- axial hemorrhages." XR CHEST 1 VIEW 01/26/24 "IMPRESSION Nondisplaced right rib fractures. No pneumothorax." Current Diet/Dysphagia History: Pt currently on heart healthy regular solids and thin liquids. Pt denies hx of dysphagia. Pt endorses fluctuating weight loss, "scratchy" vocal quality, and frequent PNA; however, attributes to Lupus. Pt reported tolerating regular solids and thin liquids at baseline. Cognitive-Communication: Pt remained awake and alert. Pt followed commands and effectively communicated wants/needs. Pt with hx of TBI. Barriers to Learning: Medical Status Hearing Acuity: Deferred Best Learning Method: Auditory Pain: No complaints of pain ORAL MECHANISM EXAM: Facial Symmetry WFL Labial Function WFL Lingual Function WFL Velar Function WFL Dentition: Upper and Lower Dentures PROTECTIVE MECHANISMS: Volitional Swallow Did not test Volitional Throat Clearing Did not test Volitional Cough Did not test Vocal Quality Impaired- slight rough vocal quality Tracheostomy Tube: Not Present Ventilator Status: Not Applicable SWALLOWING FUNCTION: Pt was presented with trials of thin liquid via cup and straw, puree solids, soft and bite sized solids, and regular solids. ORAL PREPARATION PHASE: Puree (IDDSI Level 4): WFL Soft and Bite-Sized (IDDSI Level 6): WFL Regular (IDDSI Level 7): WFL Thin Liquid (IDDSI Level 0): WFL ORAL PHASE: Puree (IDDSI Level 4): WFL Soft and Bite-Sized (IDDSI Level 6): WFL Regular (IDDSI Level 7): WFL Thin Liquid (IDDSI Level 0): WFL PHARYNGEAL PHASE Puree (IDDSI Level 4): WFL Soft and Bite-Sized (IDDSI Level 6): WFL Regular (IDDSI Level 7): WFL Thin Liquid (IDDSI Level 0): WFL RECOMMENDATIONS/PLAN: Videofluoroscopy: Not indicated Diet Level: Regular Liquid Level: Thin Presentation of Medication: As tolerated Positioning: Seated with 90 degree hip flexion Level of Supervision: None Use of Straws: allowed Compensatory Techniques to be Utilized During PO Intake: Small Bites/Sips, Alternate Solids & Liquids and Slow Rate of Intake Compensatory Strategies Utilized: as above Additional findings: N/A ANTICIPATED FREQUENCY (ON EVAL): Not indicated DIAGNOSIS/IMPRESSIONS: Diagnosis/Impressions: Oral phase WFL. Pharyngeal phase dysphagia not suspected 2/2 absence of overt s/sx of aspiration and/or distress. Rehab Potential: N/A TREATMENT PLAN: Swallowing Treatment: Not Indicated Treatment Goals: N/A Additional Recommendations: If s/sx of aspiration and/or distress are appreciated, please downgradeas nsg safety measure, and re-consult INJECTION MOLDING SUPERVISOR services. The above information was discussed with the patient/family. Yes The patient/family was in Agreement * Jose Lopez, - 01/26/2024 10:53 PM EDTAssociated Order(s): CARDIOLOGY CONSULT IP Images from the original note were not included. CONSULT - Cardiology [facility] [address] Name: Tatiana Roman Location: [facility] G509/A Date: 01/26/2024 Time: 11:07 PM REQUESTING SERVICE: TICU REASON FOR CONSULT: "New onset afib; was in afib rvr at OSH" PRESENTING PROBLEM: Tatiana Roman BANNER is seen in consultation for atrial fibrillation. HPI: Tatiana Roman is a 83 year old female who presents with above complaint, pertinent PMHx reviewed by me outlined below: CAD- non obstructive by angiography HTN DLD SLE Mild MR; Mild TR Transferred from [facility] after presenting after a mechanical fall from standing 3 days prior. Fount o have a left subdural hematoma and R 4-10 rib fractures. Additionally noted to have reportedly new onset Afib w/ RVR and transferred to [facility]. She states she fell earlier this week. Tripped over her while going to open the door. No preceding cardiac symptoms. Noted severe pain near her ribs and a headache since then which prompted her to go to [facility]. Otherwise has been feeling well. Denies recent CP, palpitations, dyspnea, orthopnea, PND, leg swelling, pre-syncope, or syncope. Active at home. Lives with her . Has 20 steps in her house which she climbs regularly without symptoms. PAST MEDICAL HISTORY: Past Medical History: Diagnosis Date Acute myocardial infarction, subendocardial infarction, episode of care unspecified 06/14/09 [facility] Benign neoplasm of colon 02/07/06 Hyperplastic--repeat 10 years Coronary atherosclerosis of [place] coronary artery HTN, goal below 140/90 Hyperlipidemia LDL goal < 100 Lupus erythematosus diagnosed in 1975 PAST SURGICAL HISTORY: Past Surgical History: Procedure Laterality Date CATHETERIZE LEFT HEART THRU SKIN 06/16/2009 LEFT HEART CATH, PERCUTANEOUS performed by JESSY BRYANT at [facility] COLONOSCOPY 02/07/2006 Hyperplastic tissue--repeat 10 years COLONOSCOPY, DIAGNOSTIC (RECTUM) 02/09/2016 adenomatous polyps, diverticulosis, repeat 5 yrs COLONOSCOPY, DIAGNOSTIC (RECTUM) 02/09/2016 COLONOSCOPY FLEXIBLE PROXIMAL DIAGNOSTIC performed by Guadalupe Tomlin DO at ENDOSCOPY [facility] COLONOSCPOY E/ ENDOSCOPIC US N/A 03/02/2023 severe diverticulosis/hemorrhoids/biopsies show adenomatous polyps/COLONOSCOPY FLEXIBLE WITH ENDOSCOPIC ULTRASOUND EXAM performed by Isaac Aguilar DO at OR [facility] EGD, FLEXIBLE, DIAGNOSTIC 04/04/2013 ESOPHAGOGASTRODUODENOSCOPY (EGD), FLEXIBLE, TRANSORAL, DIAGNOSTIC performed by Guadalupe Tomlin DO at ENDOSCOPY [facility] REMOVAL OF APPENDIX REMOVE GALLBLADDER SINUS SURGERY PROCEDURE NEC maxillary sinus, 3 surgeries TOTAL HYSTERECTOMY 1977 FAMILY HISTORY: Family History Problem Relation Name Age of Onset Cancer Mother breast Breast Cancer Mother Cancer Father lung + smoker Heart Disorder Brother Hypertension Brother Stroke Brother 2 brothers Thyroid Disorder Son Neurological Disorder Son epileptic SOCIAL HISTORY: Social History Tobacco Use Smoking status: Never Smokeless tobacco: Never Substance Use Topics Alcohol use: No Drug use: No ALLERGIES: Advil [ibuprofen], Percocet [oxycodone-acetaminophen], Prochlorperazine, Tape [adhesive tape], Valium [diazepam], and Cashew nut oil ROS: Review of Systems: See HPI for pertinent positives. All other review of systems is negative. PHYSICAL EXAMINATION: Most Recent Vital Signs: BP: 105 mmHg/84 mmHg (01/26/242229) Pulse: 106 (01/26/242234) Resp: 18 (01/26/242234) Temp: 36.78 C (01/26/242119) Temp Summary: Temp Min: 36.8 C (98.2 F) Max: 36.8 C (98.2 F) SpO2: 92 % (01/26/242234) O2 flow rate: 2 L/MIN (01/26/242214) Supplemental O2 Delivery: Room Air, None (01/26/242234) Vital Signs Last 24 Hours: Systolic BP: Most Recent Systolic BP Av.6 mmHg Min: 101 mmHg Max: 123 mmHg Temperature: Most Recent Temperature Av.78 C Min: 36.78 C Max: 36.78 C Pulse: Pulse Av.2 Min: 96 Max: 124 Respirations: Resp Av.6 Min: 13 Max: 21 SpO2: SpO2 Av.7 % Min: 92 % Max: 99 % General: Chronically ill appearing female, in no acute distress Neurologic:AOx3, no focal deficits appreciated, following commands, appropriate responses to questions Psych: normal mood and affect HEENT: AT NC head, moist mucous membranes Eyes: conjunctiva clear, sclera non-icteric Neck: no JVD CVS: Tachycardic with irregular rhythm; no murmurs, rubs, or gallops Respiratory: normal respiratory effort, lungs clear to auscultation bilaterally, no added sounds Abdominal: soft NT ND Extremities: no lower extremity edema, peripheral pulses regular and equal Skin: warm, dry, intact LABS AND IMAGING: Labs reviewed as indicated below: BUN/Cr 12/0.36 WBC 5.93/Hb 13.2/Plt 178 INR 1.0 EKG: Afib w/ RVR Transthoracic Echocardiogram 05/09/2020: The examination is adequate to evaluate the referral indication. The LV wall thickness is mildly increased (concentric). The left ventricular wall motion is normal. The left atrium is mildly enlarged. The left ventricular diastolic function is mildly abnormal (grade I). Mild mitral regurgitation is present. Mild tricuspid regurgitation is present. There is no evidence of pulmonary hypertension Cardiac Catheterization 2010 24 Hour Holter Monitor 12/2016: CONCLUSIONS: 1. Duration - 23 hours and 48 minutes 2. Quality - adequate 3. Dominant rhythm - Normal sinus rhythm 4. PACs - frequent including 3,890 isolated premature atrial contractions, and 5 supraventricular runs. The longest run of SVT was 9 beats in duration with rate of 162 beats per minute. 5. PVCs - frequent including 1,757 isolated PVCs, 21ventricular couplets, And 12 episodes of ventricular bigeminy. no sustained ventricular arrhythmias 6. Symptoms - none reported IMPRESSION: Tatiana Roman is a 83 year old female with PMHx non-obstructive CAD, HTN, and DLD who presents as a transfer after a mechanical fall with significant rib fractures and a SHD. Noted to be in new onset afib w/ RVR. Currently mildly tachycardic and asymptomatic. Discussed nature of afib with patient at length. Recommend rate control strategy at this time with AV hilda blocking agents. Would benefit from AC given CHADSVASC score however unable to start at this juncture due to SDH. Update TTE once rates better controlled. RECOMMENDATIONS: Afib w/ RVR Acute SDH Rib Fractures Check TSH, last checked in 2017 CHADS VAS 4; Would benefit from AC but unable to start due to acute SDH. Would recommend starting when safe from SDH/NSGY standpoint If unable to start, can be deferred to outpatient. If contraindicated long-term, can consider outpatient eval for left atrial appendage closure device (Watchman) Keep K>4, Mag >2, phos >2.5 Rate control, titrate to target HR<110 (120 if concern for active infection). Recommend starting lopressor 25 mg BID; titrate as needed Continuous Telemetry Update TTE once hr more adequately controlled Will need outpatient Cardiology follow up 4-6 weeks post discharge for further management of afib. Patient was seen independently overnight and will be seen and discussed further in the morning withattending, Dr. Haji. Please see their addendum for final recommendations. Jose Lopez, DO Fellow, Cardiovascular Medicine 01/26/24 11:07 PM Associated attestation - Jose Haji MD - 01/27/2024 2:25 PM EDT I saw and evaluated the patient today. I have reviewed the resident/fellow physician note and agree. 60 minutes of care time was provided to the patient documented in this encounter Nursing Notes * Ramya Tapia RN - 01/27/2024 5:15 PM EDT Dual Licensed Skin Assessment completed by Ramya Flores RN and Jeaneth Olmedo LPN . The patient is/has a N/A Skin Breakdown (includes non blanchable erythema): No Bruising to the face * Eri Salinas RN - 01/27/2024 4:56 AM EDT Dual Licensed Skin Assessment completed by Eri Cannon RN and Angelita Olmedo RN. The patient is/has a N/A Skin Breakdown (includes non blanchable erythema): No No skin breakdown upon assessment of patient * Joyce Vargas RN - 01/26/2024 11:26 PM EDT VIRTUAL RN [facility] [address] Name: Tatiana Roman Location: [facility] G509/A Date: 01/26/2024 Time: 11:26 PM I completed the Admission Navigator. The patient was in the hospital. I was in a private office space at a [facility] location. After connecting through [employer], the patient was identified by name and date of and / or wristband checked. Patient (or authorized legal patient accounting representative) was then in formed that this was a Virtual Nurse visit and was being conducted confidentially over secure lines. I used a headset and other methods to ensure confidentiality for the patient. Patient acknowledgedconsent and understanding of privacy and security of the Virtual Nurse visit. I presented the opportunity for the patient or authorized legal patient accounting representative to ask any questions regarding the visit today. The patient or authorized legal patient accounting representative agreed to participate. * Brandon Gold RN - 01/26/2024 9:40 PM EDT Patient presents to ED via [facility] as a transfer from [facility]. Patient had a fall on 01/22/2024. Patient fell from standing. Denies LOC. Went to [facility] today d/t continuing right shoulder and rib pain. Patient also reported head pain upon arrival to previous hospital. C-collar in place upon arrival. GCS 15 upon arrival. Patient received 8 mg Morphine, 4MG Zofran, 15 mg Cardizem bolus, and was started on Cardizem drip while at [facility]. Cardizem drip stopped prior to transport. New onset of afib RVR discovered at [facility]. documented in this encounter Miscellaneous Notes * Care Plan - Stefania Underwood, NESTOR - 01/31/2024 2:56 PM EST Clinical Goal(s): patient will remain free from fall throughout this shift (01/31/24 0700) Possible barriers to meeting goal(s)/advancing plan of care: pt diagnosis Stability of the patient: Moderately stable - low risk of patient condition declining or worsening Summary regarding today's goal(s): Met: pt did not fall or injury self throughout this shift Recommendations: Patient was discharged * Ancillary Progress Note - Elver Contreras, PhD - 01/31/2024 2:46 PM EST During trauma rounds, team spoke with patient regarding PT/OT recommendation for rehab prior to d/chome. Pt adamant about d/c to home, does not want to go to rehab. Pt is hesitantly agreeable to HH with PT/OT. Elver Contreras, PhD, mortgage loan interviewer Preventive Medicine Officer [facility] 01/31/2024 2:46 PM * Ancillary Progress Note - Jessy Gross COTA - 01/31/2024 2:39 PM EST PROGRESS NOTE - Occupational Therapy [facility] [address] Name: Tatiana Roman Location: [facility] B531/A Date: 01/31/2024 Time: 2:39 PM Tatiana Roman is a 83 year old female. Patient Status: Inpatient Insurance: Payor: MEDICARE Plan: MEDICARE A AND B Product Type: *No Product type* Patient Seen: at bedside, nursing cleared patient for therapy Patient Identified By: Name, ID Band and Date Diagnosis: s/p Fall with right rib fractures and SDH (01/31/24 143) Status of treatment: Treatment completed (111437) Orders: OT evaluation and treatment (01/31/241437) Weight Bearing Status: Weight bearing as tolerated (01/31/241437) Precautions: Alarms;Falls;Safety (01/31/241437) Total Treatment Time: 18 (01/31/241437) Pain: Patient has complaints of pain. Pain located Ribs. Current Functional Status: Activities of Daily Living: Self Care Grooming: Supervision (Please comment) (01/31/241437) Dressing Upper Body: Supervision (Please comment) (01/31/241437) Lower Body: Supervision (Please comment) (01/31/241437) OT Transfers Sit-Stand: Supervision (Please comment) (01/31/241437) Stand-Sit: Supervision (Please comment) (01/31/241437) Balance Sit (Static): Fair (01/31/241437) Sit (Dynamic): Fair (01/31/241437) Stand (Static): Fair (01/31/241437) Stand (Dynamic): (Fair-) (01/31/241437) Alarm Status Patient positioned in: Chair (01/31/241437) With: Pressure pad alarm intact and functioning and call perez in reach (01/31/241437) Following session patient seated OOB in chair with chair alarm activated and cord plugged into callbell system. Treatment Provided: Self Mcc Management Trainin minutes Assessment: Seated in recliner upon entering room. Patient demonstrates grooming, upper and lower body dressing supervision level set up. Patient performed functional transfers supervision level using rolling walker. Patient would benefit from continued OT services to maximize functional independence. Please consider post-acute care services which may include home health, [place], outpatient therapy or inpatient rehabilitation. The level of care will be determined in collaboration with patient, family/caregiver and care team members. Plan: Will continue to follow as per plan. Anticipated Frequency (on eval): 3 to 5 times per week (01/31/241437) AM-PAC Help From Another Person Eating Meals: A little (01/31/241437) Help From Another Person Taking Care of Personal Grooming: A little (01/31/241437) Help From Another Person To Put On/Take Off Upper Body Clothing: A little (01/31/241437) Help From Another Person To Put On/Take Off Lower Body Clothing: A little (01/31/241437) Help From Another Person Toileting: A little (01/31/241437) Help From Another Person Bathing: A lot (01/31/241437) OT AM-PAC Score: 17 (01/31/241437) OT AM-PAC t-Scale Score: 37.26 (01/31/241437) A portion of this AM-PAC assessment not scored based on functional assessment; rather clinical decision making utilized based on current findings and/or prior level of function. Please refer to future AM-PAC calculations of functional ability as they become available. * Ancillary Progress Note - Miracle Westfall MSW - 01/31/2024 1:25 PM EST CARE MANAGEMENT - TRAUMA DISCHARGE NOTE [facility] [address] Name: Tatiana Roman Location: [facility] B531/A Date: 01/31/2024 Time: 1:25 PM The following coordination of care and discharge plan has been coordinated with the care team, patient, family and/or caregiver according to the patients needs and preferences. Discharge Discharge Second Notice Important Message from Medicare delivered: Yes (01/31/241323) Date Delivered: 01/30/24 (01/31/241323) Was Caregiver/Family/Facility contacted regarding discharge: Yes (01/31/241323) Discharge Transportation: Family/Friends drive (01/31/241323) Date of scheduled discharge transportation: 01/31/24 (01/31/241323) Patient declined post-hospital transition of care recommendation: N/A (01/31/241323) Final Discharge Plan (Complete only at time of Discharge): Home with Services (01/31/24 1325) Home Medical Care - Admitted Since 01/26/2024 Service Provider Selected Services Address Phone Fax Patient Preferred Last Updated [facility] [address], [address], [facility] [address] [phone] -- Miracle Westfall MSW 01/31/2024 1324 Internal Comment last updated by Mary Zapata, JULIANNE 01/31/2024 1323 01/30 Jenny called they can accept with SOC 02/01/2024. AFR Narrative: Per service, pt is medically stable for d/c. Pt is agreeable to services with no HH agency preference. Pt is accepted with [facility], SOC 01/31. Pt's family to provide transportation upon d/c. Discharge destination time-out called during IDT rounds, all parties agreeable with transition plan of care. * Ancillary Progress Note - Miracle Westfall MSW - 01/31/2024 9:29 AM EST HOME CARE REFERRAL FORM CARE MANAGEMENT [address] [address] Referred By: CAROLINA Barbosa Admission Date: 01/26/2024 Discharge Date: 01/30 Discharge Time: Midday Start Date: 01/31 Agency Referred To: [facility] (P: [phone], F: [phone]) PATIENT INFORMATION: Name: Tatiana Roman Address: [address] [place] [address] : 1940 Phone: There is no home phone number on file. SSN: [id number] County: [place] Emergency Contacts: Extended Emergency Contact Information Primary Emergency Contact: Nadine Roman Relation: Spouse Preferred language: [employer] Brake Rebuilder needed? No Secondary Emergency Contact: Iraida Bazzi Mobile Relation: Adult Child Preferred language: [employer] Brake Rebuilder needed? No MEDICAL INFORMATION: Principal Diagnosis: No Principal Problem: There is no principal problem currently on the Problem List. Please update the Problem List and refresh. Diet: As per discharge instructions. Allergies: Advil [ibuprofen], Percocet [oxycodone-acetaminophen], Prochlorperazine, Tape [adhesive tape], Valium [diazepam], and Cashew nut oil Isolation Type: None Activity Restrictions: As ordered Isolation For: HOME CARE ORDERS: (Discipline and Frequency): PT/OT Evaluation and Treat Medications Dose, Frequency, & Route: As ordered Ordering Physician and Contact Information: Phoebe Laird MD Comments: lives alone PCP: PCP: SANDRA OLVERA [address] [place] [address] D/C Physician: Phoebe Laird MD Insurance: See attached facesheet. * Care Plan - Abeba Nagel RN - 01/30/2024 4:49 PM EST Clinical Goal(s): Patient ambulated three times during this shift, was out of bed to chair and remained free from falls/injury this shift. (01/30/24 1500) Possible barriers to meeting goal(s)/advancing plan of care: patient's pain from current condition,generalized weakness. Stability of the patient: Moderately stable - low risk of patient condition declining or worsening Summary regarding today's goal(s): Met: Patient ambulated three times during this shift, was out of bed to chair and remained free from falls/injury this shift. Recommendations: Continue to monitor, assist with ADLs, bed alarm, purposeful hourly rounding, PT/OT daily, pain control. * Ancillary Progress Note - Jessy Gross COTA - 01/30/2024 2:43 PM EST PROGRESS NOTE - Occupational Therapy [facility] [address] Name: Tatiana Roman Location: [facility] B531/A Date: 01/30/2024 Time: 2:43 PM Tatiana Roman is a 83 year old female. Patient Status: Inpatient Insurance: Payor: MEDICARE Plan: MEDICARE A AND B Product Type: *No Product type* Patient Seen: at bedside, nursing cleared patient for therapy Patient Identified By: Name, ID Band and Date Diagnosis: s/p Fall with right rib fractures and SDH (01/30/241441) Status of treatment: Treatment completed (01/30/241441) Orders: OT evaluation and treatment (01/30/241441) Weight Bearing Status: Weight bearing as tolerated (01/30/241441) Precautions: Alarms;Falls;Safety (01/30/241441) Total Treatment Time: 15 (01/30/241441) Pain: Patient has complaints of pain. Pain located ribs. Current Functional Status: Activities of Daily Living: Self Care Grooming: Supervision (Please comment) (01/30/241441) Dressing Upper Body: Supervision (Please comment) (01/30/241441) Lower Body: Supervision (Please comment) (01/30/241441) Functional Ambulation Assistive Device: Rolling walker (01/30/241441) Distance in feet:: 20 (01/30/241441) Level of Assistance: Minimal Assistance (01/30/241441) Bed Mobility Sit-Supine: Contact Guard (with head of bed elevated) (01/30/241441) OT Transfers Sit-Stand: Contact Guard (01/30/241441) Stand-Sit: Contact Guard (01/30/241441) Bed-Chair: Minimal Assistance (01/30/241441) Balance Sit (Static): Fair (01/30/241441) Sit (Dynamic): Fair (01/30/241441) Stand (Static): (Fair-) (01/30/241441) Stand (Dynamic): (Poor+) (01/30/241441) Alarm Status Patient positioned in: Bed (01/30/241441) With: Bed alarm intact and functioning and call perez in reach (01/30/241441) Treatment Provided: Self Mcc Management Trainin minutes Assessment: Seated in recliner upon entering room. Patient demonstrates grooming, upper and lower body dressing supervision level set up seated in recliner. Patient performed functional transfers andambulation with assistance of 1 using rolling walker. Patient demonstrates sit to supine with assistance of 1 and head of bed. Patient noted to have multiple lateral loss of balance with functional ambulation. Patient would benefit from continued OT services to maximize functional independence. Please consider post-acute care services which may include home health, [place], outpatient therapy or inpatient rehabilitation. The level of care will be determined in collaboration with patient, family/caregiver and care team members. Plan: Will continue to follow as per plan. Anticipated Frequency (on eval): 3 to 5 times per week (01/30/241441) AM-PAC Help From Another Person Eating Meals: A little (01/30/241441) Help From Another Person Taking Care of Personal Grooming: A little (01/30/241441) Help From Another Person To Put On/Take Off Upper Body Clothing: A little (01/30/241441) Help From Another Person To Put On/Take Off Lower Body Clothing: A little (01/30/241441) Help From Another Person Toileting: A little (01/30/241441) Help From Another Person Bathing: A lot (01/30/241441) OT AM-PAC Score: 17 (01/30/241441) OT AM-PAC t-Scale Score: 37.26 (01/30/241441) A portion of this AM-PAC assessment not scored based on functional assessment; rather clinical decision making utilized based on current findings and/or prior level of function. Please refer to future AM-PAC calculations of functional ability as they become available. * Ancillary Progress Note - Gifty Herrera MSW - 01/30/2024 1:01 PM EST CARE MANAGEMENT - TRAUMA TRANSITION NOTE [facility] [address] Name: Tatiana Roman Location: [facility] B531/A Date: 01/30/2024 Time: 1:01 PM Risk Stratification Risk Stratification Psycho Social / Medical Concerns Identified: Adjustment to illness/injury (01/27/241155) OBRA or OPTIONS needed for placement: No (01/27/241155) Readmission Risk Score: 10.22 (01/30/24 1201) AM-PAC Score With Stairs : 18 (01/30/24907) Caregiver Information Patient Contacts Name Relation Home Work Mobile Nadine Roman Spouse [phone] Iraida Bazzi Adult Child [phone] Transition of Care Checklist Narrative: SW spoke to pt about dc plans. She declined any snf referrals as well as HH. Pt states her granddaughter lives in the apartment in front of hers and has family near by who can check on her. Family does work during the day, but she states she feels fine to go home. Sw made service aware of the above. SW will continue to follow, address pt's evolving needs, and provide psychosocial support. Anticipated Transportation at Discharge: family Comments: Patient/Family Expectations: home Transition Planning Additional Considerations: Care Management will continue to monitor and assist with discharge planning needs * Ancillary Progress Note - Brtitni Willoughby PTA - 01/30/2024 8:47 AM EST PROGRESS NOTE - Physical Therapy [address] [address] Name: Tatiana Roman Location: [facility] B531/A Date: 01/30/2024 Time: 8:47 AM Tatiana Roman is a/an 83 year old female. Patient Status: Inpatient Insurance: Payor: MEDICARE Plan: MEDICARE A AND B Product Type: *No Product type* Patient Seen: at bedside, nursing cleared patient for therapy Patient Identified By: Name, ID Band and Date Diagnosis: s/p fall with R rib fxs., SDH (01/30/24846) Status of treatment: Treatment completed (01/30/24846) Orders: PT evaluation and treatment (01/30/24846) Weight Bearing Status: Weight bearing as tolerated (01/30/24846) Precautions: Alarms;Falls;Safety (01/30/24846) Total Treatment Time--free text: 31 (01/30/24846) Subjective: Patient pleasant and agreeable; motivated. Pain: Patient has complaints of pain. Pain located in R side at rib fractures. Nursing aware, care taken with mobility. P.T. Bed Mobility Supine-Sit: Contact Guard (01/30/24846) Transfers Sit-Stand: Contact Guard (01/30/24846) Stand-Sit: Contact Guard (01/30/24846) Ambulation: Distance ambulated (feet): 15, 25 Assistive Device: Rolling walker Assist: Contact Guard Balance Sit (Static): Fair (01/30/24846) Sit (Dynamic): Fair (-) (01/30/24846) Stand (Static): Fair (01/30/24846) Stand (Dynamic): Fair (-) (01/30/24846) Patient and or Family Goal(s): to get well and to return home Topic of Education: Safety with mobility, Goals/plan of care, and Use of assistive device Method of Education: Verbal discussion and explanation provided to patient: demonstrated the exercise and or task Treatment Provided: Therapeutic Activities 26 minutes: bed mobility training transfer training toilet transfer training Gait Training 5 minutes: gait training with rolling walker Alarm Status Patient positioned in: Chair (01/30/24846) With: Pressure pad alarm intact and functioning and call perez in reach (01/30/24846) Following session patient seated OOB in chair with chair alarm activated and cord plugged into callbell system. Patient Education Review of Precautions: Safety;Fall (01/30/24846) Safety Awareness: Patient verbalizes insight of current deficits (01/30/24846) Preferred learning method: Combination (01/30/24846) Barriers to learning: Medical Status (01/30/24846) Method of Education: Verbalized to patient (01/30/24846) Assessment: Patient pleasant and agreeable to therapy, supine upon arrival, motivated to participate. Bed mobility completed with contact guard for supine to sit. Sit to stands completed with contactguard to rise to rolling walker, cues for hand placement. Ambulation completed with rolling walker,patient ambulated 15 feet and 25 feet. Patient completed toilet transfers at contact guard assist level. Patient declined additional ambulation at this time, reports overall fatigue. Overall, patient's mobility continues to improve, endurance limited. Patient reports being motivated to return home.Patient seated in chair upon end of treatment session, positioned with pillows for comfort and to ma intain skin integrity. Call perez in reach and chair alarm on, all needs met. Please consider post-acute care services which may include home health, [place] [facility], outpatient therapy or inpatient rehabilitation. The level of care will be determined in collaboration with patient, family/caregiver and care team members. Deficits requiring P.T. treatment needs: Safety;Weakness;Balance;Mobility;Endurance (01/30/24 0861) Equipment needs: No device (01/27/24 1053) Plan: Continue with current treatment plan established on evaluation. AM PAC Score with Stairs: 18 A portion of this AM-PAC assessment not scored based on functional assessment ; rather clinical decision making utilized based on current findings and/or prior level of function. Please refer to future AM-PAC calculations of functional ability as they become available. * Care Plan - Agusto Saunders RN - 01/30/2024 5:02 AM EST Clinical Goal(s): Pt will remain free from falls/injury this shift (01/29/24 1900) Possible barriers to meeting goal(s)/advancing plan of care: Pt condition Stability of the patient: Moderately stable - low risk of patient condition declining or worsening Summary regarding today's goal(s): Met: Pt remained free from falls/injury Recommendations: Continue fall precautions/hourly rounding * Care Plan - Abeba Nagel RN - 01/29/2024 6:09 PM EST Clinical Goal(s): Patient will remain free from falls and injuries this shift (01/29/24 0720) Possible barriers to meeting goal(s)/advancing plan of care: pain management, mobility, infection. Stability of the patient: Moderately stable - low risk of patient condition declining or worsening Summary regarding today's goal(s): Met: Patient remained free from fall or injury this shift. Recommendations: Continue to monitor labs, start antibiotics, pain management, assist with ADLs, and purposeful hourly rounding, PT/OT daily, increase mobility as tolerated. * Care Plan - Jeaneth Maguire LPN - 01/29/2024 5:41 AM EST Clinical Goal(s): Patient will remain free from falls and injuries this shift. (01/28/24 190) Possible barriers to meeting goal(s)/advancing plan of care: Patient will remain free from falls and injuries this shift. Stability of the patient: Moderately stable - low risk of patient condition declining or worsening Summary regarding today's goal(s): Met: Patient remained free from falls and injuries this shift. Recommendations: Continue safety precautions. * Care Plan - Abeba Nagel RN - 01/28/2024 6:23 PM EDT Clinical Goal(s): Patient will remain free from injury (01/28/24 0659) Possible barriers to meeting goal(s)/advancing plan of care: patient condition, unsteady gait. Stability of the patient: Moderately stable - low risk of patient condition declining or worsening Summary regarding today's goal(s): Met: Patient remained free from injury this shift. Recommendations: Continue to assist with ADLs, bed alarm, purposeful hourly rounding. * Care Plan - Jeaneth Maguire LPN - 01/28/2024 6:06 AM EDT Clinical Goal(s): Patient will remain free from falls and injuries this shift. (01/27/24 190) Possible barriers to meeting goal(s)/advancing plan of care: Patient condition. Stability of the patient: Moderately stable - low risk of patient condition declining or worsening Summary regarding today's goal(s): Met: Patient remained free from falls and injuries this shift. Recommendations: Continue safety precautions. * Ancillary Progress Note - Sandra Claudio RN - 01/27/2024 2:21 PM EDT Injured Trauma Survivor Screen (ITSS) BEFORE THIS INJURY Have you ever taken medication for, or been given a mental health diagnosis? PTSD:N/A DEP: No- 0 Has there ever been a time in your life you have been bothered by feeling down or hopeless or lost all interest in the things you usually enjoyed for more than 2 weeks? PTSD: N/A DEP: No- 0 WHEN YOU WERE INJURED OR RIGHT AFTERWARD 3. Did you think you were going to ? PTSD: No- 0 DEP: No- 0 4. Do you think this was done to you intentionally? PTSD: No- 0, DEP: N/A SINCE YOUR INJURY 5. Have you felt emotionally detached from your loved ones? PTSD: N/A, DEP No- 0 6. Do you find yourself crying and unsure why? PTSD: N/A, DEP No- 0 7. Have you felt more restless, tense or jumpy than usual? PTSD: No- 0, DEP: N/A 8. Have you found yourself unable to stop worrying? PTSD: No- 0, DEP: N/A 9. Do you find yourself thinking that the world is unsafe and that people are not to be trusted? PTSD No- 0 DEP: N/A TOTAL SCORE: PTSD: 0, DEP 0 Score > or = 2 in PTSD category is positive for PTSD risk (place psychology consult for Dr Evans indicating + ITSS) Score > or = 2 in DEP category is positive for Depression Risk (check with Dr Evans to see if aconsult is needed) Sandra Claudio RN, BSN, TCRN, CCRN-K Trauma Preventive Medicine Officer [facility] 01/27/2024 2:22 PM * Ancillary Progress Note - Sandra Claudio RN - 01/27/2024 2:20 PM EDT SBIRT NOTE Was screening able to be completed? Yes If unable to be completed, why? n/a S (screening) CAGE-AID Substance Abuse Screening Tool (Any "yes" answer indicates a positive screen) C Have you ever felt the need to Cut down on your drinking or drug use? No A Have people Annoyed you by criticizing your drinking or drug use? No G Have you ever felt Guilty about drinking or drug use? No E Have you ever felt you needed a drink or used drugs first thing in the morning to steady your nerves or to get rid of a hangover (Eye-Straight Line Press Setter)? No BI (brief intervention) to be done on all patients: I have reviewed both ETOH/ Urine Tox screen with patient and discussed the results as well. After reviewing the results patient admits they they do or do not feel their drinking &/or druguse interferes with their life/goals for the future. Do Not Patient does or does not want to be referred to treatment at this time. Does not RT (referral for treatment) to be done if BI and/or screening +, or any concerns/issues arose whilespeaking with patient (pamphlet for area services given to all pts no matter what): Not referred (reason why no concerns during initial screening nor brief intervention at this time) Sandra Claudio RN, BSN, TCRN, CCRN-K Trauma Preventive Medicine Officer [facility] 01/27/2024 2:21 PM * Ancillary Progress Note - Sandra Claudio RN - 01/27/2024 2:19 PM EDT NURSING PROGRESS NOTE - Rehabilitation Review - Trauma Surgery [facility] [address] Name: Tatiana Roman Location: [facility] G509/A Date: 01/27/2024 Time: 2:19 PM ADULT REHABILITATION REVIEW Chart reviewed according to [employer] guidelines. Case discussed in trauma rounds. Mechanism of Injury: s/p fall. Injuries consistant with mechanism. Neurosurgery and Cardiology both consulted. Occupation: retired. Injury prevention: discussed with patient at bedside. Re habilitation needs assessed. Rehabilitation Medicine: N/A Trauma Psychology: N/A Alcohol/Chemical Dependency: yes -- SBIRT done Social Work: yes -- Oracio Herrera MSW following as needed Physical Therapy: yes -- consult placed Speech Pathology: yes -- consult placed Occupational Therapy: yes -- consult placed Independent Insurance Adjuster Services: yes -- following as needed Patient lives at home with . 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 Will follow for needs. Sandra Claudio RN, BSN, TCRN, CCRN-K Trauma Preventive Medicine Officer [facility] 01/27/2024 2:20 PM * Ancillary Progress Note - Cecilia Navarrete Chaplain - 01/27/2024 1:34 PM EDT PROGRESS NOTE - Spiritual Care Contact Information [facility] [address] Name: Tatiana Roman Location: [facility] G509/A Date: 01/27/2024 Time: 1:34 PM Confucianist: Yarsanism [49] Temple Affiliations: REASON FOR VISIT: follow-up visit REQUEST RECEIVED FROM: staff member - Name: Duty Independent Insurance Adjuster VISIT LENGTH: 45 REQUEST FACTORS (Nature of Situation): Follow-up Visit FOCUS OF CARE: Patient SPIRITUAL CARE PROVIDED: Independent Insurance Adjuster addressed needs/concerns and/or coping through: [place], Listening presence, Supportive dialogue, and ongoing prayer REFERRAL TO: N/A OUTCOMES: [place], Peace/Gratitude ANNOTATION: FUVisit. Patient was very funny... she obviously uses humor to cope. Frustrated with herself that she fell. She waited three days to go to hospital, admits that may not have been her bestdecision. She addressed the fact that there are things she wants to continue doing, and the fact that ignoring her injuries does not help her get on with all that "God has left for her to do in this world." We shared serious conversation and also laughter. If she's going to dance out the door, she understands she needs to pay very careful attention to what staff says. Because she has work to do and fun to have. It was a pao and inspiring visit. I will be praying for her. SWETA * Ancillary Progress Note - Clara Hartley BSW - 01/27/2024 11:57 AM EDT CARE MANAGEMENT - TRAUMA INITIAL SCREENING [address] [address] Name: Tatiana Roman Location: [facility] G5/ Date: 01/27/2024 Time: 11:58 AM Discussed with Trauma and with the interdisciplinary care team. This Library Circulation Assistant performed a chartreview and met with pt at bedside to complete admission screen and assessed needs for transition planning. The childcare aide role and services were explained and emotional support was provided. Chief Complaint: Trauma and Fall Prior Living Arrangements What was your living situation prior to admission/observation?: With Spouse (01/27/241155) Living Quarters: Apartment (01/27/241155) Number of steps to enter living quarters:: 28 (01/27/241155) How many stories is the dwelling?: One Story (01/27/241155) Prior Level of Functioning Describe the patient's ability prior to admission/observation to perform ADLs: Performs independently (01/27/241155) Describe the patient's mobility status prior to admission: Patient ambulates independently (01/27/241155) Patient uses assistive device: No (01/27/241155) Caregiver Information Patient Contacts Name Relation Home Work Mobile NADINE ROMAN Spouse [phone] IRAIDA BAZZI Adult Child [phone] Risk Stratification Risk Stratification Psycho Social / Medical Concerns Identified: Adjustment to illness/injury (01/27/241155) OBRA or OPTIONS needed for placement: No (01/27/241155) Readmission Risk Score: 8.28 (01/27/24 0801) Prior to Admission Services Services Prior to Admission TRUCK DRIVER SALESPERSON Transportation (Services received within the last 30 days): Patient drives self (01/27/241155) Outpatient Library Circulation Assistant: No care clinical team manager to display Comments: Pt lives in a one story apartment with her . There are 28 steps to get into her apartment. TRUCK DRIVER SALESPERSON pt was independent of her ADL's and used no DME. Pt had gone to an IRF in the past, [facility] in [place]. TRUCK DRIVER SALESPERSON pt has not had any HH, D&A or MH involvement. TRUCK DRIVER SALESPERSON pt drives herself. Pt uses [facility] in [place] for her medications. She does have LW and POA. PT also informed SW that she has a granddaughter that lives in the same apartment building who is a support person for pt. SW will continue to follow, address pt's evolving needs, and provide psychosocial support. Update 1:25pm: SW followed up with pt to double check that pt has a stair lift at home as seen in therapy's notes. Pt does have a stair lift at home that she can utilize to go up the stairs to her apartment. Patient/Family Expectations: TBD For further screening information, please refer to the Care Management flow document. * Ancillary Progress Note - Marah Francis RDN - 01/27/2024 11:17 AM EDT CLINICAL NUTRITION ADULT RISK ASSESSMENT [address] [address] Name: Tatiana Roman Location: [facility] G509/A Date: 01/27/2024 Time: 11:17 AM How patient was identified (select 2): Medical record number and Name Tatiana Roman is a 83 year old female being assessed for clinical nutrition risk related to trauma Primary diagnosis: Subdural hemorrhage Other pertinent information: The pt was evaluated by speech therapy this morning, no dysphagia. Does wear upper and lower dentures. The pt is allergic to cashew nut oil. Anthropometrics Measurements Admission weight (for dietitians): 63.8 kg Weight: 63.8 kg (140 lb 10.5 oz) (01/27/24 0800) Usual Body Weight or EDW for Dialysis Patients: 63 kg Diet: Heart Healthy, 2 gm Sodium Previously followed diet: Regular Food Allergies/Intolerances: Cashew Nut Oil Oral Nutrition Supplement (ONS): None Pertinent medications/vitamins/minerals/supplements: Colace, Senokot RISK FACTORS: Adult Energy Intake: No significant decrease Interpretation of Weight Change: No recent/significant weight change Skin: Intact NUTRITION RISK CATEGORY: Nutrition Risk Category: Low/Moderate (0-1 factors) Clinical Nutrition Recommendations: Diet: Continue current nutrition plan NUTRITION INTERVENTION/PLAN: Continue current care plan Will follow and adjust nutritional plan as medical condition requires. Please contact for change(s)in patient condition requiring earlier intervention. Marah Francis RDN, MARY JON Clinical Nutrition Services Phone: [phone] [facility] * Ancillary Progress Note - Mona Loja RRT - 01/27/2024 5:11 AM EDT PATIENT DRIVEN PROTOCOL - Respiratory Care Services [facility] [address] Name: Tatiana Roman Location: [facility] G509/A Date: 01/27/2024 Time: 5:11 AM Patient Driven Protocol Summary: Initial evaluation performed. This Treatment Plan and medications will be reviewed by the Primary Care Team for any contraindications. Respiratory Care Treatment Plan Pulmonary Volume Expansion Therapy: Incentive Spirometry BID PRN to prevent or treat alveolar consolidation and atelectasis. Patient educated on device and is able to use it effectively on their own. Patient to self administer. The patient will be re-evaluated: No re-evaluation needed. Indications for treatment met. The Triage Level is: (Assessment Score = 0 - 5) Level 5. Triage Level Definitions: Level 1 Severe Respiratory/Airway Compromise Level 2 Moderate Respiratory/Airway Compromise or high risk for pulmonary complications Level 3 Mild Respiratory/Airway Compromise or moderate risk for pulmonary complications Level 4 Episodic Respiratory/Airway Compromise or low risk for pulmonary complications Level 5 No Respiratory/Airway Compromise Triage 1 Triage 2 Triage 3 Triage 4 Triage 5 greater than 20 16 - 20 11 - 15 6 - 10 0 - 5 Medical Record Assessment Clinical Findings Pulmonary Status: 0 - No History Surgical Status: 0 - No Surgical History Chest X-Ray: 1 - Chronic Changes or CHF - R Rib Fxs Assessment Score: 1 Patient Assessment Clinical Findings Respiratory Pattern: 0 - RR 12 - 20; Patient only gets breathless with strenuous exercise. Breath Sounds: 0 - Clear to auscultation Cough Effectiveness: 0 - Strong non-productive Sputum Production: 0 - No sputum production Level of Activity: 2 - Temporarily non-ambulatory O2 needed to keep SpO2 greater than or equal to 92%: 0 - Room Air Assessment Score: 2 Total Assessment Score: 3 Breath Sounds: Inspiratory and expiratory clear and diminished bilaterally.. Cough and Sputum: No cough was present.. CXR: FINDINGS No focal airspace consolidation. Coarsened parenchymal markings bilaterally. There is no pleural effusion. The pulmonary vasculature and cardiomediastinal silhouette are within normal limits given APsupine technique. Nondisplaced right rib fractures.. IMPRESSION IMPRESSION Nondisplaced right rib fractures. No pneumothorax.. Vital Signs: Resp: 13 (01/27/24399) Pulse: 75 (01/27/24399) Temp: 36.5 C (97.7 F) (01/27/24399) BP: 92/61 (01/27/24399) SpO2: 95 % (01/27/24399) PFT: Minimal Predicted IC: 0.783 L. Inspiratory capacity: 1.5L. Primary Service: Critical Care Black. Admitting Diagnosis: Subdural hemorrhage (HCC) [I62.00] Pulmonary Diagnosis: No prior pulmonary history . * Medical Necessity - Meet Shell, Utilization Review Staff - 01/26/2024 10:02 PM EDT AdmissionCare Guideline: Trauma - INPT, Inpatient Based on the indications selected for the patient, the bed status of Inpatient was determined to beMET The following indications were selected as present at the time of evaluation of the patient: - Clinical Indications for Admission to Inpatient Care - Hospital admission is indicated when patient with significant multiple trauma requires inpatient care for 1 or more of the following: - Multiple Trauma and one or more General Admission Criteria or Pediatric General Admission Criteria Additional Information: fall subdural hematoma, right 4 - 10 rib fractures, and new onset a-fib with RVR AdmissionCare documentation entered by: Meet Shell [facility] [employer], 28th edition, Copyright 2023 [facility] [employer] All Rights Reserved. [id number]:02:28-04:00 Solely for purpose of utilization review and payment; not a diagnostic tool * Ancillary Progress Note - Villa Daniel Chaplain - 01/26/2024 9:37 PM EDT PROGRESS NOTE-Spiritual Care Trauma Alert [facility] [address] Name: Tatiana Roman Location: Date: 01/26/2024 Time: 9:38 PM Confucianist: Yarsanism [49] Temple Affiliations: REASON FOR CONTACT: Trauma Alert Response TYPE OF ALERT: Adult Level 2 TIME OF ALERT: 2113 CONTACT LENGTH: 10 MECHANISM OF INJURY/DESCRIPTION OF INCIDENT: Fall TRAUMA STATUS: identified - on arrival Patient Name: Tatiana Roman Address: [address] [place] [id number] Date of : 42 Source of Information:Hospital Records Confirmed By: Name - patient Relationship to Patient - self EMERGENCY CONTACT INFORMATION: EMERGENCY CONTACT 1: Name: Nadine Roman Relationship: Phone Numbers - Home: Work: Time of Contact: n/a ANNOTATION: Independent Insurance Adjuster met the patient in the trauma bay and introduced himself as a member of the interdisciplinary care team. The patient said that all her family now that she is here and will be following up tomorrow because it is late. The Independent Insurance Adjuster provided supportive dialogue, encouraging words and comfort. The patient was appreciative of the support. INDIGO Other family members contact #'s: [place] - [phone] [place] - [phone] [facility] [phone] [facility] [phone] REFERRED TO TECHNICAL TRAINER: Duty Independent Insurance Adjuster, Date - 01/26/24, Time - 2142 documented in this encounter Plan of Treatment Upcoming Encounters Date Type Department Care Team (Late st Contact Info) Description 02/14/2024 2:00 PM EST Telemedicine General Surgery, [address] [id number], Tra[facility] [address] [place] [address] 03/07/2024 9:20 AM EST Office Visit Neurosurgery, [place] [address] [place] [address] Mdc, Traumatic Brain Injury [address] [place] [address] Scheduled Orders Name Type Priority Associated Diagnoses Orde r Schedule CT HEAD/BRAIN WO CONTRAST Medical Imaging Routine Subdural hemorrhage (HCC) Expected: 02/10/2024, Expires: 02/25/2025 XR CHEST 2 VIEWS Medical Imaging STAT Fall, initial encounter Expected: 02/14/2024, Expires: 03/01/2025 Scheduled Procedures Name Priority Associated Diagnoses Date/Ti [...] Not on filedocumented as of this encounter Procedures Procedure Name Priority Date/Time Associated Diagnosis Comments DIFFERENTIAL, AUTOMATED Routine 01/31/2024 4:09 AM EST BASIC METABOLIC PANEL Routine 01/31/2024 4:09 AM EST CBC Routine 01/31/2024 4:09 AM EST CBC Routine 01/31/2024 4:09 AM EST DIFFERENTIAL, AUTOMATED Routine 01/30/2024 4:39 AM EST BASIC METABOLIC PANEL Routine 01/30/2024 4:39 AM EST CBC Routine 01/30/2024 4:39 AM EST PHOSPHORUS Routine 01/30/2024 4:39 AM EST CALCIUM, IONIZED Routine 01/30/2024 4:39 AM EST CBC Routine 01/30/2024 4:39 AM EST MAGNESIUM Routine 01/30/2024 4:39 AM EST DIFFERENTIAL, AUTOMATED Routine 01/29/2024 4:23 AM EST BASIC METABOLIC PANEL Routine 01/29/2024 4:23 AM EST CBC Routine 01/29/2024 4:23 AM EST PHOSPHORUS Routine 01/29/2024 4:23 AM EST CALCIUM, IONIZED Routine 01/29/2024 4:23 AM EST CBC Routine 01/29/2024 4:23 AM EST MAGNESIUM Routine 01/29/2024 4:23 AM EST DIFFERENTIAL, AUTOMATED Routine 01/28/2024 3:47 AM EDT BASIC METABOLIC PANEL Routine 01/28/2024 3:47 AM EDT CBC Routine 01/28/2024 3:47 AM EDT PHOSPHORUS Routine 01/28/2024 3:47 AM EDT CALCIUM, IONIZED Routine 01/28/2024 3:47 AM EDT CBC Routine 01/28/2024 3:47 AM EDT MAGNESIUM Routine 01/28/2024 3:47 AM EDT XR CHEST 1 VIEW STAT 01/27/2024 8:54 PM EDT ECHO, COMPLETE (2D), TRANS-THORACIC Routine 01/27/2024 1:56 PM EDT Trauma of chest CT HEAD/BRAIN WO CONTRAST STAT 01/27/2024 6:54 AM EDT Nontraumatic intracerebral hemorrhage, unspecified (HCC) Exposure to other specified factors, initial encounter 3D RECONS REQUESTED FROM OUTSIDE SCAN (OUTSIDE IMAGES FOR CLINICAL USE ONLY/NO REPORT)-FOR 3D LAB USE ONLY Routine 01/27/2024 6:54 AM EDT DIFFERENTIAL, AUTOMATED Routine 01/27/2024 6:29 AM EDT TSH WITH FREE T4 IF INDICATED STAT 01/27/2024 6:29 AM EDT BASIC METABOLIC PANEL Routine 01/27/2024 6:29 AM EDT CBC Routine 01/27/2024 6:29 AM EDT PHOSPHORUS Routine 01/27/2024 6:29 AM EDT CALCIUM, IONIZED Routine 01/27/2024 6:29 AM EDT CBC Routine 01/27/2024 6:29 AM EDT MAGNESIUM Routine 01/27/2024 6:29 AM EDT CALCIUM, IONIZED, WHOLE BLOOD Routine 01/26/2024 11:23 PM EDT TOXICOLOGY, URINESCREEN W/ CONFIRMATION STAT 01/26/2024 11:13 PM EDT CULTURE, URINE, QUANTITATIVE Routine 01/26/2024 11:13 PM EDT HEROIN, URINE CONFIRMATION STAT 01/26/2024 11:13 PM EDT OPIOIDS, URINE CONFIRMATION STAT 01/26/2024 11:13 PM EDT URINALYSIS, REFLEX TO MICROSCOPIC STAT 01/26/2024 11:13 PM EDT SARS-COV-2 (COVID-19), NAAT STAT 01/26/2024 10:31 PM EDT CTA NECK W CONTRAST STAT 01/26/2024 1 0:18 PM EDT Nontraumatic 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) Nontraumatic acute subdural hemorrhage (HCC) Exposure to other specified factors, initial encounter CT HEAD/BRAIN WO CONTRAST STAT 01/26/2024 10:18 PM EDT Nontraumatic 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) Nontraumatic acute subdural hemorrhage (HCC) Exposure to other specified factors, initial encounter HC ECG TRACING ONLY STAT 01/26/2024 1 0:07 PM EDT Screening for cardiovascular condition RADIOLOGY EXAM - CT (IMAGES ONLY, NO REPORT) Routine 01/26/2024 9:34 PM EDT RADIOLOGY EXAM - CT (IMAGES ONLY, NO REPORT) Routine 01/26/2024 9:34 PM EDT XR CHEST 1 VIEW Routine 01/26/2024 9:32 PM EDT Multiple fractures of ribs, right side, initial encounter for closed fracture Exposure to other specified factors, initial encounter DIFFERENTIAL, AUTOMATED STAT 01/26/2024 9:30 PM EDT BASIC METABOLIC PANEL STAT 01/26/2024 9:30 PM EDT ABO/RH STAT 01/26/2024 9:30 PM EDT TYPE AND SCREEN STAT 01/26/2024 9:30 PM EDT CBC STAT 01/26/2024 9:30 PM EDT PT INR STAT 01/26/2024 9:30 PM EDT AST STAT 01/26/2024 9:30 PM EDT LACTATE STAT 01/26/2024 9:30 PM EDT ETHANOL, MEDICAL STAT 01/26/2024 9:30 PM EDT APTT STAT 01/26/2024 9:30 PM EDT CBC STAT 01/26/2024 9:30 PM EDT documented in this encounter Results * (ABNORMAL) DIFFERENTIAL, AUTOMATED (01/31/2024 4:09 AM EST) WBC 3.97(L) 4.00 - 10.80 K/uL 01/31/2024 4:35 AM EST [facility] Neutrophils % 55.3 40.0 - 75.0 % 01/31/2024 4:35 AM EST [facility] Lymphocytes % 23.7 18.0 - 42.0 % 01/31/2024 4:35 AM EST [facility] Monocytes % 11.1(H) 1.0 - 11.0 % 01/31/2024 4:35 AM EST [facility] Eosinophils % 8.8(H) 0.0 - 6.0 % 01/31/2024 4:35 AM EST [facility] Basophils % 0.8 0.0 - 2.0 % 01/31/2024 4:35 AM EST [facility] Immature Granulocytes % 0.3 0.0 - 2.0 % 01/31/2024 4:35 AM EST [facility] Absolute Neutrophils 2.20 1.80 - 7.70 K/uL 01/31/2024 4:35 AM EST [facility] Absolute Lymphocytes 0.94(L) 1.00 - 4.80 K/ul 01/31/2024 4:35 AM EST [facility] Absolute Monocytes 0.44 0.00 - 1.10 K/uL 01/31/2024 4:35 AM EST [facility] Absolute Eosinophils 0.35 0.00 - 0.70 K/uL 01/31/2024 4:35 AM EST [facility] Absolute Basophils 0.03 0.00 - 0.20 K/uL 01/31/2024 4:35 AM EST [facility] Absolute Immature Granulocytes 0.01 0.00 - 0.20 K/uL 01/31/2024 4:35 AM EST [facility] Blood Venous blood specimen / Unknown Venipuncture / Unknown 01/31/2024 4:09 AM EST 01/31/2024 4:24 AM EST Karina Hayden DO LAB BLOOD ORDER GABI [facility] [address] [place] [address] * (ABNORMAL) CBC (01/31/2024 4:09 AM EST) WBC 3.97(L) 4.00 - 10.80 K/uL 01/31/2024 4:35 AM EST [facility] RBC 3.94 3.85 - 5.15 M/uL 01/31/2024 4:35 AM EST [facility] HGB 12.6 12.0 - 15.3 g/dL 01/31/2024 4:35 AM EST [facility] HCT 38.4 36.0 - 45.2 % 01/31/2024 4:35 AM EST [facility] MCV 97.5 81.5 - 97.5 fL 01/31/2024 4:35 AM EST [facility] MCH 32.0 27.0 - 34.0 pg 01/31/2024 4:35 AM EST [facility] MCHC 32.8 32.0 - 36.0 g/dL 01/31/2024 4:35 AM EST [facility] RDW 12.7 11.5 - 15.5 % 01/31/2024 4:35 AM EST [facility] PLT 174 140 - 400 K/uL 01/31/2024 4:35 AM EST [facility] MPV 9.7 6.6 - 11.1 fL 01/31/2024 4:35 AM EST [facility] nRBCs 0 <=0 /100 WBCs 01/31/2024 4:35 AM EST [facility] Blood Venous blood specimen / Unknown Venipuncture / Unknown 01/31/2024 4:09 AM EST 01/31/2024 4:24 AM EST Karina Hayden DO LAB BLOOD ORDER GABI Performing Organization Address City/State/[facility] Co de Phone Number LABORATORY [facility] [address] [place] [address] * (ABNORMAL) BASIC METABOLIC PANEL (01/31/2024 4:09 AM EST) BUN 9 6 - 20 mg/dL 01/31/2024 4:55 AM EST [facility] CREATININE 0.7 0.5 - 1.0 mg/dL 01/31/2024 4:55 AM EST [facility] EGFR 83 >=60 mL/min 01/31/2024 4:55 AM EST [facility] Comment:eGFR is calculated b ased on the CKD-EPI 2020 equation. SODIUM 140 135 - 146 mmol/L 01/31/2024 4:55 AM EST [facility] POTASSIUM 4.0 3.5 - 5.1 mmol/L 01/31/2024 4:55 AM EST [facility] CHLORIDE 108(H) 98 - 107 mmol/L 01/31/2024 4:55 AM EST [facility] CO2 23 22 - 32 mmol/L 01/31/2024 4:55 AM EST [facility] ANION GAP 9 7 - 15 mmol/L 01/31/2024 4:55 AM EST [facility] GLUCOSE 96 70 - 120 mg/dL 01/31/2024 4:55 AM EST [facility] CALCIUM 9.3 8.4 - 10.2 mg/dL 01/31/2024 4:55 AM EST [facility] Blood Venous blood specimen / Unknown Venipuncture / Unknown 01/31/2024 4:09 AM EST 01/31/2024 4:24 AM EST Karina Hayden DO LAB BLOOD ORDER GABI [facility] [address] [place] [address] * (ABNORMAL) DIFFERENTIAL, AUTOMATED (01/30/2024 4:39 AM EST) WBC 4.36 4.00 - 10.80 K/uL 01/30/2024 5:06 AM EST [facility] Neutrophils % 61.5 40.0 - 75.0 % 01/30/2024 5:06 AM EST [facility] Lymphocytes % 22.7 18.0 - 42.0 % 01/30/2024 5:06 AM EST [facility] Monocytes % 8.9 1.0 - 11.0 % 01/30/2024 5:06 AM EST [facility] Eosinophils % 5.7 0.0 - 6.0 % 01/30/2024 5:06 AM EST [facility] Basophils % 0.7 0.0 - 2.0 % 01/30/2024 5:06 AM EST [facility] Immature Granulocytes % 0.5 0.0 - 2.0 % 01/30/2024 5:06 AM EST [facility] Absolute Neutrophils 2.68 1.80 - 7.70 K/uL 01/30/2024 5:06 AM EST [facility] Absolute Lymphocytes 0.99(L) 1.00 - 4.80 K/ul 01/30/2024 5:06 AM EST [facility] Absolute Monocytes 0.39 0.00 - 1.10 K/uL 01/30/2024 5:06 AM EST [facility] Absolute Eosinophils 0.25 0.00 - 0.70 K/uL 01/30/2024 5:06 AM EST [facility] Absolute Basophils 0.03 0.00 - 0.20 K/uL 01/30/2024 5:06 AM EST [facility] Absolute Immature Granulocytes 0.02 0.00 - 0.20 K/uL 01/30/2024 5:06 AM EST [facility] Blood Venous blood specimen / Unknown Venipuncture / Unknown 01/30/2024 4:39 AM EST 01/30/2024 4:54 AM EST Karina Hayden DO LAB BLOOD ORDER GABI [facility] [address] [place] [address] * CBC (01/30/2024 4:39 AM EST) WBC 4.36 4.00 - 10.80 K/uL 01/30/2024 5:06 AM EST [facility] RBC 4.31 3.85 - 5.15 M/uL 01/30/2024 5:06 AM EST [facility] HGB 13.8 12.0 - 15.3 g/dL 01/30/2024 5:06 AM EST [facility] HCT 42.4 36.0 - 45.2 % 01/30/2024 5:06 AM EST [facility] MCV 98.4 81.5 - 97.5 fL 01/30/2024 5:06 AM EST [facility] MCH 32.0 27.0 - 34.0 pg 01/30/2024 5:06 AM EST [facility] MCHC 32.5 32.0 - 36.0 g/dL 01/30/2024 5:06 AM EST [facility] RDW 12.7 11.5 - 15.5 % 01/30/2024 5:06 AM EST [facility] PLT 173 140 - 400 K/uL 01/30/2024 5:06 AM EST [facility] MPV 9.4 6.6 - 11.1 fL 01/30/2024 5:06 AM EST [facility] nRBCs 0 <=0 /100 WBCs 01/30/2024 5:06 AM EST [facility] Blood Venous blood specimen / Unknown Venipuncture / Unknown 01/30/2024 4:39 AM EST 01/30/2024 4:54 AM EST Karina Hayden DO LAB BLOOD ORDER GABI Performing Organization Address [facility] Co de Phone Number LABORATORY [facility] [address] [place] [address] * PHOSPHORUS (01/30/2024 4:39 AM EST) Phosphorus 3.0 2.5 - 4.8 mg/dL 01/30/2024 5:28 AM EST LABORATORY [facility] Blood Venous blood specimen / Unknown Venipuncture / Unknown 01/30/2024 4:39 AM EST 01/30/2024 4:54 AM EST Karina Hayden DO LAB BLOOD ORDER GABI Performing Organization Address [facility] de Phone Number LABORATORY [place] [address] [place] [address] * MAGNESIUM (01/30/2024 4:39 AM EST) Magnesium 2.1 1.5 - 2.6 mg/dL 01/30/2024 5:28 AM EST LABORATORY [facility] Blood Venous blood specimen / Unknown Venipuncture / Unknown 01/30/2024 4:39 AM EST 01/30/2024 4:54 AM EST Karina Hayden DO LAB BLOOD ORDER GABI Performing Organization Address [facility] de Phone Number LABORATORY [facility] [address] [place] [address] * CALCIUM, IONIZED (01/30/2024 4:39 AM EST) Calcium, Ionized 1.29 1.13 - 1.32 mmol/L 01/30/2024 5:28 AM EST LABORATORY [facility] Comment:This test was develo ped and its performance characteristics dtermined by [employer]. It has not been cleared or approved by the [place] Food and Drug Administration Blood Venous blood specimen / Unknown Venipuncture / Unknown 01/30/2024 4:39 AM EST 01/30/2024 4:54 AM EST Karina Hayden DO LAB BLOOD ORDER GABI [facility] [address] [place] [address] * BASIC METABOLIC PANEL (01/30/2024 4:39 AM EST) [facility] BUN 10 6 - 20 mg/dL 01/30/2024 5:28 AM EST [facility] CREATININE 0.7 0.5 - 1.0 mg/dL 01/30/2024 5:28 AM EST [facility] EGFR 88 >=60 mL/min 01/30/2024 5:28 AM EST [facility] Comment:eGFR is calculated b ased on the CKD-EPI 2020 equation. SODIUM 141 135 - 146 mmol/L 01/30/2024 5:28 AM EST [facility] POTASSIUM 3.8 3.5 - 5.1 mmol/L 01/30/2024 5:28 AM EST [facility] CHLORIDE 107 98 - 107 mmol/L 01/30/2024 5:28 AM EST [facility] CO2 25 22 - 32 mmol/L 01/30/2024 5:28 AM EST [facility] ANION GAP 9 7 - 15 mmol/L 01/30/2024 5:28 AM EST [facility] GLUCOSE 100 70 - 120 mg/dL 01/30/2024 5:28 AM EST [facility] CALCIUM 9.3 8.4 - 10.2 mg/dL 01/30/2024 5:28 AM EST LABORATORY C Blood Venous blood specimen / Unknown Venipuncture / Unknown 01/30/2024 4:39 AM EST 01/30/2024 4:54 AM EST Karina Hayden DO LAB BLOOD ORDER GABI LAB[facility] [address] [place] [address] * (ABNORMAL) DIFFERENTIAL, AUTOMATED (01/29/2024 4:23 AM EST) Pathologist [facility] WBC 4.02 4.00 - 10.80 K/uL 01/29/2024 4:43 AM EST [facility] Neutrophils % 47.2 40.0 - 75.0 % 01/29/2024 4:43 AM EST [facility] Lymphocytes % 33.1 18.0 - 42.0 % 01/29/2024 4:43 AM EST [facility] Monocytes % 12.2(H) 1.0 - 11.0 % 01/29/2024 4:43 AM EST [facility] Eosinophils % 6.5(H) 0.0 - 6.0 % 01/29/2024 4:43 AM EST [facility] Basophils % 0.5 0.0 - 2.0 % 01/29/2024 4:43 AM EST [facility] Immature Granulocytes % 0.5 0.0 - 2.0 % 01/29/2024 4:43 AM EST [facility] Absolute Neutrophils 1.90 1.80 - 7.70 K/uL 01/29/2024 4:43 AM EST [facility] Absolute Lymphocytes 1.33 1.00 - 4.80 K/ul 01/29/2024 4:43 AM EST [facility] Absolute Monocytes 0.49 0.00 - 1.10 K/uL 01/29/2024 4:43 AM EST [facility] Absolute Eosinophils 0.26 0.00 - 0.70 K/uL 01/29/2024 4:43 AM EST [facility] Absolute Basophils 0.02 0.00 - 0.20 K/uL 01/29/2024 4:43 AM EST [facility] Absolute Immature Granulocytes 0.02 0.00 - 0.20 K/uL 01/29/2024 4:43 AM EST [facility] Blood Venous blood specimen / Unknown Venipuncture / Unknown 01/29/2024 4:23 AM EST 01/29/2024 4:30 AM EST Karina Hayden DO LAB BLOOD ORDER GABI [facility] [address] [place] [address] * (ABNORMAL) CBC (01/29/2024 4:23 AM EST) WBC 4.02 4.00 - 10.80 K/uL 01/29/2024 4:43 AM EST [facility] RBC 3.76 3.85 - 5.15 M/uL 01/29/2024 4:43 AM EST [facility] HGB 11.8(L) 12.0 - 15.3 g/dL 01/29/2024 4:43 AM EST [facility] HCT 36.7 36.0 - 45.2 % 01/29/2024 4:43 AM EST [facility] MCV 97.6 81.5 - 97.5 fL 01/29/2024 4:43 AM EST [facility] MCH 31.4 27.0 - 34.0 pg 01/29/2024 4:43 AM EST [facility] MCHC 32.2 32.0 - 36.0 g/dL 01/29/2024 4:43 AM EST [facility] RDW 12.8 11.5 - 15.5 % 01/29/2024 4:43 AM EST [facility] PLT 165 140 - 400 K/uL 01/29/2024 4:43 AM EST [facility] MPV 9.5 6.6 - 11.1 fL 01/29/2024 4:43 AM EST [facility] nRBCs 0 <=0 /100 WBCs 01/29/2024 4:43 AM EST [facility] Blood Venous blood specimen / Unknown Venipuncture / Unknown 01/29/2024 4:23 AM EST 01/29/2024 4:30 AM EST Karina Hayden DO LAB BLOOD ORDER GABI LAB[facility]ATORY [facility] [address] [place] [address] * PHOSPHORUS (01/29/2024 4:23 AM EST) Phosphorus 2.9 2.5 - 4.8 mg/dL 01/29/2024 5:01 AM EST [facility] Blood Venous blood specimen / Unknown Venipuncture / Unknown 01/29/2024 4:23 AM EST 01/29/2024 4:30 AM EST Karina Hayden DO LAB BLOOD ORDER GABI Performing Organization Address [facility] Co de Phone Number LABORATORY [facility] [address] [place] [address] * MAGNESIUM (01/29/2024 4:23 AM EST) Magnesium 1.7 1.5 - 2.6 mg/dL 01/29/2024 5:01 AM EST LABORATORY [facility] Blood Venous blood specimen / Unknown Venipuncture / Unknown 01/29/2024 4:23 AM EST 01/29/2024 4:30 AM EST Karina Hayden DO LAB BLOOD ORDER GABI Performing Organization Address [facility] Phone Number LABORATORY [facility] [address] [place] [address] * (ABNORMAL) CALCIUM, IONIZED (01/29/2024 4:23 AM EST) Calcium, Ionized 1.37(H) 1.13 - 1.32 mmol/L 01/29/2024 4:42 AM EST LABORATORY [facility] Comment:This test was develo ped and its performance characteristics dtermined by [employer]. It has not been cleared or approved by the [place] Food and Drug Administration Blood Venous blood specimen / Unknown Venipuncture / Unknown 01/29/2024 4:23 AM EST 01/29/2024 4:30 AM EST Karina Peters Catracho DO LAB BLOOD ORDER GABI Performing Organization Address [facility] Co de Phone Number LABORATORY [facility] [address] [place] [address] * (ABNORMAL) BASIC METABOLIC PANEL (01/29/2024 4:23 AM EST) BUN 13 6 - 20 mg/dL 01/29/2024 5:01 AM EST LABORATORY [facility] CREATININE 0.7 0.5 - 1.0 mg/dL 01/29/2024 5:01 AM EST LAB[facility] EGFR 82 >=60 mL/min 01/29/2024 5:01 AM EST LAB[facility] Comment:eGFR is calculated b ased on the CKD-EPI 2020 equation. SODIUM 139 135 - 146 mmol/L 01/29/2024 5:01 AM EST [facility] POTASSIUM 4.4 3.5 - 5.1 mmol/L 01/29/2024 5:01 AM EST [facility] CHLORIDE 109(H) 98 - 107 mmol/L 01/29/2024 5:01 AM EST [facility] CO2 25 22 - 32 mmol/L 01/29/2024 5:01 AM EST [facility] ANION GAP 5(L) 7 - 15 mmol/L 01/29/2024 5:01 AM EST [facility] GLUCOSE 92 70 - 120 mg/dL 01/29/2024 5:01 AM EST [facility] CALCIUM 8.6 8.4 - 10.2 mg/dL 01/29/2024 5:01 AM EST [facility] Blood Venous blood specimen / Unknown Venipuncture / Unknown 01/29/2024 4:23 AM EST 01/29/2024 4:30 AM EST Karina Hayden DO LAB BLOOD ORDER GABI LAB[facility]ATORY [facility] [address] [place] [address] * (ABNORMAL) DIFFERENTIAL, AUTOMATED (01/28/2024 3:47 AM EDT) WBC 4.41 4.00 - 10.80 K/uL 01/28/2024 4:13 AM EDT LAB[facility]ATORY [facility] Neutrophils % 57.6 40.0 - 75.0 % 01/28/2024 4:13 AM EDT LAB[facility] Lymphocytes % 26.1 18.0 - 42.0 % 01/28/2024 4:13 AM EDT LAB[facility] Monocytes % 12.2(H) 1.0 - 11.0 % 01/28/2024 4:13 AM EDT LAB[facility] Eosinophils % 3.2 0.0 - 6.0 % 01/28/2024 4:13 AM EDT LAB[facility] Basophils % 0.7 0.0 - 2.0 % 01/28/2024 4:13 AM EDT LAB[facility]ORY [facility] Immature Granulocytes % 0.2 0.0 - 2.0 % 01/28/2024 4:13 AM EDT LAB[facility] Absolute Neutrophils 2.54 1.80 - 7.70 K/uL 01/28/2024 4:13 AM EDT LAB[facility] Absolute Lymphocytes 1.15 1.00 - 4.80 K/ul 01/28/2024 4:13 AM EDT LAB[facility]ATORY [facility] Absolute Monocytes 0.54 0.00 - 1.10 K/uL 01/28/2024 4:13 AM EDT LAB[facility]ORY [facility] Absolute Eosinophils 0.14 0.00 - 0.70 K/uL 01/28/2024 4:13 AM EDT LAB[facility]ATORY [facility] Absolute Basophils 0.03 0.00 - 0.20 K/uL 01/28/2024 4:13 AM EDT LAB[facility]ATORY [facility] Absolute Immature Granulocytes 0.01 0.00 - 0.20 K/uL 01/28/2024 4:13 AM EDT LAB[facility]ATORY [facility] Blood Venous blood specimen / Unknown Venipuncture / Unknown 01/28/2024 3:47 AM EDT 01/28/2024 3:58 AM EDT Karina Hayden DO LAB BLOOD ORDER GABI [facility] [address] [place] [address] * (ABNORMAL) CBC (01/28/2024 3:47 AM EDT) Pathologist [facility] WBC 4.41 4.00 - 10.80 K/uL 01/28/2024 4:13 AM EDT LAB[facility]ATORY [facility] RBC 3.70 3.85 - 5.15 M/uL 01/28/2024 4:13 AM EDT LAB[facility]ORY [facility] HGB 11.7(L) 12.0 - 15.3 g/dL 01/28/2024 4:13 AM EDT LAB[facility]ATORY [facility] HCT 36.2 36.0 - 45.2 % 01/28/2024 4:13 AM EDT LAB[facility]ORY [facility] MCV 97.8 81.5 - 97.5 fL 01/28/2024 4:13 AM EDT LABORATORY [facility] MCH 31.6 27.0 - 34.0 pg 01/28/2024 4:13 AM EDT LABORATORY [facility] MCHC 32.3 32.0 - 36.0 g/dL 01/28/2024 4:13 AM EDT LABORATORY [facility] RDW 12.9 11.5 - 15.5 % 01/28/2024 4:13 AM EDT LABORATORY [facility] PLT 157 140 - 400 K/uL 01/28/2024 4:13 AM EDT LABORATORY [facility] MPV 9.5 6.6 - 11.1 fL 01/28/2024 4:13 AM EDT LABORATORY [facility] nRBCs 0 <=0 /100 WBCs 01/28/2024 4:13 AM EDT LABORATORY [facility] Blood Venous blood specimen / Unknown Venipuncture / Unknown 01/28/2024 3:47 AM EDT 01/28/2024 3:58 AM EDT Karina Hayden DO LAB BLOOD ORDER GABI LABORATORY [facility] [address] [place] [address] * PHOSPHORUS (01/28/2024 3:47 AM EDT) Phosphorus 2.9 2.5 - 4.8 mg/dL 01/28/2024 4:33 AM EDT LABORATORY [facility] Blood Venous blood specimen / Unknown Venipuncture / Unknown 01/28/2024 3:47 AM EDT 01/28/2024 3:58 AM EDT Karina Hayden DO LAB BLOOD ORDER GABI LABORATORY [facility] [address] [place] [address] * MAGNESIUM (01/28/2024 3:47 AM EDT) Magnesium 2.0 1.5 - 2.6 mg/dL 01/28/2024 4:33 AM EDT LAB[facility]ATORY [facility] Blood Venous blood specimen / Unknown Venipuncture / Unknown 01/28/2024 3:47 AM EDT 01/28/2024 3:58 AM EDT Karina Hayden DO LAB BLOOD ORDER GABI Performing Organization Address [facility]/ZIP Co de Phone Number LABORATORY [facility] [address] [place] [address] * (ABNORMAL) CALCIUM, IONIZED (01/28/2024 3:47 AM EDT) Calcium, Ionized 1.38(H) 1.13 - 1.32 mmol/L 01/28/2024 4:45 AM EDT LABORATORY [facility] Comment:This test was develo ped and its performance characteristics dtermined by [employer]. It has not been cleared or approved by the US Food and Drug Administration Blood Venous blood specimen / Unknown Venipuncture / Unknown 01/28/2024 3:47 AM EDT 01/28/2024 3:58 AM EDT Karina Hayden DO LAB BLOOD ORDER GABI Performing Organization Address [facility] Co de Phone Number LABORATORY [facility] [address] [place] [address] * (ABNORMAL) BASIC METABOLIC PANEL (01/28/2024 3:47 AM EDT) BUN 15 6 - 20 mg/dL 01/28/2024 4:33 AM EDT LABORATORY [facility] CREATININE 0.8 0.5 - 1.0 mg/dL 01/28/2024 4:33 AM EDT LABORATORY [facility] EGFR 77 >=60 mL/min 01/28/2024 4:33 AM EDT LABORATORY [facility] Comment:eGFR is calculated b ased on the CKD-EPI 2020 equation. SODIUM 140 135 - 146 mmol/L 01/28/2024 4:33 AM EDT LABORATORY [facility] POTASSIUM 4.2 3.5 - 5.1 mmol/L 01/28/2024 4:33 AM EDT LABORATORY C CHLORIDE 109(H) 98 - 107 mmol/L 01/28/2024 4:33 AM EDT LAB[facility]ATORY [facility] CO2 24 22 - 32 mmol/L 01/28/2024 4:33 AM EDT LAB[facility]ATORY [facility] ANION GAP 7 7 - 15 mmol/L 01/28/2024 4:33 AM EDT [facility] GLUCOSE 95 70 - 120 mg/dL 01/28/2024 4:33 AM EDT [facility] CALCIUM 9.3 8.4 - 10.2 mg/dL 01/28/2024 4:33 AM EDT LABORATORY [facility] Blood Venous blood specimen / Unknown Venipuncture / Unknown 01/28/2024 3:47 AM EDT 01/28/2024 3:58 AM EDT Karina Hayden DO LAB BLOOD ORDER [facility] [address] [place] [address] * XR CHEST 1 VIEW (01/27/2024 8:54 PM EDT) Anatomical Region Laterality Modality Chest Computed Radiogr aphy 01/27/2024 10:3 1 PM EDT Impressions 01/27/2024 10:28 PM EDT IMPRESSION No pneumothorax. Narrative 01/27/2024 10:28 PM EDT EXAM XR CHEST 1 VIEW - 01/27/2024 8:54 pm HISTORY Pneumothorax COMPARISON Chest radiograph 01/26/2024. TECHNIQUE Portable semi upright AP view of the chest was obtained. FINDINGS Catheters: None Tubes: None Foreign bodies: None seen There is no pneumothorax. Cardiomediastinal silhouette is stable. Pulmonary vasculature is within normal limits. No focal airspace consolidation. Osseous structures appear unchanged. Known rib fractures are better delineated on prior cross-sectional imaging but appear grossly stable. Procedure Note Shelton Jonas MD - 01/27/2024 EXAM XR CHEST 1 VIEW - 01/27/2024 8:54 pm HISTORY Pneumothorax COMPARISON Chest radiograph 01/26/2024. TECHNIQUE Portable semi upright AP view of the chest was obtained. FINDINGS Catheters: None Tubes: None Foreign bodies: None seen There is no pneumothorax. Cardiomediastinal silhouette is stable.Pulmonary vasculature is within normal limits. No focal airspaceconsolidation. Osseous structures appear unchanged. Known rib fracturesare better delineated on prior cross-sectional imaging but appear grosslystable. IMPRESSION IMPRESSION No pneumothorax. Jessica Kody [facility] (RAD GENER [facility]) * ECHO, COMPLETE (2D), TRANS-THORACIC (01/27/2024 1:56 PM EDT) LEFT VENTRICULAR EJECTION FRACTION 55 % Collisionable CARDIOLOGY 01/27/2024 1:15 PM EDT Galen Thompson MD ECHOCARDIOLOGY Collisionable CARDIOLOGY * CT HEAD/BRAIN WO CONTRAST (01/27/2024 6:54 AM EDT) Anatomical Region Laterality Modality Head Computed Tomogra phy 01/27/2024 7:44 AM EDT Impressions 01/27/2024 7:42 AM EDT IMPRESSION No significant changes since yesterday. Redemonstrated small left acute extra- axial hemorrhages. Narrative 01/27/2024 7:[address] HEAD WITHOUT CONTRAST - 01/27/2024 HISTORY 83 y/o F follow-up intracranial hemorrhage. TECHNIQUE Axial CT images of the head were obtained without contrast. Coronal and sagittal reconstructions are provided. COMPARISON CT head yesterday. FINDINGS No significant changes since yesterday. Redemonstrated diffuse thin left parafalcine acute hyperdense extradural blood products, likely subarachnoid. Also unchanged small subarachnoid hemorrhage over the paramidline high left frontal lobe. No significant mass effect. Additional findings as previously described. Procedure Note Enio Neal MD - 01/27/[address] HEAD WITHOUT CONTRAST - 01/27/2024 HISTORY 83 y/o F follow-up intracranial hemorrhage. TECHNIQUE Axial CT images of the head were obtained without contrast. Coronal andsagittal reconstructions are provided. COMPARISON CT head yesterday. FINDINGS No significant changes since yesterday. Redemonstrated diffuse thin left parafalcine acute hyperdense extraduralblood products, likely subarachnoid. Also unchanged small subarachnoid hemorrhage over the paramidline highleft frontal lobe. No significant mass effect. Additional findings as previously described. IMPRESSION IMPRESSION No significant changes since yesterday. Redemonstrated small left acuteextra- axial hemorrhages. Samina Turcioscecilia Rose RAI RAD CT * 3D RECONS REQUESTED FROM OUTSIDE SCAN (OUTSIDE IMAGES FOR CLINICAL USE ONLY/NO REPORT)-FOR 3D LAB USE ONLY (01/27/2024 6:54 AM EDT) Narrative Scheduling, Silent - 01/27/2024 6:54 AM EDT This is an imaging study not interpreted or resulted by a [facility] or [facility] contracted radiologist. Galen Thompson MD RAD CT * DIFFERENTIAL, AUTOMATED (01/27/2024 6:29 AM EDT) WBC 4.92 4.00 - 10.80 K/uL 01/27/2024 6:46 AM EDT LAB[facility]ATORY [facility] Neutrophils % 60.0 40.0 - 75.0 % 01/27/2024 6:46 AM EDT LAB[facility] Lymphocytes % 25.8 18.0 - 42.0 % 01/27/2024 6:46 AM EDT LAB[facility] Monocytes % 11.0 1.0 - 11.0 % 01/27/2024 6:46 AM EDT LAB[facility] Eosinophils % 2.0 0.0 - 6.0 % 01/27/2024 6:46 AM EDT LAB[facility] Basophils % 0.6 0.0 - 2.0 % 01/27/2024 6:46 AM EDT LAB[facility] Immature Granulocytes % 0.6 0.0 - 2.0 % 01/27/2024 6:46 AM EDT LAB[facility]ATORY [facility] Absolute Neutrophils 2.95 1.80 - 7.70 K/uL 01/27/2024 6:46 AM EDT LAB[facility]ATORY [facility] Absolute Lymphocytes 1.27 1.00 - 4.80 K/ul 01/27/2024 6:46 AM EDT LAB[facility]ATORY [facility] Absolute Monocytes 0.54 0.00 - 1.10 K/uL 01/27/2024 6:46 AM EDT LAB[facility]ATORY [facility] Absolute Eosinophils 0.10 0.00 - 0.70 K/uL 01/27/2024 6:46 AM EDT LAB[facility]ATORY [facility] Absolute Basophils 0.03 0.00 - 0.20 K/uL 01/27/2024 6:46 AM EDT LAB[facility]ATORY [facility] Absolute Immature Granulocytes 0.03 0.00 - 0.20 K/uL 01/27/2024 6:46 AM EDT LAB[facility]ATORY [facility] Blood Venous blood specimen / Unknown Venipuncture / Unknown 01/27/2024 6:29 AM EDT 01/27/2024 6:34 AM EDT Karina Hayden DO LAB BLOOD ORDER GABI LAB[facility]AT[facility] [address] [place] [address] * CBC (01/27/2024 6:29 AM EDT) WBC 4.92 4.00 - 10.80 K/uL 01/27/2024 6:46 AM EDT LAB[facility]ATORY [facility] RBC 3.74 3.85 - 5.15 M/uL 01/27/2024 6:46 AM EDT LAB[facility]ATORY [facility] HGB 12.0 12.0 - 15.3 g/dL 01/27/2024 6:46 AM EDT LAB[facility]AT[facility] HCT 36.5 36.0 - 45.2 % 01/27/2024 6:46 AM EDT LAB[facility]ATORY [facility] MCV 97.6 81.5 - 97.5 fL 01/27/2024 6:46 AM EDT LAB[facility]ATORY [facility] MCH 32.1 27.0 - 34.0 pg 01/27/2024 6:46 AM EDT LAB[facility]ATORY [facility] MCHC 32.9 32.0 - 36.0 g/dL 01/27/2024 6:46 AM EDT LAB[facility]AT[facility] RDW 12.8 11.5 - 15.5 % 01/27/2024 6:46 AM EDT LAB[facility]ATORY [facility] PLT 150 140 - 400 K/uL 01/27/2024 6:46 AM EDT LAB[facility] MPV 9.8 6.6 - 11.1 fL 01/27/2024 6:46 AM EDT LABORATORY [facility] nRBCs 0 <=0 /100 WBCs 01/27/2024 6:46 AM EDT LABORATORY C Blood Venous blood specimen / Unknown Venipuncture / Unknown 01/27/2024 6:29 AM EDT 01/27/2024 6:34 AM EDT Karina Hayden DO LAB BLOOD ORDER GABI Performing Organization Address City/[facility]/ZIP Co de Phone Number LABORATORY [facility] [address] [place] [address] * PHOSPHORUS (01/27/2024 6:29 AM EDT) Phosphorus 3.3 2.5 - 4.8 mg/dL 01/27/2024 7:05 AM EDT LABORATORY [facility] Blood Venous blood specimen / Unknown Venipuncture / Unknown 01/27/2024 6:29 AM EDT 01/27/2024 6:34 AM EDT Karina Hayden DO LAB BLOOD ORDER GABI Performing Organization Address [facility] Co de Phone Number LABORATORY [facility] [address] [place] [address] * MAGNESIUM (01/27/2024 6:29 AM EDT) Magnesium 1.9 1.5 - 2.6 mg/dL 01/27/2024 7:05 AM EDT LABORATORY [facility] Blood Venous blood specimen / Unknown Venipuncture / Unknown 01/27/2024 6:29 AM EDT 01/27/2024 6:34 AM EDT Karina Hayden DO LAB BLOOD ORDER GABI Performing Organization Address [facility] Co de Phone Number LABORATORY [facility] [address] [place] [address] * CALCIUM, IONIZED (01/27/2024 6:29 AM EDT) Calcium, Ionized 1.32 1.13 - 1.32 mmol/L 01/27/2024 6:48 AM EDT LABORATORY [facility] Comment:This test was develo ped and its performance characteristics dtermined by [facility]. It has not been cleared or approved by the US Food and Drug Administration Blood Venous blood specimen / Unknown Venipuncture / Unknown 01/27/2024 6:29 AM EDT 01/27/2024 6:34 AM EDT Karina Hayden DO LAB BLOOD ORDER GABI LABORATORY C [address] [place] [address] * (ABNORMAL) BASIC METABOLIC PANEL (01/27/2024 6:29 AM EDT) BUN 12 6 - 20 mg/dL 01/27/2024 7:05 AM EDT LABORATORY C CREATININE 0.7 0.5 - 1.0 mg/dL 01/27/2024 7:05 AM EDT LABORATORY [facility] EGFR 88 >=60 mL/min 01/27/2024 7:05 AM EDT LAB[facility]ATORY [facility] Comment:eGFR is calculated b ased on the CKD-EPI 2020 equation. SODIUM 141 135 - 146 mmol/L 01/27/2024 7:05 AM EDT LABORATORY C POTASSIUM 4.4 3.5 - 5.1 mmol/L 01/27/2024 7:05 AM EDT LABORATORY [facility] CHLORIDE 110(H) 98 - 107 mmol/L 01/27/2024 7:05 AM EDT LAB[facility]ATORY [facility] CO2 24 22 - 32 mmol/L 01/27/2024 7:05 AM EDT LAB[facility]ATORY [facility] ANION GAP 7 7 - 15 mmol/L 01/27/2024 7:05 AM EDT LAB[facility]ATORY [facility] GLUCOSE 102 70 - 120 mg/dL 01/27/2024 7:05 AM EDT LABORATORY [facility] CALCIUM 9.1 8.4 - 10.2 mg/dL 01/27/2024 7:05 AM EDT LABORATORY [facility] Blood Venous blood specimen / Unknown Venipuncture / Unknown 01/27/2024 6:29 AM EDT 01/27/2024 6:34 AM EDT Karina Hayden DO LAB BLOOD ORDER GABI Performing Organization Address [facility] Co de Phone Number LABORATORY [facility] [address] [place] [address] * TSH WITH FREE T4 IF INDICATED (01/27/2024 6:29 AM EDT) [facility] TSH 1.44 0.27 - 4.20 uIU/mL 01/27/2024 10:23 AM EDT LABORATORY [facility] Blood Venous blood specimen / Unknown Venipuncture / Unknown 01/27/2024 6:29 AM EDT 01/27/2024 6:34 AM EDT Samina RAI LAB BLOOD ORDE RABLES Performing Organization Address [facility] Co de Phone Number LABORATORY [facility] [address] [place] [address] * (ABNORMAL) CALCIUM, IONIZED, WHOLE BLOOD (01/26/2024 11:23 PM EDT) [facility] Calcium, Ionized 1.33(H) 1.13 - 1.32 mmol/L 01/26/2024 11:34 PM EDT LABORATORY [facility] Blood Venous blood specimen / Unknown Venipuncture / Unknown 01/26/2024 11:23 PM EDT 01/26/2024 11:31 PM EDT Karina Hayden DO LAB BLOOD ORDER GABI Performing Organization Address [facility] Co de Phone Number LABORATORY [facility] [address] [place] [address] * HEROIN, URINE CONFIRMATION (01/26/2024 11:13 PM EDT) [facility] Methodology LC-MS/MS 01/28/2024 11:01 AM EDT LABORATORY [facility] 6-Monoacetylmor phine Confirmation, U Negative Negative 01/28/2024 11:01 AM EDT LABORATORY [facility] Urine Non-blood Collection / Unknown 01/26/2024 11:13 PM EDT 01/26/2024 11:23 PM EDT Narrative LABORATORY [facility] - 01/28/2024 11:01 AM EDT Cutoff Concentrations: Drug Level 6-Monoacetylmorphine 5 ng/mL This test was developed and its performance characteristics determined by [facility]. It has not been cleared or approved by the US Food and Drug Administration. Kalee Reyes MD LAB URINE ORDERABL ES LABORATORY [facility] [address] [place] [address] * (ABNORMAL) OPIOIDS, URINE CONFIRMATION (01/26/2024 11:13 PM EDT) [facility] Methodology LC-MS/MS 01/28/2024 11:01 AM EDT LABORATORY [facility] Codeine Confirmation, U Negative Negative 01/28/2024 11:01 AM EDT LABORATORY [facility] Morphine Confirmation, U 2,702(H) Negative ng/mL 01/28/2024 11:01 AM EDT LABORATORY [facility] Hydrocodone Confirmation, U Negative Negative 01/28/2024 11:01 AM EDT LABORATORY [facility] Hydromorphone Confirmation, U Negative Negative 01/28/2024 11:01 AM EDT LABORATORY [facility] Dihydrocodeine Confirmation, U Negative Negative 01/28/2024 11:01 AM EDT LABORATORY [facility] Oxycodone Confirmation, U Negative Negative 01/28/2024 11:01 AM EDT LABORATORY [facility] Oxymorphone Confirmation, U Negative Negative 01/28/2024 11:01 AM EDT LABORATORY [facility] Urine Non-blood Collection / Unknown 01/26/2024 11:13 PM EDT 01/26/2024 11:23 PM EDT Narrative LABORATORY [facility] - 01/28/2024 11:01 AM EDT Cutoff Concentrations: Drug Level Codeine 40 ng/mL Morphine 40 ng/mL Hydrocodone 40 ng/mL Hydromorphone 40 ng/mL Dihydrocodeine 40 ng/mL Oxycodone 50 ng/mL Oxymorphone 50 ng/mL This test was developed and its performance characteristics determined by [facility]. It has not been cleared or approved by the [place] Food and Drug Administration. Kalee Reyes MD LAB URINE ORDERABL ES Performing Organization Address City/[facility]/ZIP Co de Phone Number LABORATORY [facility] [address] [place] [address] * (ABNORMAL) CULTURE, URINE, QUANTITATIVE (01/26/2024 11:13 PM EDT) Culture Growth 10,000 to 100,000 colonies/mL Klebsiella pneumoniae(A) MICROBROTH DILUTIONS 01/30/2024 2:53 PM EST LABORATORY [facility] Urine Urine specimen obtained by clean catch procedure / Unknown Non-blood Collection / Unknown 01/26/2024 11:13 PM EDT 01/26/2024 11:23 PM EDT Narrative Organism Antibiotic Method Susceptibility Klebsiella pneumoniae Ampicillin/Sulbactam MICROBROTH DILUTIONS 16: Intermediate Klebsiella pneumoniae Cefazolin MICROBROTH DILUTION S <=4: Susceptible Klebsiella pneumoniae Cefepime MICROBROTH DILUTION S <=1: Susceptible Klebsiella pneumoniae Ceftriaxone MICROBROTH DILUTION S <=1: Susceptible Klebsiella pneumoniae Ciprofloxacin MICROBROTH DILUTIO NS 1: Resistant Comment:Due to johnson us side effects, the FDA has advised against using Ciprofloxacin to treat uncomplicated UTIs and respiratory tract infections unless there are no alternative treatment options. Klebsiella pneumoniae Gentamicin MICROBROTH DILUTION S <=1: Susceptible Klebsiella pneumoniae Levofloxacin MICROBROTH DILUTION S 1: Intermediate Comment:Due to johnson us side effects, the FDA has advised against using Levofloxacin to treat uncomplicated UTIs and respiratory tract infections unless there are no alternative treatment options. Klebsiella pneumoniae Nitrofurantoin MICROBROTH DILUTI ONS <=16: Susceptible Klebsiella pneumoniae Piperacillin Tazobactam MICROBRO TH DILUTIONS <=4: Susceptible Klebsiella pneumoniae Trimeth/Sulfamethoxazole MICROBR OTH DILUTIONS <=20: Susceptible Karina Hayden DO LAB MICRO - GEN ERAL ORDERABLES Performing Organization Address [facility]/ZIP Co de Phone Number LABORATORY [facility] [address] [place] [address] * (ABNORMAL) TOXICOLOGY, URINESCREEN W/ CONFIRMATION (01/26/2024 11:13 PM EDT) Amphetamines Screen, U Negative Negative 01/26/2024 11:50 PM EDT LABORATORY C Benzodiazepines Screen, U Negative Negative 01/26/2024 11:50 PM EDT LABORATORY C Cannabinoids Screen, U Negative Negative 01/26/2024 11:50 PM EDT LABORATORY [facility] Cocaine Metabolite Screen, U Negative Negative 01/26/2024 11:50 PM EDT LABORATORY C Fentanyl Screen, U Negative Negative 2023 11:50 PM EDT LABORATORY C Hydrocodone Screen, U Negative Negative 01/26/2024 11:50 PM EDT LABORATORY [facility] Methadone Metabolite Screen, U Negative Negative 01/26/2024 11:50 PM EDT LABORATORY [facility] Morphine/Codeine Screen, U Positive(A) Negative 01/26/2024 11:50 PM EDT LABORATORY [facility] Oxycodone Screen, U Negative Negative 01/26/2024 11:50 PM EDT LABORATORY [facility] Urine Non-blood Collection / Unknown 01/26/2024 11:13 PM EDT 01/26/2024 11:23 PM EDT Narrative LABORATORY [facility] - 01/26/2024 11:50 PM EDT Cutoff Concentrations: Drug Level Amphetamines 500 ng/mL Benzodiazepines 100 ng/mL Cannabinoids 50 ng/mL Cocaine Metabolite 150 ng/mL Fentanyl 1 ng/mL Hydrocodone / Hydromorphone 300 ng/mL Methadone Metabolite 100 ng/mL Morphine / Codeine 300 ng/mL Oxycodone / Oxymorphone 100 ng/mL Screening results are presumptive and can only be used for medical purposes. Positive screening results are reflexed to confirmatory testing. Kalee Reyes MD LAB URINE ORDERABL ES LABORATORY [facility] [address] [place] [address] * (ABNORMAL) URINALYSIS, REFLEX TO MICROSCOPIC (01/26/2024 11:13 PM EDT) Color, Urine Yellow Colorless, Light Yellow, Yellow, Dark Yellow 01/26/2024 11:45 PM EDT LABORATORY C Clarity, Urine Clear Clear 01/26/2024 11:45 PM EDT LABORATORY [facility] Glucose, Urine Negative Negative mg/dL 01/26/2024 11:45 PM EDT LABORATORY C Bilirubin, Urine Negative Negative 01/26/2024 11:45 PM EDT LABORATORY C Ketone, Urine Negative Negative mg/dL 01/26/2024 11:45 PM EDT LABORATORY C Specific Wendel, Urine >1.050(H) 1.003 - 1.030 01/26/2024 11:45 PM EDT LABORATORY C Blood, Urine Negative Negative 01/26/2024 11:45 PM EDT LABORATORY C pH, Urine 6.5 5.0 - 7.5 Units 01/26/2024 11:45 PM EDT LABORATORY C Protein, Urine Trace(A) Negative mg/dL 01/26/2024 11:45 PM EDT LABORATORY [facility] Urobilinogen, Urine Normal Normal mg/dL 01/26/2024 11:45 PM EDT LABORATORY C Nitrite, Urine Positive(A) Negative 01/26/2024 11:45 PM EDT LABORATORY C Esterase, Urine Large(A) Negative 01/26/2024 11:45 PM EDT LABORATORY [facility] RBC, Urine 10-19(A) 0 - 2 /HPF 01/26/2024 11:45 PM EDT LABORATORY C WBC, Urine 50+(A) 0 - 2 /HPF 01/26/2024 11:45 PM EDT LABORATORY [facility] Bacteria, Urine 51-100(A) 0 - 25 /HPF 01/26/2024 11:45 PM EDT LABORATORY C Calcium Oxalate Crystal, Urine 1-4(A) None /HPF 01/26/2024 11:45 PM EDT LABORATORY [facility] Urine Non-blood Collection / Unknown 01/26/2024 11:13 PM EDT 01/26/2024 11:23 PM EDT Kalee Reyes MD LAB URINE ORDERABL ES LABORATORY [facility] [address] [place] [address] * SARS-COV-2 (COVID-19), NAAT (01/26/2024 10:31 PM EDT) [facility] SARS-CoV-2 (COVID-19) Result Negative Negative 01/27/2024 12:14 AM EDT LABORATORY [facility] Comment: 2019 Novel Coronavirus not detected. This express test was developed and its performance characteristics determined by [facility]. It has not been cleared or approved by the U.S. Food and Drug Administration (FDA). FDA does not require this test to go thru premarket FDA review. This test is used for clinical purposes. It should not be regarded as investigational or for research. This laboratory is certified under the Clinical Laboratory Improvement Amendments (CLIA) as qualified to perform high complexity clinical laboratory testing. This test is a nucleic acid amplification test (NAAT), a reverse transcriptase polymerase chain reaction (RT-PCR) test, or a Centers for Disease Control- acceptable equivalent. The test is performed in a high complexity Clinical Laboratory Improvement Amendments-(CLIA) certified laboratory. The test is acceptable for SARS-CoV-2 diagnosis, surveillance, and travel within the [place] and to most countries. Please check with local testing authorities about requirements before travel. The validation of bronchial specimens, tracheal aspirates, and sputum for this assay was developed and performance characteristics determined by [facility]. The validation of alternate specimen types has not been cleared or approved by the U.S. Food and Drug Administration (FDA). It has been determined that such clearance is not necessary. Upper Respiratory Mid-turbinate nasal swab / Unknown Non-blood Collection / Unknown 01/26/2024 10:31 PM EDT 01/26/2024 10:57 PM EDT Karina Hayden DO LAB MICRO - GEN ERAL ORDERABLES LABORATORY [facility] [address] [place] [address] * CT HEAD/BRAIN WO CONTRAST (01/26/2024 10:18 PM EDT) Anatomical Region Laterality Modality Head Computed Tomogra phy 01/26/2024 11:2 3 PM EDT Impressions 01/27/2024 5:[address] HEAD: Left frontal lobe small volume subarachnoid hemorrhage is new/more conspicuous. Recommend short interval follow-up. Acute thin subdural hemorrhage along the interhemispheric falx is similar. CTA NECK: No evidence of traumatic vascular injury. Partially imaged thoracic findings as per the separate CT chest report. Added to [facility] [facility] result communication system on 01/27/2024 at 5:10 am. I have personally reviewed this examination and agree with the resident/fellow physician's interpretation. Narrative 01/27/2024 5:[address] HEAD WITHOUT CONTRAST; CTA NECK WITH CONTRAST - 01/26/2024 HISTORY 83 y/o F follow-up subdural hematoma. TECHNIQUE Unenhanced CT images of the brain was obtained from the skull base to vertex. Multiplanar coronal and sagittal reconstructions are provided. Thin-section CT angiography of the neck was then performed. CPR and 3D reconstructions were generated on a separate workstation. COMPARISON OSH CT head 01/26/2024. FINDINGS CT HEAD: No significant change in small left anterior parafalcine subdural hematoma measuring up to 2.9 cm in with. Similar to prior, subdural extends along the anterosuperior cerebral convexity (series 5, image 9). Left frontal lobe small volume subarachnoid hemorrhage is new/more conspicuous. There is no recent territorial transcortical infarct. No hydrocephalus, downward herniation, midline shift, mass effect or extra-axial fluid collections are demonstrated. Chronic left occipital lobe encephalomalacia. Moderate global brain volume loss is noted, with proportionate ventriculosulcal prominence. Patchy white matter hypodensities, likely sequela of chronic microvascular ischemic disease. Bilateral lens replacements. Small left mastoid air cell effusion. Prior functional endoscopic sinus surgery. Calvarial hyperostosis. CTA NECK: No evidence of traumatic vascular injury. Normal anatomic branching of the great vessels from the aortic arch. There are calcified and noncalcified non flow-limiting plaques of the arch and great vessel origins. The common carotids, bifurcations, and internal cervical carotid arteries are patent, also with non flow-limiting atheromatous disease. External carotid arteries are patent. No significant vertebral artery ostial stenosis is demonstrated and the vessels are widely patent throughout the neck. No acute intracranial vascular findings seen in partially imaged brain. Azygous anterior communicating complex. Partially imaged pulmonary artery hypertension. Degenerative changes of the spine. T2 vertebral body hemangioma. Mild thyroid heterogeneity. Minimal multilevel thoracic endplate irregularities and other partially imaged thoracic findings as per the separate CT chest report. Procedure Note Mikael Buck MD - 01/27/[address] HEAD WITHOUT CONTRAST; CTA NECK WITH CONTRAST - 01/26/2024 HISTORY 83 y/o F follow-up subdural hematoma. TECHNIQUE Unenhanced CT images of the brain was obtained from the skull base tovertex. Multiplanar coronal and sagittal reconstructions are provided.Thin-section CT angiography of the neck was then performed. CPR and 3Dreconstructions were generated on a separate workstation. COMPARISON OSH CT head 01/26/2024. FINDINGS CT HEAD: No significant change in small left anterior parafalcine subdural hematomameasuring up to 2.9 cm in with. Similar to prior, subdural extends alongthe anterosuperior cerebral convexity (series 5, image 9). Left frontallobe small volume subarachnoid hemorrhage is new/more conspicuous. There is no recent territorial transcortical infarct. No hydrocephalus,downward herniation, midline shift, mass effect or extra-axial fluidcollections are demonstrated. Chronic left occipital lobe encephalomalacia. Moderate global brainvolume loss is noted, with proportionate ventriculosulcal prominence. Patchy white matter hypodensities, likely sequela of chronic microvascularischemic disease. Bilateral lens replacements. Small left mastoid air cell effusion. Priorfunctional endoscopic sinus surgery. Calvarial hyperostosis. CTA NECK: No evidence of traumatic vascular injury. Normal anatomic branching of the great vessels from the aortic arch.There are calcified and noncalcified non flow-limiting plaques of the archand great vessel origins. The common carotids, bifurcations, and internalcervical carotid arteries are patent, also with non flow-limitingatheromatous disease. External carotid arteries are patent. No significant vertebral artery ostial stenosis is demonstrated and thevessels are widely patent throughout the neck. No acute intracranial vascular findings seen in partially imaged brain.Azygous anterior communicating complex. Partially imaged pulmonary arteryhypertension. Degenerative changes of the spine. T2 vertebral body hemangioma. Mild thyroid heterogeneity. Minimal multilevel thoracic endplateirregularities and other partially imaged thoracic findings as per theseparate CT chest report. IMPRESSION IMPRESSION CT HEAD: Left frontal lobe small volume subarachnoid hemorrhage is new/moreconspicuous. Recommend short interval follow-up. Acute thin subdural hemorrhage along the interhemispheric falx issimilar. CTA NECK: No evidence of traumatic vascular injury. Partially imaged thoracic findings as per the separate CT chest report. Added to [facility] result communication system on 01/27/2024 at 5:10 am. I have personally reviewed this examination and agree with the resident/fellow physician's interpretation. Karina Hayden DO RAD CT * CTA NECK (01/26/2024 10:18 PM EDT) Anatomical Region Laterality Modality Neck, Head, Cspine, Spine Comput ed Tomography 01/26/2024 11:2 3 PM EDT Impressions 01/27/2024 5:[address] HEAD: Left frontal lobe small volume subarachnoid hemorrhage is new/more conspicuous. Recommend short interval follow-up. Acute thin subdural hemorrhage along the interhemispheric falx is similar. CTA NECK: No evidence of traumatic vascular injury. Partially imaged thoracic findings as per the separate CT chest report. Added to [facility] result communication system on 01/27/2024 at 5:10 am. I have personally reviewed this examination and agree with the resident/fellow physician's interpretation. Narrative 01/27/2024 5:[address] HEAD WITHOUT CONTRAST; CTA NECK WITH CONTRAST - 01/26/2024 HISTORY 83 y/o F follow-up subdural hematoma. TECHNIQUE Unenhanced CT images of the brain was obtained from the skull base to vertex. Multiplanar coronal and sagittal reconstructions are provided. Thin-section CT angiography of the neck was then performed. CPR and 3D reconstructions were generated on a separate workstation. COMPARISON OSH CT head 01/26/2024. FINDINGS CT HEAD: No significant change in small left anterior parafalcine subdural hematoma measuring up to 2.9 cm in with. Similar to prior, subdural extends along the anterosuperior cerebral convexity (series 5, image 9). Left frontal lobe small volume subarachnoid hemorrhage is new/more conspicuous. There is no recent territorial transcortical infarct. No hydrocephalus, downward herniation, midline shift, mass effect or extra-axial fluid collections are demonstrated. Chronic left occipital lobe encephalomalacia. Moderate global brain volume loss is noted, with proportionate ventriculosulcal prominence. Patchy white matter hypodensities, likely sequela of chronic microvascular ischemic disease. Bilateral lens replacements. Small left mastoid air cell effusion. Prior functional endoscopic sinus surgery. Calvarial hyperostosis. CTA NECK: No evidence of traumatic vascular injury. Normal anatomic branching of the great vessels from the aortic arch. There are calcified and noncalcified non flow-limiting plaques of the arch and great vessel origins. The common carotids, bifurcations, and internal cervical carotid arteries are patent, also with non flow-limiting atheromatous disease. External carotid arteries are patent. No significant vertebral artery ostial stenosis is demonstrated and the vessels are widely patent throughout the neck. No acute intracranial vascular findings seen in partially imaged brain. Azygous anterior communicating complex. Partially imaged pulmonary artery hypertension. Degenerative changes of the spine. T2 vertebral body hemangioma. Mild thyroid heterogeneity. Minimal multilevel thoracic endplate irregularities and other partially imaged thoracic findings as per the separate CT chest report. Procedure Note Mikael Buck MD - 01/27/[address] HEAD WITHOUT CONTRAST; CTA NECK WITH CONTRAST - 01/26/2024 HISTORY 83 y/o F follow-up subdural hematoma. TECHNIQUE Unenhanced CT images of the brain was obtained from the skull base tovertex. Multiplanar coronal and sagittal reconstructions are provided.Thin-section CT angiography of the neck was then performed. CPR and 3Dreconstructions were generated on a separate workstation. COMPARISON OSH CT head 01/26/2024. FINDINGS CT HEAD: No significant change in small left anterior parafalcine subdural hematomameasuring up to 2.9 cm in with. Similar to prior, subdural extends alongthe anterosuperior cerebral convexity (series 5, image 9). Left frontallobe small volume subarachnoid hemorrhage is new/more conspicuous. There is no recent territorial transcortical infarct. No hydrocephalus,downward herniation, midline shift, mass effect or extra-axial fluidcollections are demonstrated. Chronic left occipital lobe encephalomalacia. Moderate global brainvolume loss is noted, with proportionate ventriculosulcal prominence. Patchy white matter hypodensities, likely sequela of chronic microvascularischemic disease. Bilateral lens replacements. Small left mastoid air cell effusion. Priorfunctional endoscopic sinus surgery. Calvarial hyperostosis. CTA NECK: No evidence of traumatic vascular injury. Normal anatomic branching of the great vessels from the aortic arch.There are calcified and noncalcified non flow-limiting plaques of the archand great vessel origins. The common carotids, bifurcations, and internalcervical carotid arteries are patent, also with non flow-limitingatheromatous disease. External carotid arteries are patent. No significant vertebral artery ostial stenosis is demonstrated and thevessels are widely patent throughout the neck. No acute intracranial vascular findings seen in partially imaged brain.Azygous anterior communicating complex. Partially imaged pulmonary arteryhypertension. Degenerative changes of the spine. T2 vertebral body hemangioma. Mild thyroid heterogeneity. Minimal multilevel thoracic endplateirregularities and other partially imaged thoracic findings as per theseparate CT chest report. IMPRESSION IMPRESSION CT HEAD: Left frontal lobe small volume subarachnoid hemorrhage is new/moreconspicuous. Recommend short interval follow-up. Acute thin subdural hemorrhage along the interhemispheric falx issimilar. CTA NECK: No evidence of traumatic vascular injury. Partially imaged thoracic findings as per the separate CT chest report. Added to [employer] result communication system on 01/27/2024 at 5:10 am. I have personally reviewed this examination and agree with the resident/fellow physician's interpretation. Karina Hayden DO RAD CT * EKG (01/26/2024 10:07 PM EDT) 01/26/2024 10:0 7 PM EDT Narrative Procedure Note Kyle Singh DO - 01/26/2024 10:07 PM EDT REASON FOR STUDY: AFIB CONCLUSIONS: Atrial fibrillation with rapid ventricular response with a competingjunctional pacemaker Nonspecific T wave abnormality Abnormal ECG When compared with ECG of 15-Jun-2022 10:15, Atrial fibrillation has replaced Sinus rhythm Vent. rate has increased by 37 bpm Ventricular Rate: 106 QRS Duration: 74 QT/QTc: 288/382 ms P-R-T [place]: 0 : 59 : -29 degrees Kalee Reyes MD EKG Collisionable CARDIOLOGY * RADIOLOGY EXAM - CT (IMAGES ONLY, NO REPORT) (01/26/2024 9:34 PM EDT) Narrative Scheduling, Silent - 01/26/2024 9:35 PM EDT This is an imaging study not interpreted or resulted by a [employer] or [employer] contracted radiologist. Kalee Reyes MD RAD CT * RADIOLOGY EXAM - CT (IMAGES ONLY, NO REPORT) (01/26/2024 9:34 PM EDT) Narrative Scheduling, Silent - 01/26/2024 9:34 PM EDT This is an imaging study not interpreted or resulted by a [employer] or [employer] contracted radiologist. Kalee Reyes MD RAD CT * XR CHEST 1 VIEW (01/26/2024 9:32 PM EDT) Anatomical Region Laterality Modality Chest Computed Radiogr aphy 01/26/2024 9:56 PM EDT Impressions 01/26/2024 9:53 PM EDT IMPRESSION Nondisplaced right rib fractures. No pneumothorax. Narrative 01/26/2024 9:53 PM EDT EXAM XR CHEST 1 VIEW-01/26/2024 9:32 pm HISTORY Trauma COMPARISON Chest radiograph 04/26/2019. TECHNIQUE AP supine radiograph of the chest. FINDINGS No focal airspace consolidation. Coarsened parenchymal markings bilaterally. There is no pleural effusion. The pulmonary vasculature and cardiomediastinal silhouette are within normal limits given AP supine technique. Nondisplaced right rib fractures.. Procedure Note Shelton Jonas MD - 01/26/2024 EXAM XR CHEST 1 VIEW-01/26/2024 9:32 pm HISTORY Trauma COMPARISON Chest radiograph 04/26/2019. TECHNIQUE AP supine radiograph of the chest. FINDINGS No focal airspace consolidation. Coarsened parenchymal markingsbilaterally. There is no pleural effusion. The pulmonary vasculature andcardiomediastinal silhouette are within normal limits given AP supinetechnique. Nondisplaced right rib fractures.. IMPRESSION IMPRESSION Nondisplaced right rib fractures. No pneumothorax. Kalee Reyes MD RADIOLOGY (RAD GEN ERAL) * ABO/RH (01/26/2024 9:30 PM EDT) ABO A 01/26/2024 10:27 PM EDT [facility] BLOOD BANK Rh Positive 01/26/2024 10:27 PM EDT LABORATORY [facility] BLOOD BANK Blood Venous blood specimen / Unknown Venipuncture / Unknown 01/26/2024 9:30 PM EDT 01/26/2024 9:37 PM EDT Kalee Reyes MD LAB BLOOD BANK CATY T ORDERABLES LABORATORY [facility] BLOOD BANK [address] [place] [address] * (ABNORMAL) DIFFERENTIAL, AUTOMATED (01/26/2024 9:30 PM EDT) WBC 5.93 4.00 - 10.80 K/uL 01/26/2024 9:50 PM EDT [facility] Neutrophils % 53.7 40.0 - 75.0 % 01/26/2024 9:50 PM EDT [facility] Lymphocytes % 32.0 18.0 - 42.0 % 01/26/2024 9:50 PM EDT [facility] Monocytes % 11.1(H) 1.0 - 11.0 % 01/26/2024 9:50 PM EDT [facility] Eosinophils % 2.0 0.0 - 6.0 % 01/26/2024 9:50 PM EDT [facility] Basophils % 0.7 0.0 - 2.0 % 01/26/2024 9:50 PM EDT [facility] Immature Granulocytes % 0.5 0.0 - 2.0 % 01/26/2024 9:50 PM EDT [facility] Absolute Neutrophils 3.18 1.80 - 7.70 K/uL 01/26/2024 9:50 PM EDT LAB[facility] Absolute Lymphocytes 1.90 1.00 - 4.80 K/ul 01/26/2024 9:50 PM EDT LAB[facility] Absolute Monocytes 0.66 0.00 - 1.10 K/uL 01/26/2024 9:50 PM EDT LAB[facility] Absolute Eosinophils 0.12 0.00 - 0.70 K/uL 01/26/2024 9:50 PM EDT [facility] Absolute Basophils 0.04 0.00 - 0.20 K/uL 01/26/2024 9:50 PM EDT LAB[facility] Absolute Immature Granulocytes 0.03 0.00 - 0.20 K/uL 01/26/2024 9:50 PM EDT [facility] Blood Venous blood specimen / Unknown Venipuncture / Unknown 01/26/2024 9:30 PM EDT 01/26/2024 9:37 PM EDT Kalee Reyes MD LAB BLOOD ORDERABL ES [facility] [address] [place] [address] * CBC (01/26/2024 9:30 PM EDT) WBC 5.93 4.00 - 10.80 K/uL 01/26/2024 9:50 PM EDT [facility] RBC 4.17 3.85 - 5.15 M/uL 01/26/2024 9:50 PM EDT [facility] HGB 13.2 12.0 - 15.3 g/dL 01/26/2024 9:50 PM EDT [facility] HCT 40.0 36.0 - 45.2 % 01/26/2024 9:50 PM EDT [facility] MCV 95.9 81.5 - 97.5 fL 01/26/2024 9:50 PM EDT [facility] MCH 31.7 27.0 - 34.0 pg 01/26/2024 9:50 PM EDT [facility] MCHC 33.0 32.0 - 36.0 g/dL 01/26/2024 9:50 PM EDT [facility] RDW 12.7 11.5 - 15.5 % 01/26/2024 9:50 PM EDT [facility] PLT 178 140 - 400 K/uL 01/26/2024 9:50 PM EDT [facility] MPV 9.9 6.6 - 11.1 fL 01/26/2024 9:50 PM EDT [facility] nRBCs 0 <=0 /100 WBCs 01/26/2024 9:50 PM EDT [facility] Blood Venous blood specimen / Unknown Venipuncture / Unknown 01/26/2024 9:30 PM EDT 01/26/2024 9:37 PM EDT Kalee Reyes MD LAB BLOOD ORDERABL ES Performing Organization Address [facility] de Phone Number LABORATORY [facility] [address] [place] [address] * TYPE AND SCREEN (01/26/2024 9:30 PM EDT) ABO A 01/26/2024 10:25 PM EDT LABORATORY [facility] BLOOD BANK Rh Positive 01/26/2024 10:25 PM EDT LABORATORY [facility] BLOOD BANK Red Blood Cell Antibody Screen Negative 01/26/2024 10:25 PM EDT LABORATORY [facility] BLOOD BANK Specimen Expiration Date 01/29/2024 23:59 01/26/2024 10:25 PM EDT LABORATORY [facility] BLOOD BANK Blood Venous blood specimen / Unknown Venipuncture / Unknown 01/26/2024 9:30 PM EDT 01/26/2024 9:37 PM EDT Kalee Reyes MD LAB BLOOD BANK CATY T ORDERABLES Performing Organization Address [facility] de Phone Number LABORATORY [facility] BLOOD BANK [address] [place] [address] * LACTATE (01/26/2024 9:30 PM EDT) Lactate 1.1 0.4 - 2.0 mmol/L 01/26/2024 9:59 PM EDT LABORATORY [facility] Blood Venous blood specimen / Unknown Venipuncture / Unknown 01/26/2024 9:30 PM EDT 01/26/2024 9:37 PM EDT Kalee Reyes MD LAB BLOOD ORDERABL ES Performing Organization Address [facility] de Phone Number LABORATORY [facility] [address] [place] [address] * ETHANOL, MEDICAL (01/26/2024 9:30 PM EDT) ETHANOL, MEDICAL Negative Negative 01/26/2024 9:59 PM EDT [facility] Blood Venous blood specimen / Unknown Venipuncture / Unknown 01/26/2024 9:30 PM EDT 01/26/2024 9:37 PM EDT Kalee Reyes MD LAB BLOOD ORDERABL ES LAB[facility] [address] [place] [address] * (ABNORMAL) BASIC METABOLIC PANEL (01/26/2024 9:30 PM EDT) Pathologist [facility] BUN 12 6 - 20 mg/dL 01/26/2024 9:59 PM EDT [facility] CREATININE 0.6 0.5 - 1.0 mg/dL 01/26/2024 9:59 PM EDT [facility] EGFR 89 >=60 mL/min 01/26/2024 9:59 PM EDT [facility] Comment:eGFR is calculated b ased on the CKD-EPI 2020 equation. SODIUM 140 135 - 146 mmol/L 01/26/2024 9:59 PM EDT [facility] POTASSIUM 3.7 3.5 - 5.1 mmol/L 01/26/2024 9:59 PM EDT [facility] CHLORIDE 109(H) 98 - 107 mmol/L 01/26/2024 9:59 PM EDT [facility] CO2 22 22 - 32 mmol/L 01/26/2024 9:59 PM EDT [facility] ANION GAP 9 7 - 15 mmol/L 01/26/2024 9:59 PM EDT [facility] GLUCOSE 113 70 - 120 mg/dL 01/26/2024 9:59 PM EDT [facility] CALCIUM 9.4 8.4 - 10.2 mg/dL 01/26/2024 9:59 PM EDT [facility] Blood Venous blood specimen / Unknown Venipuncture / Unknown 01/26/2024 9:30 PM EDT 01/26/2024 9:37 PM EDT Kalee Reyes MD LAB BLOOD ORDERABL ES Performing Organization Address [facility]/ZIP Co de Phone Number LABORATORY [facility] [address] [place] [address] * AST (01/26/2024 9:30 PM EDT) AST 18 10 - 35 U/L 01/26/2024 9:59 PM EDT LABORATORY C Blood Venous blood specimen / Unknown Venipuncture / Unknown 01/26/2024 9:30 PM EDT 01/26/2024 9:37 PM EDT Kalee Reyes MD LAB BLOOD ORDERABL ES Performing Organization Address [facility] Co de Phone Number LABORATORY [facility] [address] [place] [address] * APTT (01/26/2024 9:30 PM EDT) aPTT 28 21 - 38 seconds 01/26/2024 10:03 PM EDT LABORATORY C Blood Venous blood specimen / Unknown Venipuncture / Unknown 01/26/2024 9:30 PM EDT 01/26/2024 9:37 PM EDT Narrative [facility]ORY [facility] - 01/26/2024 10:03 PM EDT Anticoagulation may affect testing. Refer to [facility] Test Catalog for a list of effects. Kalee Reyes MD LAB BLOOD ORDERABL ES Performing Organization Address [facility]/ZIP Co de Phone Number LABORATORY [facility] [address] [place] [address] * PT INR (01/26/2024 9:30 PM EDT) Prothrombin Time 13.7 11.6 - 15.2 seconds 01/26/2024 10:02 PM EDT [facility] INR 1.0 0.8 - 1.2 01/26/2024 10:02 PM EDT LABORATORY C Blood Venous blood specimen / Unknown Venipuncture / Unknown 01/26/2024 9:30 PM EDT 01/26/2024 9:37 PM EDT Narrative LABORATORY [facility] - 01/26/2024 10:02 PM EDT Warfarin Therapy INR: 2.0-3.0 conventional anticoagulation INR: 2.5-3.5 high intensity anticoagulation Kalee Reyes MD LAB BLOOD ORDERABL ES LABORATORY [facility] [address] [place] [address] documented in this encounter Visit Diagnoses Diagnosis Subdural hematoma (HCC)- Primary Subdural hemorrhage Fall from standing Unspecified fall Subdural hemorrhage (HCC) Subdural hemorrhage Trauma of chest Other injury of chest wall Screening for cardiovascular condition Screening for other and unspecified cardiovascular conditions Multiple fractures of ribs, right side, initial encounter for closed fracture Exposure to other specified factors, initial encounter Nontraumatic 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) Subarachnoid hemorrhage Nontraumatic intracerebral hemorrhage, unspecified (HCC) Fall, initial encounter Fall Unspecified fall New onset atrial fibrillation (HCC) Atrial fibrillation Multiple fractures of ribs of right side Closed fracture of multiple ribs, unspecified UTI (urinary tract infection) Urinary tract infection, site not specified documented in this encounter Administered Medications Inactive Administered Medications - up to 3 most recent administrations Medication Order MAR Action Action Date Dose Rate Site Acetaminophen (Tylenol) tab 975 mg 975 mg, Oral, Q8H, First dose on Tue01/26/24 at 2230, Last dose on Tue01/31/24 at 1400, For 5 days, Maximum 4 g acetaminophen/day. Avoid in patients with severe hepatic impairment or severe active liver disease. Use for 5 days. Given 01/31/2024 2:03 PM EST 975 mg Given 01/31/2024 5:16 AM EST 975 mg Given 01/30/2024 9:42 PM EST 975 mg atorvaSTATin (Lipitor) tab 40 mg 40 mg, Oral, Daily(AM), First dose on Tue01/27/24 at 0900, Until Discontinued Given 01/31/2024 8:08 AM EST 40 mg Given 01/30/2024 9:08 AM EST 40 mg Given 01/29/2024 7:55 AM EST 40 mg Carisoprodol (Soma) tab 175 mg 175 mg, Oral, Q6H PRN Muscle spasms, Starting on Tue01/26/24 at 2141, Until Tue01/31/24 at 1856 Given 01/30/2024 9:08 AM EST 175 mg Given 01/30/2024 12:59 AM EST 175 mg Given 01/29/2024 2:19 PM EST 175 mg cefTRIAXone in dextrose (Rocephin) IVPB 1 g IV Piggyback, 1 g, Q24H, 5 doses, First dose on Tue01/27/24 at 0030, Last dose on Tue01/31/24 at 0030, Administer over 30 Minutes New Bag 01/27/2024 12:14 AM EDT 1 g 100 mL/hr chlorhexidine gluconate cloth 2 % pad External, [id number], First dose on Tue01/27/24 at 1000, Until Discontinued, Applied to appropriate patients per automotive glass technician's recommendations following daily care. May use more than one Pad (cloth/wipe) as needed to complete care. Given 01/31/2024 9:52 AM EST 1 Pad Given 01/27/2024 8:31 AM EDT 1 Pad Docusate Sodium (Colace) cap 100 mg 100 mg, Oral, BID (.AM/PM), First dose on Tue01/26/24 at 2230, Until Discontinued, For oral administration ONLY, if route of administration is other than oral and alternative product must be ordered. Given 01/31/2024 8:08 AM EST 100 mg Given 01/30/2024 9:43 PM EST 100 mg Given 01/29/2024 8:11 PM EST 100 mg hEParin inj 5,000 Units 5,000 Units, Subcutaneous, Q8H, First dose on Tue01/27/24 at 1400, Until Discontinued Given 01/31/2024 2:03 PM EST 5,000 Units Abdomen Left Lower Given 01/31/2024 5:16 AM EST 5,000 Units A bdomen Right Lower Given 01/30/2024 9:42 PM EST 5,000 Units A bdomen Left Lower Iopamidol (Isovue 370) inj 80 mL 80 mL, Intravenous, ONCE, On Tue01/26/24 at 2300, For 1 dose, Radiology Medication Routing (Non-IR) Given 01/26/2024 11:00 PM EDT 65 mL isosorbide mononitrate SA (Imdur) tab 90 mg 90 mg, Oral, Daily(AM), First dose on Tue01/27/24 at 0900, Until Discontinued, Hold for 24 hours prior to Stress Test and notify service if dose is held This med should NOT be Crushed or Chewed Given 01/31/2024 8:08 AM EST 90 mg Given 01/30/2024 9:08 AM EST 90 mg Given 01/29/2024 7:54 AM EST 90 mg levETIRAcetam (Keppra) 500 mg in 100 mL ivpb *LOCKED DOSE* 500 mg, IV Piggyback, BID (.AM/PM), First dose on Tue01/27/24 at 0900, Until Discontinued, at 600 mL/hr Administer over 10 Minutes New Bag 01/27/2024 8:28 AM EDT 500 mg 600 mL/hr levETIRAcetam (Keppra) 500 mg in NSS 100 mL ivpb IV Piggyback, CONTINUOUS PRN NARRATOR, Starting on Tue01/26/24 at 2133, Until Tue01/26/24 at 2133, Administer over 10 Minutes New Bag 01/26/2024 9:33 PM EDT 500 mg levETIRAcetam (Keppra) tab 500 mg 500 mg, Oral, BID (.AM/PM), First dose on Tue01/27/24 at 2100, Last dose on Tue02/02/24 at 0900, For 12 doses Given 01/31/2024 8:08 AM EST 500 mg Given 01/30/2024 9:42 PM EST 500 mg Given 01/30/2024 9:08 AM EST 500 mg Lidocaine (Aspercreme) 4 % patch 1 Patch 1 Patch, Transdermal, Daily(AM), First dose on Tue01/28/24 at 1115, Until Discontinued, Apply patch for 12 hours then remove for 12 hours! Remove any Lidocaine patches the patient may currently be wearing prior to applying the new patch Patch Applied 01/31/2024 8:10 AM EST 1 Patch Radha k Right Patch Applied 01/30/2024 9:08 AM EST 1 Patch Back Right Patch Applied 01/29/2024 7:56 AM EST 1 Patch Back Right magnesium sulfate 1 g in d5w 100mL LOCKED DOSE 1 g, IV Piggyback, ONCE, 1 dose, On Tue01/29/24 at 0800, Administer over 60 Minutes Rate Verify 01/29/2024 8:14 AM EST 1 g/hr 100 mL/hr New Bag 01/29/2024 8:00 AM EST 1 g 100 mL/hr Metoprolol Tartrate (Lopressor) tab 25 mg 25 mg, Oral, BID (.AM/PM), First dose on Tue01/27/24 at 0900, Until Discontinued, Hold for HR less than 60 or SBP below 100 and notify service if dose is held Given 01/28/2024 9:30 PM EDT 25 mg Given 01/28/2024 8:25 AM EDT 25 mg Given 01/28/2024 12:21 AM EDT 25 mg Metoprolol Tartrate (Lopressor) tab 25 mg 25 mg, Oral, BID (.AM/PM), First dose (after last modification) on [place] 01/29/24 at 2100, Until Discontinued, Hold for HR less than 60 or SBP below 90 and notify service if dose is held Given 01/31/2024 8:08 AM EST 25 mg Given 01/30/2024 9:43 PM EST 25 mg Given 01/30/2024 9:08 AM EST 25 mg NSS infusion Intravenous, at 75 mL/hr, CONTINUOUS, Starting on Tue01/26/24 at 2230, Until Tue01/27/24 at 0913 Rate Verify 01/27/2024 9:00 AM EDT 75 mL /hr Restarted 01/27/2024 8:36 AM EDT 75 mL/hr Rate Verify 01/27/2024 8:00 AM EDT 75 mL/hr omeprazole (PriLOSEC) cap 20 mg 20 mg, Oral, Daily(AM), First dose on Tue01/27/24 at 0900, Until Discontinued, This med should NOT be Crushed or Chewed Given 01/31/2024 8:08 AM EST 20 mg Given 01/30/2024 9:08 AM EST 20 mg Given 01/29/2024 7:54 AM EST 20 mg ondansetron (Zofran) inj 4 mg 4 mg, IV Push, Q6H PRN Other, May use for nausea or vomiting if patient unable to take oral ondansetron, Starting on [place] 01/26/24 at 2152, Until Tue01/31/24 at 1856 Given 01/29/2024 8:47 AM EST 4 mg Given 01/28/2024 6:55 AM EDT 4 mg Given 01/26/2024 10:44 PM EDT 4 mg ondansetron ODT (Zofran) tab 4 mg 4 mg, On Tongue, Q6H PRN Nausea, Vomiting, Starting on [place] 01/26/24 at 2152, Until Tue01/31/24 at 1856 oxyCODONE (Oxy IR) tab 5 mg 5 mg, Oral, Q4H PRN Pain, Severe, Starting on [place] 01/26/24 at 2152, Until 01/29/24 at 2032, Hold for somnolence or respiratory rate less than 10 Given 01/29/2024 2:12 PM EST 5 mg Given 01/29/2024 7:54 AM EST 5 mg Given 01/28/2024 9:38 PM EDT 5 mg Polyethylene Glycol 3350 (Miralax) oral powder 17 g 17 g (1 Packet), Oral, BID (0900,2100), First dose on 01/28/24 at 1630, Until Discontinued, Mix in 8 oz of water, juice, soda, coffee, or tea. Given 01/28/2024 5:15 PM EDT 17 g QueaseEase essential oil diffusion for passive diffusion PRN, Starting on 01/30/24 at 1352, Until Tue01/31/24 at 1856 Given 01/30/2024 3:06 PM EST senna (Senokot) 1 Tablet 1 Tablet, Oral, Daily(AM), First dose (after last modification) on Tue01/31/24 at 0900, Until Discontinued, hold if patient have loose stool or frequent bowel movements Given 01/31/2024 8:08 AM EST 1 Tablet senna (Senokot) 2 Tablet 2 Tablet, Oral, BID (.AM/PM), First dose on [place] 01/26/24 at 2230, Until Discontinued, hold if patient have loose stool or frequent bowel movements Given 01/29/2024 7:55 AM EST 2 Tablets Given 01/28/2024 9:29 PM EDT 2 Tablets Given 01/28/2024 8:25 AM EDT 2 Tablets sodium chloride 0.9 % flush peripheral chan 3 mL 3 mL, IV Push, QSHIFT, First dose on Tue01/27/24 at 0000, Until Discontinued, Do not flush if lock, PICC, or central line not in place; IV infusing or unable to flush. Given 01/31/2024 8:00 AM EST 3 mL Given 01/31/2024 12:00 AM EST 3 mL Given 01/30/2024 3:05 PM EST 3 mL sulfamethoxazole-trimethoprim DS (Bactrim DS) 800-160 MG 1 Tablet 1 Tablet, Oral, Q12H, First dose on Tue01/29/24 at 2100, Last dose on Tue02/01/24 at 0900, For 3 days Given 01/31/2024 8:10 AM EST 1 Tablet Given 01/30/2024 9:43 PM EST 1 Tablet Given 01/30/2024 9:07 AM EST 1 Tablet traMADol (Ultram) tab 50 mg 50 mg, Oral, Q6H PRN Pain, Severe, Starting on Tue01/29/24 at 2033, Until Tue01/30/24 at 0801 Given 01/30/2024 3: 04 AM EST 50 mg Given 01/29/2024 8:41 PM EST 50 mg documented in this encounter Active and Recently Administered Medications Due to Daylight Saving Time, this section may contain times in both EDT and EST. Scheduled Medication Order 01/29/2024 01/30/2024 01/31/2024 Acetaminophen (Tylenol) tab 975 mg (COMPLETED) 975 mg, Oral, Q8H, First dose on Tue01/26/24 at 2230, Last dose on Tue01/31/24 at 1400, For 5 days, Maximum 4 g acetaminophen/day. Avoid in patients with severe hepatic impairment or severe active liver disease. Use for 5 days. 0504 (Given - Provider: Jeaneth Maguire LPN)1412 (Given - Provider: Abeba Nagel RN)2040 (Given - Provider: Agusto Saunders RN) 0447 (Given - Provider: Agusto Saunders RN)131 (Given - Provider: Abeba Nagel RN)2141 (Given - Provider: Kalee Barrera RN) 0516 (Given - Provider: Kalee Barrera RN)1403 (Given - Provider: Stefania Buck RN) atorvaSTATin (Lipitor) tab 40 mg 40 mg, Oral, Daily(AM), First dose on Tue01/27/24 at 0900, Until Discontinued 075 (Given - Provider: Abeba Nagel RN) 0908 (Given - Provider: Abeba Nagel RN) 0808 (Given - Provider: Stefania Buck RN) chlorhexidine gluconate cloth 2 % pad External, [id number], First dose on Tue01/27/24 at 1000, Until Discontinued, Applied to appropriate patients per automotive glass technician's recommendations following daily care. May use more than one Pad (cloth/wipe) as needed to complete care. 1000 (Not Given - Provider: Abeba Nagel RN - Reason: Parameter(s) Not Met) 1000 (Not Given - Provider: Abeba Nagel RN - Reason: Parameter(s) Not Met) 0952 (Given - Provider: Stefania Buck RN) Docusate Sodium (Colace) cap 100 mg 100 mg, Oral, BID (.AM/PM), First dose on Tue01/26/24 at 2230, Until Discontinued, For oral administration ONLY, if route of administration is other than oral and alternative product must be ordered. 075 (Given - Provider: Abeba Nagel RN)2010 (Given - Provider: Agusto Saunders RN) 0900 (Not Given - Provider: Abeba Nagel RN - Reason: Other- Please add reason in Comments - Comment: loose stools)2142 (Given - Provider: Kalee Barrera RN) 0808 (Given - Provider: Stefania Buck RN) hEParin inj 5,000 Units 5,000 Units, Subcutaneous, Q8H, First dose on Tue01/27/24 at 1400, Until Discontinued 0504 (Given - Provider: Jeaneth Maguire LPN)1413 (Given - Provider: Abeba Nagel RN)204 (Given - Provider: Agusto Saunders RN) 0447 (Given - Provider: Agusto Saunders RN)1310 (Given - Provider: Abeba Nagel RN)2141 (Given - Provider: Kalee Barrera RN) 0516 (Given - Provider: Kalee Barrera RN)1403 (Given - Provider: Stefania Buck, RN) isosorbide mononitrate SA (Imdur) tab 90 mg 90 mg, Oral, Daily(AM), First dose on Tue01/27/24 at 0900, Until Discontinued, Hold for 24 hours prior to Stress Test and notify service if dose is held This med should NOT be Crushed or Chewed 0754 (Given - Provider: Abeba Nagel RN) 0908 (Given - Provider: Abeba Nagel RN) 0808 (Given - Provider: Stefania Buck, RN) levETIRAcetam (Keppra) tab 500 mg 500 mg, Oral, BID (.AM/PM), First dose on Tue01/27/24 at 2100, Last dose on Tue02/02/24 at 0900, For 12 doses 0755 (Given - Provider: Abeba Nagel RN)2010 (Given - Provider: Agusto Saunders RN) 0908 (Given - Provider: Abeba Nagel RN)214 (Given - Provider: Kalee Barrera, NESTOR) 0808 (Given - Provider: Stefania Buck, RN) Lidocaine (Aspercreme) 4 % patch 1 Patch 1 Patch, Transdermal, Daily(AM), First dose on Tue01/28/24 at 1115, Until Discontinued, Apply patch for 12 hours then remove for 12 hours! Remove any Lidocaine patches the patient may currently be wearing prior to applying the new patch 0000 (Patch Removed - Provider: Jeaneth Maguire LPN)0756 (Patch Applied - Provider: Abeba Nagel RN)1956 (Patch Removed - Provider: Agusto Saunders RN) 0908 (Patch Applied - Provider: Abeba Nagel RN)2108 (Patch Removed - Provider: Kalee Barrera, NESTOR) 0810 (Patch Applied - Provider: Stefania Buck, NESTOR)1456 (Due: Patch Removed - Provider: Discharge, Physician - Comment: Time automatically adjusted from order being discontinued) magnesium sulfate 1 g in d5w 100mL LOCKED DOSE (COMPLETED) 1 g, IV Piggyback, ONCE, 1 dose, On Tue01/29/24 at 0800, Administer over 60 Minutes 0800 (New Bag - Provider: Abeba Nagel RN)0814 (Rate Verify - Provider: Abeba Nagel RN)0914 (Stopped - Provider: Abeba Nagel RN) Metoprolol Tartrate (Lopressor) tab 25 mg 25 mg, Oral, BID (.AM/PM), First dose (after last modification) on Tue01/29/24 at 2100, Until Discontinued, Hold for HR less than 60 or SBP below 90 and notify service if dose is held 2010 (Given - Provider: Agusto Saunders RN) 09 (Given - Provider: Abeba Nagel RN)214 (Given - Provider: Kalee Barrera RN) 0808 (Given - Provider: Stefania Buck, RN) omeprazole (PriLOSEC) cap 20 mg 20 mg, Oral, Daily(AM), First dose on Tue01/27/24 at 0900, Until Discontinued, This med should NOT be Crushed or Chewed 0754 (Given - Provider: Abeba Nagel RN) 09 (Given - Provider: Abeba Nagel RN) 0808 (Given - Provider: Stefania Buck, NESTOR) senna (Senokot) 1 Tablet 1 Tablet, Oral, Daily(AM), First dose (after last modification) on Tue01/31/24 at 0900, Until Discontinued, hold if patient have loose stool or frequent bowel movements 08 (Given - Provider: Stefania Buck RN) senna (Senokot) 2 Tablet (CANCELED) 2 Tablet, Oral, BID (.AM/PM), First dose on Tue01/26/24 at 2230, Until Discontinued, hold if patient have loose stool or frequent bowel movements 0755 (Given - Provider: Abeba Nagel RN)2010 (Not Given - Provider: Agusto Saunders RN - Reason: Parameter(s) Not Met) 0900 (Not Given - Provider: Abeba Nagel RN - Reason: Other- Please add reason in Comments - Comment: loose stools) sodium chloride 0.9 % flush peripheral chan 3 mL 3 mL, IV Push, QSHIFT, First dose on Tue01/27/24 at 0000, Until Discontinued, Do not flush if lock, PICC, or central line not in place; IV infusing or unable to flush. 0000 (Given - Provider: Jeaneth Maguire LPN)0758 (Given - Provider: Abeba Nagel, NESTOR)1704 (Given - Provider: Abeba Nagel, NESTOR) 0000 (Given - Provider: Agusto Saunders, NESTOR)0909 (Given - Provider: Abeba Nagel RN)1505 (Given - Provider: Abeba Nagel RN) 0000 (Given - Provider: Kalee Barrera, RN)0800 (Given - Provider: Stefania Buck, RN) sulfamethoxazole-trimetho prim DS (Bactrim DS) 800-160 MG 1 Tablet 1 Tablet, Oral, Q12H, First dose on Tue01/29/24 at 2100, Last dose on Tue02/01/24 at 0900, For 3 days 2010 (Given - Provider: Agusto Saunders RN) 0907 (Given - Provider: Abeba Nagel RN)2143 (Given - Provider: Kalee Barrera, RN) 0810 (Given - Provider: Stefania Buck, RN) PRN Medication Order 01/29/2024 01/30/2024 01/31/2024 Carisoprodol (Soma) tab 175 mg 175 mg, Oral, Q6H PRN Muscle spasms, Starting on Patricia 01/26/24 at 2141, Until Tu01/31/24 at 1856 1419 (Given - Provider: Abeba Nagel RN) 0059 (Given - Provider: Agusto Saunders RN)0908 (Given - Provider: Abeba Nagel RN) ondansetron (Zofran) inj 4 mg(Linked Group 1) 4 mg, IV Push, Q6H PRN Other, May use for nausea or vomiting if patient unable to take oral ondansetron, Starting on Patricia 01/26/24 at 2152, Until 01/31/24 at 1856 0847 (Given - Provider: Archana Stringer RN - Comment: given at bedside by CORBY Galvez) ondansetron ODT (Zofran) tab 4 mg(Linked Group 1) 4 mg, On Tongue, Q6H PRN Nausea, Vomiting, Starting on Patricia 01/26/24 at 2152, Until 01/31/24 at 1856 0847 (See Alternative - Provider: Archana Stringer RN) oxyCODONE (Oxy IR) tab 5 mg (CANCELED) 5 mg, Oral, Q4H PRN Pain, Severe, Starting on Patricia 01/26/24 at 215, Until Tue01/29/24 at 2032, Hold for somnolence or respiratory rate less than 10 0754 (Given - Provider: Abeba Nagel RN)1412 (Given - Provider: Abeba Nagel RN) QueaseEase essential oil diffusion for passive diffusion PRN, Starting on 01/30/24 at 1352, Until Tue01/31/24 at 1856 1506 (Given - Provider: Abeba Nagel RN) traMADol (Ultram) tab 50 mg (CANCELED) 50 mg, Oral, Q6H PRN Pain, Severe, Starting on 01/29/24 at 2032, Until Tue01/30/24 at 0801 2041 (Given - Provider: Agusto Saunders, NESTOR) 0304 (Given - Provider: Agusto Saunders RN) Linked Groups Order Group 1: ondansetron ODT (Zofran) tab 4 mgJump to med 4 mg, On Tongue, Q6H PRN Nausea, Vomiting, Starting on Patricia 01/26/24 at 2152, Until Tue01/31/24 at 1856 Or ondansetron (Zofran) inj 4 mgJump to med 4 mg, IV Push, Q6H PRN Other, May use for nausea or vomiting if patient unable to take oral ondansetron, Starting on Patricia 01/26/24 at 2152, Until Tue01/31/24 at 1856 documented in this encounter Advance Directives * [...] Power of Attor karen? No Care Teams Showroom Salesperson Relationship Specialty Start Date End Date Sandra Olvera CRNP [address] [place] [address] PCP - General Nurse Practitioner 02/10/23 documented as of this encounter
--- OUTSIDE RECORDS SUMMARY | 2024-06-14 22:50 | External Medical Summary | Summary of Care ---
Author Name Unknown Organization [facility] Address [address] [place] [address] Phone [phone] Care Team Providers Care Rotary Dryer Operator Name Role Phone Sandra Guajardo Primary Care Provider [phone] [phone] Encounter Details Date Type Department Care Team (Late st Contact Info) Description 01/26/2024 Orders Only Unspecified Department Harry Nevilleek, DO [address] [place], [place] [id number] Allergies Active Allergy Reactions Criticality Noted Date Comments Ibuprofen Neuro complications (Please comment) Medium 05/21/2010 Jittery Cashew Nut Oil Hives 05/06/2020 Oxycodone-Acetaminophen Other (Please comment) Medium 08/06/2010 Severe vomiting/nausea Prochlorperazine Neuro complications (Please comment) Medium 12/17/2004 Facial twitches Adhesive Tape Hives Medium 08/06/2010 Diazepam Neuro complications (Please comment) Medium 12/17/2004 hallucinations documented as of this encounter (statuses as of 01/27/2024) Medications Medication Sig Dispensed Refills Start Date [...] Suspended ISOSORBIDE MONONITRATE ER 60 MG PO [id number]:Naa st pain 1 AND 1/2 TABLETS DAILY [...] as of this encounter (statuses as of 01/27/2024) Active Problems Problem Noted Date Diagnosed Date Fall 01/27/2024 Carpal tunnel syndrome 06/15/2009 Systemic lupus [...] patient at prior appointment. Coronary atherosclerosis of [place] coronary ana laura ry documented as of this encounter (statuses as of 01/27/2024) Resolved Problems Problem Noted Date Diagnosed Date Resolved Date Dyslipidemia, goal LDL below 70 10/05/2011 05/24/2013 ASCVD (arteriosclerotic card iovascular disease) 01/28/2011 05/24/2013 ACTIVE CASE MANAGEMENT- Servando acevedo Talat RN [phone] 06/18/2009 01/12/2010 Acute non Q wave myocardial infarction 06/14/2009 05/24/2013 Dyslipidemia, goal to be determined 03/11/2009 03/02/2011 Overview: Per Lipid Taxonomy. Mixed dyslipidemia 01/11/2008 9 Overview: Per Lipid Taxonomy. Lupus erythematosus 12/17/2004 06/17/19 06 Overview: diagnosed in 1975 HTN, goal to be determined 04/19/2008 Overview: Modified per HTN protocol #16. documented as of this encounter (statuses as of 01/27/2024) Immunizations Name Administration Dates Next Due Pneumococcal [...] on file documented as of this encounter Plan of Treatment Scheduled Procedures Name Priority Associated Diagnoses Date/Ti me COLONOSCOPY FLEXIBLE PROXIMAL DIAGNOSTIC Recall History of colon polyps Health Maintenance Due Date Last Done Comments DXA Scan 1941 Albumin/Creatinine Ratio 11/25/1959 DTap/Tdap Vaccines (1 - Tdap) 1960 Zoster Vaccines (1 of 2) 11/25/1991 Depression Screening 02/12/2014 02/12/2013 COVID-19 Vaccine ( - 2023- season) 2023 Influenza Vaccine (FLU shot) (#1) 2023 GFR 01/26/2025 01/27/2024, 12/28, 07/29/2020, Additional history exists RETIRED - COLONOSCOPY-EVERY 5 [...] Procedure Name Priority Date/Time Associated Diagnosis Comments RADIOLOGY EXAM - GENERAL RAD (IMAGES ONLY,NO REPORT) Routine 01/26/2024 4:45 PM EDT documented in this encounter Results * RADIOLOGY EXAM - GENERAL RAD (IMAGES ONLY,NO REPORT) (01/26/2024 4:45 PM EDT) 01/26/2024 4:36 PM EDT Narrative Scheduling, Silent - 01/27/2024 11:46 AM EDT This is an imaging study not interpreted or resulted by a [facility] radiologist. Harry Sahil Kelin DO RADIOLOGY (RAD GEN ERAL) documented in this encounter Advance Directives * [...] Power of Attor karen? No Care Teams Rotary Dryer Operator Relationship Specialty Start Date End Date Sandra Guajardo CRNP [address] [place] [address] PCP - General Nurse Practitioner 02/10/23 documented as of this encounter
--- OUTSIDE RECORDS SUMMARY | 2024-06-14 22:50 | External Medical Summary | Summary of Care ---
Author Name Unknown Organization [facility] Address [address] [place] [address] Phone [phone] Care Team Providers Care Silverware Cleaner Name Role Phone Sandra Guajardo Primary Care Provider [phone] [phone] Encounter Details Date Type Department Care Team (Latest Contact Info) Description 01/26/2024 4:40 PM EDT - 01/26/2024 4:44 PM EDT Hospital Encounter Radiology Film File [address] [place] [address] Arrived Discharge Disposition: Home - Self Care Allergies [...] as of this encounter (statuses as of 01/28/2024) Medications Medication Sig Dispensed Refills Start Date End Date Status ASPIRIN 81 MG PO CHEWIndications:Acu te non Q wave myocardial infarction (HCC) 1 Tab Oral Daily 34 6 06/17/2009 Suspended Additional Information CALCIUM 600-D 600-400 MG-UNIT PO TABS once daily Suspended TRIAMCINOLONE ACETONIDE 0.1 % EX CREAIndications:Kenneht matitis Apply to affected area twice a day 15 g 1 08/06/2010 Suspended Additional Information LACHELLE ROOT 550 MG PO CAPS once a day Suspended ISOSORBIDE MONONITRATE ER 60 MG PO [id number]:Naa st pain 1 AND 1/2 TABLETS DAILY [...] as of this encounter (statuses as of 01/28/2024) Active Problems Problem Noted Date Diagnosed Date Carpal tunnel syndrome 06/15/2009 Systemic lupus erythematosus [...] patient at prior appointment. Coronary atherosclerosis of [place] coronary ana laura ry documented as of this encounter (statuses as of 01/28/2024) Resolved Problems Problem Noted Date Diagnosed Date Resolved Date Dyslipidemia, goal LDL below 70 10/05/2011 05/24/2013 ASCVD (arteriosclerotic card iovascular disease) 01/28/2011 05/24/2013 ACTIVE CASE MANAGEMENT- Servando Gilliland RN [phone] 06/18/2009 01/12/2010 Acute non Q wave myocardial infarction 06/14/2009 05/24/2013 Dyslipidemia, goal to be determined 03/11/2009 03/02/2011 Overview: Per Lipid Taxonomy. Mixed dyslipidemia 01/11/2008 9 Overview: Per Lipid Taxonomy. Lupus erythematosus 12/17/2004 06/17/19 06 Overview: diagnosed in 1975 HTN, goal to be determined 04/19/2008 Overview: Modified per HTN protocol #16. documented as of this encounter (statuses as of 01/28/2024) Immunizations Name Administration Dates Next Due Pneumococcal [...] Influenza Vaccine (FLU shot) (#1) 2023 GFR 01/27/2025 01/28/2024, 03/2023, 01/26/2024, Additional history exists RETIRED - COLONOSCOPY-EVERY 5 [...] GENERAL RAD (IMAGES ONLY,NO REPORT) Routine 01/26/2024 4:40 PM EDT documented in this encounter Results * RADIOLOGY EXAM - GENERAL RAD (IMAGES ONLY,NO REPORT) (01/26/2024 4:40 PM EDT) 01/26/2024 4:36 PM EDT Narrative Scheduling, Silent - 01/27/2024 11:45 AM EDT This is an imaging study not interpreted or resulted by a [facility] or [facility] radiologist. Harry Neville DO RADIOLOGY (RAD GEN ERAL) documented in [...] Power of Attor karen? No Care Teams Silverware Cleaner Relationship Specialty Start Date End Date Sandra Guajardo CRNP [address] [place] [address] PCP - General Nurse Practitioner 02/10/23 documented as of this encounter
--- OUTSIDE RECORDS SUMMARY | 2024-06-14 22:50 | External Medical Summary ---
Author Name Unknown Address Unknown Organization [id number]:[place] [place] [facility] [address] Laboratory Report Ordering Provider Test Date Status MICHAELMONY 01/26/2024 23:13:38 Final Cutoff Concentrations:
Drug Level
Amphetamines 500 ng/mL
Benzodiazepines 100 ng/mL
Cannabinoids 50 ng/mL
Cocaine Metabolite 150 ng/mL
Fentanyl 1 ng/mL
Hydrocodone / Hydromorphone 300 ng/mL
Methadone Metabolite 100 ng/mL
Morphine / Codeine 300 ng/mL
Oxycodone / Oxymorphone 100 ng/mL

Screening results are presumptive and can only be used for medical purposes. Positive screening results are reflexed to confirmatory testing. Observation Date Value Abnormality Reference (Units ) Status Amphetamines, Urine screen 01/26/2024 23:13:38 Negative Negative Final Benzodiazepines, Urine screen 01/26/2024 23:13:38 Negative Negative Final Cannabinoids, Urine screen 01/26/2024 23:13:38 Negative Negative Final Cocaine Metabolite, Urine screen 01/26/2024 23:13:38 Negative Negative Final fentaNYL [Presence] in Urine by Screen method 01/26/2024 23:13:38 Negative Negative Final HYDROcodone [Presence] in Urine by Screen method 01/26/2024 23:13:38 Negative Negative Final 7-Zrkalevofi-1,5-Dimeth yl-3,3-Diphenylpyrrolid ine (EDDP) [Presence] in Urine 01/26/2024 23:13:38 Negative Negative Final Opiates, Urine screen 01/26/2024 23:13:38 Positive Abnormal Negative Final oxyCODONE [Presence] in Urine by Screen method 01/26/2024 23:13:38 Negative Negative Final Performing Location LABORATORY C - [address] [facility] [address]
--- OUTSIDE RECORDS SUMMARY | 2024-06-14 22:50 | External Medical Summary ---
Author Name Unknown Address Unknown Organization [id number]:LABORATORY [facility] [place] - [address] [facility] [place] [address] Laboratory Report Ordering Provider Test Date Status MONY RODRIGUEZ 01/26/2024 21:30:00 Final Observation Date Value Abnormality Reference (Units ) Status AST (Aspartate aminotransferase) 01/26/2024 21:30:00 18 10-35 (U/L) Final Performing Location LABORATORY [facility] [place] - [address] [place] [address]
--- OUTSIDE RECORDS SUMMARY | 2024-06-14 22:50 | External Medical Summary | Summary of Care ---
Author Name Unknown Organization [facility] Address [address] [place] [address] Phone [phone] Care Team Providers Care Screening Representative Name Role Phone Sandra Guajardo Primary Care Provider [phone] [phone] Reason for Visit * Reason Comments [facility] Encounter Details Date Type Department Care Team ([facility] st Contact Info) Description 01/26/2024 7:35 PM EDT Documentation [facility] [place] [address] [place] [address] 1, [facility] [address] [place] [address] Traumatic injury* Allergies Active Allergy Reactions Criticality [...] Suspended ISOSORBIDE MONONITRATE ER 60 MG PO [id number]:Naa st pain 1 AND 1/2 TABLETS DAILY [...] patient at prior appointment. Coronary atherosclerosis of [place] coronary ana laura ry documented as of this encounter (statuses as of 01/27/2024) Resolved Problems Problem Noted Date Diagnosed Date Resolved Date Dyslipidemia, goal LDL below 70 10/05/2011 05/24/2013 ASCVD (arteriosclerotic card iovascular disease) 01/28/2011 05/24/2013 ACTIVE CASE MANAGEMENT- Servando Gilliland RN [phone] 06/18/2009 01/12/2010 Acute non Q wave myocardial [...] Admitted as an Inpatient: yes Certifying Physician/Ordering Service:[facility] [place] Physician - Barrett García M.D. [facility] [address] [place] [address] Point of School Inspector (zip code required): Hospital - [facility] - [address]; [place] [address] Destination (Specify Name/Address): [facility] - [address]; [place] [address] Patient transported to nearest facility (capable of mgmt for Pt's condition): YES Total number of Loaded Miles: 66.3 miles Mode of Transport: Air Completed by: BART Hernandez-P documented in this encounter Plan of Treatment Scheduled Procedures Name Priority Associated Diagnoses Date/Ti me COLONOSCOPY FLEXIBLE PROXIMAL DIAGNOSTIC Recall History of colon polyps Health Maintenance Due Date Last Done Comments DXA Scan 1941 Albumin/Creatinine Ratio 11/25/1959 DTap/Tdap Vaccines (1 - Tdap) 1960 Zoster Vaccines (1 of 2) 11/25/1991 Depression Screening 02/12/2014 02/12/2013 COVID-19 Vaccine ( season) 2023 Influenza Vaccine (FLU shot) (#1) 2023 GFR 01/25/2025 01/26/2024, 06/2020, 07/29/2020, Additional history exists RETIRED - COLONOSCOPY-EVERY [...] Power of Attor karen? No Care Teams Screening Representative Relationship Specialty Start Date End Date Sandra Guajardo CRNP [address] [place] [address] PCP - General Nurse Practitioner 02/10/23 documented as of this encounter
--- OUTSIDE RECORDS SUMMARY | 2024-06-14 22:50 | External Medical Summary ---
Author Name Unknown Address Unknown Organization [id number]:LAB[facility]ATORY [facility] [place] - [address] [address] Laboratory Report Ordering Provider Test Date Status JEFFERSON SAMS 01/28/2024 03:47:00 Final Observation Date Value Abnormality Reference (Units ) Status BUN 01/28/2024 03:47:00 15 6-20 (mg/dL) Final Creatinine 01/28/2024 03:47:00 0.8 0.5-1.0 (mg/dL) Final Glomerular filtration rate/1.73 sq M.predicted [Volume Rate/Area] in Serum, Plasma or Blood by Creatinine-based formula (CKD-EPI) 01/28/2024 03:47:00 77 >=60 (mL/min) Final eGFR is calculated based on the CKD-EPI 2020 equation. Sodium 01/28/2024 03:47:00 140 135-146 (m mol/L) Final Potassium 01/28/2024 03:47:00 4.2 3.5-5.1 (m mol/L) Final Cl 01/28/2024 03:47:00 109 Above high normal 98 -107 (mmol/L) Final CO2 01/28/2024 03:47:00 24 22-32 (mmo l/L) Final Anion gap 01/28/2024 03:47:00 7 7-15 (mmol /L) Final Glucose 01/28/2024 03:47:00 95 70-120 (mg /dL) Final Calcium 01/28/2024 03:47:00 9.3 8.4-10.2 ( mg/dL) Final Performing Location LABORATORY [facility] [place] - [address] [place] [address]
--- OUTSIDE RECORDS SUMMARY | 2024-06-14 22:50 | External Medical Summary ---
Author Name Unknown Address Unknown Organization K01:LABORATORY [facility] - [address] [facility] [address] Laboratory Report Ordering Provider Test Date Status JEFFERSON SAMS 01/28/2024 03:47:00 Final Observation Date Value Abnormality Reference (Units ) Status SYNC LEUKOCYTES IN BLOOD BY AUTOMATED COUNT 01/28/2024 03:47:00 4.41 4.00-10.80 (K/uL) Final Segs 01/28/2024 03:47:00 57.6 40.0-75.0 (%) Final Lymphs % 01/28/2024 03:47:00 26.1 18.0-42.0 (%) Final Monos 01/28/2024 03:47:00 12.2 Above high normal 1.0-11.0 (%) Final Eosinophils 01/28/2024 03:47:00 3.2 0.0-6.0 (%) Final Basos 01/28/2024 03:47:00 0.7 0.0-2.0 (%) Final Immature Granulocyte, Percent 01/28/2024 03:47:00 0.2 0.0-2.0 (%) Final Absolute Segs 01/28/2024 03:47:00 2.54 1.80-7.70 (K/uL) Final Lymphs, absolute 01/28/2024 03:47:00 1.15 1.00-4.80 (K/ul) Final Monos, Abs 01/28/2024 03:47:00 0.54 0.00-1.10 (K/uL) Final Eos, Abs 01/28/2024 03:47:00 0.14 0.00-0.70 (K/uL) Final Basos, Abs 01/28/2024 03:47:00 0.03 0.00-0.20 (K/uL) Final Immature Granulocytes, Number 01/28/2024 03:47:00 0.01 0.00-0.20 (K/uL) Final Performing Location LABORATORY [facility] [place] - [address] [facility] [address]
--- OUTSIDE RECORDS SUMMARY | 2024-06-14 22:50 | External Medical Summary ---
Author Name Unknown Address Unknown Organization K01:LABORATORY [facility] - [address] [facility] [address] Laboratory Report Ordering Provider Test Date Status MONY RODRIGUEZ 01/26/2024 23:13:38 Final Observation Date Value Abnormality Reference (Units ) Status Color of Urine by Auto 01/26/2024 23:13:38 Yellow Colorless, Light Yellow, Yellow, Dark Yellow Final Clarity, Urine 01/26/2024 23:13:38 Clear Clear Final Glucose [Mass/volume] in Urine by Automated test strip 01/26/2024 23:13:38 Negative Negative (mg/dL) Final Bilirubin.total [Presence] in Urine by Automated test strip 01/26/2024 23:13:38 Negative Negative Final Ketones [Mass/volume] in Urine by Automated test strip 01/26/2024 23:13:38 Negative Negative (mg/dL) Final Specific gravity, Urine 01/26/2024 23:13:38 >1.050 Above high normal 1.003-1.030 Final Hemoglobin [Presence] in Urine by Automated test strip 01/26/2024 23:13:38 Negative Negative Final pH, Urine 01/26/2024 23:13:38 6.5 5.0-7.5 (Units) Final Protein [Mass/volume] in Urine by Automated test strip 01/26/2024 23:13:38 Trace Abnormal Negative (mg/dL) Final Urobilinogen [Mass/volume] in Urine by Automated test strip 01/26/2024 23:13:38 Normal Normal (mg/dL) Final Nitrite [Presence] in Urine by Automated test strip 01/26/2024 23:13:38 Positive Abnormal Negative Final Leukocyte esterase [Presence] in Urine by Automated test strip 01/26/2024 23:13:38 Large Abnormal Negative Final RBC, Urine 01/26/2024 23:13:38 10-19 Abnormal 0-2 (/HPF) Final WBC, Urine 01/26/2024 23:13:38 50+ Abnormal 0-2 (/HPF) Final Bacteria [#/area] in Urine sediment by Microscopy high power field 01/26/2024 23:13:38 51-100 Abnormal 0-25 (/HPF) Final Calcium oxalate crystals [#/area] in Urine sediment by Microscopy high power field 01/26/2024 23:13:38 1-4 Abnormal None (/HPF) Final Performing Location [place] [facility] [place] [facility] [address] [facility] [address]
--- OUTSIDE RECORDS SUMMARY | 2024-06-14 22:50 | External Medical Summary ---
Author Name Unknown Address Unknown Organization K01:LABORATORY [place] [address] [address] [facility] [place] [address] Laboratory Report Ordering Provider Test Date Status OMNY RODRIGUEZ 01/26/2024 23:13:38 Final Cutoff Concentrations:
D rug \X09\\X09\ Level
6-Monoacetylmorphine 5 ng/mL

This test was developed and its performance characteristics determined by [employer]. It has not been cleared or approved by the [place] Food and Drug Administration. Observation Date Value Abnormality Reference (Units ) Status METHODOLOGY 01/26/2024 23:13:38 LC-MS/MS Final 6-Monoacetylmorphine (6-JOEL) [Presence] in Urine by Screen method 01/26/2024 23:13:38 Negative Negative Final Performing Location [place] [facility] [place] [facility] [address] [facility] [address]
--- OUTSIDE RECORDS SUMMARY | 2024-06-14 22:50 | External Medical Summary ---
Author Name Unknown Address Unknown Organization K01:LABORATORY [facility] [place] - [address] [place] [address] Laboratory Report Ordering Provider Test Date Status NICK SAMSMARGARITO 01/28/2024 03:47:00 Final Observation Date Value Abnormality Reference (Units ) Status Calcium.ionized [Moles/volume] in Serum or Plasma by Ion-selective membrane electrode (ISE) 01/28/2024 03:47:00 1.38 Above high normal 1.13-1.32 (mmol/L) Final This test was developed and its performance characteristics dtermined by [employer]. It has not been cleared or approved by the [place] Food and Drug Administration Performing Location LABORATORY [place] [address] [place] [address]
--- OUTSIDE RECORDS SUMMARY | 2024-06-14 22:50 | External Medical Summary | Summary of Care ---
Author Name Unknown Organization [facility] Address [address] [place] [address] Phone [phone] Care Team Providers Care Advertising Sales Agent Name Role Phone Sandra Guajardo Primary Care Provider [phone] [phone] Reason for Visit * Auth/Cert Specialty Diagnoses / Procedures Referred By Contmarino t Referred To Contact Diagnoses Subdural hemorrhage (HCC) Fall with head bleed, broken ribs Kalee Reyes MD [address] [place] [address] Emergency Medicine [facility] [address] [place] [address] Referral ID Status Reason Start Date Expiration Date Visits Re quested Visits Authorized [id number] Encounter Details Date Type Department Care Team (Latest Contact Info) Description 01/27/2024 1:13 PM EDT - 01/27/2024 11:59 PM EDT Hospital Encounter Cardiac Studies [facility] [address] [place] [address] Discharge Disposition: Home - Self Care Allergies [...] Suspended ISOSORBIDE MONONITRATE ER 60 MG PO [id number]:Naa st pain 1 AND 1/2 TABLETS DAILY [...] patient at prior appointment. Coronary atherosclerosis of [place] coronary ana laura ry documented as of this encounter (statuses as of 01/28/2024) Resolved Problems Problem Noted Date Diagnosed Date Resolved Date Dyslipidemia, goal LDL below 70 10/05/2011 05/24/2013 ASCVD (arteriosclerotic card iovascular disease) 01/28/2011 05/24/2013 ACTIVE CASE MANAGEMENT- Servando Gilliland RN [phone] 06/18/2009 01/12/2010 Acute non Q wave myocardial [...] (15 years old or older) No 01/26/20 24 Cognitive Status Response Date of Assessm ent Because of a physical, menta l, or emotional condition, do you have serious difficulty concentrating, remembering, or making decisions? (5 years old or older) No 01/26/2024 documented as of this encounter Plan of [...] Procedure Name Priority Date/Time Associated Diagnosis Comments ECHO, COMPLETE (2D), TRANS-THORACIC Routine 01/27/2024 1:56 PM EDT Trauma of chest documented in this encounter Results * ECHO, COMPLETE (2D), TRANS-THORACIC (01/27/2024 1:56 PM EDT) LEFT VENTRICULAR EJECTION FRACTION 55 % [facility] 01/27/2024 1:15 PM EDT Galen Thompson MD ECHOCARDIOLOGY [facility] documented in this encounter Advance Directives * [...] Power of Attor karen? No Care Teams Advertising Sales Agent Relationship Specialty Start Date End Date Sandra Guajardo CRNP [address] [place] [address] PCP - General Nurse Practitioner 02/10/23 documented as of this encounter
--- OUTSIDE RECORDS SUMMARY | 2024-06-14 22:50 | External Medical Summary ---
Author Name Unknown Address Unknown Organization [id number][facility] [address] [place] [address] Laboratory Report Ordering Provider Test Date Status JEFFERSON SAMS 01/28/2024 03:47:00 Final Observation Date Value Abnormality Reference (Units ) Status Magnesium 01/28/2024 03:47:00 2.0 1.5-2.6 (m g/dL) Final Performing Location [facility] - [address] [place] [address]
--- OUTSIDE RECORDS SUMMARY | 2024-06-14 22:50 | External Medical Summary ---
Author Name Unknown Address Unknown Organization [id number]:[facility] [place] [address] [facility] [id number] Laboratory Report Ordering Provider Test Date Status JEFFERSON SAMS 01/26/2024 23:13:38 Final Observation Date Value Abnormality Reference (Units ) Status Bacteria identified in Specimen by Culture 01/26/2024 23:13:38 [id number]^KLEBSIELL A PNEUMONIAE Abnormal Final 10,000 to 100,000 colonies/m L Klebsiella pneumoniae Performing Location [facility] [place] [address] [facility] [address] Ordering Provider Test Date Status JEFFERSON SAMS 01/26/2024 23:13:38 Final Observation Date Value Abnormality Reference (Units ) Status Ampicillin + Sulbactam 01/26/2024 23:13:38 16 Intermediate Final Cefazolin 01/26/2024 23:13:38 <=4 Susceptible Final Cefepime susceptibility 01/26/2024 23:13:38 <=1 Susceptible Final Ceftriaxone suceptibility 01/26/2024 23:13:38 <=1 Susceptible Final Ciprofloxacin 01/26/2024 23:13:38 1 Resistant Final Due to serious side effects, the FDA has advised against using Ciprofloxacin to treat uncomplicated UTIs and respiratory tract infections unless there are no alternative treatment options. Gentamicin susceptibility 01/26/2024 23:13:38 <=1 Susc eptible Final Levofloxacin susceptibility 01/26/2024 23:13:38 1 In termediate Final Due to serious side effects, the FDA has advised against using Levofloxacin to treat uncomplicated UTIs and respiratory tract infections unless there are no alternative treatment options. Nitrofurantoin susceptibility 01/26/2024 23:13:38 <=16 Susceptible Final Piperacillin + Tazobactamsusceptibility 01/26/2024 23:13:38 <=4 Susceptible Final TMP-SMZ susceptibility 01/26/2024 23:13:38 <=20 Suscept ible Final Test: Culture Quant Urine <b r/>Specimen Source: Urine, Clean Catch
Specimen Type: Urine
Specimen Date: 01/26/2024 2313
Result Date: 01/30/2024 1453
Result Status: Final result
Abnormal: Yes
Resulting Lab: [facility]
[address]
[place] [address]

CULTURE

10,000 to 100,000 colonies/mL Klebsiella pneumoniae (Abnormal)

SUSCEPTIBILITY

Klebsiella
pneumoniae
METHOD MICROBROTH
DILUTIONS

AMPICILLIN/SULBACTAM 16 Intermediate
CEFAZOLIN <=4 Susceptible
CEFEPIME <=1 Susceptible
CEFTRIAXONE <=1 Susceptible
CIPROFLOXACIN 1 Resistant
[1]
GENTAMICIN <=1 Susceptible
LEVOFLOXACIN 1 Intermediate
[2]
NITROFURANTOIN <=16 Susceptible
PIPERACILLIN TAZOBACTAM <=4 Susceptible
TRIMETH/SULFAMETHOXAZOLE <=20 Susceptible

[1] Due to serious side effects, the FDA has advised against using
Ciprofloxacin to treat uncomplicated UTIs and respiratory tract infections
unless there are no alternative treatment options.

[2] Due to serious side effects, the FDA has advised against using
Levofloxacin to treat uncomplicated UTIs and respiratory tract infections
unless there are no alternative treatment options.

null Performing Location [facility] [place] [address] [facility] [id number]
--- OUTSIDE RECORDS SUMMARY | 2024-06-14 22:50 | External Medical Summary | Summary of Care ---
Author Name Unknown Organization [facility] Address [address] [place] [address] Phone [phone] Care Team Providers Care Orthodontic Laboratory Technician Name Role Phone Sandra Guajardo Primary Care Provider [phone] [phone] Reason for Visit * Reason Onset Date Comments Test Results 01/27/2024 Encounter Details Date Type Department Care Team ([facility] st Contact Info) Description 01/27/2024 Telephone Laboratory, [place] [address] [place] [address] Karina Hayden, DO [address] [place], [place] [id number] Test Results Allergies Active Allergy Reactions Criticality [...] Suspended ISOSORBIDE MONONITRATE ER 60 MG PO [id number]:Naa st pain 1 AND 1/2 TABLETS DAILY [...] patient at prior appointment. Coronary atherosclerosis of [place] coronary ana laura ry documented as of this encounter (statuses as of 01/27/2024) Resolved Problems Problem Noted Date Diagnosed Date Resolved Date Dyslipidemia, goal LDL below 70 10/05/2011 05/24/2013 ASCVD (arteriosclerotic card iovascular disease) 01/28/2011 05/24/2013 ACTIVE CASE MANAGEMENT- Servando Gilliland RN [phone] 06/18/2009 01/12/2010 Acute non Q wave myocardial [...] encounter Miscellaneous Notes * Telephone Encounter - Edda Arellano OSA - 01/27/2024 7:11 AM EDT Hello- The radiologist discovered an unexpected or indeterminate finding on Tatiana Gonsales ([id number]) andasks that you review the following report. Study Type: CT HEAD/BRAIN WO CONTRAST Date of Study: 01/26/[address] HEAD: Left frontal lobe small volume subarachnoid hemorrhage is new/more conspicuous. Recommend short interval follow-up. Acute thin subdural hemorrhage along the interhemispheric falx is similar. CTA NECK: No evidence of traumatic vascular injury. Partially imaged thoracic findings as per the separate CT chest report. Please respond to this encounter to acknowledge receipt of this message and take responsibility to ensure this report is reviewed. Thank you, JULIANNE Burk Client Service Rep [facility] documented in this encounter Plan of Treatment [...] Power of Attor karen? No Care Teams Orthodontic Laboratory Technician Relationship Specialty Start Date End Date Sandra Guajardo CRNP [address] [place] [address] PCP - General Nurse Practitioner 02/10/23 documented as of this encounter
--- OUTSIDE RECORDS SUMMARY | 2024-06-14 22:50 | External Medical Summary ---
Author Name Unknown Address Unknown Organization K01[facility] [address] [place] [address] Laboratory Report Ordering Provider Test Date Status JEFFERSON SAMS 01/28/2024 03:47:00 Final Observation Date Value Abnormality Reference (Units ) Status Phosphate 01/28/2024 03:47:00 2.9 2.5-4.8 (m g/dL) Final Performing Location [facility] [address] [place] [address]
--- OUTSIDE RECORDS SUMMARY | 2024-06-14 22:50 | External Medical Summary ---
Author Name Unknown Address Unknown Organization [id number][facility] [place] [address] [place] [address] Laboratory Report Ordering Provider Test Date Status JEFFERSON SAMS 01/27/2024 06:29:00 Final Observation Date Value Abnormality Reference (Units ) Status BUN 01/27/2024 06:29:00 12 6-20 (mg/dL) Final Creatinine 01/27/2024 06:29:00 0.7 0.5-1.0 (mg/dL) Final Glomerular filtration rate/1.73 sq M.predicted [Volume Rate/Area] in Serum, Plasma or Blood by Creatinine-based formula (CKD-EPI) 01/27/2024 06:29:00 88 >=60 (mL/min) Final eGFR is calculated based on the CKD-EPI 2020 equation. Sodium 01/27/2024 06:29:00 141 135-146 (m mol/L) Final Potassium 01/27/2024 06:29:00 4.4 3.5-5.1 (m mol/L) Final Cl 01/27/2024 06:29:00 110 Above high normal 98 -107 (mmol/L) Final CO2 01/27/2024 06:29:00 24 22-32 (mmo l/L) Final Anion gap 01/27/2024 06:29:00 7 7-15 (mmol /L) Final Glucose 01/27/2024 06:29:00 102 70-120 (mg /dL) Final Calcium 01/27/2024 06:29:00 9.1 8.4-10.2 ( mg/dL) Final Performing Location [facility] [place] [address] [place] [address]
--- OUTSIDE RECORDS SUMMARY | 2024-06-14 22:50 | External Medical Summary ---
Author Name Unknown Address Unknown Organization [id number]:[facility] [place] [facility] [address] [place] [address] Laboratory Report Ordering Provider Test Date Status JEFFERSON SAMS 01/27/2024 06:29:00 Final Observation Date Value Abnormality Reference (Units ) Status WBC, Total 01/27/2024 06:29:00 4.92 4.00-10.80 (K/uL) Final RBC 01/27/2024 06:29:00 3.74 3.85-5.15 (M/uL) Final Hemoglobin 01/27/2024 06:29:00 12.0 12.0-15.3 (g/dL) Final HCT 01/27/2024 06:29:00 36.5 36.0-45.2 (%) Final MCV 01/27/2024 06:29:00 97.6 81.5-97.5 (fL) Final MCH 01/27/2024 06:29:00 32.1 27.0-34.0 (pg) Final MCHC 01/27/2024 06:29:00 32.9 32.0-36.0 (g/dL) Final RDW 01/27/2024 06:29:00 12.8 11.5-15.5 (%) Final Platelets 01/27/2024 06:29:00 150 140-400 (K/uL) Final MPV 01/27/2024 06:29:00 9.8 6.6-11.1 (fL) Final Nucleated erythrocytes/100 leukocytes [Ratio] in Blood by Automated count 01/27/2024 06:29:00 0 <=0 (/100 WBCs) Final Performing Location [facility] [place] [address] [place] [address]
--- OUTSIDE RECORDS SUMMARY | 2024-06-14 22:50 | External Medical Summary | Summary of Care ---
Author Name Unknown Organization [facility] Address [address] [place] [address] Phone [phone] Care Team Providers Care Chrome Plater Helper Name Role Phone Sandra Guajardo Primary Care Provider [phone] [phone] Encounter Details Date Type Department Care Team (Late st Contact Info) Description 01/26/2024 Orders Only Unspecified Department Harry Nevilleek, DO [address] [place], [place] [id number] Allergies Active Allergy Reactions Criticality Noted Date [...] Suspended ISOSORBIDE MONONITRATE ER 60 MG PO [id number]:Naa st pain 1 AND 1/2 TABLETS DAILY [...] patient at prior appointment. Coronary atherosclerosis of [place] coronary ana laura ry documented as of this encounter (statuses as of 01/27/2024) Resolved Problems Problem Noted Date Diagnosed Date Resolved Date Dyslipidemia, goal LDL below 70 10/05/2011 05/24/2013 ASCVD (arteriosclerotic card iovascular disease) 01/28/2011 05/24/2013 ACTIVE CASE MANAGEMENT- Servando acevedo Talat RN [phone] 06/18/2009 01/12/2010 Acute non Q wave myocardial [...] study not interpreted [facility]. Harry Sahil Kelin DO RADIOLOGY [...] Power of Attor karen? No Care Teams Chrome Plater Helper Relationship Specialty Start Date End Date Sandra Guajardo CRNP [address] [place] [address] PCP - General Nurse Practitioner 02/10/23 documented as of this encounter
--- OUTSIDE RECORDS SUMMARY | 2024-06-14 22:50 | External Medical Summary ---
Author Name Unknown Address Unknown Organization K01:LABORATORY [facility] [place] - [address] [facility] [place] [address] Laboratory Report Ordering Provider Test Date Status LATRELLKELIALYCE 01/27/2024 06:29:00 Final Observation Date Value Abnormality Reference (Units ) Status Calcium.ionized [Moles/volume] in Serum or Plasma by Ion-selective membrane electrode (ISE) 01/27/2024 06:29:00 1.32 1.13-1.32 (mmol/L) Final This test was developed and its performance characteristics dtermined by [facility]. It has not been cleared or approved by the [place] Food and Drug Administration Performing Location LABORATORY [place] [address] [place] [address]
--- OUTSIDE RECORDS SUMMARY | 2024-06-14 22:50 | External Medical Summary ---
Author Name Unknown Address Unknown Organization K01:LAB[facility]ATORY [facility] [place] - [address] [facility] [address] Laboratory Report Ordering Provider Test Date Status JEFFERSON SAMS 01/26/2024 22:31:57 Final SCREENING Observation Date Value Abnormality Reference (Units ) Status SARS Coronavirus 2 01/26/2024 22:31:57 Negative N egative Final 2019 Novel Coronavirus not d etected.

This express test was developed and its performance characteristics determined by [facility]. It has not been cleared or approved [...] (RT-PCR) test, or a Centers for Disease Control-acceptable equivalent. The test is performed in a high complexity Clinical Laboratory Improvement Amendments-(CLIA) certified laboratory. The test is acceptable for SARS-CoV-2 diagnosis, surveillance, and travel within the [place] and to most countries. Please check with local testing authorities about requirements before travel.

The validation of bronchial specimens, tracheal aspirates, and sputum for this assay was developed and performance characteristics determined by [facility]. The validation of alternate specimen types has not been cleared or approved by the U.S. Food and Drug Administration (FDA). It has been determined that such clearance is not necessary. Performing Location LABORATORY [place] [address] [facility] [address]
--- OUTSIDE RECORDS SUMMARY | 2024-06-14 22:50 | External Medical Summary | Summary of Care ---
Author Name Unknown Organization [facility] Address [address] [place] [address] Phone [phone] Care Team Providers Care Bag Sewer Name Role Phone Sandra Guajardo Primary Care Provider [phone] [phone] Encounter Details Date Type Department Care Team (Latest Contact Info) Description 01/26/2024 4:45 PM EDT - 01/26/2024 9:16 PM EDT Hospital Encounter Radiology Film File [address] [place] [address] Arrived Discharge Disposition: Home - [...] Suspended ISOSORBIDE MONONITRATE ER 60 MG PO [id number]:Naa st pain 1 AND 1/2 TABLETS DAILY [...] patient at prior appointment. Coronary atherosclerosis of [place] coronary ana laura ry documented as of this encounter (statuses as of 01/28/2024) Resolved Problems Problem Noted Date Diagnosed Date Resolved Date Dyslipidemia, goal LDL below 70 10/05/2011 05/24/2013 ASCVD (arteriosclerotic card iovascular disease) 01/28/2011 05/24/2013 ACTIVE CASE MANAGEMENT- Servando Gilliland RN [phone] 06/18/2009 01/12/2010 Acute non Q wave myocardial [...] interpreted or resulted by a [facility] or [facility] contracted radiologist. Harry Neville DO RADIOLOGY (RAD [...] Power of Attor karen? No Care Teams Bag Sewer Relationship Specialty Start Date End Date Sandra Guajardo CRNP [address] [place] [address] PCP - General Nurse Practitioner 02/10/23 documented as of this encounter
--- OUTSIDE RECORDS SUMMARY | 2024-06-14 22:50 | External Medical Summary ---
Author Name Unknown Address Unknown Organization K01[facility] [address] [place] [address] Laboratory Report Ordering Provider Test Date Status JEFFERSON SAMS 01/27/2024 06:29:00 Final Observation Date Value Abnormality Reference (Units ) Status Phosphate 01/27/2024 06:29:00 3.3 2.5-4.8 (m g/dL) Final Performing Location [facility] - [address] [place] [address]
--- OUTSIDE RECORDS SUMMARY | 2024-06-14 22:50 | External Medical Summary ---
Author Name Unknown Address Unknown Organization K01:[facility] [place] [facility] [place] [address] Laboratory Report Ordering Provider Test Date Status JEFFERSON SAMS 01/28/2024 03:47:00 Final Observation Date Value Abnormality Reference (Units ) Status WBC, Total 01/28/2024 03:47:00 4.41 4.00-10.80 (K/uL) Final RBC 01/28/2024 03:47:00 3.70 3.85-5.15 (M/uL) Final Hemoglobin 01/28/2024 03:47:00 11.7 Below low normal 12.0-15.3 (g/dL) Final HCT 01/28/2024 03:47:00 36.2 36.0-45.2 (%) Final MCV 01/28/2024 03:47:00 97.8 81.5-97.5 (fL) Final MCH 01/28/2024 03:47:00 31.6 27.0-34.0 (pg) Final MCHC 01/28/2024 03:47:00 32.3 32.0-36.0 (g/dL) Final RDW 01/28/2024 03:47:00 12.9 11.5-15.5 (%) Final Platelets 01/28/2024 03:47:00 157 140-400 (K/uL) Final MPV 01/28/2024 03:47:00 9.5 6.6-11.1 (fL) Final Nucleated erythrocytes/100 leukocytes [Ratio] in Blood by Automated count 01/28/2024 03:47:00 0 <=0 (/100 WBCs) Final Performing Location [facility] [place] [address] [place] [address]
--- OUTSIDE RECORDS SUMMARY | 2024-06-14 22:50 | External Medical Summary ---
Author Name Unknown Address Unknown Organization K01:[facility] - [address] [facility] [address] Laboratory Report Ordering Provider Test Date Status JEFFERSON SAMS 01/27/2024 06:29:00 Final Observation Date Value Abnormality Reference (Units ) Status SYNC LEUKOCYTES IN BLOOD BY AUTOMATED COUNT 01/27/2024 06:29:00 4.92 4.00-10.80 (K/uL) Final Segs 01/27/2024 06:29:00 60.0 40.0-75.0 (%) Final Lymphs % 01/27/2024 06:29:00 25.8 18.0-42.0 (%) Final Monos 01/27/2024 06:29:00 11.0 1.0-11.0 (%) Final Eosinophils 01/27/2024 06:29:00 2.0 0.0-6.0 (%) Final Basos 01/27/2024 06:29:00 0.6 0.0-2.0 (%) Final Immature Granulocyte, Percent 01/27/2024 06:29:00 0.6 0.0-2.0 (%) Final Absolute Segs 01/27/2024 06:29:00 2.95 1.80-7.70 (K/uL) Final Lymphs, absolute 01/27/2024 06:29:00 1.27 1.00-4.80 (K/ul) Final Monos, Abs 01/27/2024 06:29:00 0.54 0.00-1.10 (K/uL) Final Eos, Abs 01/27/2024 06:29:00 0.10 0.00-0.70 (K/uL) Final Basos, Abs 01/27/2024 06:29:00 0.03 0.00-0.20 (K/uL) Final Immature Granulocytes, Number 01/27/2024 06:29:00 0.03 0.00-0.20 (K/uL) Final Performing Location LABORATORY [facility] - [address] [facility] [address]
--- OUTSIDE RECORDS SUMMARY | 2024-06-14 22:50 | External Medical Summary ---
Author Name Unknown Address Unknown Organization K01:[facility] - [address] [place] [address] Laboratory Report Ordering Provider Test Date Status JEFFERSON SAMS 01/27/2024 06:29:00 Final Observation Date Value Abnormality Reference (Units ) Status Magnesium 01/27/2024 06:29:00 1.9 1.5-2.6 (m g/dL) Final Performing Location [facility] - [address] [place] [address]
--- OUTSIDE RECORDS SUMMARY | 2024-06-14 22:51 | External Medical Summary ---
Author Name Unknown Address Unknown Organization K01:[facility] - [address] [facility] [address] Laboratory Report Ordering Provider Test Date Status MONY RODRIGUEZ 01/26/2024 21:30:00 Final Observation Date Value Abnormality Reference (Units ) Status SYNC LEUKOCYTES IN BLOOD BY AUTOMATED COUNT 01/26/2024 21:30:00 5.93 4.00-10.80 (K/uL) Final Segs 01/26/2024 21:30:00 53.7 40.0-75.0 (%) Final Lymphs % 01/26/2024 21:30:00 32.0 18.0-42.0 (%) Final Monos 01/26/2024 21:30:00 11.1 Above high normal 1.0-11.0 (%) Final Eosinophils 01/26/2024 21:30:00 2.0 0.0-6.0 (%) Final Basos 01/26/2024 21:30:00 0.7 0.0-2.0 (%) Final Immature Granulocyte, Percent 01/26/2024 21:30:00 0.5 0.0-2.0 (%) Final Absolute Segs 01/26/2024 21:30:00 3.18 1.80-7.70 (K/uL) Final Lymphs, absolute 01/26/2024 21:30:00 1.90 1.00-4.80 (K/ul) Final Monos, Abs 01/26/2024 21:30:00 0.66 0.00-1.10 (K/uL) Final Eos, Abs 01/26/2024 21:30:00 0.12 0.00-0.70 (K/uL) Final Basos, Abs 01/26/2024 21:30:00 0.04 0.00-0.20 (K/uL) Final Immature Granulocytes, Number 01/26/2024 21:30:00 0.03 0.00-0.20 (K/uL) Final Performing Location LABORATORY [facility] - [address] [facility] [address]
--- OUTSIDE RECORDS SUMMARY | 2024-06-14 22:51 | External Medical Summary ---
Author Name Unknown Address Unknown Organization K01:LABORATORY [facility] [place] - [address] [place] [address] Laboratory Report Ordering Provider Test Date Status MONY RODRIGUEZ 01/26/2024 21:30:00 Final Observation Date Value Abnormality Reference (Units ) Status WBC, Total 01/26/2024 21:30:00 5.93 4.00-10.80 (K/uL) Final RBC 01/26/2024 21:30:00 4.17 3.85-5.15 (M/uL) Final Hemoglobin 01/26/2024 21:30:00 13.2 12.0-15.3 (g/dL) Final HCT 01/26/2024 21:30:00 40.0 36.0-45.2 (%) Final MCV 01/26/2024 21:30:00 95.9 81.5-97.5 (fL) Final MCH 01/26/2024 21:30:00 31.7 27.0-34.0 (pg) Final MCHC 01/26/2024 21:30:00 33.0 32.0-36.0 (g/dL) Final RDW 01/26/2024 21:30:00 12.7 11.5-15.5 (%) Final Platelets 01/26/2024 21:30:00 178 140-400 (K/uL) Final MPV 01/26/2024 21:30:00 9.9 6.6-11.1 (fL) Final Nucleated erythrocytes/100 leukocytes [Ratio] in Blood by Automated count 01/26/2024 21:30:00 0 <=0 (/100 WBCs) Final Performing Location LABORATORY [facility] [place] - [address] [place] [address]
--- OUTSIDE RECORDS SUMMARY | 2024-06-14 22:51 | External Medical Summary ---
Author Name Unknown Address Unknown Organization K01:[facility]ORY [facility] [place] [facility] [place] [address] [place] [address] Laboratory Report Ordering Provider Test Date Status MONY RODRIGUEZ 01/26/2024 21:30:00 Final Observation Date Value Abnormality Reference (Units ) Status ABO 01/26/2024 21:30:00 A Final RH 01/26/2024 21:30:00 Positive Final RED BLOOD CELL ANTIBODY SCREEN 01/26/2024 21:30:00 Negative Final SPECIMEN EXPIRATION DATE 01/26/2024 21:30:00 01/29/2024 23:59 Final Performing Location LAB[facility] [place] [facility] - [address] [place] [address]
--- OUTSIDE RECORDS SUMMARY | 2024-06-14 22:51 | External Medical Summary ---
Author Name Unknown Address Unknown Organization [id number]:LABORATORY [facility] [place] - [address] [place] [address] [address] Laboratory Report Ordering Provider Test Date Status MONY RODRIGUEZ 01/26/2024 21:30:00 Final Observation Date Value Abnormality Reference (Units ) Status BUN 01/26/2024 21:30:00 12 6-20 (mg/dL) Final Creatinine 01/26/2024 21:30:00 0.6 0.5-1.0 (mg/dL) Final Glomerular filtration rate/1.73 sq M.predicted [Volume Rate/Area] in Serum, Plasma or Blood by Creatinine-based formula (CKD-EPI) 01/26/2024 21:30:00 89 >=60 (mL/min) Final eGFR is calculated based on the CKD-EPI 2020 equation. Sodium 01/26/2024 21:30:00 140 135-146 (m mol/L) Final Potassium 01/26/2024 21:30:00 3.7 3.5-5.1 (m mol/L) Final Cl 01/26/2024 21:30:00 109 Above high normal 98 -107 (mmol/L) Final CO2 01/26/2024 21:30:00 22 22-32 (mmo l/L) Final Anion gap 01/26/2024 21:30:00 9 7-15 (mmol /L) Final Glucose 01/26/2024 21:30:00 113 70-120 (mg /dL) Final Calcium 01/26/2024 21:30:00 9.4 8.4-10.2 ( mg/dL) Final Performing Location LABORATORY [facility] [place] - [address] [facility] [address]
--- OUTSIDE RECORDS SUMMARY | 2024-06-14 22:51 | External Medical Summary ---
Author Name Unknown Address Unknown Organization [id number]:LABORATORY [facility] [place] - [address] [place] [address] Laboratory Report Ordering Provider Test Date Status MONY RODRIGUEZ 01/26/2024 21:30:00 Final Anticoagulation may affect t esting. Refer to [employer] Test Catalog for a list of effects. Observation Date Value Abnormality Reference (Units ) Status aPTT panel - Platelet poor plasma 01/26/2024 21:30:00 28 21-38 (seconds) Final Performing Location LABORATORY [facility] [place] - [address] [place] [address]
--- OUTSIDE RECORDS SUMMARY | 2024-06-14 22:51 | External Medical Summary ---
Author Name Unknown Address Unknown Organization [id number]:LABORATORY [facility] - [address] [facility] [address] Laboratory Report Ordering Provider Test Date Status MONY RODRIGUEZ 01/26/2024 21:30:00 Final Observation Date Value Abnormality Reference (Units ) Status Ethanol 01/26/2024 21:30:00 Negative Negative Final Performing Location LABORATORY [facility] - [address] [facility] [address]
--- NOTE | 2024-06-15 08:04 | Fluoroscopy Report ---
FL retrograde includes kub CLINICAL HISTORY: CYSTO COMPARISON STUDY: None FLUOROSCOPY TIME: 7 seconds FLUOROSCOPY IMAGES: 4 EXPOSURE DOSE: 1.2 mGy FINDINGS: Fluoroscopy was provided for right ureteral stent. IMPRESSION: Intraoperative fluoroscopy. ACT 112: Negative or not required by law. Electronically signed by: Kyle Rose M.D. 06/15/2024 8:03 AM
[2024-06-15 08:11] LABS: Hematocrit (blood only) 35.4 % (37.0-47.0); Hemoglobin 11.9 g/dl (12.0-16.0); Mean Corpuscular Hemoglobin 31.4 pg (25.0-34.0); Mean Corpuscular Hgb Conc 33.6 g/dL (32.0-36.0); Mean Corpuscular Volume 93.4 fL (80.0-100.0); Mean Platelet Volume 9.3 fL (9.4-12.4); Platelet Count 159 K/uL (130-400); RDW Coefficient of Variation 12.4 % (11.5-14.5); RDW Standard Deviation 42.6 fL (36.4-46.3); Red Blood Count 3.79 M/uL (4.20-5.40); White Blood Count 2.86 K/ul (4.8-10.8)
[2024-06-15 08:29] LABS: BUN Creatinine Ratio 11.4 (10-20); Calcium 8.7 mg/dl (8.6-10.3); Creatinine Clr Calc Pharmacy 51.3 ml/min; Potassium 3.8 mmol/L (3.5-5.1)
[2024-06-15] MEDS: ATORVASTATIN 40 MG TAB PO SCH (08:32)
[2024-06-15] MEDS: ASPIRIN 81 MG CHEW PO SCH (08:32)
[2024-06-15] MEDS: ISOSORBIDE MONO EXTENDED REL 30 MG TABCR PO SCH (08:32)
[2024-06-15] MEDS: PANTOprazole 40 MG TAB PO SCH (08:32)
--- NOTE | 2024-06-15 10:22 | Urology Progress Note ---
Date of Service June 15, 2024 Assessment & Plan (1) Right ureteral calculus: (2) Hematuria: (3) Complicated urinary tract infection: Plan: - Pt POD#1 s/p cystoscopy and right ureteral stent placement - Doing well, progressing as expected - Afebrile, hemodynamically stable - Lab work reviewed - creatinine 0.70, no leukocytosis - Urine culture prelim with E. coli - Continue broad-spectrum antibiotics and narrow per sensitivity data when available - Tolerating right ureteral stent with mild bother - Will add tamsulosin, as needed Pyridium and as needed oxybutynin for stent management - Okay to d/c from perspective when medically stable - Recommend d/c with course of appropriate PO antibiotics per culture, Tamsulosin, prn Pyridium and oxybutynin for stent management - Expected clinical course reviewed, all questions answered - Will arrange outpatient follow-up with our service to set up definitive stone treatment - will sign off, please contact our service with any additional questions or concerns Admission and Anticipated Discharge Date Admission Date: June 14, 2024 Subjective Patient seen and examined at bedside this morning. No acute issues overnight. Generally feeling better today. Reports mild flank discomfort on right with activity. No fever or chills. Voiding spontaneously. Review of Systems Constitutional: as per Subjective / HPI Genitourinary: as per Subjective / HPI Physical Exam Constitutional: well developed and well nourished; no acute distress Respiratory: normal respiratory effort; no respiratory distress and no labored breathing Gastrointestinal (Abdomen): Inspection/Auscultation: abdomen normal to inspection Musculoskeletal: Head/Neck/Chest: normocephalic Neurologic: moves all extremities and awake Psychiatric: Orientation: alert and oriented x 3 Results & Data Vital Signs (Past 12 Hours) Vital Signs Temp Pulse Pulse Resp BP Pulse Ox O2 Del Method 06/15/24 08:05 36.8 C 86 16 125/76 94 Room Air 06/15/24 03:19 36.4 C L 79 16 110/75 96 Room Air 06/14/24 22:54 36.4 C L 91 H 16 105/72 96 Room Air PG Care Time/CCT Total # of Minutes Spent Total Time Spent with Patient: Total time spent is greater than 50% in coordination of care (as documented) at patient's floor/unit and/or counseling patient: Coding Level of Care Code 11905 SUB INP/OBS CARE 04/21MIN Diagnoses Right ureteral calculus N20.1 Hematuria R31.9 Hematuria type: unspecified type Complicated urinary tract infection N39.0 (2) Hematuria Hematuria type: unspecified type Qualified Code(s): R31.9 - Hematuria, unspecified
[2024-06-15] MEDS: amLODIPine BESYLATE 5 MG TAB PO SCH (10:57)
[2024-06-15 12:36] LABS: Hematocrit (blood only) 36.9 % (37.0-47.0); Hemoglobin 12.3 g/dl (12.0-16.0)
[2024-06-15] MEDS: PHENAZOPYRIDINE HCL 200 MG TAB PO PRN (14:36)
[2024-06-15] MEDS: cefTRIAXone SODIUM 2,000 MG/50 ML BAG IV SCH (14:39)
--- NOTE | 2024-06-15 15:51 | Hospitalist Progress Note ---
Date of Service June 15, 2024 Assessment & Plan (1) Right ureteral stone: (2) Urinary tract infection: Plan This is an 83 year old female with past medical history of GERD, kidney stones, vitamin D insufficiency, HLD, HTN who presented to the ED on 06/14 with a chief complaint of flank pain and ongoing UTI. #UTI/Ureteral stone Patient w/ ongoing UTI symptoms including hematuria for 2-3 weeks. Urinalysis + for infection, UC + for E. Coli, sensitivities pending. CBC w drop of hgb to 11.9, repeat around noon stable at 12.3 BMP w/ stable renal function and electrolytes CTAP w/ 7 mm distal right ureteral stone w/ no hydronephrosis. Associated urothelial thickening & periureteral stranding. no additional ureteral calculi. Left nephrolithiasis. Colonic diverticulosis Urology consulted --> s/p cystoscopy 06/14. Flomax started. Oxybutynin and Pyridium prn Continue IV Rocephin, will plan to treat for complicated UTI given presence of stone. Hold Eliquis until hematuria resolves Tylenol, Toradol for pain prn AM CBC, BMP Chronic conditions HTN/CAD: amlodipine, isosorbide mononitrate HLD: statin GERD: PPI DVT prophylaxis: SCD's, hold chemical in setting of hematuria Code: DNR/DNI Admission and Anticipated Discharge Date Admission Date: June 14, 2024 Subjective Patient seen and examined this morning. Patient reports she is not feeling well today. She is still experiencing right flank pain that is uncomfortable for her. She reports her hematuria has started to slow down. Patient was on Eliquis outpatient for A fib and had been taking it up until yesterday morning. Physical Exam Constitutional: WD/WN, vitals as above Eyes: PERRL, conjunctivae normal, anicteric sclerae Respiratory: breathing unlabored Cardiovascular: well perfused Gastrointestinal (Abdomen): normal bowel sounds, soft, nontender, no hepatosplenomegaly Psychiatric: A+Ox3, euthymic affect Results & Data Results & Data Vital Signs (Past 12 Hours) Vital Signs Temp Pulse Resp BP Pulse Ox O2 Del Method 06/15/24 15:15 36.8 C 87 16 101/68 92 Room Air 06/15/24 12:22 36.6 C 97 H 16 112/77 95 Room Air 06/15/24 08:05 36.8 C 86 16 125/76 94 Room Air PG Care Time/CCT Total # of Minutes Spent Total Time Spent with Patient: Total time spent is greater than 50% in coordination of care (as documented) at patient's floor/unit and/or counseling patient: Coding Level of Care Code 44573 SUB INP/OBS CARE 2MIN Diagnoses Right ureteral stone N20.1 Acute cystitis with hematuria N30.01 Urinary tract infection type: acute cystitis Hematuria presence: with hematuria (2) Urinary tract infection Urinary tract infection type: acute cystitis Hematuria presence: with hematuria Qualified Code(s): N30.01 - Acute cystitis with hematuria
[2024-06-15] MEDS: TAMSULOSIN HCL 0.4 MG CAP PO SCH (20:09)
[2024-06-15] MEDS: oxyBUTYnin chloride 5 MG TAB PO PRN (21:02)
[2024-06-16] MEDS: ONDANSETRON INJ 2 MG/ML 2 ML VIAL IV ONE (06:18)
[2024-06-16 07:10] LABS: Hematocrit (blood only) 37.3 % (37.0-47.0); Hemoglobin 12.8 g/dl (12.0-16.0); Mean Corpuscular Hemoglobin 31.8 pg (25.0-34.0); Mean Corpuscular Hgb Conc 34.3 g/dL (32.0-36.0); Mean Corpuscular Volume 92.6 fL (80.0-100.0); Mean Platelet Volume 9.4 fL (9.4-12.4); Platelet Count 160 K/uL (130-400); RDW Standard Deviation 40.9 fL (36.4-46.3); Red Blood Count 4.03 M/uL (4.20-5.40); White Blood Count 4.05 K/ul (4.8-10.8)
[2024-06-16 08:04] LABS: BUN Creatinine Ratio 15.7 (10-20); Calcium 9.1 mg/dl (8.6-10.3); Creatinine Clr Calc Pharmacy 51.3 ml/min; Potassium 3.8 mmol/L (3.5-5.1)
[2024-06-16] MEDS: METOPROLOL TARTRATE 25 MG TAB PO SCH (09:08)
[2024-06-16] MEDS: ACETAMINOPHEN 325 MG TAB PO PRN (09:12)
[2024-06-16] MEDS: APIXABAN 2.5 MG TAB PO SCH (11:41)
--- NOTE | 2024-06-16 12:47 | Electrocardiogram Report ---
Test Reason : Blood Pressure : */* mmHG Vent. Rate : 124 BPM Atrial Rate : 115 BPM P-R Int : * ms QRS Dur : 80 ms QT Int : 330 ms P-R-T Axes : * 44 -8 degrees QTcB Int : 474 ms Atrial fibrillation with rapid ventricular response Abnormal ECG When compared with ECG of 26-Jan-2024 15:53, No significant change was found Confirmed by Chi Wheeler ([id number]) on 06/16/2024 12:46:50 PM Referred By: Sandra Guajardo Confirmed By: Chi Wheeler
--- NOTE | 2024-06-16 14:41 | Hospitalist Progress Note ---
Date of Service June 16, 2024 Assessment & Plan (1) Right ureteral stone: (2) Urinary tract infection: Plan This is an 83 year old female with past medical history of GERD, kidney stones, vitamin D insufficiency, HLD, HTN who presented to the ED on 06/14 with a chief complaint of flank pain and ongoing UTI. #UTI/Ureteral stone Patient w/ ongoing UTI symptoms including hematuria for 2-3 weeks. Urinalysis + for infection, UC + for E. Coli, sensitivities pending. CBC/ BMP stable. CTAP w/ 7 mm distal right ureteral stone w/ no hydronephrosis. Associated urothelial thickening & periureteral stranding. no additional ureteral calculi. Left nephrolithiasis. Colonic diverticulosis Urology consulted --> s/p cystoscopy 06/14. Flomax started. Oxybutynin and Pyridium prn Continue IV Rocephin, will plan to treat for complicated UTI given presence of stone. Tylenol, Toradol for pain prn AM CBC, BMP #A Fib EKG 06/16 - A fib RVR resumed outpatient metoprolol tartrate 25mg BID, HR improved. resume Eliquis at reduced dose to 2.5mg BID, spoke w/ pharmacist who noted that patient is typically on 5mg BID outpatient but is borderline on her weight for a reduction dose. Pharmacist did note if there was a concern for bleeding that the dose could be reduced. Chronic conditions HTN/CAD: amlodipine, isosorbide mononitrate HLD: statin GERD: PPI DVT prophylaxis: SCD's, Resumed Eliquis 06/16. Code: DNR/DNI Admission and Anticipated Discharge Date Admission Date: June 14, 2024 Subjective Patient seen and examined this morning. Patient reports she had a rough night. She got suddenly nauseous and had an episode of dry heaving. She was given Zofran with relief and was able to eat half a pancake for breakfast this morning. Her hematuria has resolved. She reported her flank pain was 7/10 but she also reported it was tolerable. Discussed escalating her pain medication to aide with symptom control but patient denied. Patient also went into A fib RVR this morning, patient w/ hx of A fib on a beta mei twice daily outpatient. Physical Exam Constitutional: WD/WN, vitals as above Eyes: PERRL, conjunctivae normal, anicteric sclerae Respiratory: breathing unlabored Cardiovascular: irregularly irregular Gastrointestinal (Abdomen): +BS, no tenderness to palpation Psychiatric: A+Ox3, euthymic affect Results & Data Results & Data Vital Signs (Past 12 Hours) Vital Signs Temp Pulse Resp BP Pulse Ox O2 Del Method 06/16/24 11:43 96 H 06/16/24 07:41 116 H 06/16/24 07:23 36.8 C 139 H 16 115/75 93 Room Air PG Care Time/CCT Total # of Minutes Spent Total Time Spent with Patient: Total time spent is greater than 50% in coordination of care (as documented) at patient's floor/unit and/or counseling patient: Coding Level of Care Code 09516 SUB INP/OBS CARE 235MIN Diagnoses Right ureteral stone N20.1 Acute cystitis with hematuria N30.01 Urinary tract infection type: acute cystitis Hematuria presence: with hematuria (2) Urinary tract infection Urinary tract infection type: acute cystitis Hematuria presence: with hematuria Qualified Code(s): N30.01 - Acute cystitis with hematuria
[2024-06-17 07:05] LABS: Hematocrit (blood only) 34.9 % (37.0-47.0); Hemoglobin 11.9 g/dl (12.0-16.0); Mean Corpuscular Hemoglobin 31.7 pg (25.0-34.0); Mean Corpuscular Hgb Conc 34.1 g/dL (32.0-36.0); Mean Corpuscular Volume 93.1 fL (80.0-100.0); Mean Platelet Volume 9.5 fL (9.4-12.4); Platelet Count 149 K/uL (130-400); RDW Coefficient of Variation 12.3 % (11.5-14.5); RDW Standard Deviation 42.1 fL (36.4-46.3); Red Blood Count 3.75 M/uL (4.20-5.40); White Blood Count 3.98 K/ul (4.8-10.8)
[2024-06-17 07:37] VITALS: BP 118/72; PULSE 92; RESP 18; TEMP 98.4; O2SAT 92
[2024-06-17 07:42] LABS: Calcium 9.1 mg/dl (8.6-10.3); Potassium 4.4 mmol/L (3.5-5.1)
[2024-06-17 07:47] LABS: BUN Creatinine Ratio 16.2 (10-20); Creatinine Clr Calc Pharmacy 52.8 ml/min
[2024-06-17] MEDS ORDERED: AMOXICILLIN/CLAVULANATE 875 MG TAB PO ONE (09:30)
--- NOTE | 2024-06-17 09:39 | Discharge Summary ---
Discharge Summary Date of Service June 17, 2024 Principal Dx & Hospital Course #1 = Principal Diagnosis (1) Right ureteral stone: (2) Urinary tract infection: Plan This is an 83 year old female with past medical history of GERD, kidney stones, vitamin D insufficiency, HLD, HTN who presented to the ED on 06/14 with a chief complaint of flank pain and ongoing UTI. #UTI/Ureteral stone Patient w/ ongoing UTI symptoms including hematuria for 2-3 weeks. Urinalysis + for infection, UC + for E. Coli CBC/ BMP stable. CTAP w/ 7 mm distal right ureteral stone w/ no hydronephrosis. Associated urothelial thickening & periureteral stranding. no additional ureteral calculi. Left nephrolithiasis. Colonic diverticulosis Urology consulted --> s/p cystoscopy 06/14. Flomax started. Oxybutynin and Pyridium prn IV Rocephin, transitioned to Cefpodoxime twice daily for additional 7 days on discharge. Sent home w/ oxybutynin as patient felt this was most effective to help with her discomfort. Follow up w/ urology outpatient for stent removal #A Fib EKG 06/16 - A fib RVR resumed outpatient metoprolol tartrate 25mg BID, HR improved. resume Eliquis at reduced dose to 2.5mg BID, spoke w/ pharmacist who noted that patient is typically on 5mg BID outpatient but is borderline on her weight for a reduction dose. Pharmacist did note if there was a concern for bleeding that the dose could be reduced. Continue Eliquis at reduced dose on discharge. -> discuss w/ PCP at outpatient follow up. Chronic conditions HTN/CAD: amlodipine, isosorbide mononitrate HLD: statin GERD: PPI Patient discharged home 06/17. Admission HPI Per Admitting Provider This is an 83 year old female with past medical history of GERD, kidney stones, vitamin D insufficiency, HLD, HTN who presented to the ED on 06/14 with a chief complaint of flank pain and ongoing UTI. The patient was seen and examined at bedside. Patient reports that she has been having ongoing UTI symptoms for at least 2-3 weeks. She was originally on Bactrim and more recently on Keflex. She reports that she has been also having hematuria for 2-3 weeks as well which is a new symptom for her. She has b/l flank pain but it is more prominent on her right side. She denies fever, chills. Does report lower abdominal pain as well, more specifically the right side. While in the ED, patient was found to be + for UTI on urinalysis w/ a pending urine culture. She had stable CBC/BMP. She had a CTAP that revealed a 7 mm distal right ureteral stone w/o hydronephrosis. Urology was consulted and saw the patient, she is to go for a cystoscopy this evening. Discharge Exam Constitutional WD/WN, vitals as above Eyes PERRL, conjunctivae normal, anicteric sclerae Respiratory breathing unlabored Cardiovascular well perfused Psychiatric A+Ox3, euthymic affect Discharge Plan Discharge Items Patient Disposition: Home - Self-Care Reason For Visit: UTI/FLANK PAIN Discharge Diagnosis: UTI, Ureteral stone Activity: Resume your previous activity Non-emergency contact: Primary Care Provider and Urologist Call non-emergency contact if: you have any medication questions, your symptoms worsen and you have a fever Follow-up/Referrals: Villa Thao MD [Physician] - Sandra Guajardo CRNP [Primary Care Provider] - Diet: Heart Healthy Addtl Attending Provider Instructions: Mrs. Gonsales, You were recently hospitalized for a UTI and were found to have a stone in your right ureter. You underwent a cystoscopy and had a stent placed. Please see recommendations below regarding your discharge. Please take Cefpodoxime twice daily for the next 7 days. Your first dose at home will be tomorrow morning, 06/18. Please take with food and a probiotic to avoid GI upset. You have been started on Flomax prior to bed to aide with your urinary symptoms. Please start this medication at home tonight, 06/17. Please use Oxybutynin twice daily for discomfort from your stent. You may use Tylenol 650mg every 6 hours as needed for pain. Your Eliquis dose has been reduced to 2.5mg twice daily. - Please use your remaining pills and cut them in half to use them. Following this, please follow up with your PCP for an updated script for Eliquis. The remainder of your outpatient medications may be resumed. Please follow up with urology outpatient. Please follow up with your PCP within 1-2 weeks of discharge. If you develop any fevers, chills, severe flank pain, chest pain, shortness of breath please report back to the ED for further care. It was a pleasure taking care of you. Good luck! Sarahi Mckenzie PA-C Pending Studies at Discharge: No Stand-Alone Forms: My [facility], Smoking Cessation Medications and DC Order Prescriptions: New tamsulosin 0.4 mg Capsule 0.4 mg PO HS Qty: 30 0RF oxybutynin chloride 5 mg Tablet 5 mg PO BID PRN (Reason: bladder spasms) Qty: 30 0RF Eliquis 2.5 mg Tablet 2.5 mg PO BID Qty: 60 0RF cefpodoxime 200 mg tablet 200 mg PO BID Qty: 14 0RF Rx Instructions: must administer with a meal/food Continued fluticasone propionate [Flonase Allergy Relief] 50 mcg/actuation spray,suspension 2 spray INTRANASAL DAILY PRN (Reason: Congestion) Qty: 48 1RF isosorbide mononitrate 60 mg tablet extended release 24 hr 90 mg PO QAM Qty: 135 1RF atorvastatin 40 mg tablet 40 mg PO QAM Qty: 90 3RF amlodipine 5 mg tablet 5 mg PO QAM Qty: 90 3RF omeprazole 20 mg capsule,delayed release(DR/EC) 20 mg PO QAM Qty: 90 3RF nitroglycerin 0.4 mg tablet, sublingual 0.4 mg SL UD PRN (Reason: Chest Pain) triamcinolone acetonide 0.1 % Cream 1 applic TOPICAL BID PRN (Reason: Skin Irritation) calcium carbonate-vitamin D3 [Calcium 600 + D(3)] 600 mg-10 mcg (400 unit) Tablet 1 tab PO DAILY metoprolol tartrate 25 mg tablet 25 mg BID Discharge Orders: Discharge Order (Routine); Ordered 06/17/24 Ordered By: Sarahi Mckenzie Admission Data Admit Date/Time: 06/14/24 16:55 Attending Provider: Harry Pineda Admit Provider: Harry Pineda Primary Care Provider: Sandra Guajardo Other Providers: Harry Pineda; Villa Thao Hospital Stay Data Consultations 06/14/24 16:07 ED Decision to Admit Stat 06/14/24 16:26 Consult Urology Routine Procedures Performed Operation Date: 06/14/24 07:50 Actual Procedures p Cystoscopy, Retrograde Pyelogram, Right Ureteral Stent Insertion(Right) - Villa Thao MD Diagnostic Imagining Performed 06/14/24 13:48 CT abd pelvis IV con only Stat 06/14/24 16:47 FL retrograde includes kub Routine Pending Results Patient Have Any Pending Studies at Discharge: No Discharge Instructions Given to Patient (Per Discharging Provider) Mrs. Gonsales, You were recently hospitalized for a UTI and were found to have a stone in your right ureter. You underwent a cystoscopy and had a stent placed. Please see recommendations below regarding your discharge. Please take Cefpodoxime twice daily for the next 7 days. Your first dose at home will be tomorrow morning, 06/18. Please take with food and a probiotic to avoid GI upset. You have been started on Flomax prior to bed to aide with your urinary symptoms. Please start this medication at home tonight, 06/17. Please use Oxybutynin twice daily for discomfort from your stent. You may use Tylenol 650mg every 6 hours as needed for pain. Your Eliquis dose has been reduced to 2.5mg twice daily. - Please use your remaining pills and cut them in half to use them. Following this, please follow up with your PCP for an updated script for Eliquis. The remainder of your outpatient medications may be resumed. Please follow up with urology outpatient. Please follow up with your PCP within 1-2 weeks of discharge. If you develop any fevers, chills, severe flank pain, chest pain, shortness of breath please report back to the ED for further care. It was a pleasure taking care of you. Good luck! Sarahi Mckenzie PA-C Total Time Total Time Spent Total Time Spent (In Minutes): 50 Total Time Includes: Examination of the Patient, Discharge Planning, Medication Reconciliation and Communication With Other Providers Coding Level of Care Code 35407 INP/OBS DISCH >30 MIN Diagnoses Right ureteral stone N20.1 Acute cystitis with hematuria N30.01 Hematuria presence: with hematuria Urinary tract infection type: acute cystitis
[2024-06-17] MEDS: cefTRIAXone SODIUM 1,000 MG/50 ML BAG IV SCH (11:49)
== END 2024-06-17 14:21 | disposition home or self-care (01) | DRG 660 ==
LOC: ED 13:04 → OR 16:54 → 3W 16:54

== ENCOUNTER 2024-06-28 14:37 | Inpatient (IN) ==
[2024-06-28 15:15] LABS: Basophils # (auto) 0.04 K/uL (0.00-0.20); Basophils % (auto) 0.9 %; Eosinophils # (auto) 0.24 K/uL (0.00-0.50); Eosinophils % (auto) 5.3 %; Hematocrit (blood only) 42.3 % (37.0-47.0); Hemoglobin 14.2 g/dl (12.0-16.0); Immature Granulocytes # (auto) 0.03 K/uL (0.01-0.20); Immature Granulocytes % (auto) 0.7 %; Lymphocytes # (auto) 1.31 K/uL (1.20-3.40); Lymphocytes % (auto) 28.9 %; Mean Corpuscular Hemoglobin 31.5 pg (25.0-34.0); Mean Corpuscular Hgb Conc 33.6 g/dL (32.0-36.0); Mean Corpuscular Volume 93.8 fL (80.0-100.0); Mean Platelet Volume 9.2 fL (9.4-12.4); Monocytes # (auto) 0.55 K/uL (0.11-0.59); Monocytes % (auto) 12.1 %; Neutrophils # (auto) 2.36 K/uL (1.40-6.50); Neutrophils % (auto) 52.1 %; Platelet Count 252 K/uL (130-400); RDW Coefficient of Variation 12.1 % (11.5-14.5); RDW Standard Deviation 41.7 fL (36.4-46.3); Red Blood Count 4.51 M/uL (4.20-5.40); White Blood Count 4.53 K/ul (4.8-10.8)
[2024-06-28 15:21] LABS: Appearance Urine Cloudy (Clear); Bilirubin Urine Negative (Negative); Blood Urine 3+ (Negative); Color Urine Red; Glucose Urine UA Negative (Negative); Ketones Urine Negative (Negative); Leukocyte Esterase Urine 1+ (Negative); Nitrite Urine Negative (Negative); Protein Urine 3+ (Negative); Urobilinogen Urine Negative (Negative); pH Urine 6.5 (4.5-7.5)
[2024-06-28 15:23] LABS: Bacteria Urine 1+ (None Seen); Hyaline Casts Urine Present /lpf (None Presnt); RBC Urine >20 /hpf (0-2)
[2024-06-28 15:37] LABS: Albumin Globulin Ratio 1.8 (0.9-2); Albumin Level 4.1 gm/dl (3.4-5.0); BUN Creatinine Ratio 10.5 (10-20); Bilirubin,Total 1.1 mg/dl (0.2-1.0); Creatinine Clr Calc Pharmacy 47.2 ml/min; Globulin 2.3 gm/dl (2.5-4.0); Potassium 4.1 mmol/L (3.5-5.1); Total Protein 6.4 gm/dl (6.0-8.3)
--- NOTE | 2024-06-28 16:05 | Emergency Department Note ---
Impression & Plan Complicated urinary tract infection, Hematuria ED Provider Note NAME: ESPINOZA GONSALES AGE: 83 SEX: F : 1940 ARRIVES VIA: Walk-In INFORMANT: Patient, Family member ED PROVIDER(S): Benito Yañez MD CHIEF COMPLAINT: Complicated UTI, outpatient referral for admission MEDICAL DECISION MAKING: Patient presents with the above. IV was established and blood work was obtained. The patient was ordered IV daptomycin after discussing with ED pharmacy. Patient's blood work shows mild leukopenia with white count of 4.5 with a normal hemoglobin and platelet count. The patient's kidney function is unremarkable. Urinalysis does show the possibility of infection and also associated hematuria. Discussion w/ other healthcare providers: Dr. Thao urology Dr. Rodriguez inpatient medicine service Prior /Outside records reviewed: None Differential diagnosis: Infection, dehydration, electrolyte abnormality, complicated UTI, cystitis, pyelonephritis among others were considered. Diagnostics, as interpreted by me: ECG: None Cardiac monitoring: An order was placed for continuous cardiac monitoring. The monitor shows a rate of 89 with sinus rhythm. Patient was placed on pulse oximetry Medical decision rules: None Imaging studies: None HPI: Patient presents due to concern for flank pain and possible UTI related symptoms. The patient had presented prior back in May for associated UTI symptoms a right ureteral stone. The patient did have cystoscopy and associated ureteral stent that was placed. Patient discharged on cefpodoxime. Patient did have a recent urine culture that showed the patient did have Enterococcus and VRE. Patient was called from home and advised to present here for further evaluation and treatment. Any fevers or chills. PAST MEDICAL HISTORY: See Below PAST SURGICAL HISTORY: See Below SOCIAL HISTORY: See Below HOME MEDICATIONS: See Below ALLERGIES: See Below VITALS: See Below PHYSICAL EXAMINATION: GENERAL: NAD, non-toxic. EYE EXAM: Normal conjunctiva. PERRL, no anisocoria and EOM's grossly intact w/o pain. OROPHARYNX: Moist mucus membranes, grossly normal dentition. NECK: Trachea midline, no stridor. Supple, no nuchal rigidity, no adenopathy, non-tender. No signs of meningismus. FROM of the neck with good chin to chest and neck extension. LUNGS: Clear to auscultation. Normal chest wall mechanics. HEART: NSR, no MRG. ABDOMEN: Abdomen soft, non-tender, no masses, no rebound or guarding. BACK: No CVA TTP. SKIN: No rashes and no bruising. UPPER EXTREMITIES: Upper extremities are grossly normal. LOWER EXTREMITIES: Grossly normal, no edema. NEURO EXAM: A&O x3, cranial nerves II-XII grossly intact, normal speech, moves all 4 extremities. Past Med/Surg History Problem List (Updated 06/29/24 @ 21:27 by Benito Yañez MD) Hematuria (Acute) Complicated urinary tract infection (Acute) Hematuria (Acute) Colic, ureteral (Acute) Right ureteral calculus (Acute) Complicated urinary tract infection (Acute) Urinary tract infection Weight loss Encounter for pre-operative examination Moderate mitral regurgitation Vitamin D insufficiency Kidney stones Arthritis GERD (gastroesophageal reflux disease) Hydroureteronephrosis ASCVD (arteriosclerotic cardiovascular disease) HTN, goal below 140/90 Hyperlipidemia Lupus (Acute) Medical History Moderate mitral regurgitation History of diverticulosis Lupus erythematosus Dx 1975 Followed by PCP "Currently stable" Kidney stones Hx of hyperlipidemia HTN (hypertension) History of [place] (myocardial infarction) 2008- no stents Hx of gastroesophageal reflux (GERD) History of atrial fibrillation Taking Eliquis/beta mei Brain bleed 2020 r/t fall- Treated at [facility] [place], "resolved on its own" 01/2024- transferred from [place] to [facility] > resolved per f/u head CT 03/06/24 History of COVID-19 04/2020: severe symptoms, treated at [facility] for 1 day > residual altered taste and smell Surgical History Hx of cystoscopy w/laser destruction kidney stone left side (2019) Hx of colonoscopy History of dilatation and curettage S/P cholecystectomy S/P hysterectomy with BSO (age 27) S/P appendectomy History of carpal tunnel release R/L History of cardiac cath (2008) 2008- no stents S/P ureteral stent placement Multiple History of rotator cuff surgery L shoulder History of cataract surgery R/L History of esophagogastroduodenoscopy History of sinus surgery x 2 Family History Mother Breast cancer Brother Myocardial infarction Stroke Heart disease brother had rheumatic fever that caused heart problems Grandfather Colon cancer Denies family history of Ovarian cancer Prostate cancer Social History Smoking Status: Never smoker Second Hand Exposure: Yes (hx as child); Do You Dip or Chew Tobacco: No; Tobacco Cessation Education Requested by Patient: No Hx Alcohol Use: No Hx Substance Use: No Preferred Language: Ecuadorean Communication Ability: Effective Visual Impairment: No Limitations Hearing Ability: Normal Pouncer Required: No Beliefs That Will Affect Care: None marital status: Current Living Situation: Spouse Current Living Situation Comment: Kamron Gonsales current occupational status: retired How many Children do You have: 4 Other Information That Helps Us Care for You: No Feels Safe at Home: Yes Safety Concerns: Feels Safe At This Time Childhood Exposure to Second-Hand Smoke: Yes Diet: regular Diet Comment: regular caffeine: Yes during the past year weight has: remained stable Dental Care, Regularly: No Physical Activity Frequency: Daily Seatbelt Use: always Sunscreen Use: No Assistive Devices: Denture - Upper and Denture - Lower Allergies Allergies Allergy/AdvReac Type Severity Reaction Status Date / Time amitriptyline Allergy Severe Facial Verified 06/28/24 12:04 paralysis nut - unspecified Allergy Severe Anaphylaxis, Verified 06/28/24 12:04 hives adhesive tape Allergy Intermediate Hives Verified 06/28/24 12:04 cashew nut Allergy Intermediate Hives Verified 06/28/24 10:39 diazepam AdvReac Severe Hallucinati Verified 06/28/24 12:04 ons oxycodone AdvReac Severe GI Upset Verified 06/28/24 10:39 ibuprofen [From Advil] AdvReac Intermediate "Jittery" Verified 06/28/24 12:04 perphenazine AdvReac Intermediate Facial Verified 06/28/24 12:04 twitching prochlorperazine AdvReac Intermediate Facial Verified 06/28/24 12:04 twitching Home Meds Home Medications Medication Instructions Recorded Confirmed metoprolol tartrate 25 mg tablet 25 mg PO BID 06/16/24 06/28/24 Previous Rx's Medication Instructions Recorded fluticasone propionate 50 2 spray intranasal DAILY PRN 05/11/22 mcg/actuation nasal Congestion #48 grams spray,suspension (Flonase Allergy Relief) isosorbide mononitrate 60 mg 90 mg (1.5 x 60 mg) PO QAM #135 09/06/22 tablet,extended release 24 hr tabs atorvastatin 40 mg tablet 40 mg PO QAM #90 tabs 09/09/22 omeprazole 20 mg capsule,delayed 20 mg PO QAM #90 caps 09/09/22 release apixaban 2.5 mg tablet (Eliquis) 2.5 mg PO BID #60 tabs 06/17/24 oxybutynin chloride 5 mg tablet 5 mg PO BID PRN bladder spasms #30 06/17/24 tabs tamsulosin 0.4 mg capsule 0.4 mg PO HS #30 caps 06/17/24 nitrofurantoin 100 mg PO Q12H 7 days #14 caps 06/25/24 monohydrate/macrocrystals 100 mg capsule (Macrobid) Results & Data (ED) Vital Signs Vital Signs - 24 hr 06/28/24 14:41 Temperature 36.9 C Temperature Source Temporal Artery Scan Pulse Rate 113 H Respiratory Rate 19 Blood Pressure 124/67 Blood Pressure Mean 86 Pulse Oximetry 95 Oxygen Delivery Method Room Air Sepsis Recent Fever Within 48 Hours No Sepsis New/Unexplained Change in Mental Status No Sepsis Action Taken by Nursing No Action Required Home Medications Current Medication List: was personally reviewed by me Laboratory Data Attestation: I reviewed the patient's lab results. 06/29/24 05:28 06/29/24 05:28 Lab Results 06/28/24 Range/Units 15:00 WBC 4.53 L (4.8-10.8) K/ul RBC 4.51 (4.20-5.40) M/uL Hgb 14.2 (12.0-16.0) g/dl Hct 42.3 (37.0-47.0) % MCV 93.8 (80.0-100.0) fL MCH 31.5 (25.0-34.0) pg MCHC 33.6 (32.0-36.0) g/dL RDW Std Deviation 41.7 (36.4-46.3) fL RDW Coeff of [place] 12.1 (11.5-14.5) % Plt Count 252 (130-400) K/uL MPV 9.2 L (9.4-12.4) fL Immature Gran % (Auto) 0.7 % Neut % (Auto) 52.1 % Lymph % (Auto) 28.9 % [place] % (Auto) 12.1 % Eos % (Auto) 5.3 % Baso % (Auto) 0.9 % Neut # (Auto) 2.36 (1.40-6.50) K/uL Lymph # (Auto) 1.31 (1.20-3.40) K/uL [place] # (Auto) 0.55 (0.11-0.59) K/uL Eos # (Auto) 0.24 (0.00-0.50) K/uL Baso # (Auto) 0.04 (0.00-0.20) K/uL Immature Gran # (Auto) 0.03 (0.01-0.20) K/uL Sodium 140 (136-145) mmol/L Potassium 4.1 (3.5-5.1) mmol/L Chloride 107 (98-107) mmol/L Carbon Dioxide 30 (21-32) mmol/L Anion Gap 3 (3-11) BUN 8 (6-23) mg/dl Creatinine 0.76 (0.6-1.2) mg/dl Est Cr Clr Drug Dosing 47.2 ml/min eGFR 78.19 BUN/Creatinine Ratio 10.5 (10-20) Glucose 109 H (70-99(Fasting)) mg/dl Calcium 10.0 (8.6-10.3) mg/dl Total Bilirubin 1.1 H (0.2-1.0) mg/dl AST 24 (13-39) U/L ALT 21 (7-52) U/L Alkaline Phosphatase 88 (34-104) U/L Total Protein 6.4 (6.0-8.3) gm/dl Albumin 4.1 (3.4-5.0) gm/dl Globulin 2.3 L (2.5-4.0) gm/dl Albumin/Globulin Ratio 1.8 (0.9-2) Procalcitonin < 0.02 (0-0.5) ng/ml Urine Color Red Urine Appearance Cloudy A (Clear) Urine pH 6.5 (4.5-7.5) Ur Specific [place] 1.020 (1.000-1.030) Urine Protein 3+ H (Negative) Urine Glucose (UA) Negative (Negative) Urine Ketones Negative (Negative) Urine Blood 3+ H (Negative) Urine Nitrite Negative (Negative) Urine Bilirubin Negative (Negative) Urine Urobilinogen Negative (Negative) Ur Leukocyte Esterase 1+ H (Negative) Urine RBC >20 H (0-2) /hpf Urine WBC 11-20 H (0-5) /hpf Ur Epithelial Cells 3-5 H (0-2) /hpf Urine Bacteria 1+ H (None Seen) Hyaline Casts Present A (None Presnt) /lpf Administered Medications Acetaminophen (Acetaminophen 500 Mg Tab) 1,000 mg PO TID [facility] Stop: 07/28/24 20:59 Last Admin: 06/29/24 14:58 Dose: Not Given Documented By: Admin: 06/29/24 09:55 Dose: 1,000 mg Documented By: Admin: 06/28/24 20:21 Dose: 1,000 mg Documented By: JAVAN Daptomycin 600 mg/ Syringe 12 mls @ 6 mls/min IV Q24H [facility]; Protocol Stop: 07/09/24 16:29 Last Admin: 06/29/24 16:43 Dose: 6 mls/min Documented By: MANOLOK Isosorbide Mononitrate (Isosorbide [place] Extended Rel 30 Mg Tabcr) 90 mg PO QAM [facility] Stop: 07/29/24 08:59 Last Admin: 06/29/24 09:56 Dose: 90 mg Documented By: MANOLOK Melatonin (Melatonin 3 Mg Tab) 3 mg PO HS PRN PRN Reason: Insomnia Stop: 07/28/24 17:11 Last Admin: 06/28/24 20:21 Dose: 3 mg Documented By: JAVAN Metoprolol Tartrate (Metoprolol Tartrate 25 Mg Tab) 25 mg PO BID [facility] Stop: 07/28/24 20:59 Last Admin: 06/29/24 09:57 Dose: 25 mg Documented By: Admin: 06/28/24 20:21 Dose: 25 mg Documented By: JAVAN Pantoprazole Sodium (Pantoprazole 40 Mg Tab) 40 mg PO QAM [facility] Stop: 07/29/24 08:59 Last Admin: 06/29/24 09:57 Dose: 40 mg Documented By: TBK Tamsulosin HCl (Tamsulosin Hcl 0.4 Mg Cap) 0.4 mg PO HS [facility] Stop: 07/28/24 20:59 Last Admin: 06/28/24 20:21 Dose: 0.4 mg Documented By: ANS Tramadol HCl (Tramadol Hcl 50 Mg Tablet) 25 mg PO Q4H PRN PRN Reason: Pain 7,8,9,10 Stop: 07/28/24 18:37 Last Admin: 06/29/24 14:58 Dose: 25 mg Documented By: TBK Discontinued Medications Daptomycin 600 mg/ Syringe 12 mls @ 6 mls/min IV NOW ONE; Protocol Stop: 06/28/24 15:43 Last Admin: 06/28/24 16:26 Dose: 6 mls/min Documented By: MMF Tramadol HCl (Tramadol Hcl 50 Mg Tablet) 25 mg PO NOW STA Stop: 06/28/24 17:13 Last Admin: 06/28/24 17:39 Dose: 25 mg Documented By: MMF Discharge Plan Visit Data Chief Complaint: Urinary Symptoms Stated Complaint: UTI ED Provider: Beinto Yañez Discharge Problem: Complicated urinary tract infection, Hematuria Patient Disposition: Admitted As Inpatient Discharge Instructions Interventions: ED Discharge Assessment Last Done: 06/28/24 17:52 Discharge Problem: Hematuria Qualifiers: Hematuria type: unspecified type Qualified Code(s): R31.9 - Hematuria, unspecified
[2024-06-28] MEDS: DAPTOmycin 600 MG in SYRINGE 0 ML IV ONE (16:26)
[2024-06-28] MEDS ORDERED: ONDANSETRON INJ 2 MG/ML 2 ML VIAL IV PRN (17:12)
[2024-06-28] MEDS ORDERED: POLYETHYLENE (MIRALAX) 17 GM PACK PO PRN (17:12)
--- NOTE | 2024-06-28 17:29 | History & Physical Report ---
Date of Service June 28, 2024 Assessment & Plan (1) Right ureteral calculus: (2) Complicated urinary tract infection: (3) GERD (gastroesophageal reflux disease): (4) Hematuria: (5) History of atrial fibrillation: Plan This is a very pleasant 83 year old female with past medical history of kidney stones, GERD, ASCVD, Lupus who presented to the ED on 06/28 for UTI and kidney stones. Patient was recently hospitalized from 06/14/24-06/17/2024 for UTI symptoms and a right ureteral stone. She underwent a cystoscopy with Dr. Thao on 06/14 and had a right stent placed. She was then discharged home on Cefpodoxime. Patient still w/ stent in place and following with urology outpatient. #UTI Recent UC from 06/22 + for enterococcus faecium VRE KUB w/ left renal calculi. CBC w/o leukocytosis, hgb stable BMP w/ stable renal function & electrolytes Procal pending repeat UC & BC pending s/p IV Daptomycin in ED, continue upon admission. Hold statin while on dapto. Hold Eliquis in setting of gross hematuria. Monitor H&H Urology consulted, appreciate recommendations Discussed w/ Dr. Thao via tiger that patient is ok to have a diet order Scheduled Tylenol for pain, Tramadol prn for breakthrough. Oxybutynin prn. #A fib Continue Metoprolol tartrate 25mg BID Hold Eliquis in setting of gross hematuria. #GERD Continue PPI while inpatient. DVT prophylaxis: hold in setting of gross hematuria. Resume Eliquis when able. Code: DNR/DNI Case discussed w/ Dr. Pineda at time of admission. updated daughter at time of admission w/ plan 06/28. History of Present Illness Primary Care Provider: FREDI Downey This is a very pleasant 83 year old female with past medical history of kidney stones, GERD, ASCVD, Lupus who presented to the ED on 06/28 for UTI and kidney stones. Patient was recently hospitalized from 06/14/24-06/17/2024 for UTI symptoms and a right ureteral stone. She underwent a cystoscopy with Dr. Thao on 06/14 and had a right stent placed. She was then discharged home on Cefpodoxime. Patient was seen and examined this evening with her daughter at bedside. patient reports after she left the hospital, she felt as if her UTI symptoms have not went away. She reports she is still experiencing urinary urgency, frequency, hematuria. She reports her pain is 8-9/10 at time of encounter and she is constantly uncomfortable in pain in her lower pelvic region/low back. Reports she uses Tylenol and this is ineffective, she would be agreeable to trying something stronger. She had a UC from 06/22 that was + for VRE which is what prompted her return back to the ED. She reports she is moving her bowels well. Denies CP, SOB, fevers, or chills. Patient did recently see urology outpatient on 06/25. At that time she was scheduled for a procedure on 07/05/24. While in the ED, patient had no leukocytosis, BMP revealed stable creatinine & electrolytes. KUB with presence of left renal calculi. Repeat UC pending and BC pending as well. Procal pending. VS stable. Allergies Allergy/AdvReac Type Severity Reaction Status Date / Time amitriptyline Allergy Severe Facial Verified 06/28/24 12:04 paralysis nut - unspecified Allergy Severe Anaphylaxis, Verified 06/28/24 12:04 hives adhesive tape Allergy Intermediate Hives Verified 06/28/24 12:04 cashew nut Allergy Intermediate Hives Verified 06/28/24 10:39 diazepam AdvReac Severe Hallucinati Verified 06/28/24 12:04 ons oxycodone AdvReac Severe GI Upset Verified 06/28/24 10:39 ibuprofen [From Advil] AdvReac Intermediate "Jittery" Verified 06/28/24 12:04 perphenazine AdvReac Intermediate Facial Verified 06/28/24 12:04 twitching prochlorperazine AdvReac Intermediate Facial Verified 06/28/24 12:04 twitching Home Medications Medication Instructions Recorded Confirmed Type fluticasone propionate 50 2 spray intranasal DAILY PRN 05/11/22 06/28/24 Rx mcg/actuation nasal Congestion #48 grams spray,suspension (Flonase Allergy Relief) isosorbide mononitrate 60 mg 90 mg (1.5 x 60 mg) PO QAM #135 09/06/22 06/28/24 Rx tablet,extended release 24 hr tabs atorvastatin 40 mg tablet 40 mg PO QAM #90 tabs 06/15/23 04/03/25 Rx omeprazole 20 mg capsule,delayed 20 mg PO QAM #90 caps 09/09/22 06/28/24 Rx release metoprolol tartrate 25 mg tablet 25 mg PO BID 06/16/24 06/28/24 History apixaban 2.5 mg tablet (Eliquis) 2.5 mg PO BID #60 tabs 06/17/24 06/28/24 Rx oxybutynin chloride 5 mg tablet 5 mg PO BID PRN bladder spasms #30 06/17/24 06/28/24 Rx tabs tamsulosin 0.4 mg capsule 0.4 mg PO HS #30 caps 06/17/24 06/28/24 Rx nitrofurantoin 100 mg PO Q12H 7 days #14 caps 06/25/24 06/28/24 Rx monohydrate/macrocrystals 100 mg capsule (Macrobid) linezolid 600 mg tablet 600 mg PO BID 10 days #20 tabs 07/01/24 Rx oxybutynin chloride 5 mg tablet 5 mg PO BID #60 tabs 07/01/24 Rx tramadol 50 mg tablet 25 mg (1/2 x 50 mg) PO Q4H PRN 07/01/24 Rx pain #15 tabs Past Med/Surg History Problem List (Updated 06/29/24 @ 21:27 by Benito Yañez MD) Hematuria (Acute) Complicated urinary tract infection (Acute) Hematuria (Acute) Colic, ureteral (Acute) Right ureteral calculus (Acute) Complicated urinary tract infection (Acute) Urinary tract infection Weight loss Encounter for pre-operative examination Moderate mitral regurgitation Vitamin D insufficiency Kidney stones Arthritis GERD (gastroesophageal reflux disease) Hydroureteronephrosis ASCVD (arteriosclerotic cardiovascular disease) HTN, goal below 140/90 Hyperlipidemia Lupus (Acute) Medical History Moderate mitral regurgitation History of diverticulosis Lupus erythematosus Dx 1975 Followed by PCP "Currently stable" Kidney stones Hx of hyperlipidemia HTN (hypertension) History of [place] (myocardial infarction) 2008- no stents Hx of gastroesophageal reflux (GERD) History of atrial fibrillation Taking Eliquis/beta mei Brain bleed 2020 r/t fall- Treated at [facility], "resolved on its own" 01/2024- transferred from [place] to [facility] > resolved per f/u head CT 03/06/24 History of COVID-19 04/2020: severe symptoms, treated at [facility] for 1 day > residual altered taste and smell Surgical History Hx of cystoscopy w/laser destruction kidney stone left side (2019) Hx of colonoscopy History of dilatation and curettage S/P cholecystectomy S/P hysterectomy with BSO (age 27) S/P appendectomy History of carpal tunnel release R/L History of cardiac cath (2008) 2008- no stents S/P ureteral stent placement Multiple History of rotator cuff surgery L shoulder History of cataract surgery R/L History of esophagogastroduodenoscopy History of sinus surgery x 2 Family History Mother Breast cancer Brother Myocardial infarction Stroke Heart disease brother had rheumatic fever that caused heart problems Grandfather Colon cancer Denies family history of Ovarian cancer Prostate cancer Social History Smoking Status: Never smoker Second Hand Exposure: Yes (hx as child); Do You Dip or Chew Tobacco: No; Tobacco Cessation Education Requested by Patient: No Hx Alcohol Use: No Hx Substance Use: No Preferred Language: Citizen Of [place] Communication Ability: Effective Visual Impairment: No Limitations Hearing Ability: Normal Patient Appointment Coordinator Required: No Beliefs That Will Affect Care: None marital status: Current Living Situation: Spouse Current Living Situation Comment: Kamron Gonsales current occupational status: retired How many Children do You have: 4 Other Information That Helps Us Care for You: No Feels Safe at Home: Yes Safety Concerns: Feels Safe At This Time Childhood Exposure to Second-Hand Smoke: Yes Diet: regular Diet Comment: regular caffeine: Yes during the past year weight has: remained stable Dental Care, Regularly: No Physical Activity Frequency: Daily Seatbelt Use: always Sunscreen Use: No Assistive Devices: None Physical Exam Constitutional: WD/WN, vitals as above Eyes: PERRL, conjunctivae normal, anicteric sclerae Respiratory: normal respiratory effort, lungs clear to auscultation Cardiovascular: RRR, no murmur, no edema Gastrointestinal (Abdomen): +tenderness to lower abdominal quadrants . + BS Musculoskeletal: moves all extremities Neurologic: PERRL, EOMI, accommodation nl, no face palsy, no dysarthria Psychiatric: A+Ox3, euthymic affect Results & Data Results & Data Vital Signs (Past 12 Hours) Vital Signs Temp Pulse Resp BP Pulse Ox O2 Del Method 06/28/24 16:43 92 H 06/28/24 14:41 36.9 C 113 H 19 124/67 95 Room Air Supervising Physician Co-Signing Physician Notes During face to face encounter, I obtained a history and physical examination, discussed plan of care with patient, I discussed plan of care with MIKA Mckenzie. I reviewed above note and agree with it except for the following: Patient will be admitted for a complicated UTI continue above antibiotics. hold anticoagulation due to hematuria PG Care Time/CCT Total # of Minutes Spent Total Time Spent with Patient: Total time spent is greater than 50% in coordination of care (as documented) at patient's floor/unit and/or counseling patient: Coding Level of Care Code 64135 INT INP/OBS CARE 3/75MIN Diagnoses Right ureteral calculus N20.1 Complicated urinary tract infection N39.0 GERD (gastroesophageal reflux disease) K21.9 Hematuria R31.9 Hematuria type: unspecified type History of atrial fibrillation Z86.79 (4) Hematuria Hematuria type: unspecified type Qualified Code(s): R31.9 - Hematuria, unspecified
[2024-06-28] MEDS: traMADol HCL 50 MG TABLET PO STA (17:39)
[2024-06-28] MEDS ORDERED: FLUTICASONE PROPIONATE NA SPR 16 GM BTL NAE PRN (18:38)
--- NOTE | 2024-06-28 19:46 | Urology Consultation ---
<Statement entered by Villa Thao MD - 06/29/24 08:19> 83-year-old female who recently underwent right ureteral stent insertion in the setting of obstructing stone and UTI. She is tentatively scheduled for ureteroscopy and stone removal, however on preop labs was found to have multidrug-resistant Enterococcus. Since there were no good oral options and she was having symptoms, she was instructed to come to the emergency department for IV antibiotics. Ureteral stent should be providing adequate drainage of the kidney. No need for surgical intervention/stent exchange at this time, however she will need to be pretreated with antibiotics prior to stone removal. Additionally, given the large stone burden in her left kidney, this could be acting as a nidus for infection and we may consider addressing it at the time of surgery. For now agree with broad-spectrum antibiotics, narrowing coverage as culture data becomes available. Urology will follow along. Date of Consultation June 28, 2024 Assessment & Plan (1) Complicated urinary tract infection: The patient has been admitted on the hospitalist service. From a urologic perspective we recommend the following: Patient does take Eliquis. I suspect this with an indwelling ureteral stent and urinary tract infection as a cause of her hematuria Patient has been placed on antibiotics in the form of intravenous daptomycin which should continue Patient has had appropriate cultures sent and these cultures can be followed. Culture data along with her clinical response will dictate the length of antibiotic course If the patient exhibits signs of urinary retention, bladder scans can be employed and straight catheterization and/or Amezquita catheter placement can be employed if needed The patient should maintain her to have her ureteral stent exchanged History of Present Illness Reason for Consultation: Urinary tract infection with indwelling ureteral stent Attending Physician: Harry Pineda History of Present Illness This is an 83-year-old female who was referred to the hospital secondary to urinary tract infection. This patient is known about any additional group urology as she underwent a cystoscopy with a right ureteral stent insertion on 06/14/2024. The patient is scheduled for an upcoming stent exchange however she is found to have a urinary tract infection. The patient says that she is having bloody urine. She notes that she is having some intermittent back pain which is worse in the right flank. She denies any fevers, shakes, or chills. She also reports suprapubic pressure and urinary frequency. The patient had a recent urine culture on 06/22/2024 which showed vancomycin-resistant enterococci. Because there were no suitable oral antibiotics inpatient admission for IV antibiotics were recommended. Since arrival to the hospital patient has had labs which) reviewed. CBC revealed white blood cell count was 4.5. Hemoglobin and hematocrit as well as platelet count were normal. Chemistry profile showed sodium and potassium as well as the BUN and creatinine were normal. Urinalysis continues to show signs of infection with 1+ leukocyte esterase, pyuria with 11-20 white blood cells per high-power field and 1+ bacteria. At the time my interview she was resting comfortably in bed and she was no distress. Allergies Allergy/AdvReac Type Severity Reaction Status Date / Time amitriptyline Allergy Severe Facial Verified 06/28/24 12:04 paralysis nut - unspecified Allergy Severe Anaphylaxis, Verified 06/28/24 12:04 hives adhesive tape Allergy Intermediate Hives Verified 06/28/24 12:04 cashew nut Allergy Intermediate Hives Verified 06/28/24 10:39 diazepam AdvReac Severe Hallucinati Verified 06/28/24 12:04 ons oxycodone AdvReac Severe GI Upset Verified 06/28/24 10:39 ibuprofen [From Advil] AdvReac Intermediate "Jittery" Verified 06/28/24 12:04 perphenazine AdvReac Intermediate Facial Verified 06/28/24 12:04 twitching prochlorperazine AdvReac Intermediate Facial Verified 06/28/24 12:04 twitching Home Medications Medication Instructions Recorded Confirmed Type fluticasone propionate 50 2 spray intranasal DAILY PRN 05/11/22 06/28/24 Rx mcg/actuation nasal Congestion #48 grams spray,suspension (Flonase Allergy Relief) isosorbide mononitrate 60 mg 90 mg (1.5 x 60 mg) PO QAM #135 09/06/22 06/28/24 Rx tablet,extended release 24 hr tabs atorvastatin 40 mg tablet 40 mg PO QAM #90 tabs 09/09/22 06/28/24 Rx omeprazole 20 mg capsule,delayed 20 mg PO QAM #90 caps 09/09/22 06/28/24 Rx release metoprolol tartrate 25 mg tablet 25 mg PO BID 06/16/24 06/28/24 History apixaban 2.5 mg tablet (Eliquis) 2.5 mg PO BID #60 tabs 06/17/24 06/28/24 Rx oxybutynin chloride 5 mg tablet 5 mg PO BID PRN bladder spasms #30 06/17/24 06/28/24 Rx tabs tamsulosin 0.4 mg capsule 0.4 mg PO HS #30 caps 06/17/24 06/28/24 Rx nitrofurantoin 100 mg PO Q12H 7 days #14 caps 06/25/24 06/28/24 Rx monohydrate/macrocrystals 100 mg capsule (Macrobid) Patient History Medical History Moderate mitral regurgitation History of diverticulosis Lupus erythematosus Dx 1975 Followed by PCP "Currently stable" Kidney stones Hx of hyperlipidemia HTN (hypertension) History of NE (myocardial infarction) 2008- no stents Hx of gastroesophageal reflux (GERD) History of atrial fibrillation Taking Eliquis/beta mei Brain bleed 2020 r/t fall- Treated at [facility], "resolved on its own" 01/2024- transferred from OR to [facility] > resolved per f/u head CT 03/06/24 History of COVID-19 04/2020: severe symptoms, treated at [facility] for 1 day > residual altered taste and smell Surgical History Hx of cystoscopy w/laser destruction kidney stone left side (2018) Hx of colonoscopy History of dilatation and curettage S/P cholecystectomy S/P hysterectomy with BSO (age 27) S/P appendectomy History of carpal tunnel release R/L History of cardiac cath (2008) 2008- no stents S/P ureteral stent placement Multiple History of rotator cuff surgery L shoulder History of cataract surgery R/L History of esophagogastroduodenoscopy History of sinus surgery x 2 Family History Mother Breast cancer Brother Myocardial infarction Stroke Heart disease brother had rheumatic fever that caused heart problems Grandfather Colon cancer Denies family history of Ovarian cancer Prostate cancer Social History Smoking Status: Never smoker Second Hand Exposure: Yes (hx as child); Do You Dip or Chew Tobacco: No; Hx Alcohol Use: No Hx Substance Use: No Preferred Language: Kiswahili Communication Ability: Effective Visual Impairment: No Limitations Hearing Ability: Normal Night Guard Required: No Beliefs That Will Affect Care: None marital status: Current Living Situation: Spouse Current Living Situation Comment: Kamron Gonsales current occupational status: retired How many Children do You have: 4 Other Information That Helps Us Care for You: No Feels Safe at Home: Yes Safety Concerns: Feels Safe At This Time Childhood Exposure to Second-Hand Smoke: Yes Diet: regular Diet Comment: regular caffeine: Yes during the past year weight has: remained stable Dental Care, Regularly: No Physical Activity Frequency: Daily Seatbelt Use: always Sunscreen Use: No Assistive Devices: Denture - Upper and Denture - Lower Review of Systems Review of Systems: All systems reviewed & are unremarkable except as noted in HPI & below Physical Exam Constitutional: WD/WN, vitals as above Eyes: no conjunctival abnormality ENMT: Ears: no hearing impairment and no external ear abnormality Mouth: no oropharynx abnormality Neck: trachea midline Respiratory: normal respiratory effort; no respiratory distress and no labored breathing Cardiovascular: Rate/Rhythm: regular rate and regular rhythm Gastrointestinal (Abdomen): Abdomen is soft without distention. The patient did exhibit some discomfort with palpation of the suprapubic area Musculoskeletal: No calf tenderness Skin: no rashes Neurologic: moves all extremities Psychiatric: A+Ox3, euthymic affect Genitourinary: No CVA tenderness with percussion on the left; slight CVA tenderness with percussion on the right noted Results & Data Vital Signs (Past 12 Hours) Vital Signs Temp Pulse Pulse Resp BP BP Pulse Ox 06/28/24 18:26 37.0 C 95 H 18 135/93 98 06/28/24 17:12 90 20 113/79 93 06/28/24 16:43 92 H 06/28/24 16:30 102 H 22 134/104 H 95 06/28/24 14:41 36.9 C 113 H 19 124/67 95 O2 Del Method 06/28/24 18:26 Room Air 06/28/24 17:12 Room Air 06/28/24 16:43 06/28/24 16:30 Room Air 06/28/24 14:41 Room Air PG Care Time/CCT Total # of Minutes Spent Total Time Spent with Patient: Total time spent is greater than 50% in coordination of care (as documented) at patient's floor/unit and/or counseling patient: Coding Level of Care Code 89805 INT INP/OBS CARE MIN Diagnoses Complicated urinary tract infection N39.0
[2024-06-28] MEDS: TAMSULOSIN HCL 0.4 MG CAP PO SCH (20:21)
[2024-06-28] MEDS: MELATONIN 3 MG TAB PO PRN (20:21)
[2024-06-28] MEDS: ACETAMINOPHEN 500 MG TAB PO SCH (20:21)
[2024-06-28] MEDS: METOPROLOL TARTRATE 25 MG TAB PO SCH (20:21)
[2024-06-29 06:25] LABS: Hematocrit (blood only) 35.2 % (37.0-47.0); Hemoglobin 11.8 g/dl (12.0-16.0); Mean Corpuscular Hemoglobin 31.2 pg (25.0-34.0); Mean Corpuscular Hgb Conc 33.5 g/dL (32.0-36.0); Mean Corpuscular Volume 93.1 fL (80.0-100.0); Mean Platelet Volume 9.5 fL (9.4-12.4); Platelet Count 190 K/uL (130-400); RDW Standard Deviation 41.3 fL (36.4-46.3); Red Blood Count 3.78 M/uL (4.20-5.40); White Blood Count 3.56 K/ul (4.8-10.8)
[2024-06-29 07:13] LABS: BUN Creatinine Ratio 13.3 (10-20); Calcium 9.2 mg/dl (8.6-10.3); Creatinine Clr Calc Pharmacy 47.8 ml/min; Magnesium 1.7 mg/dl (1.7-2.4); Potassium 3.7 mmol/L (3.5-5.1)
[2024-06-29] MEDS: ISOSORBIDE MONO EXTENDED REL 30 MG TABCR PO SCH (09:56)
[2024-06-29] MEDS: PANTOprazole 40 MG TAB PO SCH (09:57)
--- NOTE | 2024-06-29 10:08 | Urology Progress Note ---
Date of Service June 29, 2024 Assessment & Plan (1) Right ureteral calculus: (2) Colic, ureteral: (3) Hematuria: (4) Complicated urinary tract infection: Plan S/p right ureteral stent placement on 06/14/2024 who was admitted for complicated UTI resistant to oral antibiotics Labs reviewed-WBCs 3.56, creatinine 0.75, hemoglobin 11.8 Hemodynamically stable, afebrile Urine culture pending Blood cultures pending continue broad-spectrum antibiotics and trend towards culture data Other medical management and care per primary team No urological surgical intervention today Patient may have a diet Urology will arrange definitive stone treatment when patient is optimized Urology will follow Admission and Anticipated Discharge Date Admission Date: June 28, 2024 Subjective Patient resting comfortably in bed Lower right abdominal pain radiating to the right lower back Admits to gross hematuria, dysuria Denies fevers, chills, nausea, vomiting No other concerns overnight Review of Systems Constitutional: as per Subjective / HPI Genitourinary: as per Subjective / HPI Physical Exam Constitutional: well developed and well nourished; no acute distress Respiratory: normal respiratory effort and able to speak in complete sentences Musculoskeletal: Extremities: extremities normal to inspection Psychiatric: Orientation: alert and oriented x 3 Results & Data Vital Signs (Past 12 Hours) Vital Signs Temp Pulse Resp BP Pulse Ox O2 Del Method 06/29/24 07:22 36.6 C 80 16 112/75 95 Room Air PG Care Time/CCT Total # of Minutes Spent Total Time Spent with Patient: Total time spent is greater than 50% in coordination of care (as documented) at patient's floor/unit and/or counseling patient: Coding Level of Care Code 24353 SUB INP/OBS CARE 2/35MIN Diagnoses Right ureteral calculus N20.1 Colic, ureteral N23 Hematuria R31.9 Hematuria type: unspecified type Complicated urinary tract infection N39.0 (3) Hematuria Hematuria type: unspecified type Qualified Code(s): R31.9 - Hematuria, unspecified
[2024-06-29] MEDS: traMADol HCL 50 MG TABLET PO PRN (14:58)
[2024-06-29] MEDS: DAPTOmycin 600 MG in SYRINGE 0 ML IV SCH (16:43)
--- NOTE | 2024-06-29 17:06 | Hospitalist Progress Note ---
Date of Service June 29, 2024 Assessment & Plan (1) Right ureteral calculus: (2) Complicated urinary tract infection: (3) GERD (gastroesophageal reflux disease): (4) Hematuria: (5) History of atrial fibrillation: Plan This is a very pleasant 83 year old female with past medical history of kidney stones, GERD, ASCVD, Lupus who presented to the ED on 06/28 for UTI and kidney stones. Patient was recently hospitalized from 06/14/24-06/17/2024 for UTI symptoms and a right ureteral stone. She underwent a cystoscopy with Dr. Thao on 06/14 and had a right stent placed. She was then discharged home on Cefpodoxime. Patient still w/ stent in place and following with urology outpatient. #UTI/hematuria Recent UC from 06/22 + for enterococcus faecium VRE Hematuria secondary to Eliquis & stent placement. KUB w/ left renal calculi. CBC w/o leukocytosis, hgb 11.8 BMP w/ stable renal function & electrolytes Procal negative, BC negative @ 24 hr calli. repeat UC pending. Continue IV Daptomycin Hold statin while on dapto. Hold Eliquis in setting of gross hematuria. Urology consulted - continue IV abx, procedure to be done at date TBD. Scheduled Tylenol for pain, Tramadol prn for breakthrough. Oxybutynin prn. #A fib Continue Metoprolol tartrate 25mg BID Hold Eliquis in setting of gross hematuria. #GERD Continue PPI while inpatient. DVT prophylaxis: hold in setting of gross hematuria. Resume Eliquis when able. Code: DNR/DNI Admission and Anticipated Discharge Date Admission Date: June 28, 2024 Subjective Patient seen and examined this morning. Patient reports she is still experiencing hematuria, urinary frequency/urgency. She does not feel any difference since starting her antibiotic. Physical Exam Constitutional: WD/WN, vitals as above Eyes: PERRL, conjunctivae normal, anicteric sclerae Respiratory: normal respiratory effort, lungs clear to auscultation Cardiovascular: RRR, no murmur, no edema Psychiatric: A+Ox3, euthymic affect Results & Data Results & Data Vital Signs (Past 12 Hours) Vital Signs Temp Pulse Pulse Resp BP Pulse Ox O2 Del Method 06/29/24 16:00 36.6 C 86 16 104/72 94 Room Air 06/29/24 12:40 36.9 C 84 16 111/77 95 Room Air 06/29/24 07:22 36.6 C 80 16 112/75 95 Room Air PG Care Time/CCT Total # of Minutes Spent Total Time Spent with Patient: Total time spent is greater than 50% in coordination of care (as documented) at patient's floor/unit and/or counseling patient: Coding Level of Care Code 81020 SUB INP/OBS CARE 3/50MIN Diagnoses Right ureteral calculus N20.1 Complicated urinary tract infection N39.0 GERD (gastroesophageal reflux disease) K21.9 Hematuria R31.9 Hematuria type: unspecified type History of atrial fibrillation Z86.79 (4) Hematuria Hematuria type: unspecified type Qualified Code(s): R31.9 - Hematuria, unspecified
[2024-06-30 05:02] LABS: Calcium 9.1 mg/dl (8.6-10.3); Creatinine Clr Calc Pharmacy 44.8 ml/min; Magnesium 1.7 mg/dl (1.7-2.4); Potassium 3.9 mmol/L (3.5-5.1)
[2024-06-30 05:09] LABS: Troponin I High Sensitivity 8.6 pg/ml (0-14)
[2024-06-30 08:57] LABS: Hematocrit (blood only) 38.7 % (37.0-47.0); Mean Corpuscular Hgb Conc 33.6 g/dL (32.0-36.0); Mean Corpuscular Volume 92.4 fL (80.0-100.0); Mean Platelet Volume 9.3 fL (9.4-12.4); Platelet Count 204 K/uL (130-400); RDW Coefficient of Variation 12.1 % (11.5-14.5); RDW Standard Deviation 40.5 fL (36.4-46.3); Red Blood Count 4.19 M/uL (4.20-5.40); White Blood Count 3.47 K/ul (4.8-10.8)
--- NOTE | 2024-06-30 13:13 | Urology Progress Note ---
Date of Service June 30, 2024 Assessment & Plan (1) Urinary tract infection: Plan: Continuing daptomycin for VRE. She should continue this through the time of her surgery. (2) Kidney stones: Plan: Surgery for her stones is scheduled for 07/05/2024. Although initial plan was just for the right ureteral stone, given that the large burden on the left could be acting as a nidus for recurrent UTIs, we will plan on bilateral ureteroscopy with laser lithotripsy. She expressed agreement with this plan. (3) Hematuria: Plan: Hematuria is common as long as there is indwelling hardware such as her ureteral stent. This may be exacerbated by Eliquis/anticoagulation. As long as she is able to void and not forming clots, no need for additional intervention at this time. Plan We will keep her surgical date as 07/05 and ideally keep her on antibiotics until this point. If it is possible to coordinate home health and IV access necessary to give her antibiotics at home, I think this would be reasonable, otherwise we may need to keep her in the hospital through surgery. Admission and Anticipated Discharge Date Admission Date: June 28, 2024 Subjective Still feeling worn down, but feeling slightly better having been on IV antibiotics Having some pressure from the stent, but no significant pain. Still having intermittent hematuria, but voiding well. Physical Exam Physical Exam: Resting comfortably in bed, NAD Results & Data Vital Signs (Past 12 Hours) Vital Signs Temp Pulse Resp BP Pulse Ox O2 Del Method 06/30/24 07:13 36.4 C L 78 14 135/82 95 Room Air 06/30/24 03:55 36.6 C 93 H 18 122/83 96 Room Air PG Care Time/CCT Total # of Minutes Spent Total Time Spent with Patient: Total time spent is greater than 50% in coordination of care (as documented) at patient's floor/unit and/or counseling patient: Coding Level of Care Code 83596 SUB INP/OBS CARE 235MIN Diagnoses Acute cystitis with hematuria N30.01 Urinary tract infection type: acute cystitis Hematuria presence: with hematuria Kidney stones N20.0 Hematuria R31.9 Hematuria type: unspecified type (1) Urinary tract infection Urinary tract infection type: acute cystitis Hematuria presence: with hematuria Qualified Code(s): N30.01 - Acute cystitis with hematuria (3) Hematuria Hematuria type: unspecified type Qualified Code(s): R31.9 - Hematuria, unspecified
--- NOTE | 2024-06-30 14:46 | Hospitalist Progress Note ---
Date of Service June 30, 2024 Assessment & Plan (1) Right ureteral calculus: (2) Complicated urinary tract infection: (3) GERD (gastroesophageal reflux disease): (4) Hematuria: (5) History of atrial fibrillation: Plan This is a very pleasant 83 year old female with past medical history of kidney stones, GERD, ASCVD, Lupus who presented to the ED on 06/28 for UTI and kidney stones. Patient was recently hospitalized from 06/14/24-06/17/2024 for UTI symptoms and a right ureteral stone. She underwent a cystoscopy with Dr. Thao on 06/14 and had a right stent placed. She was then discharged home on Cefpodoxime. Patient still w/ stent in place and following with urology outpatient. #UTI/hematuria Recent UC from 06/22 + for enterococcus faecium VRE Hematuria secondary to Eliquis & stent placement. Urinary symptoms likely secondary to stent placement. KUB w/ left renal calculi. CBC w/o leukocytosis, hgb 13.0 BMP w/ stable renal function & electrolytes Procal negative, BC negative @ 24 hr calli. repeat UC 06/28 negative. -initially was on Macrobid prior to hospital stay per urology note. (Macrobid intermediate to VRE on culture from 06/22). Continue IV Daptomycin. Hopefully can transition to Linezolid on discharge. Will check w/ insurance company 07/02. Hold statin while on dapto. Hold Eliquis in setting of gross hematuria. Urology consulted - continue IV abx, procedure to be done at date 07/05. Discussed w/ Dr. Thao 06/30. Scheduled Tylenol for pain, Tramadol prn for breakthrough. Oxybutynin prn. #A fib Continue Metoprolol tartrate 25mg BID Hold Eliquis in setting of gross hematuria. #GERD Continue PPI while inpatient. DVT prophylaxis: hold in setting of gross hematuria. Resume Eliquis when able. Code: DNR/DNI Updated son at bedside 06/30. Admission and Anticipated Discharge Date Admission Date: June 28, 2024 Subjective Patient seen and examined this morning. Patient reports that she did not get much sleep last night. Patient still experiencing urinary symptoms and hematuria. Reports she does not feel better. Physical Exam Constitutional: WD/WN, vitals as above Eyes: PERRL, conjunctivae normal, anicteric sclerae Respiratory: breathing unlabored Cardiovascular: well perfused Psychiatric: A+Ox3, euthymic affect Results & Data Results & Data Vital Signs (Past 12 Hours) Vital Signs Temp Pulse Resp BP Pulse Ox O2 Del Method 06/30/24 07:13 36.4 C L 78 14 135/82 95 Room Air 06/30/24 03:55 36.6 C 93 H 18 122/83 96 Room Air PG Care Time/CCT Total # of Minutes Spent Total Time Spent with Patient: Total time spent is greater than 50% in coordination of care (as documented) at patient's floor/unit and/or counseling patient: Coding Level of Care Code 72604 SUB INP/OBS CARE 3/50MIN Diagnoses Right ureteral calculus N20.1 Complicated urinary tract infection N39.0 GERD (gastroesophageal reflux disease) K21.9 Hematuria R31.9 Hematuria type: unspecified type History of atrial fibrillation Z86.79 (4) Hematuria Hematuria type: unspecified type Qualified Code(s): R31.9 - Hematuria, unspecified
[2024-06-30] MEDS: oxyBUTYnin chloride 5 MG TAB PO PRN (16:34)
--- NOTE | 2024-06-30 22:08 | Electrocardiogram Report ---
Test Reason : Blood Pressure : */* mmHG Vent. Rate : 93 BPM Atrial Rate : 208 BPM P-R Int : * ms QRS Dur : 68 ms QT Int : 364 ms P-R-T Axes : * 79 55 degrees QTcB Int : 452 ms Atrial fibrillation Abnormal ECG When compared with ECG of 16-Jun-2024 07:57, No significant change was found Confirmed by Dayron Somers ([id number]) on 06/30/2024 10:08:37 PM Referred By: REFERRED SELF Confirmed By: Dayron Somers
[2024-07-01 07:18] VITALS: RESP 14
[2024-07-01] MEDS: oxyBUTYnin chloride 5 MG TAB PO SCH (09:17)
--- NOTE | 2024-07-01 10:33 | Discharge Summary ---
Discharge Summary Date of Service July 01, 2024 Principal Dx & Hospital Course #1 = Principal Diagnosis (1) Right ureteral calculus: (2) Complicated urinary tract infection: (3) GERD (gastroesophageal reflux disease): (4) Hematuria: (5) History of atrial fibrillation: Plan This is a very pleasant 83 year old female with past medical history of kidney stones, GERD, ASCVD, Lupus who presented to the ED on 06/28 for UTI and kidney stones. Patient was recently hospitalized from 06/14/24-06/17/2024 for UTI symptoms and a right ureteral stone. She underwent a cystoscopy with Dr. Thao on 06/14 and had a right stent placed. She was then discharged home on Cefpodoxime. Patient still w/ stent in place and following with urology outpatient. #UTI/hematuria Recent UC from 06/22 + for enterococcus faecium VRE Hematuria secondary to Eliquis & stent placement. Urinary symptoms likely secondary to stent placement. KUB w/ left renal calculi. CBC/BMp stable, Procal negative. BC negative at 48hr calli repeat UC 06/28 negative. -initially was on Macrobid prior to hospital stay per urology note. (Macrobid intermediate to VRE on culture from 06/22). s/p 4 doses IV dapto inpatient --> transitioned to Linezolid outpatient BID x 10 days to complete 14 day course for complicated UTI. Continue to hold Eliquis on discharge -> patient w/ upcoming procedure 07/05 w/ urology. Urology consulted - continue IV abx, procedure to be done at date 07/05. Discussed w/ Dr. Thao 06/30. Recommended Scheduled Tylenol & Oxybutynin at home, tramadol for breakthrough pain #A fib Continue Metoprolol tartrate 25mg BID Hold Eliquis in setting of gross hematuria. #GERD Continue PPI Discharged home 07/01. Admission HPI Per Admitting Provider This is a very pleasant 83 year old female with past medical history of kidney stones, GERD, ASCVD, Lupus who presented to the ED on 06/28 for UTI and kidney stones. Patient was recently hospitalized from 06/14/24-06/17/2024 for UTI symptoms and a right ureteral stone. She underwent a cystoscopy with Dr. Thao on 06/14 and had a right stent placed. She was then discharged home on Cefpodoxime. Patient was seen and examined this evening with her daughter at bedside. patient reports after she left the hospital, she felt as if her UTI symptoms have not went away. She reports she is still experiencing urinary urgency, frequency, hematuria. She reports her pain is 8-9/10 at time of encounter and she is constantly uncomfortable in pain in her lower pelvic region/low back. Reports she uses Tylenol and this is ineffective, she would be agreeable to trying something stronger. She had a UC from 06/22 that was + for VRE which is what prompted her return back to the ED. She reports she is moving her bowels well. Denies CP, SOB, fevers, or chills. Patient did recently see urology outpatient on 06/25. At that time she was scheduled for a procedure on 07/05/24. While in the ED, patient had no leukocytosis, BMP revealed stable creatinine & electrolytes. KUB with presence of left renal calculi. Repeat UC pending and BC pending as well. Procal pending. VS stable. Discharge Exam Constitutional WD/WN, vitals as above Eyes PERRL, conjunctivae normal, anicteric sclerae Respiratory breathing unlabored Cardiovascular well perfused Neurologic PERRL, EOMI, accommodation nl, no face palsy, no dysarthria Psychiatric A+Ox3, euthymic affect Discharge Plan Discharge Items Patient Disposition: Home - Self-Care Reason For Visit: UTI Discharge Diagnosis: UTI Activity: Resume your previous activity Non-emergency contact: Primary Care Provider and Urologist Call non-emergency contact if: you have any medication questions, your symptoms worsen and you have a fever Follow-up/Referrals: Villa Thao MD [Physician] - 07/05/24 Sandra Guajardo CRNP [Primary Care Provider] - Diet: Heart Healthy Addtl Attending Provider Instructions: Mrs. Gonsales, You were recently hospitalized for a UTI and received IV antibiotics. You had a repeat urine culture that was negative but you should still continue to take a ntibiotics on an outpatient basis given you have a stent placed. Please see recommendations below regarding your discharge. Please take Linezolid twice daily for the next 10 days. Your first dose at home will be in the morning of 07/02. You may take with food to avoid GI upset. Please use Oxybutynin twice daily for stent discomfort. Please take Tylenol 1000mg every 8 hours for stent discomfort. Please use Tramadol 25mg every 4 hours for breakthrough pain. Please follow up with Urology on your procedure date of 07/05. Please continue to hold your Eliquis given you have an upcoming procedure. - They will let you know when it is safe to resume after. The remainder of your medications may be resumed. Please follow up with your PCP within 1-2 weeks of discharge. If you develop any severe flank pain, fevers, chills, chest pain, shortness of breath please report back to the ER for further care. Good luck with your procedure! Sarahi Mckenzie PA-C Pending Studies at Discharge: No Stand-Alone Forms: My [facility] [employer], Smoking Cessation Medications and DC Order Prescriptions: New linezolid 600 mg tablet 600 mg PO BID 10 Days Qty: 20 0RF tramadol 50 mg Tablet 25 mg PO Q4H PRN (Reason: pain) Qty: 15 0RF oxybutynin chloride 5 mg Tablet 5 mg PO BID Qty: 60 0RF Continued fluticasone propionate [Flonase Allergy Relief] 50 mcg/actuation spray,suspens ion 2 spray INTRANASAL DAILY PRN (Reason: Congestion) Qty: 48 1RF isosorbide mononitrate 60 mg tablet extended release 24 hr 90 mg PO QAM Qty: 135 1RF omeprazole 20 mg capsule,delayed release(DR/EC) 20 mg PO QAM Qty: 90 3RF metoprolol tartrate 25 mg tablet 25 mg PO BID tamsulosin 0.4 mg Capsule 0.4 mg PO HS Qty: 30 0RF Held atorvastatin 40 mg tablet 40 mg PO QAM Qty: 90 3RF Hold Instructions: Resume on 07/02/24. Resume AM of 07/02 Eliquis 2.5 mg Tablet 2.5 mg PO BID Qty: 60 0RF Hold Instructions: Resume on 07/07/24. until deemed safe by urology following procedure on 07/05 Discontinued nitrofurantoin monohyd/m-cryst [Macrobid] 100 mg capsule 100 mg PO Q12H 7 Days Qty: 14 0RF Rx Instructions: must administer with a meal/food oxybutynin chloride 5 mg Tablet 5 mg PO BID PRN (Reason: bladder spasms) Qty: 30 0RF Discharge Orders: Discharge Order (Routine); Ordered 07/01/24 Ordered By: Sarahi Mckenzie Admission Data Admit Date/Time: 06/28/24 17:12 Attending Provider: Marissa Georges Admit Provider: Harry Pineda Primary Care Provider: Sandra Guajardo Other Providers: Harry Pineda; Villa Thao Other Interventions: Discharge Summary Assessment (RN) Last Done: 07/01/24 10:39 Hospital Stay Data Consultations 06/28/24 16:05 ED Decision to Admit Stat 06/28/24 17:12 Consult Urology Routine Pending Results Patient Have Any Pending Studies at Discharge: No Discharge Instructions Given to Patient (Per Discharging Provider) Mrs. Gonsales, You were recently hospitalized for a UTI and received IV antibiotics. You had a repeat urine culture that was negative but you should still continue to take antibiotics on an outpatient basis given you have a stent placed. Please see recommendations below regarding your discharge. Please take Linezolid twice daily for the next 10 days. Your first dose at home will be in the morning of 07/02. You may take with food to avoid GI upset. Please use Oxybutynin twice daily for stent discomfort. Please take Tylenol 1000mg every 8 hours for stent discomfort. Please use Tramadol 25mg every 4 hours for breakthrough pain. Please follow up with Urology on your procedure date of 07/05. Please continue to hold your Eliquis given you have an upcoming procedure. - They will let you know when it is safe to resume after. The remainder of your medications may be resumed. Please follow up with your PCP within 1-2 weeks of discharge. If you develop any severe flank pain, fevers, chills, chest pain, shortness of breath please report back to the ER for further care. Good luck with your procedure! Sarahi Mckenzie PA-C Total Time Total Time Spent Total Time Spent (In Minutes): 60 Total Time Includes: Examination of the Patient, Discharge Planning, Medication Reconciliation and Communication With Other Providers Coding Level of Care Code 62735 INP/OBS DISCH >30 MIN Diagnoses Right ureteral calculus N20.1 Complicated urinary tract infection N39.0 GERD (gastroesophageal reflux disease) K21.9 Hematuria R31.9 Hematuria type: unspecified type History of atrial fibrillation Z86.79
[2024-07-01 14:48] VITALS: BP 93/63; PULSE 83; TEMP 97.7; O2SAT 93
== END 2024-07-01 16:00 | disposition home or self-care (01) | DRG 690 ==
LOC: SUATTDRO → ED 14:37 → 3E 17:12 → SUATTDRO 17:12 → 3E 17:52

== ENCOUNTER 2024-07-23 19:48 | Inpatient (IN) ==
[2024-07-23] MEDS: SODIUM CHLORIDE 0.9% 1,000 ML IV STA (20:12)
--- NOTE | 2024-07-23 20:15 | Emergency Department Note ---
Impression & Plan Influenza A Admission ED Provider Note HPI: History obtained from patient and granddaughter at the bedside. The patient is a 83-year-old female with history of atrial fibrillation, currently on Eliquis, presents the emergency department with a chief complaint of nausea and vomiting for the past 5 to 6 days. Patient states "I just cannot keep anything down". Patient denies any chest pain or shortness of breath. Patient states she has had a harsh wet cough. On arrival here to the ED the patient is tachycardic in the 160s, blood pressure is slightly low in the 90 systolic. Patient is otherwise alert and saturating well on room air on arrival. ROS: - Per HPI Differential Diagnosis: Viral gastroenteritis, small bowel obstruction, acute bronchitis, pneumonia, viral upper respiratory infection, acute colitis, diverticulitis flare, perforated viscus, intra-abdominal abscess, acute cholecystitis, choledocholithiasis, acute appendicitis, arrhythmia to include atrial fibrillation with RVR, SVT, WPW, ventricular tachycardia, amongst other potential pathologies. *Outpatient medications and allergy history reviewed. PE: General: Alert, frail-appearing, no acute distress HEENT: Normocephalic, trachea midline Eyes: Extraocular eye movement is intact, no scleral erythema Pulmonary: Clear to auscultation bilaterally, no wheezing Cardio: Tachycardic rate with irregular rhythm GI: Abdomen is soft to palpation, there is mild tenderness to mid abdomen with palpation without guarding or rigidity, there is no distention : No suprapubic tenderness MSK: No evidence of trauma or malformation of the extremities, no edema Skin: No evidence of rash Neuro: Alert, no focal deficits Psychiatric: Cooperative INDEPENDENT INTERPRETATIONS: telemetry monitor: (As interpreted by myself): - An order was placed for continuous cardiac monitoring - Patient was noted to be in atrial fibrillation with a rate of 168 EKG: (As interpreted by myself): Rate: 171 Rhythm: Atrial fibrillation with RVR Intervals: Within normal limits ST changes: No ST elevation Time: 2003 Chest x-ray: (As interpreted by myself): Mild pulmonary vascular congestion Interventions provided in ED: - IV fluid bolus, IV metoprolol, IV diltiazem, IV cefepime Medical Decision Making: IV was established and lab work obtained, patient was placed on satellite project site monitor. Patient was initially IV fluid resuscitated for her tachycardia and mild hypotension. Lab work shows a leukopenia of 2.92, hemoglobin is normal at 12.7, platelet count is also normal, CMP does not show any evidence of any critical findings. Troponin is mildly elevated at 42.1, patient denies any chest pain, EKG shows atrial fibrillation with RVR. Urinalysis shows 3+ blood likely consistent with the patient's recent ureteral stent placement, no obvious infection. Viral panel testing was obtained and the patient is positive for influenza A. CT imaging of the abdomen pelvis was obtained given the patient's nausea and vomiting, this shows a possible cystitis, left ureteral stent does appear to be in place, no evidence of any acute surgical process is otherwise noted. Patient was given IV metoprolol and following IV fluid resuscitation was also given a dose of IV diltiazem. This did improve her heart rate into the low 110s. Blood pressure remained stable. I discussed all the above findings with the patient and her granddaughter and the patient is in agreement for admission. Patient was covered with a dose of IV cefepime over concern for potential bacterial component of pneumonia with hypotension and tachycardia. Overall, I suspect that her symptoms are largely due to influenza A infection. Will hold on Tamiflu at this time given that the patient has been symptomatic for greater than 5 days. I discussed the patient's presentation with the on-call hospitalist, Dr. Jain, and the patient was placed for admission in stable condition. Consultants/Discussions held with other healthcare providers: - Hospitalist, Dr. Jain Disposition discussion held by myself with: - Patient and patient's granddaughter at the bedside * CRITICAL CARE TIME: ( 44 ) minutes - Stabilization of tachyarrhythmia/atrial fibrillation with RVR requiring IV rate control medications and IV fluid resuscitation, time spent at the bedside, interpretation of diagnostic studies including EKG, discussion with other physicians and arrangement of admission. Diagnosis: 1. Atrial fibrillation with RVR, acute 2. Influenza A infection, acute 3. Nausea and vomiting, acute 4. Elevated high-sensitivity troponin level, acute Disposition: Admission Willie Ruiz DO Emergency Medicine Past Med/Surg History Problem List (Updated 07/23/24 @ 23:48 by Willie Ruiz DO) Influenza A (Acute) Hematuria (Acute) Complicated urinary tract infection (Acute) Hematuria (Acute) Colic, ureteral (Acute) Right ureteral calculus (Acute) Complicated urinary tract infection (Acute) Weight loss Encounter for pre-operative examination Moderate mitral regurgitation Vitamin D insufficiency Kidney stones Arthritis GERD (gastroesophageal reflux disease) Hydroureteronephrosis ASCVD (arteriosclerotic cardiovascular disease) HTN, goal below 140/90 Hyperlipidemia Lupus (Acute) Medical History (Updated 07/23/24 @ 23:48 by Willie Ruiz DO) VRE (vancomycin resistant enterococcus) culture positive Moderate mitral regurgitation History of diverticulosis Lupus erythematosus Dx 1975 Followed by PCP "Currently stable" Kidney stones Hx of hyperlipidemia HTN (hypertension) History of TN (myocardial infarction) 2008- no stents Hx of gastroesophageal reflux (GERD) History of atrial fibrillation Taking Eliquis/beta mei Brain bleed 2020 r/t fall- Treated at [facility], "resolved on its own" 01/2024- transferred from [place] to [facility] > resolved per f/u head CT 03/06/24 History of COVID-19 04/2020: severe symptoms, treated at [facility] for 1 day > residual altered taste and smell Surgical History Hx of cystoscopy w/laser destruction kidney stone left side (2019) Hx of colonoscopy History of dilatation and curettage S/P cholecystectomy S/P hysterectomy with BSO (age 27) S/P appendectomy History of carpal tunnel release R/L History of cardiac cath (2008) 2008- no stents S/P ureteral stent placement Multiple History of rotator cuff surgery L shoulder History of cataract surgery R/L History of esophagogastroduodenoscopy History of sinus surgery x 2 Family History Mother Breast cancer Brother Myocardial infarction Stroke Heart disease brother had rheumatic fever that caused heart problems Grandfather Colon cancer Denies family history of Ovarian cancer Prostate cancer Social History Smoking Status: Never smoker Second Hand Exposure: Yes (hx as child); Do You Dip or Chew Tobacco: No; Hx Alcohol Use: No Hx Substance Use: No Preferred Language: Cymro Communication Ability: Effective Visual Impairment: No Limitations Hearing Ability: Normal Twisting Frame Fixer Required: No Beliefs That Will Affect Care: None marital status: Current Living Situation: Spouse Current Living Situation Comment: Kamron Gonsales current occupational status: retired How many Children do You have: 4 Feels Safe at Home: Yes Childhood Exposure to Second-Hand Smoke: Yes Diet: regular Diet Comment: regular caffeine: Yes during the past year weight has: remained stable Dental Care, Regularly: No Physical Activity Frequency: Daily Seatbelt Use: always Sunscreen Use: No Assistive Devices: None Allergies Allergies Allergy/AdvReac Type Severity Reaction Status Date / Time nut - unspecified Allergy Severe Anaphylaxis, Verified 07/23/24 20:42 hives adhesive tape Allergy Intermediate Hives Verified 07/23/24 20:42 cashew nut Allergy Intermediate Hives Verified 07/23/24 20:42 amitriptyline AdvReac Severe Facial Verified 07/23/24 20:42 paralysis diazepam AdvReac Severe Hallucinati Verified 07/23/24 20:42 ons oxycodone AdvReac Severe GI Upset Verified 07/23/24 20:42 ibuprofen [From Advil] AdvReac Intermediate "Jittery" Verified 07/23/24 20:42 perphenazine AdvReac Intermediate Facial Verified 07/23/24 20:42 twitching prochlorperazine AdvReac Intermediate Facial Verified 07/23/24 20:42 twitching Home Meds Home Medications Medication Instructions Recorded Confirmed metoprolol tartrate 25 mg tablet 25 mg PO BID 06/16/24 07/23/24 linezolid 600 mg tablet (Zyvox) 600 mg PO BID 07/05/24 07/23/24 Previous Rx's Medication Instructions Recorded fluticasone propionate 50 2 spray intranasal DAILY PRN 05/11/22 mcg/actuation nasal Congestion #48 grams spray,suspension (Flonase Allergy Relief) isosorbide mononitrate 60 mg 90 mg (1.5 x 60 mg) PO QAM #135 09/06/22 tablet,extended release 24 hr tabs atorvastatin 40 mg tablet 40 mg PO QAM #90 tabs 09/09/22 omeprazole 20 mg capsule,delayed 20 mg PO QAM #90 caps 09/09/22 release apixaban 2.5 mg tablet (Eliquis) 2.5 mg PO BID #60 tabs 06/17/24 tamsulosin 0.4 mg capsule 0.4 mg PO HS #30 caps 06/17/24 oxybutynin chloride 5 mg tablet 5 mg PO BID #60 tabs 07/01/24 tramadol 50 mg tablet 25 mg (1/2 x 50 mg) PO Q4H PRN 07/01/24 pain #15 tabs ondansetron 4 mg disintegrating 4 mg PO Q8H PRN nausea and 07/05/24 tablet vomiting #10 tabs sucralfate 100 mg/mL oral 10 ml PO QID PRN painful 07/07/24 suspension (Carafate) swallowing #420 mL Results & Data (ED) Vital Signs Vital Signs - 24 hr 07/23/24 19:53 07/23/24 20:03 07/23/24 20:08 Temperature Source Temporal Artery Scan Pulse Rate 127 H 171 H Pulse Rate [Apical] 186 H Pulse Rhythm Regular Pulse Strength Normal Respiratory Rate 18 30 H Respiratory Effort / Characteristics Non-Labored Spontaneous Respiratory Depth Normal Respiratory Pattern Regular Blood Pressure 96/64 L Blood Pressure [Left Arm] 109/85 Blood Pressure Mean 74 Blood Pressure Mean [Left Arm] 93 Blood Pressure Position Sitting Blood Pressure Position [Left Arm] Semi-fowlers Pulse Oximetry 97 95 Oxygen Delivery Method Room Air Room Air Oxygen Flow Rate Sepsis Recent Fever Within 48 Hours No Sepsis New/Unexplained Change in Mental Status N/A Sepsis Action Taken by Nursing Physician Notified Oxygen Flow Rate - Titration Pulse Oximetry Post Tiitration 07/23/24 20:12 07/23/24 20:20 07/23/24 21:00 Temperature Source Pulse Rate 169 H Pulse Rate [Apical] 135 H Pulse Rhythm Pulse Strength Respiratory Rate 26 H Respiratory Effort / Characteristics Respiratory Depth Respiratory Pattern Blood Pressure 130/85 Blood Pressure [Left Arm] 103/74 Blood Pressure Mean Blood Pressure Mean [Left Arm] 83 Blood Pressure Position Blood Pressure Position [Left Arm] Semi-fowlers Pulse Oximetry 96 91 Oxygen Delivery Method Room Air Room Air Oxygen Flow Rate Sepsis Recent Fever Within 48 Hours Sepsis New/Unexplained Change in Mental Status Sepsis Action Taken by Nursing Oxygen Flow Rate - Titration Pulse Oximetry Post Tiitration 07/23/24 21:23 07/23/24 22:56 07/23/24 23:00 Temperature Source Pulse Rate 144 H Pulse Rate [Apical] 124 H Pulse Rhythm Pulse Strength Respiratory Rate 28 H Respiratory Effort / Characteristics Respiratory Depth Respiratory Pattern Blood Pressure 119/70 Blood Pressure [Left Arm] 108/70 Blood Pressure Mean Blood Pressure Mean [Left Arm] 82 Blood Pressure Position Blood Pressure Position [Left Arm] Semi-fowlers Pulse Oximetry 88 L 95 Oxygen Delivery Method Room Air Nasal Cannula Nasal Cannula Oxygen Flow Rate 0 3 Sepsis Recent Fever Within 48 Hours Sepsis New/Unexplained Change in Mental Status Sepsis Action Taken by Nursing Oxygen Flow Rate - Titration 3 Pulse Oximetry Post Tiitration 95 Laboratory Data 07/23/24 20:08 07/23/24 20:08 Lab Results 07/23/24 07/23/24 07/23/24 Range/Units 20:08 21:02 21:47 WBC 2.92 L (4.8-10.8) K/ul RBC 4.16 L (4.20-5.40) M/uL Hgb 12.7 (12.0-16.0) g/dl Hct 37.3 (37.0-47.0) % MCV 89.7 (80.0-100.0) fL MCH 30.5 (25.0-34.0) pg MCHC 34.0 (32.0-36.0) g/dL RDW Std Deviation 42.1 (36.4-46.3) fL RDW Coeff of Hansa 13.0 (11.5-14.5) % Plt Count 272 (130-400) K/uL MPV 10.1 (9.4-12.4) fL Immature Gran % (Auto) 0.7 % Neut % (Auto) 53.5 % Lymph % (Auto) 30.1 % [place] % (Auto) 15.1 % Eos % (Auto) 0.3 % Baso % (Auto) 0.3 % Neut # (Auto) 1.56 (1.40-6.50) K/uL Lymph # (Auto) 0.88 L (1.20-3.40) K/uL [place] # (Auto) 0.44 (0.11-0.59) K/uL Eos # (Auto) 0.01 (0.00-0.50) K/uL Baso # (Auto) 0.01 (0.00-0.20) K/uL Immature Gran # (Auto) 0.02 (0.01-0.20) K/uL Polychromasia 1+ Basophilic Stippling 1+ Ovalocytes 1+ Echinocytes 1+ PT 11.2 (9.0-12.0) Seconds INR 1.0 (0.9-1.1) Sodium 137 (136-145) mmol/L Potassium 3.9 (3.5-5.1) mmol/L Chloride 103 (98-107) mmol/L Carbon Dioxide 26 (21-32) mmol/L Anion Gap 8 (3-11) BUN 24 H (6-23) mg/dl Creatinine 1.10 (0.6-1.2) mg/dl Est Cr Clr Drug Dosing 31.2 ml/min eGFR 50.17 BUN/Creatinine Ratio 21.8 H (10-20) Glucose 136 H (70-99(Fasting)) mg/dl Lactate 3.0 H* (0.4-2.0) mmol/L Calcium 9.6 (8.6-10.3) mg/dl Total Bilirubin 1.0 (0.2-1.0) mg/dl AST 30 (13-39) U/L ALT 15 (7-52) U/L Alkaline Phosphatase 81 (34-104) U/L Troponin I High Sens 42.1 H 42.2 H (0-14) pg/ml Total Protein 6.3 (6.0-8.3) gm/dl Albumin 3.6 (3.4-5.0) gm/dl Globulin 2.7 (2.5-4.0) gm/dl Albumin/Globulin Ratio 1.3 (0.9-2) Lipase 32 (11-82) U/L Urine Color Urine Appearance (Clear) Urine pH (4.5-7.5) Ur Specific Hillman (1.000-1.030) Urine Protein (Negative) Urine Glucose (UA) (Negative) Urine Ketones (Negative) Urine Blood (Negative) Urine Nitrite (Negative) Urine Bilirubin (Negative) Urine Urobilinogen (Negative) Ur Leukocyte Esterase (Negative) Nasal Influ A H1 2009 PCR DETECTED A (NotDetected) Adenovirus (PCR) Not Detected (NotDetected) B. pertussis DNA (PCR) Not Detected (NotDetected) B.parapertussis DNA PCR Not Detected (NotDetected) C. pneumoniae DNA (PCR) Not Detected (NotDetected) Coronavirus OC43 (PCR) Not Detected (NotDetected) Coronavirus HKU1 (PCR) Not Detected (NotDetected) Coronavirus 229E (PCR) Not Detected (NotDetected) SARS-CoV-2 (PCR) Not Detected (NotDetected) Coronavirus NL63 (PCR) Not Detected (NotDetected) Human Metapneumovir PCR Not Detected (NotDetected) Influenza Type B (PCR) Not Detected (NotDetected) M. pneumoniae (PCR) Not Detected (NotDetected) Parainfluenza 1 (PCR) Not Detected (NotDetected) Parainfluenza 2 (PCR) Not Detected (NotDetected) Parainfluenza 3 (PCR) Not Detected (NotDetected) Parainfluenza 4 (PCR) Not Detected (NotDetected) RSV (PCR) Not Detected (NotDetected) Entero/Rhino (PCR) Not Detected (NotDetected) 07/23/24 07/23/24 Range/Units 22:24 22:28 WBC (4.8-10.8) K/ul RBC (4.20-5.40) M/uL Hgb (12.0-16.0) g/dl Hct (37.0-47.0) % MCV (80.0-100.0) fL MCH (25.0-34.0) pg MCHC (32.0-36.0) g/dL RDW Std Deviation (36.4-46.3) fL RDW Coeff of Hansa (11.5-14.5) % Plt Count (130-400) K/uL MPV (9.4-12.4) fL Immature Gran % (Auto) % Neut % (Auto) % Lymph % (Auto) % [place] % (Auto) % Eos % (Auto) % Baso % (Auto) % Neut # (Auto) (1.40-6.50) K/uL Lymph # (Auto) (1.20-3.40) K/uL [place] # (Auto) (0.11-0.59) K/uL Eos # (Auto) (0.00-0.50) K/uL Baso # (Auto) (0.00-0.20) K/uL Immature Gran # (Auto) (0.01-0.20) K/uL Polychromasia Basophilic Stippling Ovalocytes Echinocytes PT (9.0-12.0) Seconds INR (0.9-1.1) Sodium (136-145) mmol/L Potassium (3.5-5.1) mmol/L Chloride (98-107) mmol/L Carbon Dioxide (21-32) mmol/L Anion Gap (3-11) BUN (6-23) mg/dl Creatinine (0.6-1.2) mg/dl Est Cr Clr Drug Dosing ml/min eGFR BUN/Creatinine Ratio (10-20) Glucose (70-99(Fasting)) mg/dl Lactate 1.8 (0.4-2.0) mmol/L Calcium (8.6-10.3) mg/dl Total Bilirubin (0.2-1.0) mg/dl AST (13-39) U/L ALT (7-52) U/L Alkaline Phosphatase (34-104) U/L Troponin I High Sens (0-14) pg/ml Total Protein (6.0-8.3) gm/dl Albumin (3.4-5.0) gm/dl Globulin (2.5-4.0) gm/dl Albumin/Globulin Ratio (0.9-2) Lipase (11-82) U/L Urine Color Red Urine Appearance Turbid A (Clear) Urine pH 6.5 (4.5-7.5) Ur Specific Hillman 1.010 (1.000-1.030) Urine Protein 3+ H (Negative) Urine Glucose (UA) Negative (Negative) Urine Ketones Negative (Negative) Urine Blood 3+ H (Negative) Urine Nitrite Negative (Negative) Urine Bilirubin Negative (Negative) Urine Urobilinogen Negative (Negative) Ur Leukocyte Esterase Trace H (Negative) Nasal Influ A H1 2009 PCR (NotDetected) Adenovirus (PCR) (NotDetected) B. pertussis DNA (PCR) (NotDetected) B.parapertussis DNA PCR (NotDetected) C. pneumoniae DNA (PCR) (NotDetected) Coronavirus OC43 (PCR) (NotDetected) Coronavirus HKU1 (PCR) (NotDetected) Coronavirus 229E (PCR) (NotDetected) SARS-CoV-2 (PCR) (NotDetected) Coronavirus NL63 (PCR) (NotDetected) Human Metapneumovir PCR (NotDetected) Influenza Type B (PCR) (NotDetected) M. pneumoniae (PCR) (NotDetected) Parainfluenza 1 (PCR) (NotDetected) Parainfluenza 2 (PCR) (NotDetected) Parainfluenza 3 (PCR) (NotDetected) Parainfluenza 4 (PCR) (NotDetected) RSV (PCR) (NotDetected) Entero/Rhino (PCR) (NotDetected) Administered Medications Discontinued Medications Diltiazem HCl (Diltiazem Hcl 5 Mg/Ml 5 Ml Vial) 10 mg IV NOW STA Stop: 07/23/24 22:34 Last Admin: 07/23/24 22:44 Dose: 10 mg Documented By: DAVID Co-signed By: MARYJO Sodium Chloride (Nss) 1,000 mls @ 999 mls/hr IV .Q1H1M STA Stop: 07/23/24 21:03 Last Infusion: 07/23/24 21:24 Dose: Infused Documented By: Admin: 07/23/24 20:12 Dose: 999 mls/hr Documented By: DAVID Sodium Chloride (Nss) 1,000 mls @ 999 mls/hr IV .Q1H1M ONE Stop: 07/23/24 22:00 Last Infusion: 07/23/24 22:30 Dose: Infused Documented By: Admin: 07/23/24 21:24 Dose: 999 mls/hr Documented By: DAVID Cefepime HCl (Maxipime 2000mg) 2,000 mg in 20 mls @ 5 mls/min IV NOW STA; Protocol Stop: 07/23/24 22:36 Last Admin: 07/23/24 22:49 Dose: 5 mls/min Documented By: DAVID Ioversol (Optiray 320 100ml) 93 ml IV ONCE ONE Stop: 07/23/24 21:16 Last Admin: 07/23/24 21:17 Dose: 93 ml Documented By: ILANA Metoprolol Tartrate (Metoprolol Tartrate 1 Mg/Ml Vial) 5 mg IV NOW STA Stop: 07/23/24 20:18 Last Admin: 07/23/24 20:20 Dose: 5 mg Documented By: MARYJO Ondansetron HCl (Ondansetron Inj 2 Mg/Ml 2 Ml Vial) 4 mg IV NOW STA Stop: 07/23/24 20:18 Last Admin: 04/28/25 20:20 Dose: 4 mg Documented By: MARYJO Imaging Data Radiologist's Impression: Chest X-Ray 07/23/24 20:04 Exam(s): XR CXR 1 VIEW EXAM: XR Chest, 1 View CLINICAL HISTORY: Reason for exam: tachy. TECHNIQUE: Frontal view of the chest. COMPARISON: 01/26/2024 FINDINGS: Lungs: Pulmonary vascular congestion without overt edema. Pleural space: No pleural effusion. No pneumothorax. Heart: Unremarkable. No cardiomegaly. Vasculature: Tortuous thoracic aorta. IMPRESSION: Pulmonary vascular congestion without overt edema. Electronically signed by: Monster James MD 07/23/24 21:03 PM Abdomen/Pelvis CT 07/23/24 20:13 Exam(s): CT ABDOMEN + PELVIS With Contrast IV Amt: 93 ml optiray 320 EXAM: CT Abdomen and Pelvis With Intravenous Contrast CLINICAL HISTORY: Reason for exam: Nausea and vomiting. TECHNIQUE: Axial computed tomography images of the abdomen and pelvis with intravenous contrast. CTDI is 10.18 mGy and DLP is 468.14 mGy-cm. Automated exposure control was utilized for the study. A dose lowering technique was utilized adhering to the principles of ALARA. CONTRAST: Patient received 93 ml optiray 320 of IV contrast COMPARISON: 06/14/24 FINDINGS: Lung bases: Compared to prior, increased bibasilar bronchial wall thickening and peribronchial opacities. ABDOMEN: Liver: Unremarkable. No mass. Gallbladder and bile ducts: Gallbladder not visualized, presumed surgically absent. No biliary dilatation. Pancreas: Unremarkable. No mass. No ductal dilation. Spleen: Unremarkable. No splenomegaly. Adrenals: Stable 2.3 cm low-density left adrenal lesion, presumed benign adenoma. Normal right adrenal gland. Kidneys and ureters: No hydronephrosis of the right kidney. Subcentimeter bilateral renal cysts; no follow-up indicated. Nonobstructing left kidney upper pole stone measuring 19 mm. Left ureteral stent in place. No hydronephrosis. Stomach and bowel: No bowel obstruction. Duodenal diverticula, incidental and stable from prior. Sigmoid diverticulosis without diverticulitis. No mucosal thickening. PELVIS: Appendix: Appendix not identified. Bladder: Inflammatory appearance of the urinary bladder. Reproductive: Hysterectomy. ABDOMEN and PELVIS: Intraperitoneal space: Unremarkable. No free fluid or free air. Bones/joints: Osteopenia. Degenerative changes in the spine. Benign intraosseous hemangioma in the L3 vertebral body. Chronic compression deformity at T11. No acute fracture or dislocation. Soft tissues: Unremarkable. Vasculature: Atherosclerosis. No abdominal aortic aneurysm. Lymph nodes: Unremarkable. No enlarged lymph nodes. IMPRESSION: 1. Compared to prior, increased bibasilar bronchial wall thickening and peribronchial opacities. Appearance could represent pneumonia or aspiration. 2. Inflammatory appearance of the urinary bladder. Correlate with urinalysis for possible cystitis. 3. Nonobstructing left kidney upper pole stone measuring 19 mm. Left ureteral stent in place. No hydronephrosis. Electronically signed by: Ermias Layton M.D. 07/23/24 22:21 PM Discharge Plan Visit Data Chief Complaint: GI Assessment Stated Complaint: CAN'T KEEP FOOD DOWN ED Provider: Willie Ruiz Discharge Problem: Influenza A Forms Stand Alone Forms: [facility] Prescriptions Prescriptions: No Action fluticasone propionate [Flonase Allergy Relief] 50 mcg/actuation spray,suspension 2 spray INTRANASAL DAILY PRN (Reason: Congestion) Qty: 48 1RF isosorbide mononitrate 60 mg tablet extended release 24 hr 90 mg PO QAM Qty: 135 1RF atorvastatin 40 mg tablet 40 mg PO QAM Qty: 90 3RF Hold Instructions: Resume on 07/02/24. Resume AM of 07/02 omeprazole 20 mg capsule,delayed release(DR/EC) 20 mg PO QAM Qty: 90 3RF linezolid [Zyvox] 600 mg tablet 600 mg PO BID ondansetron 4 mg tablet,disintegrating 4 mg PO Q8H PRN (Reason: nausea and vomiting) Qty: 10 0RF metoprolol tartrate 25 mg tablet 25 mg PO BID tamsulosin 0.4 mg Capsule 0.4 mg PO HS Qty: 30 0RF Eliquis 2.5 mg Tablet 2.5 mg PO BID Qty: 60 0RF Hold Instructions: Resume on 07/07/24. until deemed safe by urology following procedure on 07/05 tramadol 50 mg Tablet 25 mg PO Q4H PRN (Reason: pain) Qty: 15 0RF oxybutynin chloride 5 mg Tablet 5 mg PO BID Qty: 60 0RF sucralfate [Carafate] 100 mg/mL suspension 10 ml PO QID PRN (Reason: painful swallowing) Qty: 420 0RF Rx Instructions: swish in mouth and swallow; use after food/drink: May substitute tablets as a slurry. Referrals Referrals: Sandra Guajardo CRNP [Primary Care Provider] -
[2024-07-23] MEDS: METOPROLOL TARTRATE 1 MG/ML VIAL IV STA (20:20)
[2024-07-23] MEDS: ONDANSETRON INJ 2 MG/ML 2 ML VIAL IV STA (20:20)
[2024-07-23 20:26] LABS: Hematocrit (blood only) 37.3 % (37.0-47.0); Hemoglobin 12.7 g/dl (12.0-16.0); Mean Corpuscular Hemoglobin 30.5 pg (25.0-34.0); Mean Corpuscular Volume 89.7 fL (80.0-100.0); Mean Platelet Volume 10.1 fL (9.4-12.4); Platelet Count 272 K/uL (130-400); RDW Standard Deviation 42.1 fL (36.4-46.3); Red Blood Count 4.16 M/uL (4.20-5.40); White Blood Count 2.92 K/ul (4.8-10.8)
[2024-07-23 20:45] LABS: Albumin Globulin Ratio 1.3 (0.9-2); Albumin Level 3.6 gm/dl (3.4-5.0); BUN Creatinine Ratio 21.8 (10-20); Calcium 9.6 mg/dl (8.6-10.3); Creatinine Clr Calc Pharmacy 31.2 ml/min; Globulin 2.7 gm/dl (2.5-4.0); Potassium 3.9 mmol/L (3.5-5.1); Total Protein 6.3 gm/dl (6.0-8.3)
[2024-07-23 20:52] LABS: Troponin I High Sensitivity 42.1 pg/ml (0-14)
--- NOTE | 2024-07-23 21:04 | XRay Report ---
Exam(s): XR CXR 1 VIEW EXAM: XR Chest, 1 View CLINICAL HISTORY: Reason for exam: tachy. TECHNIQUE: Frontal view of the chest. COMPARISON: 01/26/2024 FINDINGS: Lungs: Pulmonary vascular congestion without overt edema. Pleural space: No pleural effusion. No pneumothorax. Heart: Unremarkable. No cardiomegaly. Vasculature: Tortuous thoracic aorta. IMPRESSION: Pulmonary vascular congestion without overt edema. Electronically signed by: Monster James MD 07/23/24 21:03 PM
[2024-07-23 21:11] LABS: Prothrombin Time 11.2 Seconds (9.0-12.0)
[2024-07-23] MEDS: OPTIRAY 320 100ml IV ONE (21:17)
[2024-07-23] MEDS: SODIUM CHLORIDE 0.9% 1,000 ML IV ONE (21:24)
[2024-07-23 22:04] LABS: Adenovirus PCR Not Detected (NotDetected); Bordetella parapertussis PCR Not Detected (NotDetected); Bordetella pertussis PCR Not Detected (NotDetected); Chlamydia pneumoniae PCR Not Detected (NotDetected); Coronavirus 229E PCR Not Detected (NotDetected); Coronavirus CoV-2 (COVID19)PCR Not Detected (NotDetected); Coronavirus HKU1 PCR Not Detected (NotDetected); Coronavirus NL63 PCR Not Detected (NotDetected); Coronavirus OC43PCR Not Detected (NotDetected); Human Metapneumovirus PCR Not Detected (NotDetected); Influenza A (H1 2009) PCR DETECTED (NotDetected); Influenza B PCR Not Detected (NotDetected); Mycoplasma pneumoniae PCR Not Detected (NotDetected); Parainfluenza Virus 1 PCR Not Detected (NotDetected); Parainfluenza Virus 2 PCR Not Detected (NotDetected); Parainfluenza Virus 3 PCR Not Detected (NotDetected); Parainfluenza Virus 4 PCR Not Detected (NotDetected); Respiratory Syncytial VirusPCR Not Detected (NotDetected); Rhinovirus/Enterovirus PCR Not Detected (NotDetected)
--- NOTE | 2024-07-23 22:22 | CT Scan Report ---
Exam(s): CT ABDOMEN + PELVIS With Contrast IV Amt: 93 ml optiray 320 EXAM: CT Abdomen and Pelvis With Intravenous Contrast CLINICAL HISTORY: Reason for exam: Nausea and vomiting. TECHNIQUE: Axial computed tomography images of the abdomen and pelvis with intravenous contrast. CTDI is 10.18 mGy and DLP is 468.14 mGy-cm. Automated exposure control was utilized for the study. A dose lowering technique was utilized adhering to the principles of ALARA. CONTRAST: Patient received 93 ml optiray 320 of IV contrast COMPARISON: 06/14/24 FINDINGS: Lung bases: Compared to prior, increased bibasilar bronchial wall thickening and peribronchial opacities. ABDOMEN: Liver: Unremarkable. No mass. Gallbladder and bile ducts: Gallbladder not visualized, presumed surgically absent. No biliary dilatation. Pancreas: Unremarkable. No mass. No ductal dilation. Spleen: Unremarkable. No splenomegaly. Adrenals: Stable 2.3 cm low-density left adrenal lesion, presumed benign adenoma. Normal right adrenal gland. Kidneys and ureters: No hydronephrosis of the right kidney. Subcentimeter bilateral renal cysts; no follow-up indicated. Nonobstructing left kidney upper pole stone measuring 19 mm. Left ureteral stent in place. No hydronephrosis. Stomach and bowel: No bowel obstruction. Duodenal diverticula, incidental and stable from prior. Sigmoid diverticulosis without diverticulitis. No mucosal thickening. PELVIS: Appendix: Appendix not identified. Bladder: Inflammatory appearance of the urinary bladder. Reproductive: Hysterectomy. ABDOMEN and PELVIS: Intraperitoneal space: Unremarkable. No free fluid or free air. Bones/joints: Osteopenia. Degenerative changes in the spine. Benign intraosseous hemangioma in the L3 vertebral body. Chronic compression deformity at T11. No acute fracture or dislocation. Soft tissues: Unremarkable. Vasculature: Atherosclerosis. No abdominal aortic aneurysm. Lymph nodes: Unremarkable. No enlarged lymph nodes. IMPRESSION: 1. Compared to prior, increased bibasilar bronchial wall thickening and peribronchial opacities. Appearance could represent pneumonia or aspiration. 2. Inflammatory appearance of the urinary bladder. Correlate with urinalysis for possible cystitis. 3. Nonobstructing left kidney upper pole stone measuring 19 mm. Left ureteral stent in place. No hydronephrosis. Electronically signed by: Ermias Layton M.D. 07/23/24 22:21 PM
[2024-07-23 22:34] LABS: Basophilic Stippling 1+; Basophils # (auto) 0.01 K/uL (0.00-0.20); Basophils % (auto) 0.3 %; Echinocytes 1+; Eosinophils # (auto) 0.01 K/uL (0.00-0.50); Eosinophils % (auto) 0.3 %; Immature Granulocytes # (auto) 0.02 K/uL (0.01-0.20); Immature Granulocytes % (auto) 0.7 %; Lymphocytes # (auto) 0.88 K/uL (1.20-3.40); Lymphocytes % (auto) 30.1 %; Monocytes # (auto) 0.44 K/uL (0.11-0.59); Monocytes % (auto) 15.1 %; Neutrophils # (auto) 1.56 K/uL (1.40-6.50); Neutrophils % (auto) 53.5 %; Ovalocytes 1+; Polychromasia 1+
[2024-07-23] MEDS: dilTIAZem HCl 5 MG/ML 5 ML VIAL IV STA (22:44)
[2024-07-23] MEDS: CEFEPIME 2000MG 2,000 MG/20 ML SYR IV STA (22:49)
[2024-07-23 23:00] LABS: Troponin I High Sensitivity 42.2 pg/ml (0-14)
--- NOTE | 2024-07-23 23:10 | History & Physical Report ---
Date of Service July 23, 2024 Assessment & Plan (1) Influenza A: (2) Kidney stones: (3) History of atrial fibrillation: Plan 83 year old female with past medical history of kidney stones, GERD, ASCVD, Lupus, Paroxysmal Afib here due to weakness, nausea/vomiting, cough for 1 week of duration. Patient had right stent cathether placed on 07/05. Patient found with tachycardia and hypotension in the ED, IV Cefepime and IV fluid resuscitation given in the ED. EKG showing Afib with RVR, treated with diltiazem and IV metoprolol. Biofire positive for Flu A #Influenza A/ Weakness / Dehydration - Patient presented with cough, general weakness, poor PO intake and vomiting/diarrhea of 1 week of duration - Wheezing and dehydrated on exam. Patient tachycardic and hypotensive on arrival - CT: bibasilar wall thickening, no consolidation - hold Tamiflu due to >48hrs of symptoms - Stool panel ordered - continue supportives measures - s/p IV fluid dehydration, continue Lactate Ringer 80 ml/hr - blood culture ordered - procal pending - DuoNeb QID prn - Mucinex for congestion - CBC, BMP AM #Hx of nephrolithiasis/ Gross Hematuria -Patient with hx of chronic kidney stones - cystoscopy + left stent catheter,+ exchange of right stent catheter on 2024 by Keesha Gonzales - CT AP- nonobstructing left kidney upper stone measuring 19 mm. Left stent in place. No hydronephrosis - UA with leukocyte esterase, epithelial cells, but no bacteria - S/p Cefepime on ED. Patient had hx VRE. Will placed her on Daptomycin empirically. Atorvastatin held - Urine and blood culture pending - CBC AM #A fib with RVR - EKG Afib with RVR HR 170s in the ED - S/p IV hydration,IV 5 mg Lopressor and 10 mg diltiazem - Continue Metoprolol tartrate 25mg BID - Hold Eliquis due to gross hematuria - Magnesium level added #GERD - continue PPI Disposition: Admit to telemetry DVT prophylaxis SCDs, hold pharmacologic due to gross hematuria History of Present Illness Primary Care Provider: FREDI Downey 83 year old female with past medical history of kidney stones, GERD, ASCVD, L upus, Paroxysmal Afib here due to weakness, nausea/vomiting, cough for 1 week of duration. Patient had cystoscopy and right stent catheter placed on 07/05 due to large kidney stones. She states having hives and poor po since approximally 5 days ago. Patient states having a wet cough as well. She states had been difficult to keep down her medication. Denied any chest pain or SOB. Denied any abdominal pain. Patient states having gross hematuria since procedure on 07/05. Denied any hx of Asthma or COPD. ED course- Patient found with tachycardia and hypotension in the ED, IV Cefepime and IV fluid resuscitation given in the ED. EKG showing Afib with RVR, treated with diltiazem and IV metoprolol. Biofire positive for Flu A Allergies Allergy/AdvReac Type Severity Reaction Status Date / Time nut - unspecified Allergy Severe Anaphylaxis, Verified 07/23/24 20:42 hives adhesive tape Allergy Intermediate Hives Verified 07/23/24 20:42 cashew nut Allergy Intermediate Hives Verified 07/23/24 20:42 amitriptyline AdvReac Severe Facial Verified 07/23/24 20:42 paralysis diazepam AdvReac Severe Hallucinati Verified 07/23/24 20:42 ons oxycodone AdvReac Severe GI Upset Verified 07/23/24 20:42 ibuprofen [From Advil] AdvReac Intermediate "Jittery" Verified 07/23/24 20:42 perphenazine AdvReac Intermediate Facial Verified 07/23/24 20:42 twitching prochlorperazine AdvReac Intermediate Facial Verified 07/23/24 20:42 twitching Home Medications Medication Instructions Recorded Confirmed Type fluticasone propionate 50 2 spray intranasal DAILY PRN 05/11/22 07/23/24 Rx mcg/actuation nasal Congestion #48 grams spray,suspension (Flonase Allergy Relief) isosorbide mononitrate 60 mg 90 mg (1.5 x 60 mg) PO QAM #135 09/06/22 07/23/24 Rx tablet,extended release 24 hr tabs atorvastatin 40 mg tablet 40 mg PO QAM #90 tabs 09/09/22 07/23/24 Rx omeprazole 20 mg capsule,delayed 20 mg PO QAM #90 caps 09/09/22 07/23/24 Rx release metoprolol tartrate 25 mg tablet 25 mg PO BID 06/16/24 07/23/24 History apixaban 2.5 mg tablet (Eliquis) 2.5 mg PO BID #60 tabs 06/17/24 07/23/24 Rx tamsulosin 0.4 mg capsule 0.4 mg PO HS #30 caps 06/17/24 07/23/24 Rx oxybutynin chloride 5 mg tablet 5 mg PO BID #60 tabs 07/01/24 07/23/24 Rx tramadol 50 mg tablet 25 mg (1/2 x 50 mg) PO Q4H PRN 07/01/24 07/23/24 Rx pain #15 tabs linezolid 600 mg tablet (Zyvox) 600 mg PO BID 07/05/24 07/23/24 History ondansetron 4 mg disintegrating 4 mg PO Q8H PRN nausea and 07/05/24 07/23/24 Rx tablet vomiting #10 tabs sucralfate 100 mg/mL oral 10 ml PO QID PRN painful 07/07/24 07/23/24 Rx suspension (Carafate) swallowing #420 mL Past Med/Surg History Problem List (Updated 07/23/24 @ 23:48 by Willie Ruiz DO) Influenza A (Acute) Hematuria (Acute) Complicated urinary tract infection (Acute) Hematuria (Acute) Colic, ureteral (Acute) Right ureteral calculus (Acute) Complicated urinary tract infection (Acute) Weight loss Encounter for pre-operative examination Moderate mitral regurgitation Vitamin D insufficiency Kidney stones Arthritis GERD (gastroesophageal reflux disease) Hydroureteronephrosis ASCVD (arteriosclerotic cardiovascular disease) HTN, goal below 140/90 Hyperlipidemia Lupus (Acute) Medical History (Updated 07/23/24 @ 23:48 by Willie Ruiz DO) VRE (vancomycin resistant enterococcus) culture positive Moderate mitral regurgitation History of diverticulosis Lupus erythematosus Dx 1975 Followed by PCP "Currently stable" Kidney stones Hx of hyperlipidemia HTN (hypertension) History of NE (myocardial infarction) 2008- no stents Hx of gastroesophageal reflux (GERD) History of atrial fibrillation Taking Eliquis/beta mei Brain bleed 2020 r/t fall- [facility], "resolved on [facility] own" [facility]20[facility] > resolved per f/u head CT 03/06/24 History of COVID-19 04/2020: severe symptoms, treated at [facility] for 1 day > residual altered taste and smell Surgical History Hx of cystoscopy w/laser destruction kidney stone left side (2019) Hx of colonoscopy History of dilatation and curettage S/P cholecystectomy S/P hysterectomy with BSO (age 27) S/P appendectomy History of carpal tunnel release R/L History of cardiac cath (2008) 2009- no stents S/P ureteral stent placement Multiple History of rotator cuff surgery L shoulder History of cataract surgery R/L History of esophagogastroduodenoscopy History of sinus surgery x 2 Family History Mother Breast cancer Brother Myocardial infarction Stroke Heart disease brother had rheumatic fever that caused heart problems Grandfather Colon cancer Denies family history of Ovarian cancer Prostate cancer Social History Smoking Status: Never smoker Second Hand Exposure: Yes (hx as child); Do You Dip or Chew Tobacco: No; Hx Alcohol Use: No Hx Substance Use: No Preferred Language: Divehi Communication Ability: Effective Visual Impairment: No Limitations Hearing Ability: Normal Cad Manager Required: No Beliefs That Will Affect Care: None marital status: Current Living Situation: Spouse Current Living Situation Comment: Kamron Gonsales current occupational status: retired How many Children do You have: 4 Other Information That Helps Us Care for You: No Feels Safe at Home: Yes Safety Concerns: Feels Safe At This Time Childhood Exposure to Second-Hand Smoke: Yes Diet: regular Diet Comment: regular caffeine: Yes during the past year weight has: remained stable Dental Care, Regularly: No Physical Activity Frequency: Daily Seatbelt Use: always Sunscreen Use: No Assistive Devices: Denture - Upper and Denture - Lower Review of Systems Review of Systems: PER HPI Physical Exam Constitutional: + ill appearing and + thin; no acute dis tress Eyes: PERRL, conjunctivae normal, anicteric sclerae ENMT: external ear and nose normal, oropharynx normal Respiratory: + cough; no respiratory distress and no labored breathing Auscultation: + rales and + wheezes Cardiovascular: RRR, no murmur, no edema Gastrointestinal (Abdomen): normal bowel sounds, soft, nontender, no hepatosplenomegaly Skin: no rashes, warm and dry Results & Data Results & Data Vital Signs (Past 12 Hours) Vital Signs Pulse Pulse Resp BP BP Pulse Ox O2 Del Method 07/23/24 22:56 88 L Room Air, Nasal Cannula 07/23/24 21:23 144 H 119/70 07/23/24 21:00 135 H 26 H 103/74 91 Room Air 07/23/24 20:20 169 H 130/85 07/23/24 20:12 96 Room Air 07/23/24 20:08 186 H 30 H 109/85 95 Room Air 07/23/24 20:03 171 H 07/23/24 19:53 127 H 18 96/64 L 97 Room Air O2 Flow Rate 07/23/24 22:56 0 07/23/24 21:23 07/23/24 21:00 07/23/24 20:20 07/23/24 20:12 07/23/24 20:08 07/23/24 20:03 07/23/24 19:53 Supervising Physician Co-Signing Physician Notes patient seen and examined, chart reviewed, case discussed with Dr. Clara Curtis and agree with the assessment plan as document above. In brief, patient is an 83-year-old female presenting with cough x 1 week, nausea/vomiting/p.o. intolerance. She reports she has not been able to take her medications over the last week. Found to have influenza A. On physical exam patient is ill in appearance Tachycardic, irregularly irregular Coarse breath sounds Abdomen soft, nontender/nondistended I labs and images reviewed Assessment/plan Supportive care Continue IV fluids Resume home meds Remainder as above Resident Activity Tracking Resident Involvement: Resident Care Provided Care Provided: Adult Hospital Medicine
[2024-07-23 23:13] LABS: Appearance Urine Turbid (Clear); Bilirubin Urine Negative (Negative); Blood Urine 3+ (Negative); Color Urine Red; Glucose Urine UA Negative (Negative); Ketones Urine Negative (Negative); Leukocyte Esterase Urine Trace (Negative); Nitrite Urine Negative (Negative); Protein Urine 3+ (Negative); Urobilinogen Urine Negative (Negative); pH Urine 6.5 (4.5-7.5)
[2024-07-23] MEDS: LACTATED RINGER'S 1,000 ML IV STA (23:46)
[2024-07-23 23:48] LABS: Bacteria Urine None Seen (None Seen); Mucus Urine Present (None Prsent); RBC Urine >20 /hpf (0-2); WBC Urine 21-50 /hpf (0-5)
[2024-07-23] MEDS: ALBUT/IPRATROP 3MG/0.5MG NEB 3 ML VIAL NEB STA (23:49)
[2024-07-24 00:21] LABS: Magnesium 1.6 mg/dl (1.7-2.4)
[2024-07-24] MEDS ORDERED: FLUTICASONE PROPIONATE NA SPR 16 GM BTL NAE PRN (00:55)
[2024-07-24] MEDS ORDERED: ALBUT/IPRATROP 3MG/0.5MG NEB 3 ML VIAL NEB PRN (00:55)
[2024-07-24] MEDS ORDERED: SUCRALFATE 1 GM/10 ML UDC PO PRN (00:55)
[2024-07-24] MEDS: DAPTOmycin 600 MG in SYRINGE 0 ML IV SCH (01:45)
--- NOTE | 2024-07-24 02:09 | Billing Data ---
Date of Service July 23, 2024 Coding Level of Care Code 05747 INT INP/OBS CARE
[2024-07-24] MEDS: MAGNESIUM SULFATE / D5W 1 GM/100 ML BAG IV SCH (06:27)
[2024-07-24 06:29] LABS: Hematocrit (blood only) 32.3 % (37.0-47.0); Hemoglobin 10.5 g/dl (12.0-16.0); Mean Corpuscular Hemoglobin 30.1 pg (25.0-34.0); Mean Corpuscular Hgb Conc 32.5 g/dL (32.0-36.0); Mean Corpuscular Volume 92.6 fL (80.0-100.0); Mean Platelet Volume 10.1 fL (9.4-12.4); Platelet Count 187 K/uL (130-400); RDW Coefficient of Variation 13.2 % (11.5-14.5); RDW Standard Deviation 43.8 fL (36.4-46.3); Red Blood Count 3.49 M/uL (4.20-5.40); White Blood Count 2.22 K/ul (4.8-10.8)
[2024-07-24 06:50] LABS: Basophils # (auto) 0.01 K/uL (0.00-0.20); Basophils % (auto) 0.5 %; Echinocytes 1+; Immature Granulocytes # (auto) 0.03 K/uL (0.01-0.20); Immature Granulocytes % (auto) 1.4 %; Lymphocytes # (auto) 0.68 K/uL (1.20-3.40); Lymphocytes % (auto) 30.6 %; Monocytes # (auto) 0.39 K/uL (0.11-0.59); Monocytes % (auto) 17.6 %; Neutrophils # (auto) 1.11 K/uL (1.40-6.50); Neutrophils % (auto) 49.9 %; Ovalocytes 1+; Polychromasia 1+
[2024-07-24 06:57] LABS: Albumin Globulin Ratio 1.4 (0.9-2); Albumin Level 2.7 gm/dl (3.4-5.0); BUN Creatinine Ratio 24.4 (10-20); Bilirubin,Total 0.8 mg/dl (0.2-1.0); Calcium 8.5 mg/dl (8.6-10.3); Creatinine Clr Calc Pharmacy 41.8 ml/min; Globulin 1.9 gm/dl (2.5-4.0); Magnesium 1.8 mg/dl (1.7-2.4); Potassium 3.7 mmol/L (3.5-5.1); Total Protein 4.6 gm/dl (6.0-8.3)
[2024-07-24] MEDS: ACETAMINOPHEN 325 MG TAB PO PRN (07:53)
[2024-07-24] MEDS: LACTATED RINGER'S 1,000 ML IV SCH (07:54)
[2024-07-24] MEDS: guaiFENesin 600 MG TABCR PO SCH (07:55)
[2024-07-24] MEDS: oxyBUTYnin chloride 5 MG TAB PO SCH (07:55)
[2024-07-24] MEDS: PANTOprazole 40 MG TAB PO SCH (07:55)
--- NOTE | 2024-07-24 07:58 | Hospitalist Progress Note ---
Date of Service July 24, 2024 Assessment & Plan (1) Influenza A: (2) Kidney stones: (3) History of atrial fibrillation: Plan 83 year old female with past medical history of kidney stones, GERD, ASCVD, Lupus, Paroxysmal Afib here due to weakness, nausea/vomiting, cough for 1 week of duration. Patient had right stent cathether placed on 07/05. Patient found with tachycardia and hypotension in the ED, IV Cefepime and IV fluid resuscitation given in the ED. EKG showing Afib with RVR, treated with diltiazem and IV metoprolol. Biofire positive for Flu A. #Influenza A/ Weakness / Dehydration - Patient presented with cough, general weakness, poor PO intake and vomiting/diarrhea of 1 week of duration - Wheezing improved this AM but still dehydrated on exam; IVF 500 ml LR bolus given, Maintenance increased to 100 ml/hr. - Patient tachycardic and hypotensive on arrival--- Improving today( HR as low as 94, peaks up during fever, MAP > 60). - CT: bibasilar wall thickening, no consolidation - continue supportives measures - blood culture ordered - procal negative. - DuoNeb QID prn - Mucinex for congestion - Stable CBC, CMP. #A fib with RVR * RFs: fever/ infection/ dehydration; - S/p IV hydration,IV 5 mg Lopressor and 10 mg diltiazem. - EKG Afib with RVR HR 170s in the ED - HR settling down inpatient. Lows upto 94s, still Afib. - Bolus LR given today, encourage PO, Acetaminophen for fever-- hoping this should control her rate. - BP is stable so far, MAP > 60 consistently. . - Continue Metoprolol tartrate 25mg BID. - Continue tele monitor, if sustained tachy despite hydration correction, fever control, will plan for Lopressor 5 mg IV stat. - Restart Eliquis as hematuria is not very significant. #Hx of nephrolithiasis/ Gross Hematuria -Patient with hx of chronic kidney stones - cystoscopy + left stent catheter,+ exchange of right stent catheter on 2024 by Keesha Gonzales - CT AP- nonobstructing left kidney upper stone measuring 19 mm. Left stent in place. No hydronephrosis - UA with leukocyte esterase, epithelial cells, but no bacteria - S/p Cefepime on ED. Patient had hx VRE. Daptomycin continued. Atorvastatin held - Urine and blood culture pending # Hypomagnesemia *corrected - S/P 1 gm of mag at ED. - Magnesium level today: 1.8 #GERD - continue PPI Dispo: Will allow OT/PT eval after satble. DVT prophylaxis: Brayan Code: DNI/DNR Admission and Anticipated Discharge Date Admission Date: July 23, 2024 Supervising Physician Co-Signing Physician Notes ATTESTATION I also saw the patient and confirmed zuniga portions of the history and exam. I agree with the impression and plan in the resident documentation, and as summarized below. Patient complains of generalized pain and cough. EXAM 93/63, 90, 20, 36.5 A/O. Non toxic, but looks uncomfortable. Lungs decreased BS, exam limited by cough CV I/I c/w known A-fib IMPRESSION & PLAN Flu A Afib with RVR Elevated troponin/Demand ischemia Continue supportive care Rate has improved with fluids, but need to watch risk for fluid overload CXR in AM She has had persistent hematuria from a known kidney stone and HgB remains stable Resume anticoagulation and monitor CBC Continue antibiotics pending cultures Additional per resident documentation Subjective Miss Gonsales still feels lousy, weak and dry, probably little better than how she came in. Baseline sleep and appetite. Review of Systems Review of Systems: As per HPI Physical Exam Physical Exam: Constitutional: Dehydrated, sunken eyes with dry lips,Well appearing, No acute distress HEENT: Atraumatic, Normocephalic, No conjunctival injection CVS: S1S2 no murmur, IRIR Rhythm, no LE edema Respiratory: Relative decreased air entry on Right compared to left, VBS. No rhonchi, wheezes, or crackles. No increased work of breathing GI: Soft, Nondistended, Nontender, Normal Bowel sounds + MSK: No gross deformities noted Skin: Warm, Dry, No rashes Neuro: Alert, Oriented to TPP, No Focal deficit Psych: Mood and Affect congruent, Cooperative on exam Results & Data Results & Data Vital Signs (Past 12 Hours) Vital Signs Temp Pulse Pulse Pulse Resp BP BP 07/24/24 07:50 38.5 C H 129 H 18 94/62 L 07/24/24 07:14 128 H 07/24/24 02:39 37.4 C 126 H 20 112/71 07/24/24 01:21 07/24/24 01:21 37.1 C 145 H 20 90/62 L 07/24/24 01:02 140 H 07/24/24 00:55 37.1 C 129 H 20 90/62 L 07/24/24 00:55 07/24/24 00:35 135 H 26 H 99/75 L 07/24/24 00:14 125 H 07/23/24 23:00 124 H 28 H 108/70 07/23/24 22:56 07/23/24 21:23 144 H 119/70 07/23/24 21:00 135 H 26 H 103/74 07/23/24 20:20 169 H 130/85 07/23/24 20:12 07/23/24 20:08 186 H 30 H 109/85 07/23/24 20:03 171 H Pulse Ox Pulse Ox O2 Del Method O2 Del Method O2 Flow Rate O2 Flow Rate 07/24/24 07:50 94 Nasal Cannula 3 07/24/24 07:14 07/24/24 02:39 96 Nasal Cannula 3 07/24/24 01:21 Nasal Cannula 4 07/24/24 01:21 95 Nasal Cannula 4 07/24/24 01:02 07/24/24 00:55 95 Nasal Cannula 3 07/24/24 00:55 95 Nasal Cannula 4 07/24/24 00:35 97 Nasal Cannula 3 07/24/24 00:14 07/23/24 23:00 95 Nasal Cannula 3 07/23/24 22:56 88 L Room Air, Nasal Cannula 0 07/23/24 21:23 07/23/24 21:00 91 Room Air 07/23/24 20:20 07/23/24 20:12 96 Room Air 07/23/24 20:08 95 Room Air 07/23/24 20:03 Resident Activity Tracking Resident Involvement: Resident Care Provided Care Provided: Adult Hospital Medicine
[2024-07-24] MEDS: ISOSORBIDE MONO EXTENDED REL 30 MG TABCR PO SCH (09:06)
[2024-07-24] MEDS: LACTATED RINGER'S 500 ML IV ONE (09:30)
[2024-07-24] MEDS: METOPROLOL TARTRATE 25 MG TAB PO SCH (10:38)
[2024-07-24] MEDS: FIRST - Mouthwash BLM 5 ML UDP PO SCH (10:41)
[2024-07-24] MEDS: APIXABAN 2.5 MG TAB PO SCH (19:37)
[2024-07-24] MEDS: TAMSULOSIN HCL 0.4 MG CAP PO SCH (20:54)
[2024-07-25 01:54] LABS: Adenovirus F 40/41 PCR Not Detected (NotDetected); Astrovirus PCR Not Detected (NotDetected); Campylobacter PCR Not Detected (NotDetected); Cryptosporidium PCR Not Detected (NotDetected); Cyclospora cayetanensis PCR Not Detected (NotDetected); Entamoeba histolytica PCR Not Detected (NotDetected); Enteroaggregative E.coli(EAEC) Not Detected (NotDetected); Enteropathogenic E.coli (EPEC) Not Detected (NotDetected); Enterotoxigenic E.coli (ETEC) Not Detected (NotDetected); Giardia lamblia PCR Not Detected (NotDetected); Norovirus GI/GII PCR Not Detected (NotDetected); Plesiomonas shigelloides PCR Not Detected (NotDetected); Rotavirus A PCR Not Detected (NotDetected); Salmonella PCR Not Detected (NotDetected); Sapovirus PCR Not Detected (NotDetected); Shiga-like Toxin E.coli (STEC) Not Detected (NotDetected); Shigella/Enteroinvasive E.coli Not Detected (NotDetected); Vibrio cholerae PCR Not Detected (NotDetected); Vibrio species PCR Not Detected (NotDetected); Yersinia enterocolitica PCR Not Detected (NotDetected)
[2024-07-25 06:40] LABS: Hematocrit (blood only) 29.4 % (37.0-47.0); Hemoglobin 9.8 g/dl (12.0-16.0); Mean Corpuscular Hemoglobin 30.2 pg (25.0-34.0); Mean Corpuscular Hgb Conc 33.3 g/dL (32.0-36.0); Mean Corpuscular Volume 90.5 fL (80.0-100.0); Mean Platelet Volume 10.5 fL (9.4-12.4); Platelet Count 169 K/uL (130-400); RDW Coefficient of Variation 13.2 % (11.5-14.5); RDW Standard Deviation 42.9 fL (36.4-46.3); Red Blood Count 3.25 M/uL (4.20-5.40); White Blood Count 2.12 K/ul (4.8-10.8)
--- NOTE | 2024-07-25 06:50 | Hospitalist Progress Note ---
Date of Service July 25, 2024 Assessment & Plan (1) Influenza A: (2) Kidney stones: (3) History of atrial fibrillation: Plan 83 year old female with past medical history of kidney stones, GERD, ASCVD, Lupus, Paroxysmal Afib here due to weakness, nausea/vomiting, cough for 1 week of duration. Patient had right stent cathether placed on 07/05. Patient found with tachycardia and hypotension in the ED, IV Cefepime and IV fluid resuscitation given in the ED. EKG showing Afib with RVR, treated with diltiazem and IV metoprolol. Biofire positive for Flu A. #Influenza A/ Weakness / Dehydration - Patient tachycardic and hypotensive on arrival--- Improving today( HR as low 90 -107, MAP > 60). - CT: bibasilar wall thickening, no consolidation - continue supportives measures - blood CS: no growth in 24 hr, Urine CS: pending final result. - procal negative. - Wheezing reappeared today; DuoNeb stat given, continue QID prn - Mucinex for congestion - Stable CBC, CMP #Pulmonary edema - New fluid overload in Bi basilar lungs. - 2/2 to fluid resuscitation. - Stop fluids. - Lasix 10 mg IV stat given. - Incentive spirometry. - Continue monitor. #A fib; settling heart rate * RFs: fever/ infection/ dehydration; - S/p IV hydration,IV 5 mg Lopressor and 10 mg diltiazem at ED. - HR improving down to 90-107. - BP is stable so far, MAP > 60 consistently. . - Continue Metoprolol tartrate 25mg BID. - Continue tele. - Resume Eliquis. #H/O CAD/NC - No active sx now. - Under Imdur 60 mg QAM at home. - Will hold this until BP back to baseline. #Hx of nephrolithiasis/ Gross Hematuria -Patient with hx of chronic kidney stones - cystoscopy + left stent catheter,+ exchange of right stent catheter on 2024 by Keesha Gonzales - CT AP- nonobstructing left kidney upper stone measuring 19 mm. Left stent in place. No hydronephrosis - UA with leukocyte esterase, epithelial cells, but no bacteria - S/p Cefepime on ED. Patient had hx VRE. Daptomycin continued. Atorvastatin held - Urine CS awaiting. #GERD - continue PPI Dispo: Will allow OT/PT eval after stable. Anticipate home. May need stay couple days more. DVT prophylaxis: Americo Code: DNI/DNR Admission and Anticipated Discharge Date Admission Date: July 23, 2024 Supervising Physician Co-Signing Physician Notes ATTESTATION I also saw the patient and confirmed zuniga portions of the history and exam. I agree with the impression and plan in the resident documentation, and as summarized below. She looks - and she feels - slight better today. Less achiness. Decreased cough. Less fatigue. EXAM 97/67, 111, 17, 94% on 2 lpm A/O. More energetic today. Converses without pause. Lungs with crackles in bases B/L. CV I/I c/w known A-fib IMPRESSION & PLAN Flu A Afib with RVR Elevated troponin/Demand ischemia Leukopenia, suspect secondary to viral illness Anemia, acute on chronic Continue supportive care Rate has improved Exam and CXR c/w fluid overload gentle diuresis Discontinue IVF She has had persistent hematuria from a known kidney stone and HgB remains stable Resume anticoagulation and monitor CBC Continue antibiotics pending cultures (blood negative at 24 hours, urine pinpoint growth) Additional per resident documentation Subjective Feeling little better today, but still very weak. Breathing fine. Sleep baseline. Able to get out of bed bu has not walked so far. Review of Systems Review of Systems: As per HPI Physical Exam Physical Exam: Constitutional: Hydration looks better today, no more dry lips, Well appearing, No acute distress HEENT: Atraumatic, Normocephalic, No conjunctival injection CVS: S1S2 no murmur, IRIR Rhythm, no LE edema Respiratory: Some crackles on BL lung bases, Wheeze diffuse, No increased work of breathing GI: Soft, Nondistended, Nontender, Normal Bowel sounds + MSK: No gross deformities noted Skin: Warm, Dry, No rashes Neuro: Alert, Oriented to TPP, No Focal deficit Psych: Mood and Affect congruent, Cooperative on exam Results & Data Results & Data Vital Signs (Past 12 Hours) Vital Signs Temp Pulse Pulse Resp BP Pulse Ox Pulse Ox 07/25/24 03:42 37.8 C H 107 H 20 104/70 95 07/25/24 00:55 95 07/24/24 22:56 37.0 C 96 H 20 94/62 L 95 07/24/24 22:01 95 H 07/24/24 21:59 07/24/24 20:00 37.8 C H 102 H 20 97/66 L 94 O2 Del Method O2 Del Method O2 Flow Rate O2 Flow Rate 07/25/24 03:42 Nasal Cannula 3 07/25/24 00:55 Nasal Cannula 3 07/24/24 22:56 Nasal Cannula 3 07/24/24 22:01 07/24/24 21:59 Nasal Cannula 3 07/24/24 20:00 Nasal Cannula 3 Resident Activity Tracking Resident Involvement: Resident Care Provided Care Provided: Adult Hospital Medicine
[2024-07-25 07:11] LABS: Calcium 8.2 mg/dl (8.6-10.3); Creatinine Clr Calc Pharmacy 61.4 ml/min; Potassium 3.7 mmol/L (3.5-5.1)
[2024-07-25 07:22] LABS: Basophils # (auto) 0.01 K/uL (0.00-0.20); Basophils % (auto) 0.5 %; Echinocytes 1+; Eosinophils # (auto) 0.02 K/uL (0.00-0.50); Eosinophils % (auto) 0.9 %; Immature Granulocytes # (auto) 0.01 K/uL (0.01-0.20); Immature Granulocytes % (auto) 0.5 %; Lymphocytes # (auto) 0.42 K/uL (1.20-3.40); Lymphocytes % (auto) 19.8 %; Monocytes # (auto) 0.19 K/uL (0.11-0.59); Neutrophils # (auto) 1.47 K/uL (1.40-6.50); Neutrophils % (auto) 69.3 %; Ovalocytes 1+
[2024-07-25] MEDS: POTASSIUM CHLORIDE CRTAB 20 MEQ TABCR PO STA (08:03)
[2024-07-25] MEDS: ONDANSETRON 4 MG OD TAB PO PRN (08:11)
[2024-07-25] MEDS: ALBUT/IPRATROP 3MG/0.5MG NEB 3 ML VIAL NEB STA (09:12)
--- NOTE | 2024-07-25 10:03 | XRay Report ---
XR chest 2V PA/lateral CLINICAL HISTORY: possible fluid overload COMPARISON STUDY: 07/23/2024 FINDINGS: PA and lateral views of the chest demonstrates a progressive cardiomegaly and pulmonary vas cular congestion. There is some prominent interstitial markings and patchy bibasilar airspace opaciti es along with small bilateral pleural effusions. A left nephrostomy catheter is noted. IMPRESSION: Findings consistent with fluid imbalance/CHF. A basilar infiltrate/pneumonia cannot be e xcluded in either lung base. ACT 112: Negative or not required by law. Electronically signed by: Janna Dee M.D. 07/25/2024 10:02 AM
[2024-07-25] MEDS: FUROSEMIDE INJ 20 MG/2 ML VIAL IV STA (10:29)
[2024-07-25] MEDS: SODIUM CHLOR 7% 4 ML NEB NEB SCH (19:49)
[2024-07-25] MEDS: MELATONIN 3 MG TAB PO PRN (21:00)
[2024-07-26 07:23] LABS: Hematocrit (blood only) 29.2 % (37.0-47.0); Hemoglobin 9.7 g/dl (12.0-16.0); Mean Corpuscular Hemoglobin 29.6 pg (25.0-34.0); Mean Corpuscular Hgb Conc 33.2 g/dL (32.0-36.0); Mean Platelet Volume 10.1 fL (9.4-12.4); Platelet Count 193 K/uL (130-400); RDW Coefficient of Variation 13.5 % (11.5-14.5); RDW Standard Deviation 43.1 fL (36.4-46.3); Red Blood Count 3.28 M/uL (4.20-5.40); White Blood Count 2.35 K/ul (4.8-10.8)
[2024-07-26 07:40] LABS: Calcium 8.2 mg/dl (8.6-10.3); Creatinine Clr Calc Pharmacy 64.3 ml/min; Potassium 3.7 mmol/L (3.5-5.1)
[2024-07-26 08:09] LABS: Basophils # (auto) 0.01 K/uL (0.00-0.20); Basophils % (auto) 0.4 %; Eosinophils # (auto) 0.07 K/uL (0.00-0.50); Immature Granulocytes # (auto) 0.03 K/uL (0.01-0.20); Immature Granulocytes % (auto) 1.3 %; Lymphocytes # (auto) 0.71 K/uL (1.20-3.40); Lymphocytes % (auto) 30.2 %; Monocytes # (auto) 0.28 K/uL (0.11-0.59); Monocytes % (auto) 11.9 %; Neutrophils # (auto) 1.25 K/uL (1.40-6.50); Neutrophils % (auto) 53.2 %; Ovalocytes 1+
--- NOTE | 2024-07-26 09:19 | Electrocardiogram Report ---
Test Reason : Blood Pressure : */* mmHG Vent. Rate : 171 BPM Atrial Rate : * BPM P-R Int : * ms QRS Dur : 68 ms QT Int : 232 ms P-R-T Axes : * 56 -86 degrees QTcB Int : 391 ms Atrial fibrillation with rapid ventricular response Nonspecific ST and T wave abnormality Abnormal ECG When compared with ECG of 07-Jul-2024 20:14, Nonspecific T wave abnormality, worse in Lateral leads Confirmed by Navneet Lemon ([id number]) on 07/26/2024 9:19:45 AM Referred By: REFERRED SELF Confirmed By: Navneet Lemon
--- NOTE | 2024-07-26 11:14 | Hospitalist Progress Note ---
Date of Service July 26, 2024 Assessment & Plan (1) Influenza A: (2) Kidney stones: (3) History of atrial fibrillation: Plan 83 year old female with past medical history of kidney stones, GERD, ASCVD, Lupus, Paroxysmal Afib here due to weakness, nausea/vomiting, cough for 1 week of duration. Patient had right stent cathether placed on 07/05. Patient found with tachycardia and hypotension in the ED, IV Cefepime and IV fluid resuscitation given in the ED. EKG showing Afib with RVR, treated with diltiazem and IV metoprolol. Biofire positive for Flu A. #Influenza A/ Weakness / Dehydration - Patient tachycardic and hypotensive on arrival--- Improving today( HR stable, MAP > 60). - CT: bibasilar wall thickening, no consolidation - continue supportives measures - blood CS: no growth in 24 hr. - procal negative. - Continue DuoNeb QID PRN. - Mucinex for congestion - Stable CBC, CMP #Enterococcus UTI: - Sensitivity pending. - h/o VRE. - Continue Daptomycin #Pulmonary edema - New fluid overload in Bi basilar lungs. - 2/2 to fluid resuscitation. - Improved on lung exam today. #A fib; settling heart rate * RFs: fever/ infection/ dehydration; - S/p IV hydration,IV 5 mg Lopressor and 10 mg diltiazem at ED. - HR improving down to 86-116. - BP is stable so far, MAP > 60 consistently. . - Continue Metoprolol tartrate 25mg BID. - Continue tele. - Continue Eliquis. #H/O CAD/[place] - No active sx now. - Under Imdur 60 mg QAM at home. - Will hold this until BP back to baseline. #Hx of nephrolithiasis/ Gross Hematuria -Patient with hx of chronic kidney stones - cystoscopy + left stent catheter,+ exchange of right stent catheter on 2024 by Keesha Gonzales - CT AP- nonobstructing left kidney upper stone measuring 19 mm. Left stent in place. No hydronephrosis - UA with leukocyte esterase, epithelial cells, but no bacteria - Urine CS sterile, Abx DCed. #GERD - continue PPI Dispo: Will allow OT/PT eval after stable. Anticipate home. May need stay couple days more. DVT prophylaxis: Eliquis Code: DNI/DNR Admission and Anticipated Discharge Date Admission Date: July 23, 2024 Supervising Physician Co-Signing Physician Notes ATTESTATION I also saw the patient and confirmed zuniga portions of the history and exam. I agree with the impression and plan in the resident documentation, and as summar ized below. A little better in her estimation, just really fatigued. Cough seems improved. EXAM Now on room air A/O.. Converses without pause. Lungs with slight crackles in bases B/L. CV I/I c/w known A-fib IMPRESSION & PLAN Flu A Afib with RVR Elevated troponin/Demand ischemia Leukopenia, suspect secondary to viral illness Anemia, acute on chronic, stable today UTI due to recent uretal stent exchange/insertion Acute pulmonary edema Continue supportive care Hold IVF; no additional lasix today. Since she is not symptomatic, will see if she will self diuresis. CXR in AM Daily weight Lasix if symptomatic She has had persistent hematuria from a known kidney stone and HgB remains stable Continue anticoagulation and monitor CBC Continue antibiotics pending sensitivity Additional per resident documentation Subjective Relatively better, but still feels weak. She was anxious she she lost her dentures this morning when I saw her. Cough is still bothersome, but is tolerating at room air now. No belly pain, belly distension, palpitations, chest pain, syncope, lightheadedness. Review of Systems Review of Systems: As per HPI Physical Exam Physical Exam: Constitutional: Hydration looks better today, no more dry lips, Well appearing, No acute distress HEENT: Atraumatic, Normocephalic, No conjunctival injection CVS: S1S2 no murmur, IRIR Rhythm, no LE edema Respiratory: Some crackles on BL lung bases, Wheeze, both improved than yesterday, No increased work of breathing GI: Soft, Nondistended, Nontender, Normal Bowel sounds + MSK: No gross deformities noted Skin: Warm, Dry, No rashes Neuro: Alert, Oriented to TPP, No Focal deficit Psych: Mood and Affect congruent, Cooperative on exam Results & Data Results & Data Vital Signs (Past 12 Hours) Vital Signs Temp Pulse Pulse Resp BP Pulse Ox O2 Del Method 07/26/24 07:57 37 C 113 H 17 95/69 L 93 Room Air 07/26/24 07:33 98 H 18 93 Room Air 07/26/24 05:34 86 07/26/24 03:40 36.6 C 89 16 88/60 L 98 Room Air 07/25/24 23:27 37 C 96 H 16 94/60 L 97 Room Air
[2024-07-26] MEDS: DAPTOmycin 600 MG in SYRINGE 0 ML IV SCH (20:19)
[2024-07-27 07:23] LABS: Hematocrit (blood only) 29.9 % (37.0-47.0); Mean Corpuscular Hemoglobin 29.7 pg (25.0-34.0); Mean Corpuscular Hgb Conc 33.4 g/dL (32.0-36.0); Mean Corpuscular Volume 88.7 fL (80.0-100.0); Mean Platelet Volume 9.8 fL (9.4-12.4); Platelet Count 226 K/uL (130-400); RDW Coefficient of Variation 13.2 % (11.5-14.5); RDW Standard Deviation 42.4 fL (36.4-46.3); Red Blood Count 3.37 M/uL (4.20-5.40); White Blood Count 3.15 K/ul (4.8-10.8)
--- NOTE | 2024-07-27 07:33 | XRay Report ---
EXAM: XR chest 1V portable CLINICAL HISTORY: Flu, fluid overload. TECHNIQUE: An X-ray image of the chest is obtained in AP projection. COMPARISON: CR dated 07/25/2024. FINDINGS: Pulmonary Parenchyma: Bibasal ill-defined opacities seen. Minimal blunting of both costophrenic angles was seen. Heart and Mediastinum: Cardiomegaly with bilateral hilar congestion. No mediastinal widening or masses. No hilar or mediastinal lymphadenopathy. Bony Thorax: The bony thorax appears intact without fractures or deformities. Soft Tissues: Soft tissues overlying the chest wall are unremarkable. IMPRESSION: 1. Imaging findings are likely due to pulmonary infection with minimal to mild pleural effusion/thickening. 2. Mild interval improvement. Electronically signed by Tyson Hernández 07-27-2024 07:33 AM
[2024-07-27 07:42] LABS: Calcium 8.3 mg/dl (8.6-10.3); Creatinine Clr Calc Pharmacy 66.9 ml/min; Potassium 3.7 mmol/L (3.5-5.1)
[2024-07-27 07:54] LABS: ALC (manual) 1.13 K/uL (1.2-3.4); Eosinophils # (manual) 0.06 K/uL (0-0.50); Eosinophils % (manual) 2 %; Lymphocytes % (manual) 35 %; Monocytes # (manual) 0.25 K/uL (0.11-0.59); Monocytes % (manual) 8 %; Neutrophils % (manual) 54 %; Plasma Cells # (manual) 0.03 K/uL (0-0); Plasma Cells % (manual) 1 %
--- NOTE | 2024-07-27 07:57 | Hospitalist Progress Note ---
Date of Service July 27, 2024 Assessment & Plan (1) Influenza A: (2) Kidney stones: (3) History of atrial fibrillation: Plan 83 year old female with past medical history of kidney stones, GERD, ASCVD, Lupus, Paroxysmal Afib here due to weakness, nausea/vomiting, cough for 1 week of duration. Patient had right stent cathether placed on 07/05. Patient found with tachycardia and hypotension in the ED, IV Cefepime and IV fluid resuscitation given in the ED. EKG showing Afib with RVR, treated with diltiazem and IV metoprolol. Biofire positive for Flu A. #Pneumonia/Influenza A/ Weakness / Dehydration - Vitals: Stable, BP lower side, MAP > 60 - CT: bibasilar wall thickening, no consolidation - Chest XR: Pulmonary infection with mild pleural effusion. - continue supportives measures - blood CS: no growth in 24 hr. - procal negative. - Continue DuoNeb QID PRN. - Mucinex for congestion - Stable CBC, CMP #Enterococcus/ E coli UTI: - Sensitive to Amoxicillin - Start Augmentin for UTI and PNE. #A fib; Rate controlled. * RFs: fever/ infection/ dehydration on presentation - BP is stable so far, MAP > 60 consistently. . - Continue Metoprolol tartrate 25mg BID. - Continue tele. - Continue Eliquis. #H/O CAD/[place] - No active sx now. - Under Imdur 60 mg QAM at home. - Will hold this until BP back to baseline. #Hx of nephrolithiasis/ Gross Hematuria -Patient with hx of chronic kidney stones - cystoscopy + left stent catheter,+ exchange of right stent catheter on 2024 by Keesha Gonzales - CT AP- nonobstructing left kidney upper stone measuring 19 mm. Left stent in place. No hydronephrosis - Augmentin for UTI sx. #GERD - continue PPI Dispo: Will allow OT/PT eval after stable. Anticipate home. May need stay couple days more. DVT prophylaxis: Eliquis Code: DNI/DNR Admission and Anticipated Discharge Date Admission Date: July 23, 2024 Supervising Physician Co-Signing Physician Notes ATTESTATION I also saw the patient and confirmed zuniga portions of the history and exam. I agree with the impression and plan in the resident documentation, and as summarized below. Feels wiped out. Does not she is coughing less. Less body aches - almost resolved. EXAM 91% room air A/O. Converses without coughing or pause. Lungs decreased bases, but no crackles. CV I/I c/w known A-fib; rate mid 80s. CXR shows improved vascular congestion, suggestion of bibasilar infiltrate Urine culture reviewed; ciera colony but history of stent IMPRESSION & PLAN Flu A Afib with RVR Elevated troponin/Demand ischemia Leukopenia, suspect secondary to viral illness Anemia, acute on chronic, stable today UTI due to recent uretal stent exchange/insertion Acute pulmonary edema, improved Continue supportive care Discontinue daptomycin Start PO Augmentin for both lung and urine sources HgB remains stable (note anticoagulation and hematuria) Increase activity, OOB, PT/OT Additional per resident documentation Subjective She endorses some frequency of urine despite being on antibiotics. BL lower back pain but no burning urine. No new fever, no nausea, vomiting. Eating ok but difficulty keeping food down as usual. Feels better overall, but still has weakness. Does not feel she is ready to go home now. Review of Systems Review of Systems: As per HPI Physical Exam Physical Exam: Constitutional: Hydration looks better today, no more dry lips, Well appearing, No acute distress HEENT: Atraumatic, Normocephalic, No conjunctival injection CVS: S1S2 no murmur, IRIR Rhythm, no LE edema Respiratory: Some crackles on BL lung bases but better than yesterday. No increased work of breathing GI: Soft, Nondistended, Nontender, Normal Bowel sounds + MSK: No gross deformities noted Skin: Warm, Dry, No rashes Neuro: Alert, Oriented to TPP, No Focal deficit Psych: Mood and Affect congruent, Cooperative on exam Results & Data Results & Data Vital Signs (Past 12 Hours) Vital Signs Temp Pulse Pulse Resp BP Pulse Ox O2 Del Method 07/27/24 07:23 36.9 C 99 H 18 104/64 97 Room Air 07/27/24 07:16 96 H 18 91 Room Air 07/27/24 03:54 37.1 C 92 H 16 107/74 96 Room Air 07/27/24 00:09 37.3 C 96 H 16 104/72 94 Room Air 07/26/24 21:44 95 H 07/26/24 21:12 Room Air Resident Activity Tracking Resident Involvement: Resident Care Provided Care Provided: Adult Hospital Medicine
[2024-07-27] MEDS: AMOXICILLIN/CLAVULANATE 875 MG TAB PO SCH (16:58)
[2024-07-28 07:24] LABS: Hematocrit (blood only) 29.4 % (37.0-47.0); Hemoglobin 9.8 g/dl (12.0-16.0); Mean Corpuscular Hemoglobin 29.6 pg (25.0-34.0); Mean Corpuscular Hgb Conc 33.3 g/dL (32.0-36.0); Mean Corpuscular Volume 88.8 fL (80.0-100.0); Mean Platelet Volume 9.8 fL (9.4-12.4); Platelet Count 249 K/uL (130-400); RDW Coefficient of Variation 13.1 % (11.5-14.5); RDW Standard Deviation 42.1 fL (36.4-46.3); Red Blood Count 3.31 M/uL (4.20-5.40); White Blood Count 3.18 K/ul (4.8-10.8)
[2024-07-28 07:41] LABS: Calcium 8.4 mg/dl (8.6-10.3); Creatinine Clr Calc Pharmacy 61.4 ml/min; Potassium 3.7 mmol/L (3.5-5.1)
[2024-07-28 08:01] LABS: Basophils # (auto) 0.02 K/uL (0.00-0.20); Basophils % (auto) 0.6 %; Eosinophils # (auto) 0.07 K/uL (0.00-0.50); Eosinophils % (auto) 2.2 %; Immature Granulocytes # (auto) 0.04 K/uL (0.01-0.20); Immature Granulocytes % (auto) 1.3 %; Lymphocytes # (auto) 1.06 K/uL (1.20-3.40); Lymphocytes % (auto) 33.3 %; Monocytes # (auto) 0.53 K/uL (0.11-0.59); Monocytes % (auto) 16.7 %; Neutrophils # (auto) 1.46 K/uL (1.40-6.50); Neutrophils % (auto) 45.9 %; Ovalocytes 1+; Polychromasia 1+
--- NOTE | 2024-07-28 09:14 | Hospitalist Progress Note ---
Date of Service July 28, 2024 Assessment & Plan (1) Influenza A: (2) Kidney stones: (3) History of atrial fibrillation: Plan 83 year old female with past medical history of kidney stones, GERD, ASCVD, Lupus, Paroxysmal Afib here due to weakness, nausea/vomiting, cough for 1 week of duration. Patient had right stent cathether placed on 07/05. Patient found with tachycardia and hypotension in the ED, IV Cefepime and IV fluid resuscitation given in the ED. EKG showing Afib with RVR, treated with diltiazem and IV metoprolol. Biofire positive for Flu A. Overall getiing better on this admission, BP is better today, will start her Imdur 60 mg and see how she tolerates. Her home dose is 90mg. #Pneumonia/Influenza A/ Weakness / Dehydration - Vitals: Stable, SBP> 100, MAP > 65 - CT: bibasilar wall thickening, no consolidation - Chest XR: Pulmonary infection with mild pleural effusion. - continue supportives measures - blood CS: no growth in 24 hr. - procal negative. - Continue DuoNeb QID PRN. - Mucinex for congestion - Stable CBC, CMP #Enterococcus/ E coli UTI: - Sensitive to Amoxicillin - Start Augmentin for UTI and PNE. #A fib; Rate controlled. * RFs: fever/ infection/ dehydration on presentation - BP improved to > 100 in last 24 h., MAP > 65 consistently. . - Continue Metoprolol tartrate 25mg BID. - Continue tele. - Continue Eliquis. #H/O CAD/[place] - No active sx now. - Under Imdur 90 mg QAM at home. - Will restart her imdur at 60 mg-- if she tolerates today, will plan DC tomorrow. #Hx of nephrolithiasis/ Gross Hematuria - Patient with hx of chronic kidney stones - cystoscopy + left stent catheter,+ exchange of right stent catheter on 2024 by Keesha Gonzales - CT AP- nonobstructing left kidney upper stone measuring 19 mm. Left stent in place. No hydronephrosis - Augmentin for UTI sx. #GERD - continue PPI Dispo: OT/PT initial recs home. Pending recent evaluation DVT prophylaxis: Eliquis Code: DNI/DNR Admission and Anticipated Discharge Date Admission Date: July 23, 2024 Supervising Physician Co-Signing Physician Notes ATTESTATION I also saw the patient and confirmed zuniga portions of the history and exam. I agree with the impression and plan in the resident documentation, and as summarized below. Improving energy. Cough with increased talking or activity. EXAM VS as noted A/O. Converses without pause; coughs with respiratory exam. Lungs decreased bases, but no crackles; similar to yesterday but improved effort. CV I/I c/w known A-fib; rate mid 80s upon my exam. IMPRESSION & PLAN Flu A Afib with RVR Elevated troponin/Demand ischemia Leukopenia, suspect secondary to viral illness Anemia, acute on chronic, stable today UTI due to recent uretal stent exchange/insertion Acute pulmonary edema, improved Continue supportive care Augmentin Re-add Imdur (60 mg as opposed to home 90 mg); watch BP HgB remains stable on Eliquis Increase activity, OOB, PT/OT Perhaps home tomorrow if dose OK with increased activity today Additional per resident documentation Subjective She feels she is getting better. Had lots of mucus after nebulization this morning. Breathing better, no CP, SOB, No fever, No belly pain. Ate better today. Review of Systems Review of Systems: As per HPI Physical Exam Physical Exam: Constitutional: Hydration looks better today, no more dry lips, Well appearing, No acute distress HEENT: Atraumatic, Normocephalic, No conjunctival injection CVS: S1S2 no murmur, IRIR Rhythm, no LE edema Respiratory: BL decreased air entry. No increased work of breathing GI: Soft, Nondistended, Nontender, Normal Bowel sounds + MSK: No gross deformities noted Skin: Warm, Dry, No rashes Neuro: Alert, Oriented to TPP, No Focal deficit Psych: Mood and Affect congruent, Cooperative on exam Results & Data Results & Data Vital Signs (Past 12 Hours) Vital Signs Temp Pulse Pulse Resp BP Pulse Ox O2 Del Method 07/28/24 08:01 36.7 C 97 H 18 111/72 90 Room Air 07/28/24 07:57 110 H 16 92 Room Air 07/28/24 07:45 Room Air 07/28/24 07:00 95 H 07/28/24 04:47 37.1 C 104 H 18 111/78 94 Room Air 07/27/24 23:06 37.4 C 107 H 18 108/75 92 Room Air 07/27/24 21:44 92 H Resident Activity Tracking Resident Involvement: Resident Care Provided Care Provided: Adult Hospital Medicine
[2024-07-28] MEDS: ISOSORBIDE MONO EXTENDED REL 60 MG TABCR PO SCH (10:17)
--- NOTE | 2024-07-29 07:29 | Hospitalist Progress Note ---
Date of Service July 29, 2024 Assessment & Plan (1) Influenza A: (2) Kidney stones: (3) History of atrial fibrillation: (4) Physical deconditioning: (5) Pneumonia: Plan 83 year old female with past medical history of kidney stones, GERD, ASCVD, Lupus, Paroxysmal Afib presented here due to weakness, nausea/vomiting, cough for 1 week of duration. Patient had right stent catheter placed on 07/05. Patient found with tachycardia and hypotension in the ED, IV Cefepime and IV fluid resuscitation given in the ED. On arrival , Afib with RVR S/P diltiazem and IV metoprolol STAT at ED. Biofire positive for Flu A. She developed mild pulmonary edema 2/2 fluid resuscitation and cleared after 1 dose of lasix and stopping fluids. She does not look volume overload now. With new need of Oxygen and symptoms of LRI, Chest XR was repeated which reported pneumonia with mild pleural effusion after clearance of edema. She is on Augmentin for CAP. Was overall stable, however new need of O2 was concerning, no new change in imaging today. Physical deconditioning has definitely progressed. Repeat PT would help her with disposition plan as PT has not evaluated since 07/25( when she was better physically). I have requested PT to see her today if possible. #Pneumonia/Influenza A - Vitals: Tachycardic this AM( HR aha 170 at a point, was anxious though), BP MAP> 60. - New need of O2 today at 2L now. - Chest XR( 07/27) : Pulmonary infection with mild pleural effusion. 07/29: Similar patchy bibasilar airspace opacities suspicious for pneumonia. Small pleural effusions. - blood CS: no growth in 24 hr. - procal negative. - Continue DuoNeb QID PRN. - Mucinex for congestion - Stable CBC, CMP with WBCs pretty low range chronic. #Physical Deconditioning - Progressive deconditioning worsened d/t acute sickness. - OT/ PT reeval recommended. #Enterococcus/ E coli UTI: - Sensitive to Amoxicillin - Start Augmentin for UTI and PNE. #A fib - On and off tachy ( most ranges < 110) * RFs: fever/ infection/ dehydration on presentation/ Anxious/ acute sickness - SBP 90-110, in last 24 hr, MAP > 60 consistently. - Transient tachy ( > 140 this AM) ; likely d/t anxiety. Will monitor. If persistent this afternoon-- will give low dose Lopressor. - Continue Metoprolol tartrate 25mg BID. - Continue tele. - Continue Eliquis. #H/O CAD/[place] - No active sx now. - Under Imdur 90 mg QAM at home. - Will restart her imdur at 60 mg-- if she tolerates today, will plan DC tomorrow. #Hx of nephrolithiasis/ Gross Hematuria - Patient with hx of chronic kidney stones - cystoscopy + left stent catheter,+ exchange of right stent catheter on 2024 by Keesha Gonzales - CT AP- nonobstructing left kidney upper stone measuring 19 mm. Left stent in place. No hydronephrosis - Augmentin for UTI sx as abive #GERD - continue PPI Dispo: OT/PT initial recs home. Pending recent evaluation DVT prophylaxis: Eliquis Code: DNI/DNR Admission and Anticipated Discharge Date Admission Date: July 23, 2024 Supervising Physician Co-Signing Physician Notes ATTESTATION I also saw the patient and confirmed zuniga portions of the history and exam. I agree with the impression and plan in the resident documentation, and as summarized below. She's a little upset this morning when I see her - just got back from CXR. HR is up and she admits to being upset. Breathing is about the same. Cough with phlegm, which she has difficulty clearing. EXAM VS as noted A/O. Converses without pause; coughs with respiratory exam. Lungs decreased bases, but no crackles. CV I/I c/w known A-fib; rate 122 upon my exam. IMPRESSION & PLAN Flu A Afib with RVR Elevated troponin/Demand ischemia Leukopenia, suspect secondary to viral illness Anemia, acute on chronic, stable today UTI due to recent uretal stent exchange/insertion Acute pulmonary edema, improved Continue supportive care Monitor HR over next couple of hours; may need additional medication for rate control; hopefully will slow with rest/reassurance Continue Augmentin Continue Imdur (60 mg as opposed to home 90 mg); watch BP HgB remains stable on Eliquis PT/OT prior to discharge, may need to hold off today. Additional per resident documentation Subjective Endorses persistent weakness, more tired than yesterday. She has barely gotten out of bed since admission. New need of Oxygen since this morning, coughing continued. Feels like mucus is stuck on her throat, not able to spit that up completely. Seemingly disappointed when I instructed her to try to spit the phlegm out. Mentioned the saline nebulization she is getting is helping little bit and still feels like phlegm is stuck in her throat. No palpitation, chest pain but overall weak. She is anxious that she is downgoing from how she came and it might make her even worse. I encouraged her to to try to get out of bed and mobilize and explained that part of deconditioning is secondary of illness ans ageing as well. No new fever, wheeze. Review of Systems Review of Systems: As per HPI Physical Exam Physical Exam: Constitutional: Hydration looks ok. Anxious looking. HEENT: Atraumatic, Normocephalic, No conjunctival injection CVS: S1S2 no murmur, IRIR Rhythm, no LE edema Respiratory: BL decreased air entry. No increased work of breathing GI: Soft, Nondistended, Nontender, Normal Bowel sounds + MSK: No gross deformities noted Skin: Warm, Dry, No rashes Neuro: Alert, Oriented to TPP, No Focal deficit Psych: Mood and Affect congruent, more frustrated today Results & Data Results & Data Vital Signs (Past 12 Hours) Vital Signs Temp Pulse Pulse Resp BP Pulse Ox O2 Del Method 07/29/24 07:00 110 H 07/29/24 05:02 112 H 91 Nasal Cannula 07/29/24 04:49 37.5 C 116 H 18 99/63 L 89 L Room Air 07/29/24 04:12 36.9 C 115 H 18 91/57 L 89 L Room Air 07/28/24 23:01 113 H 07/28/24 22:40 37.3 C 110 H 18 95/59 L 93 Room Air 07/28/24 20:00 Room Air 07/28/24 19:55 112 H 18 92 Room Air O2 Flow Rate 07/29/24 07:00 07/29/24 05:02 0.5 07/29/24 04:49 07/29/24 04:12 07/28/24 23:01 07/28/24 22:40 07/28/24 20:00 07/28/24 19:55 Resident Activity Tracking Resident Involvement: Resident Care Provided Care Provided: Adult Hospital Medicine
--- NOTE | 2024-07-29 11:01 | XRay Report ---
HISTORY: Respiratory failure. Oxygen requirement. TECHNIQUE: Portable AP radiograph of the chest. COMPARISON: Chest radiograph dated 07/27/2024. FINDINGS: Similar patchy bibasilar airspace opacities and small pleural effusions. No pneumothorax. Normal heart size. Left-sided aortic arch. Midline trachea. Degenerative changes of the shoulders and spine. Pigtail catheter overlying the left upper quadrant of the abdomen. IMPRESSION: * No significant interval change. * Similar patchy bibasilar airspace opacities suspicious for pneumonia. Small pleural effusions. Electronically signed by Gurpreet Bañuelos 07-29-2024 11:01 AM
[2024-07-30 05:32] LABS: Basophils # (auto) 0.02 K/uL (0.00-0.20); Basophils % (auto) 0.6 %; Eosinophils # (auto) 0.07 K/uL (0.00-0.50); Hematocrit (blood only) 28.3 % (37.0-47.0); Hemoglobin 9.3 g/dl (12.0-16.0); Immature Granulocytes # (auto) 0.04 K/uL (0.01-0.20); Immature Granulocytes % (auto) 1.1 %; Lymphocytes # (auto) 0.91 K/uL (1.20-3.40); Lymphocytes % (auto) 26.1 %; Mean Corpuscular Hemoglobin 29.7 pg (25.0-34.0); Mean Corpuscular Hgb Conc 32.9 g/dL (32.0-36.0); Mean Corpuscular Volume 90.4 fL (80.0-100.0); Monocytes # (auto) 0.54 K/uL (0.11-0.59); Monocytes % (auto) 15.5 %; Neutrophils # (auto) 1.91 K/uL (1.40-6.50); Neutrophils % (auto) 54.7 %; Platelet Count 274 K/uL (130-400); RDW Coefficient of Variation 13.3 % (11.5-14.5); RDW Standard Deviation 42.7 fL (36.4-46.3); Red Blood Count 3.13 M/uL (4.20-5.40); White Blood Count 3.49 K/ul (4.8-10.8)
[2024-07-30 05:49] LABS: Calcium 8.7 mg/dl (8.6-10.3); Creatinine Clr Calc Pharmacy 50.4 ml/min
--- NOTE | 2024-07-30 08:00 | Hospitalist Progress Note ---
Date of Service July 30, 2024 Assessment & Plan (1) Influenza A: (2) Kidney stones: (3) History of atrial fibrillation: (4) Physical deconditioning: (5) Pneumonia: Plan 83 year old female with past medical history of kidney stones, GERD, ASCVD, Lupus, Paroxysmal Afib presented here due to weakness, nausea/vomiting, cough for 1 week of duration. Patient had right stent catheter placed on 07/05. Patient found with tachycardia and hypotension in the ED, IV Cefepime and IV fluid resu scitation given in the ED. On arrival , Afib with RVR S/P diltiazem and IV metoprolol STAT at ED. Biofire positive for Flu A. She developed mild pulmonary edema 2/2 fluid resuscitation and cleared after 1 dose of lasix and stopping fluids. She does not look volume overload now. With new need of Oxygen and symptoms of LRI, Chest XR was repeated which reported pneumonia with mild pleural effusion after clearance of edema. She is on Augmentin for CAP. Was overall stable, however new need of O2 was concerning, no new change in imaging today. Physical deconditioning has definitely progressed. Repeat PT would help her with disposition plan as PT has not evaluated since 07/25( when she was better physically). I have requested PT to see her today if possible. #Pneumonia/Influenza A / hypoxia - Vitals: Tachycardic this AM( HR aha 170 at a point, was anxious though), BP MAP> 60. - New need of O2 today at 2L now. - Chest XR( 07/27) : Pulmonary infection with mild pleural effusion. 07/29: Similar patchy bibasilar airspace opacities suspicious for pneumonia. Small pleural effusions. - blood CS: no growth in 24 hr. - procal negative. - Continue DuoNeb QID PRN. - Mucinex for congestion - Stable CBC, CMP with WBCs pretty low range chronic - New onset hypoxia (SpO2 89% on RA) noted on the evening of 07/29; not requiring supplemental O2 on 07/30 - Continuous pulse oximetry #Physical Deconditioning - Progressive deconditioning worsened d/t acute sickness. - OT/ PT reeval recommended Note: Patient refused PT session on 07/30, has she reports she has been up moving around all day #Enterococcus/ E coli UTI: - Sensitive to Amoxicillin - Start Augmentin for UTI and PNA #A fib - On and off tachy ( most ranges < 110) * RFs: fever/ infection/ dehydration on presentation/ Anxious/ acute sickness - SBP 90-110, in last 24 hr, MAP > 60 consistently. - Transient tachy - Continue Metoprolol tartrate 25mg BID. - Continue tele - Continue Eliquis #H/O CAD/OH - No active sx now. - Under Imdur QAM at home. - Imdur 60 mg p.o. restarted on 07/30, however patient's blood pressure soft today (MAP has remained >60 consistently); will plan to continue #Hx of nephrolithiasis/ Gross Hematuria - Patient with hx of chronic kidney stones - cystoscopy + left stent catheter,+ exchange of right stent catheter on 2024 by Keesha Gonzales - CT AP- nonobstructing left kidney upper stone measuring 19 mm. Left stent in place. No hydronephrosis - Augmentin for UTI symptoms (as above) #GERD - continue PPI Dispo: Continued stay on MedSurg telemetry due to new onset hypoxia, physical deconditioning; PT/OT reevaluations pending DVT prophylaxis: Eliquis Code: DNI/DNR Admission and Anticipated Discharge Date Admission Date: July 23, 2024 Subjective Mrs. Gonsales is doing okay today. She reports she did not sleep well last night. She has been able to get up and use the restroom by herself twice today, and denies any SOB at rest or with exertion. However, she has had significant productive cough today and reports that she is getting lots of phlegm and mucus up this morning. No submental oxygen at baseline or CPAP at night. No prior history of asthma or COPD. Overall, patient does report she is feeling much better today, and is hoping to get home soon. She reports she has a good support system at home (lives with her , and her granddaughter lives nearby). Patient does not want rehab upon discharge, does not want to go to [facility]. She will be open to home health if needed. ROS: Patient endorses productive cough (yellow), body aches, coughing with deep breaths, burning with urination. Patient denies SOB at rest, MCNEIL, dizziness/lightheadedness, fever (resolved), chills, headache, chest pain, chest palpitations, abdominal pain, or N/V/D. Review of Systems Review of Systems: See HPI above Physical Exam Physical Exam: General: no acute distress; non-toxic appearing; well-nourished; cooperative; SpO2 92% on RA HEENT: normocephalic, atraumatic; no scleral icterus; PERRLA w/ EOMs intact; vision and hearing grossly intact Neck: supple; no lymphadenopathy; trachea midline Skin: warm, dry without signs of tenting; no cyanosis; no rashes, bruising, lesions, or erythema noted CV: chest wall NTP; RRR; S1/S2 normal; no murmurs/rubs/gallops; pulses intact and symmetric at radial, DP, and PT Lungs: no acute respiratory distress; productive cough; symmetrical chest wall expansion; bibasilar crackles in the lower lung patel bilaterally ABD: Soft, NTP; BS present; no rebound/guarding; no distention MSK: no tics or fasciculations; no edema noted in the LEs b/l, nonerythematous Neuro: A&Ox3; normal mood and affect; fluent speech; no focal deficits; sensation intact in the LEs b/l Results & Data Results & Data Vital Signs (Past 12 Hours) Vital Signs Temp Pulse Pulse Resp BP Pulse Ox Pulse Ox 07/30/24 07:36 101 H 18 92 07/30/24 07:10 37.4 C 104 H 18 99/64 L 93 07/30/24 07:00 116 H 07/30/24 02:21 37.1 C 104 H 18 102/68 93 07/30/24 00:00 95 07/29/24 23:10 36.9 C 107 H 18 97/67 L 94 07/29/24 22:00 106 H O2 Del Method O2 Del Method 07/30/24 07:36 Room Air 07/30/24 07:10 Room Air 07/30/24 07:00 07/30/24 02:21 Room Air 07/30/24 00:00 Room Air 07/29/24 23:10 Room Air 07/29/24 22:00 PG Care Time/CCT Total # of Minutes Spent Total Time Spent with Patient: Total time spent is greater than 50% in coordination of care (as documented) at patient's floor/unit and/or counseling patient: Coding [place] [address] SUB INP/OBS CARE 2/35MIN Patient Type Established History Comprehensive Exam Comprehensive Medical Decision Making Moderate Complexity Diagnoses Influenza A J10.1 Kidney stones N20.0 History of atrial fibrillation Z86.79 Physical deconditioning R53.81 Pneumonia J18.9
[2024-07-31 07:45] VITALS: RESP 17
[2024-07-31 11:37] VITALS: BP 100/66; TEMP 98.2; O2SAT 93
[2024-07-31 11:38] VITALS: PULSE 95
--- NOTE | 2024-07-31 11:40 | Discharge Summary ---
Discharge Summary Date of Service July 31, 2024 Principal Dx & Hospital Course #1 = Principal Diagnosis (1) Influenza A: (2) Kidney stones: (3) History of atrial fibrillation: (4) Physical deconditioning: (5) Pneumonia: Plan 83 year old female with past medical history of kidney stones, GERD, ASCVD, Lupus, Paroxysmal Afib presented here due to weakness, nausea/vomiting, cough for 1 week of duration. Patient had right stent catheter placed on 07/05. Patient found with tachycardia and hypotension in the ED, IV Cefepime and IV fluid resuscitation given in the ED. On arrival , Afib with RVR S/P diltiazem and IV metoprolol STAT at ED. Biofire positive for Flu A. She developed mild pulmonary edema 2/2 fluid resuscitation and cleared after 1 dose of lasix and stopping fluids. She does not look volume overload now. With new need of Oxygen and symptoms of LRI, Chest XR was repeated which reported pneumonia with mild pleural effusion after clearance of edema. She is on Augmentin for CAP. Was overall stable, however new need of O2 was concerning on 07/29; no new change in imaging on 07/29. Physical deconditioning has progressed; however, the patient declined working with PT at the hospital on 07/30. Day of discharge 07/31: Patient reports she is feeling much better today when compared to when she came in. She is eager to return home and see her . Again, acute rehab was discussed, but the patient declined acute rehab stay and does not want any sort of nursing facility placement. Discussed concern for risk of falls given physical deconditioning in the hospital; she is adamant about returning home at this time and is of sound mind at this time. Patient reports that she lives with her and that her granddaughter lives in the front of her building. She has a good support system with her children living nearby. Her Daughter, who lives near [place], will be coming to pick her up from the hospital today. Overall, she is doing much better; no respiratory symptoms other than ongoing productive cough; no fever or setbacks overnight. ROS: Patient endorses productive cough (light yellow sputum production). Patient denies fever, chills, night sweats, dizziness/lightheadedness with standing, headache, chest pain, pleuritic CP, SOB at rest, MCNEIL, hemoptysis, abdominal pain, N/V/D, or redness/pain/swelling in the legs. #Pneumonia/ Influenza A / hypoxia - Vitals: Tachycardic this AM( HR aha 170 at a point, was anxious though), BP MAP> 60. - New need of O2 today at 2L now. - Chest XR( 07/27) : Pulmonary infection with mild pleural effusion. 07/29: Similar patchy bibasilar airspace opacities suspicious for pneumonia. Small pleural effusions - blood CS: no growth in 24 hr. - procal negative. - Continue DuoNeb QID PRN. - Mucinex for congestion - Stable CBC, CMP with WBCs pretty low range chronic - New onset hypoxia (SpO2 89% on RA) noted on the evening of 07/29; no additional episodes of hypoxia on 07/30 or 07/31 #Physical Deconditioning - Progressive deconditioning - OT/ PT reeval recommended rehab upon discharge Note: Patient refused PT session on 07/30, has she reports she has been up moving around all day; declines any sort of [facility] facility or rehab; open to home health - Accepted by [facility] upon discharge #Enterococcus/ E coli UTI: - Sensitive to Amoxicillin - Augmentin started on evening 07/27 - Patient being sent home on Augmentin twice daily to complete 7 day course #A fib - On and off tachy ( most ranges < 110) * RFs: fever/ infection/ dehydration on presentation/ Anxious/ acute sickness - SBP 90-110, in last 24 hr, MAP > 60 consistently. - Transient tachy - Continue Metoprolol tartrate 25mg BID - Continue tele - Continue Eliquis #H/O CAD/ID - No active sx now. - Under Imdur QAM at home. - Imdur 60 mg p.o. restarted on 07/30, however patient's blood pressure soft today (MAP has remained >60 consistently); will plan to continue #Hx of nephrolithiasis/ Gross Hematuria - Patient with hx of chronic kidney stones - cystoscopy + left stent catheter,+ exchange of right stent catheter on 2024 by Keesha Gonzales - CT AP- nonobstructing left kidney upper stone measuring 19 mm. Left stent in place. No hydronephrosis - Augmentin for UTI symptoms (as above) #GERD - continue PPI Dispo: Discharge home on 07/31 Admission HPI Per Admitting Provider 83 year old female with past medical history of kidney stones, GERD, ASCVD, Lupus, Paroxysmal Afib here due to weakness, nausea/vomiting, cough for 1 week of duration. Patient had cystoscopy and right stent catheter placed on 07/05 due to large kidney stones. She states having hives and poor po since approximally 5 days ago. Patient states having a wet cough as well. She states had been difficult to keep down her medication. Denied any chest pain or SOB. Denied any abdominal pain. Patient states having gross hematuria since procedure on 07/05. Denied any hx of Asthma or COPD. ED course- Patient found with tachycardia and hypotension in the ED, IV Cefepime and IV fluid resuscitation given in the ED. EKG showing Afib with RVR, treated with diltiazem and IV metoprolol. Biofire positive for Flu A Admission Exam Per Admitting Provider Constitutional: + ill appearing and + thin; no acute dis tress Eyes: PERRL, conjunctivae normal, anicteric sclerae ENMT: external ear and nose normal, oropharynx normal Respiratory: + cough; no respiratory distress and no labored breathing Auscultation: + rales and + wheezes Cardiovascular: RRR, no murmur, no edema Gastrointestinal (Abdomen): normal bowel sounds, soft, nontender, no hepatosplenomegaly Skin: no rashes, warm and dry Discharge Exam General: no acute distress; non-toxic appearing; frail appearing; cooperative; SpO2 94% on RA HEENT: normocephalic, atraumatic; no scleral icterus; PERRLA; vision and hearing grossly intact Neck: supple; no lymphadenopathy; trachea midline Skin: warm, dry without signs of tenting; no cyanosis; no rashes, bruising, lesions, or erythema noted CV: chest wall NTP; RRR; S1/S2 normal; no murmurs/rubs/gallops; pulses intact and symmetric at radial, DP, and PT Lungs: no acute respiratory distress; deep breaths induce coughing; symmetrical chest wall expansion; mild expiratory wheeze in the lower lung patel bilaterally ABD: Soft, NTP; BS present; no rebound/guarding; no distention MSK: no tics or fasciculations; no edema noted in the LEs b/l, nonerythematous Neuro: A&Ox3; normal mood and affect; fluent speech; no focal deficits; sensation intact in the LEs b/l Discharge Plan Discharge Items Patient Disposition: Home - Self-Care Reason For Visit: FLU A, DEHYDRATION Discharge Diagnosis: Acute dehydration 2/2 to flu A. Activity: As commented below Activity Comment: Gradually increase activity as tolerated; stop to rest if you develop MCNEIL Lifting: Gradually increase as tolerated Non-emergency contact: Primary Care Provider Call non-emergency contact if: you have any medication questions, your symptoms worsen and you have a fever Follow-up/Referrals: Sandra Guajardo CRNP [Primary Care Provider] - Diet: Regular Addtl Attending Provider Instructions: You were hospitalized at [facility] from 07/23 -07/31 for influenza A, weakness, and dehydration. You were treated with nebulizers, Mucinex, and amoxicillin for a UTI/empiric coverage for pneumonia. While PT/OT did recommend acute rehab due to physical conditioning, this was declined, and we agreed to set up home health upon discharge. Given your respiratory symptoms have largely resolved, it is felt that you are safe to return home at this time. You will be discharged home on 2 new medications: Augmentin and guaifenesin. Augmentin is an antibiotic that you are currently taking for her urinary tract infection. It is important to complete the full 7-day course of this antibiotic, and 6 additional tablets have been sent to your pharmacy. Please take this antibiotic twice daily for 3 days after discharge. Additionally, we are sending you home on guaifenesin (Mucinex), which can be taken every 12 hours as needed for cough. Over the course of your hospital stay, there was one episode where you are oxygen saturation dropped to 89% on room air. For this reason, it is recommended that you obtain a pulse oximeter for home use, which is a small device that you placed on your finger. This can be obtained either at [facility] or over [employer]. At time of discharge, your oxygen saturation is 94% on room air, and it is recommended that if your oxygen saturation is persistently below 90% you return to the emergency department. If you develop any new or worsening symptoms, such as fever, chills, night sweats, chest pain, chest pain with deep breaths, blood in your cough, or if you have any new concerns please return to the emergency department immediately. It was a pleasure taking care of you. Please reach out with any questions or concerns. Sincerely, Alin Ng PA-C Pending Studies at Discharge: No Stand-Alone Forms: My [facility], Smoking Cessation Medications and DC Order Prescriptions: New amoxicillin-pot clavulanate 875-125 mg Tablet 1 tab PO BIDM Qty: 6 0RF Rx Instructions: Take 1 tablet by mouth twice daily to complete 7 day course of antibiotics guaifenesin [Mucinex] 600 mg Tablet Extended Release 12hr 600 mg PO Q12 Qty: 14 0RF Rx Instructions: Take 1 tablet by mouth every 12 hours as needed for cough Continued fluticasone propionate [Flonase Allergy Relief] 50 mcg/actuation spray,suspension 2 spray INTRANASAL DAILY PRN (Reason: Congestion) Qty: 48 1RF isosorbide mononitrate 60 mg tablet extended release 24 hr 90 mg PO QAM Qty: 135 1RF atorvastatin 40 mg tablet 40 mg PO QAM Qty: 90 3RF Hold Instructions: Resume on 07/02/24. Resume AM of 07/02 omeprazole 20 mg capsule,delayed release(DR/EC) 20 mg PO QAM Qty: 90 3RF linezolid [Zyvox] 600 mg tablet 600 mg PO BID ondansetron 4 mg tablet,disintegrating 4 mg PO Q8H PRN (Reason: nausea and vomiting) Qty: 10 0RF metoprolol tartrate 25 mg tablet 25 mg PO BID tamsulosin 0.4 mg Capsule 0.4 mg PO HS Qty: 30 0RF Eliquis 2.5 mg Tablet 2.5 mg PO BID Qty: 60 0RF Hold Instructions: Resume on 07/07/24. until deemed safe by urology following procedure on 07/05 tramadol 50 mg Tablet 25 mg PO Q4H PRN (Reason: pain) Qty: 15 0RF oxybutynin chloride 5 mg Tablet 5 mg PO BID Qty: 60 0RF sucralfate [Carafate] 100 mg/mL suspension 10 ml PO QID PRN (Reason: painful swallowing) Qty: 420 0RF Rx Instructions: swish in mouth and swallow; use after food/drink: May substitute tablets as a slurry. Discharge Orders: Discharge Order (Routine); Ordered 07/31/24 Ordered By: Alin Ng Admission Data Admit Date/Time: 07/23/24 23:18 Attending Provider: Harry Pineda Admit Provider: Elizabeth Champion Primary Care Provider: Sandra Guajardo Other Providers: Harriett Jain Home [facility] Stay Data Consultations 07/23/24 23:00 ED Decision to Admit Stat Diagnostic Imagining Performed 07/23/24 20:13 CT abd pelvis IV con only Stat Discharge Instructions Given to Patient (Per Discharging Provider) You were hospitalized at [facility] from 07/23 -07/31 for influenza A, weakness, and dehydration. You were treated with nebulizers, Mucinex, and amoxicillin for a UTI/empiric coverage for pneumonia. While PT/OT did recommend acute rehab due to physical conditioning, this was declined, and we agreed to set up home health upon discharge. Given your respiratory symptoms have largely resolved, it is felt that you are safe to return home at this time. You will be discharged home on 2 new medications: Augmentin and guaifenesin. Augmentin is an antibiotic that you are currently taking for her urinary tract infection. It is important to complete the full 7-day course of this antibiotic, and 6 additional tablets have been sent to your pharmacy. Please take this antibiotic twice daily for 3 days after discharge. Additionally, we are sending you home on guaifenesin (Mucinex), which can be taken every 12 hours as needed for cough. Over the course of your hospital stay, there was one episode where you are oxygen saturation dropped to 89% on room air. For this reason, it is recommended that you obtain a pulse oximeter for home use, which is a small device that you placed on your finger. This can be obtained either at [facility] or over [employer]. At time of discharge, your oxygen saturation is 94% on room air, and it is recommended that if your oxygen saturation is persistently below 90% you return to the emergency department. If you develop any new or worsening symptoms, such as fever, chills, night sweats, chest pain, chest pain with deep breaths, blood in your cough, or if you have any new concerns please return to the emergency department immediately. It was a pleasure taking care of you. Please reach out with any questions or concerns. Sincerely, Alin J. Hernandez, PA-C Total Time Total Time Spent Total Time Spent (In Minutes): 35 Coding [place] [address] INP/OBS DISCH >30 MIN Patient Type Established History Comprehensive Exam Comprehensive Medical Decision Making Moderate Complexity Diagnoses Influenza A J10.1 Kidney stones N20.0 History of atrial fibrillation Z86.79 Physical deconditioning R53.81 Pneumonia J18.9
== END 2024-07-31 13:39 | disposition home health service (06) | DRG 193 ==
LOC: ED 19:48 → 2W 23:18 → SUATTDRO 23:18 → 2W 07-24 00:35